=== PATIENT | female | born 2000 | race Two or more races ===

== ENCOUNTER 2023-01-10 09:42 | Outpatient (OUT) | payer MEDICAID, SELFPAY ==
--- NOTE | 2023-01-10 09:44 | US_ITS ---
[address] [address] Patient Name: JONATHAN HAN MRN: [id number] date: 2000 Sex: F Assigned Patient Location: [place] Current Patient Location: US Accession/Order Number: [id number] Exam Date: 01/10/2023 09:45 Report Date: 01/10/2023 11:42 At the request of: NIKKI TOLLIVER Procedure: US OB transvaginal EXAMINATION: US OB transvaginal HISTORY: MISSED MENSES COMPARISON: No relevant comparison available. FINDINGS: Mancera intrauterine gestation Gestational sac: 5.0 cm, 10 weeks 5 days CRL: 5.3 cm, 12 weeks 0 days + yolk sac: 5.3 mm Heart rate: 161 beats minute Cervix: Closed, 5.5 cm The uterus is normal, anteverted, anteflexed The right ovary is normal. The left ovary is not visualized Clinical age: 11 weeks 3 days Clinical BEREKET: 07/29/2023 Ultrasound age: 12 weeks 0 days Ultrasound BEREKET: 07/25/2023 US/US OB transvaginal IMPRESSION: Mancera intrauterine gestation measuring 12 weeks 0 days Electronically authenticated by: SHANA ROBLERO Date: 01/10/2023 11:42
== END 2023-01-10 09:43 | disposition home or self-care (01) ==
LOC: US 09:42
PROVIDERS: Visit Provider Obstetrics & Gynecology
DX: Z34.91 Encounter for supervision of normal pregnancy, unspecified, first trimester (principal); Z3A.12 12 weeks gestation of pregnancy
CPT/HCPCS: 76817

== ENCOUNTER 2023-02-11 16:35 | Outpatient (OUT) | payer MEDICAID, SELFPAY ==
[2023-02-11 16:58] LABS: Basophils Percent Auto 0.1 % (0.2-2.0); Eosinophils Absolute Auto 0.1 10^3/uL (0.0-0.7); Eosinophils Percent Auto 1.3 % (0.9-7.0); Hematocrit 35.4 % (36.0-48.0); Immature Granulocytes Abs Auto 0.01 10^3/uL (0.00-0.03); Immature Granulocytes Pct Auto 0.1 % (0.0-0.5); Lymphocytes Absolute Auto 1.8 10^3/uL (1.2-3.8); Lymphocytes Percent Auto 25.4 % (20.5-60.0); Mean Corpuscular HGB Conc 33.9 g/dL (29.9-35.2); Mean Corpuscular Hemoglobin 29.4 pg (26.7-34.0); Mean Corpuscular Volume 86.8 fL (81.0-99.0); Mean Platelet Volume 10.6 fL (9.5-13.5); Monocytes Absolute Auto 0.5 10^3/uL (0.3-0.8); Monocytes Percent Auto 6.5 % (1.7-12.0); Neutrophils Absolute Auto 4.7 10^3/uL (1.4-6.5); Neutrophils Percent Auto 66.6 % (43.0-75.0); Platelet Count 258 10^3/uL (150-450); Red Blood Count 4.08 10^6/uL (4.20-5.40); Red Cell Distribution Width 12.8 % (11.0-15.0)
[2023-02-11 17:07] LABS: Estimated Average Glucose 103 mg/dL; Glycohemoglobin A1C 5.2 % (4.5-6.2)
[2023-02-11 17:31] LABS: Thyroid Stimulating Hormone 0.014 uIU/mL (0.358-3.740)
[2023-02-13 04:07] LABS: HBsAg Screen Negative (Negative); HIV Ab/p24 Ag Screen Non Reactive (Non Reactive)
[2023-02-13 06:08] LABS: HCV Ab Non Reactive (Non Reactive); Rubella Antibodies, IgG 2.03 index (Immune >0.99)
[2023-02-13 10:10] LABS: Rapid Plasma Reagin, Quant Non Reactive titer (NonRea<1:1)
== END 2023-02-11 16:36 | disposition home or self-care (01) ==
LOC: LAB 16:35
PROVIDERS: Visit Provider Obstetrics & Gynecology
DX: Z36.0 Encounter for antenatal screening for chromosomal anomalies (principal); N92.6 Irregular menstruation, unspecified
CPT/HCPCS: 36415; 83036; 84443; 85025; 86592; 86762; 86803; 86850; 86900; 86901; 87086; 87340; 87389

== ENCOUNTER 2023-03-04 19:37 | Outpatient (REF) | payer MEDICAID, SELFPAY ==
[2023-03-08 14:09] LABS: Age Gdln ACOG Testing Note (.); IGP, rfx Aptima HPV ASCU Note (.)
== END 2023-03-04 19:38 | disposition home or self-care (01) ==
LOC: LAB 19:37
PROVIDERS: Visit Provider Physician Assistant
DX: Z01.419 Encounter for gynecological examination (general) (routine) without abnormal findings (principal)
CPT/HCPCS: G0145

== ENCOUNTER 2023-03-25 13:54 | Outpatient (OUT) | payer MEDICAID, SELFPAY ==
--- OUTSIDE RECORDS SUMMARY | 2023-03-25 13:58 | XMS_ITS | CCD ---
Author Name Unknown Address [address] [facility] [address] [place] [address] Organization [facility] Care Team Providers Care Gas Meter Prover Name Role Phone UNRULY ., DR JORDAN Admitting Unavailable UNRULY ., DR JORDAN Attending Unavailable KARASIK ., DR DISLA Primary Care Unavailabl e UNRULY ., DR JORDAN Consulting Unavailable UNRULY ., DR JORDAN Admitting Unavailable UNRULY ., DR JORDAN Attending Unavailable KARASIK ., DR DISLA Primary Care Unavailjane ROBLERO, DR SHANA Carranza Consulting Unavailable UNRULY ., DR JORDAN Consulting Unavailable UNRULY ., DR JORDAN Admitting Unavailable UNRULY ., DR JORDAN Attending Unavailable KARASIK ., DR DISLA Primary Care Unavailabl e UNRULY ., DR JORDAN Consulting Unavailable ZIEBER, DR DEON Way Consulting Unavailable UNRULY ., DR JORDAN Admitting Unavailable UNRULY ., DR JORDAN Attending Unavailable KARASIK ., DR DISLA Primary Care Unavailabl e UNRULY ., DR JORDAN Consulting Unavailable UNRULY ., DR JORDAN Admitting Unavailable UNRULY ., DR JORDAN Attending Unavailable KARASIK ., DR DISLA Primary Care Unavailjane ROBLERO, DR SHANA Carranza Consulting Unavailable UNRULY ., DR JORDAN Consulting Unavailable MISC, DR HENAO Primary Care Unavailable UNRULY ., DR JORDAN Admitting Unavailable UNRULY ., DR JORDAN Attending Unavailable KARASIK ., DR DISLA Consulting Unavailabl e UNRULY ., DR JORDAN Consulting Unavailable UNRULY ., DR JORDAN Procedure Practitioner Unavail able MISC, DR HENAO Primary Care Unavailable BROCK MITCHELL Admitting Unavailable BROCK MITCHELL Attending Unavailable GRECHNY ., DM JOE Consulting Unavailabl [place] Matias Consulting Unavailable UNRULY ., DR JORDAN Admitting Unavailable UNRULY ., DR JORDAN Attending Unavailable KARASIK ., DR DISLA Primary Care Unavailabl e UNRULY ., DR JORDAN Consulting Unavailable NIKKI TOLLIVER Attending Unavailable MOISÉS SHERIDAN Attending Unavailable Problems Active Problems Problem Classification Problem Date Documented Da te Episodic/Chronic Abdominal pain (4 sources) Epigastric pain; Translations: [EPIGASTRIC PAIN] Onset: 07-10-2022 Episodic Viral infection (1 source) Herpesviral infection of urogenital system, unspecified; Translations: [HERPESVIRAL INF UROGENITAL SYS UNS] Onset: 01-02-2022 Chronic Past or Other Problems Problem Classification Problem Date Documented Date Episodic/Chronic Hemorrhage during ; abruptio placenta; placenta previa (4 sources) Antepartum hemorrhage, unspecified, unspecified trimester; Translations: [ANTEPARTUM HEMORR UNS UNS TRIMESTER] Onset: 08-01-2021 Episodic Immunizations and screening for infectious disease (4 sources) Encounter for screening for infections with a predominantly sexual mode of transmission; Translations: [ENC SCREEN INFECTIONS SEXL TRANSMS] Onset: 07-25-2021 Episodic OB-related trauma to perineum and vulva (1 source) First degree perineal laceration during delivery; Translations: [FIRST DEG PERINEAL LAC DUR DELIV] Onset: 01-02-2022 Episodic Other complications of ; puerperium affecting management of mother (3 sources) Other infections with a predominantly sexual mode of transmission complicating childbirth; Translations: [OTH INF SEXL TRNSMS COMP CHILDBIRTH] Onset: 12-26-2021 Episodic Other complications of (4 sources) Maternal care for excessive growth, third trimester, not applicable or unspecified; Translations: [MAT CARE EXCSS FTL GRTH 3RD TRI UNS] Onset: 12-21-2021 Episodic Other female genital disorders (1 source) Other specified noninflammatory disorders of vagina; Translations: [OTH SPEC NONINFLAMMATORY D/O VAGINA] Onset: 07-26-2021 Episodic Other and delivery including normal (1 source) Single live ; Translations: [SINGLE LIVE ] Onset: 01-02-2022 Episodic Other screening for suspected conditions (not mental disorders or infectious disease) (12 sources) Encounter for screening for Streptococcus B; Translations: [Encounter for screening for diabetes mellitus] Onset: 08-21-2021 Episodic Residual codes; unclassified (1 source) 38 weeks gestation of ; Translations: [38 WEEKS GESTATION OF ] Onset: 01-02-2022 Episodic Results Test Name Value Interpretation Reference Range Facil ity XR ABD FLAT UP_PA Arielle 07-11 XR ABD FLAT UP_PA CH ACUTE ABDOMINAL SERIES HISTORY: Abdominal pain TECHNIQUE: A single view of the chest and 3 views of the abdomen and pelvis are submitted for review. COMPARISON: None. FINDINGS: Chest x-ray: The lungs are adequately expanded. There is no acute infiltrate. There is no evidence for effusion. The cardiomediastinal silhouette measures within normal limits. Pulmonary vascularity is unremarkable. Osseous structures are within normal limits for age.. Abdomen: There is no evidence of free air.. The bowel gas pattern is nonobstructive. There are no abnormal calcifications. Osseous structures are within normal limits. IMPRESSION: Chest x-ray: No plain film evidence for acute cardiopulmonary disease. Abdomen: 1. Nonobstructive bowel gas pattern. 2. Moderate retention of stool. Electronically authenticated by: GEORGIA MAYFIELD Date: 2022-07-10 22:30 Normal [facility] CBC AUTO DIFFon 07-10-2022 BASO # 0.0 103/ul Normal 0.0-0.1 [facility] Comment on above: Performed By: #### C BC #### [facility] [address] [place] [address] Dr. Papo Swanson Basophils/100 WBC (Bld) 0.4 % Normal 0.2-2.0 [facility] Comment on above: Performed By: #### C BC #### [facility] [address] [place] [address] Dr. Papo Swanson EO # 0.1 103/ul Normal 0.0-0.7 [facility] Comment on above: Performed By: #### C BC #### [facility] [address] [address] [address] Papo Swanson Eosinophils/100 WBC (Bld) 0.6 % Critically low 0.9-7.0 [facility] Comment on above: Performed By: #### C BC #### [facility] [address] [address] [address] Papo Swanson Erythrocyte distribution width (RBC) [Ratio] 14.4 % Normal 11.0-15.0 [facility] Comment on above: Performed By: #### C BC #### [facility] [address] [place] [address] Dr. Papo Swanson Hematocrit (Bld) [Volume fraction] 42.2 % Normal 36.0-48.0 [facility] Comment on above: Performed By: #### C BC #### [facility] [address] [place] [address] Dr. Papo Swanson Hemoglobin (Bld) [Mass/Vol] 13.7 g/dL Normal 12.0-16.0 [facility] Comment on above: Performed By: #### C BC #### [facility] [address] [place] [address] Dr. Papo Swanson IG # 0.03 10e3/ul Normal 0.00-0.03 [facility] Comment on above: Performed By: #### C BC #### [facility] [address] [place] [address] Dr. Papo Swanson IG % 0.3 % Normal 0.0-0.5 [facility] Comment on above: Performed By: #### C BC #### [facility] [address] [place] [address] Dr. Papo Swanson LYMPH # 1.5 103/ul Normal 1.2-3.8 [facility] Comment on above: Performed By: #### C BC #### [facility] [address] [place] [address] Dr. Papo Swanson Lymphocytes/100 WBC (Bld) 15.7 % Critically low 20.5-60.0 [facility] Comment on above: Performed By: #### C BC #### [facility] [address] [place] [address] Dr. Papo Swanson MANUAL DIFF REQ NO Normal [facility] Comment on above: Performed By: #### C BC #### [facility] [address] [place] [address] Dr. Papo Swanson MCH (RBC) [Entitic mass] 27.0 pg Normal 26.7-34.0 [facility] Comment on above: Performed By: #### C BC #### [facility] [address] [address] [address] Papo Swanson MCHC (RBC) [Mass/Vol] 32.5 g/dL Normal 29.9-35.2 [facility] Comment on above: Performed By: #### C BC #### [facility] [address] [address] [address] Papo Swanson MCV (RBC) [Entitic vol] 83.2 fL Normal 81.0-99.0 [facility] Comment on above: Performed By: #### C BC #### [facility] [address] [address] [address] Papo Swnason MONO # 0.6 103/ul Normal 0.3-0.8 [facility] Comment on above: Performed By: #### C BC #### [facility] [address] [place] [address] Dr. Papo Swanson Monocytes/100 WBC (Bld) 5.9 % Normal 1.7-12.0 [facility] Comment on above: Performed By: #### C BC #### [facility] [address] [place] [address] Dr. Papo Swanson NEUT # 7.4 103/ul Critically high 1.4-6.5 [facility] Comment on above: Performed By: #### C BC #### [facility] [address] [address] [address] Papo Swanson Neutrophils/100 WBC (Bld) 77.1 % Critically high 43.0-75.0 [facility] Comment on above: Performed By: #### C BC #### [facility] [address] [address] [address] Papo Swanson Platelet mean volume (Bld) [Entitic vol] 10.5 fL Normal 9.5-13.5 [facility] Comment on above: Performed By: #### C BC #### [facility] [address] [place] [address] Dr. Papo Swanson PLT 318 103/ul Normal 150-450 [facility] Comment on above: Performed By: #### C BC #### [facility] [address] [place] [address] Dr. Papo Swanson RBC 5.07 106/ul Normal 4.20-5.40 [facility] Comment on above: Performed By: #### C BC #### [facility] [address] [place] [address] Dr. Papo Swanson WBC 9.7 103/ul Normal 4.0-11.0 [facility] Comment on above: Performed By: #### C BC #### [facility] [address] [place] [address] Dr. Papo Swanson ER URINE PROFILEon 3 Bilirubin Ql (U) Negative Normal NEGATIVE [facility] Comment on above: Performed By: #### E RUR #### [facility] [address] [place] [address] Dr. Papo Swanson Clarity (U) CLEAR Normal CLEAR [facility] Comment on above: Performed By: #### E RUR #### [facility] [address] [place] [address] Dr. Papo Swanson Color (U) LT. YELLOW Normal YELLOW [facility] Comment on above: Performed By: #### E RUR #### [facility] [address] [place] [address] Dr. Papo JAIMES A micrscopic examination will be performed if indicated. Normal [facility] Comment on above: Performed By: #### E RUR #### [facility] [address] [place] [address] Dr. Papo Swanson Glucose Ql (U) Negative Normal NEGATIVE [facility] Comment on above: Performed By: #### E RUR #### [facility] [address] [place] [address] Dr. Papo Swanson Hemoglobin Ql (U) Negative Normal NEGATIVE [facility] Comment on above: Performed By: #### E RUR #### [facility] [address] [place] [address] Dr. Papo Swanson Ketones Ql (U) Negative Normal NEGATIVE [facility] Comment on above: Performed By: #### E RUR #### [facility] [address] [place] [address] Dr. Papo Swanson LEUKOCYTES Negative Normal NEGATIVE [facility] Comment on above: Performed By: #### E RUR #### [facility] [address] [place] [address] Dr. Papo Swanson Nitrite Ql (U) Negative Normal NEGATIVE [facility] Comment on above: Performed By: #### E RUR #### [facility] [address] [place] [address] Dr. Papo Swanson pH (U) 7.0 [pH] Normal 5-9 [facility] Comment on above: Performed By: #### E RUR #### [facility] [address] [place] [address] Dr. Papo Swanson SPEC GRAVITY 1.025 Normal 1.005-<=1.025 [facility] Comment on above: Performed By: #### E RUR #### [facility] [address] [place] [address] Dr. Papo Swanson UA PROTEIN Negative Normal NEGATIVE/ TRACE [facility] Comment on above: Performed By: #### E RUR #### [facility] [address] [place] [address] Dr. Papo Swanson UR MICRO IND NOT INDICATED Normal [facility] Comment on above: Performed By: #### E RUR #### [facility] [address] [place] [address] Dr. Papo Swanson Urobilinogen Qn (U) 0.2 {Kelle'U}/dL Normal 0.2 - 1.0 [facility] Comment on above: Performed By: #### E RUR #### [facility] [address] [place] [address] Dr. Papo Swanson LIPASEon 07-10-2022 Lipase [Catalytic activity/Vol] 54.0 U/L Critically low 73.0-393.0 [facility] Comment on above: Performed By: #### D RUGRPD #### [facility] [address] [place], [place] [id number] Dr. Papo Swanson PREG HCG QUALon 07-10-2022 , QUAL Negative Normal NEGATIVE [facility] Comment on above: Performed By: #### E RUR #### [facility] [address] [place] [address] Dr. Papo Swanson PROF 14(COMP METB)on 023 Albumin [Mass/Vol] 4.3 g/dL Normal 3.4-5.0 [facility] Comment on above: Performed By: #### D RUGRPD #### [facility] [address] [place] [address] Dr. Papo Swanson Albumin/Globulin [Mass ratio] 1.0 {ratio} Normal [facility] Comment on above: Performed By: #### D RUGRPD #### [facility] [address] [place] [address] Dr. Papo Swanson ALP [Catalytic activity/Vol] 91 U/L Normal 46-116 [facility] Comment on above: Performed By: #### D RUGRPD #### [facility] [address] [place] [address] Dr. Papo Swanson ALT [Catalytic activity/Vol] 19 U/L Normal 14-59 [facility] Comment on above: Performed By: #### D RUGRPD #### [facility] [address] [place] [address] Dr. Papo Swanson Anion gap [Moles/Vol] 13.9 mmol/L Normal [facility] Comment on above: Performed By: #### D RUGRPD #### [facility] [address] [place] [address] Dr. Papo Swanson AST [Catalytic activity/Vol] 13 U/L Critically low 15-37 [facility] Comment on above: Performed By: #### D RUGRPD #### [facility] [address] [place] [address] Dr. Papo Swanson Bilirubin [Mass/Vol] 0.3 mg/dL Normal 0.2-1.0 [facility] Comment on above: Performed By: #### D RUGRPD #### [facility] [address] [address] [address] Papo Swanson Calcium [Mass/Vol] 9.1 mg/dL Normal 8.5-10.1 [facility] Comment on above: Performed By: #### D RUGRPD #### [facility] [address] [address] [address] Papo Swanson Chloride [Moles/Vol] 104 mmol/L Normal 98-107 [facility] Comment on above: Performed By: #### D RUGRPD #### [facility] [address] [address] [address] Papo Swanson CO2 [Moles/Vol] 25.4 mmol/L Normal 21.0-32.0 [facility] Comment on above: Performed By: #### D RUGRPD #### [facility] [address] [address] [address] Papo Swanson Creatinine [Mass/Vol] 0.64 mg/dL Normal 0.55-1.02 [facility] Comment on above: Performed By: #### D RUGRPD #### [facility] [address] [address] [address] Papo Swanson EGFR-AF ESTONIAN >60 Normal >=60 [facility] Comment on above: Performed By: #### D RUGRPD #### [facility] [address] [address] [address] Papo Swanson EGFR-NON AF ESTONIAN >60 Normal >=60 [facility] Comment on above: Performed By: #### D RUGRPD #### [facility] [address] [address] [address] Papo Swanson Globulin (S) [Mass/Vol] 4.3 g/dL Normal [facility] Comment on above: Performed By: #### D RUGRPD #### [facility] [address] [address] [address] Papo Swanson Glucose [Mass/Vol] 101 mg/dL Normal 74-106 [facility] Comment on above: Performed By: #### D RUGRPD #### [facility] [address] [address] [address] Papo Swanson Potassium [Moles/Vol] 3.3 mmol/L Critically low 3.5-5.1 [facility] Comment on above: Performed By: #### D RUGRPD #### [facility] [address] [place] [address] Dr. Papo Swanson Protein [Mass/Vol] 8.6 g/dL Critically high 6.4-8.2 [facility] Comment on above: Performed By: #### D RUGRPD #### [facility] [address] [place] [address] Dr. Papo Swanson Sodium [Moles/Vol] 140 mmol/L Normal 136-145 [facility] Comment on above: Performed By: #### D RUGRPD #### [facility] [address] [place] [address] Dr. Papo Swanson Urea nitrogen [Mass/Vol] 8.0 mg/dL Normal 7.0-18.0 [facility] Comment on above: Performed By: #### D RUGRPD #### [facility] [address] [place] [address] Dr. Papo Swanson Urea nitrogen/Creatinin e [Mass ratio] 12.5 mg/mg Normal [facility] Comment on above: Performed By: #### D RUGRPD #### [facility] [address] [place] [address] Dr. Papo Swanson CBC AUTO DIFFon 12-27-2021 BASO # 0.0 103/ul Normal 0.0-0.1 [facility] Comment on above: Performed By: #### C BC #### [facility] [address] [place] [address] Dr. Papo Swanson Basophils/100 WBC (Bld) 0.2 % Normal 0.2-2.0 [facility] Comment on above: Performed By: #### C BC #### [facility] [address] [place] [address] Dr. Papo Swanson EO # 0.0 103/ul Normal 0.0-0.7 [facility] Comment on above: Performed By: #### C BC #### [facility] [address] [address] [address] Papo Swanson Eosinophils/100 WBC (Bld) 0.3 % Critically low 0.9-7.0 [facility] Comment on above: Performed By: #### C BC #### [facility] [address] [place] [address] Dr. Papo Swanson Erythrocyte distribution width (RBC) [Ratio] 15.4 % Critically high 11.0-15.0 [facility] Comment on above: Performed By: #### C BC #### [facility] [address] [place] [address] Dr. Papo Swanson Hematocrit (Bld) [Volume fraction] 27.8 % Critically low 36.0-48.0 [facility] Comment on above: Performed By: #### C BC #### [facility] [address] [place] [address] Dr. Papo Swanson Hemoglobin (Bld) [Mass/Vol] 8.7 g/dL Critically low 12.0-16.0 [facility] Comment on above: Performed By: #### C BC #### [facility] [address] [place] [address] Dr. Papo Swanson IG # 0.11 10e3/ul Critically high 0.00-0.03 [facility] Comment on above: Performed By: #### C BC #### [facility] [address] [place] [address] Dr. Papo Swanson IG % 0.9 % Critically high 0.0-0.5 [facility] Comment on above: Performed By: #### C BC #### [facility] [address] [place] [address] Dr. Papo Swanson LYMPH # 2.4 103/ul Normal 1.2-3.8 [facility] Comment on above: Performed By: #### C BC #### [facility] [address] [place] [address] Dr. Papo Swanson Lymphocytes/100 WBC (Bld) 19.6 % Critically low 20.5-60.0 [facility] Comment on above: Performed By: #### C BC #### [facility] [address] [place] [address] Dr. Papo Swanson MANUAL DIFF REQ NO Normal [facility] Comment on above: Performed By: #### C BC #### [facility] [address] [place] [address] Dr. Papo Swanson MCH (RBC) [Entitic mass] 24.6 pg Critically low 26.7-34.0 [facility] Comment on above: Performed By: #### C BC #### [facility] [address] [place] [address] Dr. Papo Swanson MCHC (RBC) [Mass/Vol] 31.3 g/dL Normal 29.9-35.2 [facility] Comment on above: Performed By: #### C BC #### [facility] [address] [place] [address] Dr. Papo Swanson MCV (RBC) [Entitic vol] 78.8 fL Critically low 81.0-99.0 [facility] Comment on above: Performed By: #### C BC #### [facility] [address] [place] [address] Dr. Papo Swanson MONO # 0.8 103/ul Normal 0.3-0.8 [facility] Comment on above: Performed By: #### C BC #### [facility] [address] [place] [address] Dr. Papo Swanson Monocytes/100 WBC (Bld) 6.2 % Normal 1.7-12.0 [facility] Comment on above: Performed By: #### C BC #### [facility] Laboratory [address] [place] [address] Dr. Papo Swanson NEUT # 8.9 103/ul Critically high 1.4-6.5 The [facility] Comment on above: Performed By: #### C BC #### [facility] [address] [place] [address] Dr. Papo Swanson Neutrophils/100 WBC (Bld) 72.8 % Normal 43.0-75.0 [facility] Comment on above: Performed By: #### C BC #### [facility] [address] [place] [address] Dr. Papo Swanson Platelet mean volume (Bld) [Entitic vol] 11.7 fL Normal 9.5-13.5 [facility] Comment on above: Performed By: #### C BC #### [facility] [address] [address] [address] Papo Swanson PLT 173 103/ul Normal 150-450 [facility] Comment on above: Performed By: #### C BC #### [facility] [address] [place] [address] Dr. Papo Swanson RBC 3.53 106/ul Critically low 4.20-5.40 The [facility] Comment on above: Performed By: #### C BC #### [facility] [address] [place] [address] Dr. Papo Swanson WBC 12.2 103/ul Critically high 4.0-11.0 The [facility] Comment on above: Performed By: #### C BC #### [facility] [address] [place] [address] Dr. Papo Swanson CBC AUTO DIFFon 12-26-2021 BASO # 0.0 103/ul Normal 0.0-0.1 [facility] Comment on above: Performed By: #### C BC #### [facility] [address] [place] [address] Dr. Papo Swanson Basophils/100 WBC (Bld) 0.2 % Normal 0.2-2.0 [facility] Comment on above: Performed By: #### C BC #### [facility] [address] [place] [address] Dr. Papo Swanson EO # 0.1 103/ul Normal 0.0-0.7 [facility] Comment on above: Performed By: #### C BC #### [facility] [address] [place] [address] Dr. Papo Swanson Eosinophils/100 WBC (Bld) 0.8 % Critically low 0.9-7.0 [facility] Comment on above: Performed By: #### C BC #### [facility] [address] [place] [address] Dr. Papo Swanson Erythrocyte distribution width (RBC) [Ratio] 15.2 % Critically high 11.0-15.0 [facility] Comment on above: Performed By: #### C BC #### [facility] [address] [place] [address] Dr. Papo Swanson Hematocrit (Bld) [Volume fraction] 31.5 % Critically low 36.0-48.0 [facility] Comment on above: Performed By: #### C BC #### [facility] [address] [place] [address] Dr. Papo Swanson Hemoglobin (Bld) [Mass/Vol] 9.9 g/dL Critically low 12.0-16.0 [facility] Comment on above: Performed By: #### C BC #### [facility] [address] [place] [address] Dr. Papo Swanson IG # 0.21 10e3/ul Critically high 0.00-0.03 [facility] Comment on above: Performed By: #### C BC #### [facility] [address] [place] [address] Dr. Papo Swanson IG % 2.5 % Critically high 0.0-0.5 [facility] Comment on above: Performed By: #### C BC #### [facility] [address] [place] [address] Dr. Papo Swanson LYMPH # 1.8 103/ul Normal 1.2-3.8 [facility] Comment on above: Performed By: #### C BC #### [facility] [address] [place] [address] Dr. Papo Swanson Lymphocytes/100 WBC (Bld) 20.8 % Normal 20.5-60.0 [facility] Comment on above: Performed By: #### C BC #### [facility] [address] [place] [address] Dr. Papo Swanson MANUAL DIFF REQ NO Normal [facility] Comment on above: Performed By: #### C BC #### [facility] [address] [place] [address] Dr. Papo Swanson MCH (RBC) [Entitic mass] 24.5 pg Critically low 26.7-34.0 [facility] Comment on above: Performed By: #### C BC #### [facility] [address] [place] [address] Dr. Papo Swanson MCHC (RBC) [Mass/Vol] 31.4 g/dL Normal 29.9-35.2 [facility] Comment on above: Performed By: #### C BC #### [facility] [address] [place] [address] Dr. Papo Swanson MCV (RBC) [Entitic vol] 78.0 fL Critically low 81.0-99.0 [facility] Comment on above: Performed By: #### C BC #### [facility] [address] [place] [address] Dr. Papo Swanson MONO # 0.5 103/ul Normal 0.3-0.8 [facility] Comment on above: Performed By: #### C BC #### [facility] [address] [place] [address] Dr. Papo Swanson Monocytes/100 WBC (Bld) 6.4 % Normal 1.7-12.0 [facility] Comment on above: Performed By: #### C BC #### [facility] [address] [place] [address] Dr. Papo Swanson NEUT # 5.8 103/ul Normal 1.4-6.5 [facility] Comment on above: Performed By: #### C BC #### [facility] [address] [place] [address] Dr. Papo Swanson Neutrophils/100 WBC (Bld) 69.3 % Normal 43.0-75.0 [facility] Comment on above: Performed By: #### C BC #### [facility] [address] [place] [address] Dr. Papo Swanson Platelet mean volume (Bld) [Entitic vol] 12.2 fL Normal 9.5-13.5 [facility] Comment on above: Performed By: #### C BC #### [facility] [address] [place], [place] [id number] Dr. Papo Swanson PLT 195 103/ul Normal 150-450 [facility] Comment on above: Performed By: #### C BC #### [facility] [address] [place] [address] Dr. Papo Swanson RBC 4.04 106/ul Critically low 4.20-5.40 [facility] Comment on above: Performed By: #### C BC #### [facility] [address] [place] [address] Dr. Papo Swanson WBC 8.4 103/ul Normal 4.0-11.0 [facility] Comment on above: Performed By: #### C BC #### [facility] [address] [place] [address] Dr. Papo Swanson CULTURE URINEon 12-26-2021 CULTURE URINE Culture Observations : LIGHT GROWTH OF MIXED GENITAL NICOLE. NO POTENTIAL PATHOGENS SEEN. Normal The [facility] Comment on above: Performed By: #### U RCX #### [facility] [address] [place] [address] Dr. Papo Swanson Covid-19 PCR (CVDTB)on SARS-CoV-2 (COVID-19) RNA PRIYA+probe Ql (Unsp spec) Not detected Normal NOT DETECTED The [facility] Comment on above: Result Comment: When diagnostic testing is negative, the possibility of a false negative should be considered in the context of a patient's recent exposures and the presence of clinical signs and symptoms consistent with SARS-CoV-2. This test is not yet approved or cleared by the [place] FDA. When there are no FDA-approved or cleared tests available, and other criteria are met, FDA can make tests available under an emergency access mechanism called an Emergency Use Authorization (EUA). The EUA for this test is supported by the [employer] Specialist of Health and Human Service's declaration that circumstances exist to justify the emergency use of in vitro diagnostics for the detection and/or diagnosis of the virus that causes COVID-19. This EUA will remain in effect for the duration of the COVID-19 declaration justifying emergency of IVDs, unless it is terminated or revoked by the FDA (after which the test may no longer be used). Performed By: #### C VDTBH #### [facility] [address] [address] [address] Papo Swanson DRUG SCREEN RAPID (URINE)on 12-26-2021 AMP Negative Normal NEGATIVE [facility] Comment on above: Performed By: #### D RUGRPD #### [facility] [address] [place] [address] Dr. Papo Swanson BAR Negative Normal NEGATIVE [facility] Comment on above: Performed By: #### D RUGRPD #### [facility] [address] [address] [address] Papo Swanson BUP Negative Normal NEGATIVE [facility] Comment on above: Performed By: #### D RUGRPD #### [facility] [address] [place] [address] Dr. Papo Swanson BZO Negative Normal NEGATIVE [facility] Comment on above: Performed By: #### D RUGRPD #### [facility] [address] [place] [address] Dr. Papo Swanson GIRISH Negative Normal NEGATIVE [facility] Comment on above: Performed By: #### D RUGRPD #### [facility] [address] [place] [address] Dr. Papo Swanson CUT-OFFS SEE BELOW Normal The [facility] Comment on above: Result Comment: AMP (Amphetamine): 500ng/mL, BAR (Barbituates): 200 ng/mL, BZO (Benzodiazepines): 150 ng/mL, BUP (Buprenorphine): 10 ng/mL, GIRISH (Cocaine): 150 ng/mL, mAMP (Methamphetamine): 500 ng/mL, MTD (Methadone): 200 ng/mL, OPI (Opiates): 100 ng/mL, OXY (Oxycodone): 100 ng/mL, PCP (Phencyclidine): 25 ng/mL, PPX (Propoxyphene): 300 ng/mL, THC (Cannabinoids): 50 ng/mL, TCA (Trycyclic Antidepressants): 300 ng/mL Performed By: #### D RUGRPD #### [facility] [address] [place] [address] Dr. Papo Swanson DRUG CUT HEADER DRUG CLASS TEST SYST EM CUT-OFF CONCENTRATIONS ARE FOLLOWS: Normal The [facility] Comment on above: Performed By: #### D RUGRPD #### [facility] [address] [place] [address] Dr. Papo Swanson mAMP Negative Normal NEGATIVE [facility] Comment on above: Performed By: #### D RUGRPD #### [facility] [address] [address] [address] Papo Swanson MTD Negative Normal NEGATIVE The [facility] Comment on above: Performed By: #### D RUGRPD #### [facility] [address] [address] [address] Papo Swanson OPI Negative Normal NEGATIVE [facility] Comment on above: Performed By: #### D RUGRPD #### [facility] [address] [place] [address] Dr. Papo Swanson OXY Negative Normal NEGATIVE [facility] Comment on above: Performed By: #### D RUGRPD #### [facility] [address] [address] [address] Papo Swanson PCP Negative Normal NEGATIVE [facility] Comment on above: Performed By: #### D RUGRPD #### [facility] [address] [place] [address] Dr. Papo Swanson PPX Negative Normal NEGATIVE [facility] Comment on above: Performed By: #### D RUGRPD #### [facility] [address] [place] [address] Dr. Papo Swanson TCA Negative Normal NEGATIVE The [facility] Comment on above: Performed By: #### D RUGRPD #### [facility] [address] [place] [address] Dr. Papo Swanson THC Negative Normal NEGATIVE The [facility] Comment on above: Performed By: #### D RUGRPD #### [facility] [address] [place] [address] Dr. Papo Swanson TYPE AND SCREENon 12-26-2021 TYPE AND SCREEN Negative Normal [facility] Comment on above: Performed By: #### D RUGRPD #### [facility] [address] [place], [place] [id number] Dr. Papo Swanson UA (CLEAN/CATCH) [employer]GER/MICRO I F IND.on 12-26-2021 Bilirubin Ql (U) Negative Normal NEGATIVE [facility] Comment on above: Performed By: #### D RUGRPD #### [facility] [address] [place] [address] Dr. Papo Swanson Clarity (U) CLEAR Normal CLEAR [facility] Comment on above: Performed By: #### D RUGRPD #### [facility] [address] [place] [address] Dr. Papo Swanson Color (U) LT. YELLOW Normal YELLOW [facility] Comment on above: Performed By: #### D RUGRPD #### [facility] [address] [place] [address] Dr. Papo Swanson Glucose Ql (U) Negative Normal NEGATIVE [facility] Comment on above: Performed By: #### D RUGRPD #### [facility] [address] [place] [address] Dr. Papo Swanson Hemoglobin Ql (U) Negative Normal NEGATIVE [facility] Comment on above: Performed By: #### D RUGRPD #### [facility] [address] [place] [address] Dr. Papo Swanson Ketones Ql (U) Negative Normal NEGATIVE [facility] Comment on above: Performed By: #### D RUGRPD #### [facility] [address] [place] [address] Dr. Papo Swanson LEUKOCYTES LARGE Abnormal NEGATIVE [facility] Comment on above: Performed By: #### D RUGRPD #### [facility] [address] [place] [address] Dr. Papo Swanson Nitrite Ql (U) Negative Normal NEGATIVE [facility] Comment on above: Performed By: #### D RUGRPD #### [facility] [address] [place] [address] Dr. Papo Swanson pH (U) 7.5 [pH] Normal 5-9 [facility] Comment on above: Performed By: #### D RUGRPD #### [facility] [address] [place] [address] Dr. Papo Swanson SPEC GRAVITY 1.015 Normal 1.005-<=1.025 [facility] Comment on above: Performed By: #### D RUGRPD #### [facility] [address] [place] [address] Dr. Papo Swanson UA PROTEIN Negative Normal NEGATIVE/ TRACE [facility] Comment on above: Performed By: #### D RUGRPD #### [facility] [address] [place] [address] Dr. Papo Swanson UR MICRO IND INDICATED Normal [facility] Comment on above: Performed By: #### D RUGRPD #### [facility] [address] [place] [address] Dr. Papo Swanson Urobilinogen Qn (U) 0.2 {Kelle'U}/dL Normal 0.2 - 1.0 [facility] Comment on above: Performed By: #### D RUGRPD #### [facility] [address] [place] [address] Dr. Papo Swanson URINE MICROSCOPIC ONLYon BACTERIA SMALL Abnormal NONE SEEN The [facility] Comment on above: Performed By: #### D RUGRPD #### [facility] [address] [place] [address] Dr. Papo Swanson Bacteria identified Cx Nom (U) INDICATED Normal [facility] Comment on above: Performed By: #### D RUGRPD #### [facility] [address] [place] [address] Dr. Papo Swanson CAST NONE SEEN Normal NONE SEEN The [facility] Comment on above: Performed By: #### D RUGRPD #### [facility] [address] [place] [address] Dr. Papo Swanson Crystals LM Nom (Urine sed) NONE SEEN Normal NONE SEEN The [facility] Comment on above: Performed By: #### D RUGRPD #### [facility] [address] [place] [address] Dr. Papo Swanson Epithelial cells LM Ql (Urine sed) MODERATE Abnormal NONE SEEN /RARE The [facility] Comment on above: Performed By: #### D RUGRPD #### [facility] [address] [address] [address] Papo Swanson MUCOUS NONE SEEN Normal NONE SEEN The [facility] Comment on above: Performed By: #### D RUGRPD #### [facility] [address] [address] [address] Papo Swanson RBC 0-2 Normal 0-2 [facility] Comment on above: Performed By: #### D RUGRPD #### [facility] [address] [address] [address] Papo Swanson WBC 10-20 Abnormal NONE SEEN The [facility] Comment on above: Performed By: #### D RUGRPD #### [facility] [address] [place] [address] Dr. Papo Swanson US PREG GROWTHon 12-21-2021 US PREG GROWTH EXAMINATION: US PREG GROWTH HISTORY: Excessive growth affecting management of mother COMPARISON: No relevant comparison available. FINDINGS: Heart Rate: 156.1 bpm Amniotic Fluid Volume: 10.8 cm, largest pocket 4.2 cm Number: 1.0 Position: Cephalic presentation, longitudinal lie Maximum Vertical Pocket: 2.2 cm cm 1.7 cm cm 4.2 cm cm 2.7 cm cm BIOMETRY: BPD: 9.2 cm cm; 37 weeks 3 days; 57% HC: 33.7 cmcm; 38 weeks 5 days, 46% AC: 34.7 cm cm; 38 weeks 4 days, 82% FL: 7.2 cm cm; 36 weeks 4 days; 20.0 % % EFW: 3371.7 grams, 7 lbs. 7 oz., 63% FL/AC: 20.6 FL/BPD: 77.7 HC/AC: 1.0 GESTATIONAL AGE: Age by EDC: 38 weeks 0 days BEREKET by EDC: 01/04/2022 Age by US: 37 weeks 6 days BEREKET by US: 01/05/2022 IMPRESSION: Normal interval growth Electronically authenticated by: SHANA ROBLERO Date: 2021-12-21 18:09 Normal The [facility] GROUP B STREP CULTUREon 11-23 S. agalactiae Ag Ql (Unsp spec) Culture Observations: NEGATIVE FOR GROUP B STREPTOCOCCUS. Normal The [facility] Comment on above: Performed By: #### D RUGRPD #### [facility] [address] [place] [address] Dr. Papo Swanson GLUCOSE - 1HRon 10-16-2021 Glucose [Mass/Vol] 148 mg/dL Critically high 74-106 [facility] Comment on above: Performed By: #### G LU1HR #### [facility] [address] [place] [address] Dr. Papo Swanson HEMOGRAM AND PLATELon 2021 Hematocrit (Bld) [Volume fraction] 31.5 % Critically low 36.0-48.0 [facility] Comment on above: Performed By: #### H H #### [facility] [address] [place] [address] Dr. Papo Swanson Hemoglobin (Bld) [Mass/Vol] 10.4 g/dL Critically low 12.0-16.0 [facility] Comment on above: Performed By: #### H H #### [facility] [address] [place] [address] Dr. Papo Swanson MCH (RBC) [Entitic mass] 27.8 pg Normal 26.7-34.0 [facility] Comment on above: Performed By: #### H H #### [facility] [address] [place] [address] Dr. Papo Swanson MCHC (RBC) [Mass/Vol] 33.0 g/dL Normal 29.9-35.2 [facility] Comment on above: Performed By: #### H H #### [facility] [address] [place] [address] Dr. Papo Swanson MCV (RBC) [Entitic vol] 84.2 fL Normal 81.0-99.0 [facility] Comment on above: Performed By: #### H H #### [facility] [address] [place] [address] Dr. Papo Swanson PLT 248 103/ul Normal 150-450 The [facility] Comment on above: Performed By: #### H H #### [facility] [address] [place] [address] Dr. Papo Swanson RBC 3.74 106/ul Critically low 4.20-5.40 [facility] Comment on above: Performed By: #### H H #### [facility] [address] [address] [address] Papo Swanson WBC 7.4 103/ul Normal 4.0-11.0 [facility] Comment on above: Performed By: #### H H #### [facility] [id number] Papo Swanson US PREG ANATOMY SINGLEon US PREG ANATOMY SINGLE EXAMINATION: US PREG ANATOMY SINGLE HISTORY: screening COMPARISON: No relevant comparison available. TECHNIQUE: Transabdominal sonographic examination was performed for obstetrical and evaluation. FINDINGS: Number: 1 Heart activity: Present Amniotic Fluid Volume: Subjectively normal position: Cephalic presentation, longitudinal lie Placental Location: Anterior, grade 1. The placental edge is 6.8 cm from the cervical os Cervix Length: 4.6 cm, closed Normal structures: Cerebellum. Choroid plexus. Cisterna magna. Lateral cerebral ventricles. Orbits. Midline falx. Hard palate. 4-chamber heart. RVOT. LVOT. Stomach. Kidneys. Bladder. Umbilical cord insertion into abdomen. 3 vessel cord. Cervical spine. Thoracic spine. Lumbar spine. Sacral spine. Right upper extremity. Left upper extremity. Right lower extremity. Left lower extremity. Suboptimally seen: None. Abnormalities/Other: None BIOMETRY: BPD: 5.0 cm 21 weeks 1 days , 73% HC: 18.2 cm 20 weeks 4 days, 42% AC: 16.9 cm 21 weeks 6 days, 83% FL: 3.7 cm 21 weeks 5 days, 80% EFW:441.8 grams; 1 lb. 0 oz., 94% FL/AC: 21.9 FL/BPD: 73.7 HC/AC: 1.1 GESTATIONAL AGE: Age by EDC: 20 weeks 4 days BEREKET by EDC: 01/04/2022 Age by current US: 21 weeks 1 day BEREKET by current US: 12/31/2021 IMPRESSION: Normal anatomy scan *Reference: [employer] Practice Guideline for the performance of Obstetric Ultrasound Examinations, December 22, 2006. Electronically authenticated by: SHANA ROBLERO Date: 2021-08-21 16:22 Normal The [facility] [facility] US PREG CERVICAL LENGTHon US PREG CERVICAL LENGTH EXAMINATION: US PREG CERVICAL LENGTH HISTORY: Antepartum hemorrhage ; vaginal bleeding COMPARISON: No relevant comparison available. FINDINGS: Heart rate: 153 bpm Cervix: 4.6 cm in length; closed. Other: Small collection of avascular echogenic material within lower uterine cavity adjacent the internal os, 2.0 x 1.7 x 0.6 cm. IMPRESSION: 1. Single live intrauterine . 2. Small collection of debris adjacent internal os, likely old, clotted blood products. No appreciable acute hemorrhage. Electronically authenticated by: DEON STEINER Date: 2021-08-01 13:33 Normal [facility] CHLAMYDIA/GONOCOCCUS PRIYA (SW AB/URINE/PAPon 07-28-2021 Chlamydia trachomatis, PRIYA Negative Normal Negative [facility] Comment on above: Performed By: #### C T/NGNA #### [facility] [address] [address] [address] Papo Swanson Neisseria gonorrhoeae, PRIYA Negative Normal Negative [facility] Comment on above: Performed By: #### C T/NGNA #### [facility] [address] [address] [address] Papo Swanson VAGINITIS/VAGINOSIS DNA PROB Anthony 07-27-2021 Zhane species Positive Abnormal Negative The [facility] Comment on above: Performed By: #### E RUR #### [facility] [address] [address] [address] Papo Swanson Gardnerella vaginalis Negative Normal Negative [facility] Comment on above: Performed By: #### E RUR #### [facility] [address] [address] [address] Papo Swanson Trichomonas vaginalis Negative Normal Negative [facility] Comment on above: Performed By: #### E RUR #### [facility] [address] [address] [address] Papo Swanson Encounters Encounter Date Encounter Type Care Provider Facility Start: 03-04-2023 End: 03-04-2023 ambulatory MOISÉS SHERIDAN Not Available Start: 02-04-2023 End: 02-04-2023 ambulatory NIKKI TOLLIVER Not Available Start: 07-10-2022 End: 07-11-[address] DOCTOR BURTON Facility:[facility] Start: 12-26-2021 End: 12-28-2021 Evaluation and management of inpatient DR DOCTOR BURTON Facility:[facility] Start: 12-21-2021 End: 12-22-[address] NIKKI TOLLIVER . Facility:[facility] Start: 12-12-2021 End: 12-12-[address] NIKKI TOLLIVER . Facility:[facility] Start: 10-16-2021 End: 10-17-[address] NIKKI TOLLIVER . Facility:[facility] Start: 08-21-2021 End: 08-22-[address] NIKKI TOLLIVER . Facility:[facility] Start: 08-01-2021 End: 08-02-[address] NIKKI TOLLIVER . Facility:[facility] Start: 07-25-2021 End: 07-25-[address] NIKKI TOLLIVER . Facility: Procedures Date Procedure Procedure Detail Performing Clinician Start: 12-26-2021 Delivery of Products of Conception, External Approach DR NIKKI TOLLIVER . Start: 12-26-2021 Repair Perineum Skin , External Approach DR NIKKI TOLLIVER . Payers Date Payer Category Payer Medicaid [id number] 2000 Unknown [id number] 2.16.84 [id number] 2001 Unknown [id number] 2.16.84 [id number] 2001 Unknown [id number] 2.16.84 [id number] 2001 Unknown [id number] 2.16.84 [id number] 2001 Unknown [id number] 2.16.84 [id number] 2001 Unknown [id number] 2.16.84 [id number] 2001 Unknown [id number] 2.16.84 [id number] 2001 Unknown [id number] 2.16.84 [id number] 2001 Unknown [id number] 2.16.840 .[id number] 2001 Unknown [id number] 2.16.840. [id number] 1959 Unknown [id number] Summary Purpose Family History No Family History Records FoundNo Family History Records Found Advance Directives No Advanced Directives Records FoundNo Advanced Directives Records Found Additional Source Comments INFORMATION SOURCE (unrecogn ized section and content) DATE CREATED AUTHOR 07/13/2022 [facility] DATE CREATED AUTHOR BOB STRANGE 03/06/2023 [facility] FOR RECORDS PERTAINING TO PATIENTS WHO ARE OR HAVE BEEN ENROLLED IN A CHEMICAL DEPENDENCY/SUBSTANCEABUSE PROGRAM, SOME INFORMATION MAY BE OMITTED. This clinical summary was aggregated from multiple sources. Caution should be exercised in using it in the provision of clinical care. This summary normalizes information from multiple sources, and as a consequence, information in this document may materially change the coding, format and clinical context of patient data. In addition, data may be omitted in some cases. CLINICAL DECISIONS SHOULD BE BASED ON THE PRIMARY CLINICAL RECORDS. [facility]. provides no warranty or guarantee of the accuracy or completeness of information in this document.
--- NOTE | 2023-03-25 14:02 | US_ITS ---
[address] [address] Patient Name: JONATHAN HAN MRN: [id number] date: 2000 Sex: F Assigned Patient Location: US Current Patient Location: Accession/Order Number: [id number] Exam Date: 03/25/2023 14:32 Report Date: 03/26/2023 07:20 At the request of: NIKKI TOLLIVER Procedure: US OB cervical length EXAMINATION: US OB anatomy, US OB cervical length HISTORY: anotomic survey COMPARISON: 01/10/2023 TECHNIQUE: Transabdominal sonographic examination was performed for obstetrical and evaluation. FINDINGS: Number: 1 Heart Rate: 135.0 bpm H.B. /min position: Breech presentation, longitudinal lie Amniotic Fluid Volume: Subjectively normal Placental Location: Anterior, grade 0. Placental edge 5.9 cm from the internal os Cervix Length: 4 cm , closed Normal anatomy: Lateral ventricles, cerebellum, posterior fossa, nose, lips, orbits, four-chamber heart, RVOT, LVOT, diaphragm, stomach, kidneys, abdominal cord insertion, bladder, umbilical arteries, three-vessel cord, spine, extremities Abnormal: 4 mm echogenic cardiac focus BIOMETRY: BPD: 5.1 cm 21 weeks 3 days , 25% HC: 19.2 cm 21 weeks 3 days, 18% AC: 17.1 cm 22 weeks 0 days, 43% FL: 4.0 cm 23 weeks 0 days , 73% EFW:494.1 grams; 1 lb. 1 oz. is, 61% FL/AC: 23.6 FL/BPD: 79.0 HC/AC: 1.1 GESTATIONAL AGE: Age by EDC: 22 weeks 0 days Age by current US: 22 weeks 0 days BEREKET by current US: 07/29/2023 BEREKET by EDC: 07/29/2023 US/US OB cervical length IMPRESSION: 4 mm single echogenic cardiac focus, nonspecific Otherwise normal anatomy scan *Reference: [employer] Practice Guideline for the performance of Obstetric Ultrasound Examinations, December 22, 2006. Electronically authenticated by: SHANA ROBLERO Date: 03/26/2023 07:20
--- NOTE | 2023-03-25 14:02 | US_ITS ---
[address] [address] Patient Name: JONATHAN HAN MRN: [id number] date: 2000 Sex: F Assigned Patient Location: US Current Patient Location: Accession/Order Number: [id number] Exam Date: 03/25/2023 14:32 Report Date: 03/26/2023 07:20 At the request of: NIKKI TOLLIVER Procedure: US OB anatomy EXAMINATION: US OB anatomy, US OB cervical length HISTORY: anotomic survey COMPARISON: 01/10/2023 TECHNIQUE: Transabdominal sonographic examination was performed for obstetrical and evaluation. FINDINGS: Number: 1 Heart Rate: 135.0 bpm H.B. /min position: Breech presentation, longitudinal lie Amniotic Fluid Volume: Subjectively normal Placental Location: Anterior, grade 0. Placental edge 5.9 cm from the internal os Cervix Length: 4 cm , closed Normal anatomy: Lateral ventricles, cerebellum, posterior fossa, nose, lips, orbits, four-chamber heart, RVOT, LVOT, diaphragm, stomach, kidneys, abdominal cord insertion, bladder, umbilical arteries, three-vessel cord, spine, extremities Abnormal: 4 mm echogenic cardiac focus BIOMETRY: BPD: 5.1 cm 21 weeks 3 days , 25% HC: 19.2 cm 21 weeks 3 days, 18% AC: 17.1 cm 22 weeks 0 days, 43% FL: 4.0 cm 23 weeks 0 days , 73% EFW:494.1 grams; 1 lb. 1 oz. is, 61% FL/AC: 23.6 FL/BPD: 79.0 HC/AC: 1.1 GESTATIONAL AGE: Age by EDC: 22 weeks 0 days Age by current US: 22 weeks 0 days BEREKET by current US: 07/29/2023 BEREKET by EDC: 07/29/2023 US/US OB anatomy IMPRESSION: 4 mm single echogenic cardiac focus, nonspecific Otherwise normal anatomy scan *Reference: [employer] Practice Guideline for the performance of Obstetric Ultrasound Examinations, December 22, 2006. Electronically authenticated by: SHANA ROBLERO Date: 03/26/2023 07:20
== END 2023-03-25 13:55 | disposition home or self-care (01) ==
LOC: US 13:54
PROVIDERS: Visit Provider Obstetrics & Gynecology
DX: Z34.92 Encounter for supervision of normal pregnancy, unspecified, second trimester (principal); Z3A.22 22 weeks gestation of pregnancy
CPT/HCPCS: 76805; 76817

== ENCOUNTER 2023-05-06 08:57 | Outpatient (OUT) | payer MEDICAID, SELFPAY ==
--- OUTSIDE RECORDS SUMMARY | 2023-05-06 09:09 | XMS_ITS | CCD ---
Author Name Unknown Address [address] [place] [address] Organization [employer] Care Team Providers Care Charter Coach Driver Name Role Phone UNRULY ., DR JORDAN [...] KARASIK ., DR DISLA Primary Care Unavailjane e UNRULY ., DR JORDAN Consulting Unavailable NIKKI TOLLIVER Attending Unavailable NIKKI TOLLIVER Attending Unavailable MOISÉS SHERIDAN [...] [place] Date: 2022-07-10 22:30 Normal [facility] CBC AUTO DIFFon 07-10-2022 BASO # 0.0 103/ul Normal 0.0-0.1 [facility] Comment on above: Performed By: #### C BC #### [facility] [address] [place] [address] Dr. Papo Swanson Basophils/100 WBC (Bld) 0.4 % Normal 0.2-2.0 [facility] Comment on above: Performed By: #### C BC #### [facility] [address] [address] [address] Ppao Swanson EO # 0.1 103/ul Normal 0.0-0.7 [facility] Comment on above: Performed By: #### C BC #### [facility] [address] [address] [address] Papo Swanson Eosinophils/100 WBC (Bld) 0.6 % Critically low 0.9-7.0 [facility] Comment on above: Performed By: #### C BC #### [facility] [address] [address] [address] Papo Swanson Erythrocyte distribution width (RBC) [Ratio] 14.4 % Normal 11.0-15.0 [facility] Comment on above: Performed By: #### C BC #### [facility] [address] [place] [address] Dr. Papo Swanson Hematocrit (Bld) [Volume fraction] 42.2 % Normal 36.0-48.0 [facility] Comment on above: Performed By: #### C BC #### [facility] [address] [place] [address] Dr. Papo Swanson Hemoglobin (Bld) [Mass/Vol] 13.7 g/dL Normal 12.0-16.0 [facility] Comment on above: Performed By: #### C BC #### [facility] [address] [place] [address] Dr. Papo Swanson IG # 0.03 10e3/ul Normal 0.00-0.03 [facility] Comment on above: Performed By: #### C BC #### [facility] [address] [place] [address] Dr. Papo Swanson IG % 0.3 % Normal 0.0-0.5 [facility] Comment on above: Performed By: #### C BC #### [facility] [address] [place] [address] Dr. Papo Swanson LYMPH # 1.5 103/ul Normal 1.2-3.8 [facility] Comment on above: Performed By: #### C BC #### [facility] [address] [place] [address] Dr. Papo Swanson Lymphocytes/100 WBC (Bld) 15.7 % Critically low 20.5-60.0 [facility] Comment on above: Performed By: #### C BC #### [facility] [address] [place] [address] Dr. Papo Swanson MANUAL DIFF REQ NO Normal [facility] Comment on above: Performed By: #### C BC #### [facility] [address] [place] [address] Dr. Papo Swanson MCH (RBC) [Entitic mass] 27.0 pg Normal 26.7-34.0 [facility] Comment on above: Performed By: #### C BC #### [facility] [address] [place] [address] Dr. Papo Swanson MCHC (RBC) [Mass/Vol] 32.5 g/dL Normal 29.9-35.2 [facility] Comment on above: Performed By: #### C BC #### [facility] [address] [place] [address] Dr. Papo Swanson MCV (RBC) [Entitic vol] 83.2 fL Normal 81.0-99.0 [facility] Comment on above: Performed By: #### C BC #### [facility] [address] [place] [address] Dr. Papo Swanson MONO # 0.6 103/ul Normal 0.3-0.8 [facility] Comment on above: Performed By: #### C BC #### [facility] [address] [place] [address] Dr. Papo Swanson Monocytes/100 WBC (Bld) 5.9 % Normal 1.7-12.0 [facility] Comment on above: Performed By: #### C BC #### [facility] [address] [place] [address] Dr. Papo Swanson NEUT # 7.4 103/ul Critically high 1.4-6.5 [facility] Comment on above: Performed By: #### C BC #### [facility] [address] [place] [address] Dr. Papo Swanson Neutrophils/100 WBC (Bld) 77.1 % Critically high 43.0-75.0 [facility] Comment on above: Performed By: #### C BC #### [facility] [address] [place] [address] Dr. Papo Swanson Platelet mean volume (Bld) [Entitic vol] 10.5 fL Normal 9.5-13.5 [facility] Comment on above: Performed By: #### C BC #### [facility] [address] [place] [address] Dr. Papo Swanson PLT 318 103/ul Normal 150-450 [facility] Comment on above: Performed By: #### C BC #### [facility] [address] [place] [address] Dr. Papo Swanson RBC 5.07 106/ul Normal 4.20-5.40 [facility] Comment on above: Performed By: #### C BC #### [facility] [address] [place] [address] Dr. Papo Swanson WBC 9.7 103/ul Normal 4.0-11.0 [facility] Comment on above: Performed By: #### C BC #### [facility] [address] [place] [address] Dr. Papo Swanson ER URINE PROFILEon 3 Bilirubin Ql (U) Negative Normal NEGATIVE [facility] Comment on above: Performed By: #### E RUR #### [facility] [address] [place] [address] Dr. Papo Swanson Clarity (U) CLEAR Normal CLEAR [facility] Comment on above: Performed By: #### E RUR #### [facility] [address] [place] [address] Dr. Papo Swanson Color (U) LT. YELLOW Normal YELLOW [facility] Comment on above: Performed By: #### E RUR #### [facility] [address] [place] [address] Dr. Papo JAIMES A micrscopic examination will be performed if indicated. Normal [facility] Comment on above: Performed By: #### E RUR #### [facility] [address] [place] [address] Dr. Papo Swanson Glucose Ql (U) Negative Normal NEGATIVE [facility] Comment on above: Performed By: #### E RUR #### [facility] [address] [place] [address] Dr. Papo Swanson Hemoglobin Ql (U) Negative Normal NEGATIVE [facility] Comment on above: Performed By: #### E RUR #### [facility] [address] [place] [address] Dr. Papo Swanson Ketones Ql (U) Negative Normal NEGATIVE [facility] Comment on above: Performed By: #### E RUR #### [facility] [address] [place] [address] Dr. Papo Swanson LEUKOCYTES Negative Normal NEGATIVE [facility] Comment on above: Performed By: #### E RUR #### [facility] [address] [place] [address] Dr. Papo Swanson Nitrite Ql (U) Negative Normal NEGATIVE [facility] Comment on above: Performed By: #### E RUR #### [facility] [address] [place] [address] Dr. Papo Swanson pH (U) 7.0 [pH] Normal 5-9 [facility] Comment on above: Performed By: #### E RUR #### [facility] [address] [place] [address] Dr. Papo Swanson SPEC GRAVITY 1.025 Normal 1.005-<=1.025 [facility] Comment on above: Performed By: #### E RUR #### [facility] [address] [place] [address] Dr. Papo Swanson UA PROTEIN Negative Normal NEGATIVE/ TRACE [facility] Comment on above: Performed By: #### E RUR #### [facility] [address] [place] [address] Dr. Papo Swanson UR MICRO IND NOT INDICATED Normal [facility] Comment on above: Performed By: #### E RUR #### [facility] [address] [place] [address] Dr. Papo Swanson Urobilinogen Qn (U) 0.2 {Kelle'U}/dL Normal 0.2 - 1.0 [facility] Comment on above: Performed By: #### E RUR #### [facility] [address] [place] [address] Dr. Papo Swanson LIPASEon 07-10-2022 Lipase [Catalytic activity/Vol] 54.0 U/L Critically low 73.0-393.0 [facility] Comment on above: Performed By: #### D RUGRPD #### [facility] [address] [address] [address] Papo Swanson PREG HCG QUALon 07-10-2022 , QUAL Negative Normal NEGATIVE [facility] Comment on above: Performed By: #### E RUR #### [facility] [address] [place] [address] Dr. Papo Swanson PROF 14(COMP METB)on 023 Albumin [Mass/Vol] 4.3 g/dL Normal 3.4-5.[address] [facility] Comment on above: Performed By: #### D RUGRPD #### [facility] [address] [place] [address] Dr. Papo Swanson Albumin/Globulin [Mass ratio] 1.0 {ratio} Normal [facility] Comment on above: Performed By: #### D RUGRPD #### [facility] [address] [place] [address] Dr. Papo Swanson ALP [Catalytic activity/Vol] 91 U/L Normal 46-116 [facility] Comment on above: Performed By: #### D RUGRPD #### [facility] [address] [place] [address] Dr. Papo Swanson ALT [Catalytic activity/Vol] 19 U/L Normal 14-59 [facility] Comment on above: Performed By: #### D RUGRPD #### [facility] [address] [place] [address] Dr. Papo Swanson Anion gap [Moles/Vol] 13.9 mmol/L Normal [facility] Comment on above: Performed By: #### D RUGRPD #### [facility] [address] [place] [address] Dr. Papo Swanson AST [Catalytic activity/Vol] 13 U/L Critically low 15-37 [facility] Comment on above: Performed By: #### D RUGRPD #### [facility] [address] [place] [address] Dr. Papo Swanson Bilirubin [Mass/Vol] 0.3 mg/dL Normal 0.2-1.0 [facility] Comment on above: Performed By: #### D RUGRPD #### [facility] [address] [address] [address] Papo Swanson Calcium [Mass/Vol] 9.1 mg/dL Normal 8.5-10.1 [facility] Comment on above: Performed By: #### D RUGRPD #### [facility] [address] [address] [address] Papo Swanson Chloride [Moles/Vol] 104 mmol/L Normal 98-107 [facility] Comment on above: Performed By: #### D RUGRPD #### [facility] [address] [address] [address] Papo Swanson CO2 [Moles/Vol] 25.4 mmol/L Normal 21.0-32.0 [facility] Comment on above: Performed By: #### D RUGRPD #### [facility] [address] [place] [address] Dr. Papo Swanson Creatinine [Mass/Vol] 0.64 mg/dL Normal 0.55-1.02 [facility] Comment on above: Performed By: #### D RUGRPD #### [facility] [address] [address] [address] Papo Swanson EGFR-AF SYRIAN >60 Normal >=[address] [facility] Comment on above: Performed By: #### D RUGRPD #### [facility] [address] [address] [address] Papo Swanson EGFR-NON AF SYRIAN >60 Normal >=60 [facility] Comment on above: Performed By: #### D RUGRPD #### [facility] [address] [address] [address] Papo Swanson Globulin (S) [Mass/Vol] 4.3 g/dL Normal [facility] Comment on above: Performed By: #### D RUGRPD #### [facility] [address] [address] [address] Papo Swanson Glucose [Mass/Vol] 101 mg/dL Normal 74-106 [facility] Comment on above: Performed By: #### D RUGRPD #### [facility] [address] [place] [address] Dr. Papo Swanson Potassium [Moles/Vol] 3.3 mmol/L Critically low 3.5-5.1 [facility] Comment on above: Performed By: #### D RUGRPD #### [facility] [address] [place] [address] Dr. Papo Swanson Protein [Mass/Vol] 8.6 g/dL Critically high 6.4-8.2 [facility] Comment on above: Performed By: #### D RUGRPD #### [facility] [address] [place] [address] Dr. Papo Swanson Sodium [Moles/Vol] 140 mmol/L Normal 136-[address] [facility] Comment on above: Performed By: #### D RUGRPD #### [facility] [address] [place] [address] Dr. Papo Swanson Urea nitrogen [Mass/Vol] 8.0 mg/dL Normal 7.0-18.0 [facility] Comment on above: Performed By: #### D RUGRPD #### [facility] [address] [place] [address] Dr. Papo Swanson Urea nitrogen/Creatinin e [Mass ratio] 12.5 mg/mg Normal [facility] Comment on above: Performed By: #### D RUGRPD #### [facility] [address] [place] [address] Dr. Papo Swanson CBC AUTO DIFFon 12-27-2021 BASO # 0.0 103/ul Normal 0.0-0.1 [facility] Comment on above: Performed By: #### C BC #### [facility] [address] [place] [address] Dr. Papo Swanson Basophils/100 WBC (Bld) 0.2 % Normal 0.2-2.0 [facility] Comment on above: Performed By: #### C BC #### [facility] [address] [place] [address] Dr. Papo Swanson EO # 0.0 103/ul Normal 0.0-0.7 [facility] Comment on above: Performed By: #### C BC #### [facility] [address] [address] [address] Papo Swanson Eosinophils/100 WBC (Bld) 0.3 % Critically low 0.9-7.0 [facility] Comment on above: Performed By: #### C BC #### [facility] [address] [place] [address] Dr. Papo Swanson Erythrocyte distribution width (RBC) [Ratio] 15.4 % Critically high 11.0-15.0 [facility] Comment on above: Performed By: #### C BC #### [facility] [address] [place] [address] Dr. Papo Swanson Hematocrit (Bld) [Volume fraction] 27.8 % Critically low 36.0-48.0 [facility] Comment on above: Performed By: #### C BC #### [facility] [address] [place] [address] Dr. Papo Swanson Hemoglobin (Bld) [Mass/Vol] 8.7 g/dL Critically low 12.0-16.0 [facility] Comment on above: Performed By: #### C BC #### [facility] [address] [place] [address] Dr. Papo Swanson IG # 0.11 10e3/ul Critically high 0.00-0.03 [facility] Comment on above: Performed By: #### C BC #### [facility] [address] [place] [address] Dr. Papo Swanson IG % 0.9 % Critically high 0.0-0.5 [facility] Comment on above: Performed By: #### C BC #### [facility] [address] [place] [address] Dr. Papo Swanson LYMPH # 2.4 103/ul Normal 1.2-3.8 [facility] Comment on above: Performed By: #### C BC #### [facility] [address] [place] [address] Dr. Papo Swanson Lymphocytes/100 WBC (Bld) 19.6 % Critically low 20.5-60.0 [facility] Comment on above: Performed By: #### C BC #### [facility] [address] [place] [address] Dr. Papo Swanson MANUAL DIFF REQ NO Normal [facility] Comment on above: Performed By: #### C BC #### [facility] [address] [place] [address] Dr. Papo Swanson MCH (RBC) [Entitic mass] 24.6 pg Critically low 26.7-34.0 [facility] Comment on above: Performed By: #### C BC #### [facility] [address] [place] [address] Dr. Papo Swanson MCHC (RBC) [Mass/Vol] 31.3 g/dL Normal 29.9-35.2 [facility] Comment on above: Performed By: #### C BC #### [facility] [address] [place] [address] Dr. Papo Swanson MCV (RBC) [Entitic vol] 78.8 fL Critically low 81.0-99.0 [facility] Comment on above: Performed By: #### C BC #### [facility] [address] [place] [address] Dr. Papo Swanson MONO # 0.8 103/ul Normal 0.3-0.8 [facility] Comment on above: Performed By: #### C BC #### [facility] [address] [place] [address] Dr. Papo Swanson Monocytes/100 WBC (Bld) 6.2 % Normal 1.7-12.0 [facility] Comment on above: Performed By: #### C BC #### [facility] [address] [place] [address] Dr. Papo Swanson NEUT # 8.9 103/ul Critically high 1.4-6.5 [facility] Comment on above: Performed By: #### C BC #### [facility] [address] [place] [address] Dr. Papo Swanson Neutrophils/100 WBC (Bld) 72.8 % Normal 43.0-75.0 [facility] Comment on above: Performed By: #### C BC #### [facility] [address] [place] [address] Dr. Papo Swanson Platelet mean volume (Bld) [Entitic vol] 11.7 fL Normal 9.5-13.5 [facility] Comment on above: Performed By: #### C BC #### [facility] [address] [place] [address] Dr. Papo Swanson PLT 173 103/ul Normal 150-450 [facility] Comment on above: Performed By: #### C BC #### [facility] [address] [place] [address] Dr. Papo Swanson RBC 3.53 106/ul Critically low 4.20-5.40 [facility] Comment on above: Performed By: #### C BC #### [facility] [address] [place] [address] Dr. Papo Swanson WBC 12.2 103/ul Critically high 4.0-11.[address] [facility] Comment on above: Performed By: #### C BC #### [facility] [address] [place] [address] Dr. Papo Swanson CBC AUTO DIFFon 12-26-2021 BASO # 0.0 103/ul Normal 0.0-0.1 [facility] Comment on above: Performed By: #### C BC #### [facility] [address] [place] [address] Dr. Papo Swanson Basophils/100 WBC (Bld) 0.2 % Normal 0.2-2.0 [facility] Comment on above: Performed By: #### C BC #### [facility] [address] [place] [address] Dr. Papo Swanson EO # 0.1 103/ul Normal 0.0-0.7 [facility] Comment on above: Performed By: #### C BC #### [facility] [address] [place] [address] Dr. Papo Swanson Eosinophils/100 WBC (Bld) 0.8 % Critically low 0.9-7.0 [facility] Comment on above: Performed By: #### C BC #### [facility] [address] [place] [address] Dr. Papo Swanson Erythrocyte distribution width (RBC) [Ratio] 15.2 % Critically high 11.0-15.0 [facility] Comment on above: Performed By: #### C BC #### [facility] [address] [place] [address] Dr. Papo Swanson Hematocrit (Bld) [Volume fraction] 31.5 % Critically low 36.0-48.0 [facility] Comment on above: Performed By: #### C BC #### [facility] [address] [place] [address] Dr. Papo Swanson Hemoglobin (Bld) [Mass/Vol] 9.9 g/dL Critically low 12.0-16.0 [facility] Comment on above: Performed By: #### C BC #### [facility] [address] [place] [address] Dr. Papo Swanson IG # 0.21 10e3/ul Critically high 0.00-0.03 [facility] Comment on above: Performed By: #### C BC #### [facility] [address] [place] [address] Dr. Papo Swanson IG % 2.5 % Critically high 0.0-0.5 [facility] Comment on above: Performed By: #### C BC #### [facility] [address] [place] [address] Dr. Paop Swanson LYMPH # 1.8 103/ul Normal 1.2-3.8 [facility] Comment on above: Performed By: #### C BC #### [facility] [address] [place] [address] Dr. Papo Swanson Lymphocytes/100 WBC (Bld) 20.8 % Normal 20.5-60.0 [facility] Comment on above: Performed By: #### C BC #### [facility] [address] [place] [address] Dr. Papo Swanson MANUAL DIFF REQ NO Normal [facility] Comment on above: Performed By: #### C BC #### [facility] [address] [place], [place] [id number] Dr. Papo Swanson MCH (RBC) [Entitic mass] 24.5 pg Critically low 26.7-34.0 [facility] Comment on above: Performed By: #### C BC #### [facility] [address] [place] [address] Dr. Papo Swanson MCHC (RBC) [Mass/Vol] 31.4 g/dL Normal 29.9-35.2 [facility] Comment on above: Performed By: #### C BC #### [facility] [address] [place] [address] Dr. Papo Swanson MCV (RBC) [Entitic vol] 78.0 fL Critically low 81.0-99.0 [facility] Comment on above: Performed By: #### C BC #### [facility] [address] [place] [address] Dr. Papo Swanson MONO # 0.5 103/ul Normal 0.3-0.8 [facility] Comment on above: Performed By: #### C BC #### [facility] [address] [place] [address] Dr. Papo Swanson Monocytes/100 WBC (Bld) 6.4 % Normal 1.7-12.0 [facility] Comment on above: Performed By: #### C BC #### [facility] [address] [place] [address] Dr. Papo Swanson NEUT # 5.8 103/ul Normal 1.4-6.5 [facility] Comment on above: Performed By: #### C BC #### [facility] [address] [place] [address] Dr. Papo Swanson Neutrophils/100 WBC (Bld) 69.3 % Normal 43.0-75.0 [facility] Comment on above: Performed By: #### C BC #### [facility] [address] [place] [address] Dr. Papo Swanson Platelet mean volume (Bld) [Entitic vol] 12.2 fL Normal 9.5-13.5 [facility] Comment on above: Performed By: #### C BC #### [facility] [address] [address] [address] Papo Swanson PLT 195 103/ul Normal 150-450 [facility] Comment on above: Performed By: #### C BC #### [facility] [address] [address] [address] Papo Swanson RBC 4.04 106/ul Critically low 4.20-5.40 [facility] Comment on above: Performed By: #### C BC #### [facility] [address] [address] [address] Papo Swanson WBC 8.4 103/ul Normal 4.0-11.0 [facility] Comment on above: Performed By: #### C BC #### [facility] [address] [place] [address] Dr. Papo Swanson CULTURE URINEon 12-26-2021 CULTURE URINE Culture Observations : LIGHT GROWTH OF MIXED GENITAL NICOLE. NO POTENTIAL PATHOGENS SEEN. Normal [facility] Comment on above: Performed By: #### U RCX #### [facility] [address] [place] [address] Dr. Papo Swanson Covid-19 PCR ([facility])on SARS-CoV-2 (COVID-19) RNA PRIYA+probe Ql (Unsp spec) Not detected Normal NOT DETECTED [facility] Comment on above: Result Comment: When diagnostic [...] for this test is supported by the [place] of [employer] and Human Service's declaration that [...] used). Performed By: #### C VDTBH #### [facility] [address] [place] [address] Dr. Papo Swanson DRUG SCREEN RAPID (URINE)on 12-26-2021 AMP Negative Normal NEGATIVE [facility] Comment on above: Performed By: #### D RUGRPD #### [facility] [address] [place] [address] Dr. Papo Swanson BAR Negative Normal NEGATIVE [facility] Comment on above: Performed By: #### D RUGRPD #### [facility] [address] [place] [address] Dr. Papo Swanson BUP Negative Normal NEGATIVE [facility] Comment on above: Performed By: #### D RUGRPD #### [facility] [address] [place] [address] Dr. Papo Swanson BZO Negative Normal NEGATIVE [facility] Comment on above: Performed By: #### D RUGRPD #### [facility] [address] [place] [address] Dr. Papo Swanson GIRISH Negative Normal NEGATIVE [facility] Comment on above: Performed By: #### D RUGRPD #### [facility] [address] [place] [address] Dr. Papo Swanson CUT-OFFS SEE BELOW Normal [facility] Comment on above: Result Comment: AMP (Amphetamine): 500ng/mL, BAR (Barbituates): 200 ng/mL, BZO (Benzodiazepines): 150 ng/mL, BUP (Buprenorphine): 10 ng/mL, GIRISH (Cocaine): 150 ng/mL, mAMP (Methamphetamine): 500 ng/mL, MTD (Methadone): 200 ng/mL, OPI (Opiates): 100 ng/mL, OXY (Oxycodone): 100 ng/mL, PCP (Phencyclidine): 25 ng/mL, PPX (Propoxyphene): 300 ng/mL, THC (Cannabinoids): 50 ng/mL, TCA (Trycyclic Antidepressants): 300 ng/mL Performed By: #### D RUGRPD #### [facility] [address] [place] [address] Dr. Papo Swanson DRUG CUT HEADER DRUG CLASS TEST SYST EM CUT-OFF CONCENTRATIONS ARE FOLLOWS: Normal [facility] Comment on above: Performed By: #### D RUGRPD #### [facility] [address] [place] [address] Dr. Papo Swanson mAMP Negative Normal NEGATIVE [facility] Comment on above: Performed By: #### D RUGRPD #### [facility] [address] [place] [address] Dr. Papo Swanson MTD Negative Normal NEGATIVE [facility] Comment on above: Performed By: #### D RUGRPD #### [facility] [address] [place] [address] Dr. Papo Swanson OPI Negative Normal NEGATIVE [facility] Comment on above: Performed By: #### D RUGRPD #### [facility] [address] [place] [address] Dr. Papo Swanson OXY Negative Normal NEGATIVE [facility] Comment on above: Performed By: #### D RUGRPD #### [facility] [address] [place] [address] Dr. Papo Swanson PCP Negative Normal NEGATIVE [facility] Comment on above: Performed By: #### D RUGRPD #### [facility] [address] [place] [address] Dr. Papo Swanson PPX Negative Normal NEGATIVE [facility] Comment on above: Performed By: #### D RUGRPD #### [facility] [address] [place] [address] Dr. Papo Swanson TCA Negative Normal NEGATIVE [facility] Comment on above: Performed By: #### D RUGRPD #### [facility] [address] [place] [address] Dr. Papo Swanson THC Negative Normal NEGATIVE [facility] Comment on above: Performed By: #### D RUGRPD #### [facility] [address] [place] [address] Dr. Papo Swanson TYPE AND SCREENon 12-26-2021 TYPE AND SCREEN Negative Normal [facility] Comment on above: Performed By: #### D RUGRPD #### [facility] [address] [address] [address] Papo Swanson UA (CLEAN/CATCH) PROFILE TRIMMER/MICRO I F IND.on 12-26-2021 Bilirubin Ql (U) Negative Normal NEGATIVE [facility] Comment on above: Performed By: #### D RUGRPD #### [facility] [address] [place] [address] Dr. Papo Swanson Clarity (U) CLEAR Normal CLEAR [facility] Comment on above: Performed By: #### D RUGRPD #### [facility] [address] [place] [address] Dr. Papo Swanson Color (U) LT. YELLOW Normal YELLOW [facility] Comment on above: Performed By: #### D RUGRPD #### [facility] [address] [place] [address] Dr. Papo Swanson Glucose Ql (U) Negative Normal NEGATIVE [facility] Comment on above: Performed By: #### D RUGRPD #### [facility] [address] [address] [address] Papo Swanson Hemoglobin Ql (U) Negative Normal NEGATIVE [facility] Comment on above: Performed By: #### D RUGRPD #### [facility] [address] [place] [address] Dr. Papo Swanson Ketones Ql (U) Negative Normal NEGATIVE [facility] Comment on above: Performed By: #### D RUGRPD #### [facility] [address] [place] [address] Dr. Papo Swanson LEUKOCYTES LARGE Abnormal NEGATIVE [facility] Comment on above: Performed By: #### D RUGRPD #### [facility] [address] [place] [address] Dr. Papo Swanson Nitrite Ql (U) Negative Normal NEGATIVE [facility] Comment on above: Performed By: #### D RUGRPD #### [facility] [address] [place] [address] Dr. Papo Swanson pH (U) 7.5 [pH] Normal 5-9 [facility] Comment on above: Performed By: #### D RUGRPD #### [facility] [address] [place] [address] Dr. Papo Swanson SPEC GRAVITY 1.015 Normal 1.005-<=1.025 [facility] Comment on above: Performed By: #### D RUGRPD #### [facility] [address] [place] [address] Dr. Papo Swanson UA PROTEIN Negative Normal NEGATIVE/ TRACE [facility] Comment on above: Performed By: #### D RUGRPD #### [facility] [address] [place] [address] Dr. Papo Swanson UR MICRO IND INDICATED Normal [facility] Comment on above: Performed By: #### D RUGRPD #### [facility] [address] [place] [address] Dr. Papo Swanson Urobilinogen Qn (U) 0.2 {Kelle'U}/dL Normal 0.2 - 1.0 [facility] Comment on above: Performed By: #### D RUGRPD #### [facility] [address] [place] [address] Dr. Papo Swanson URINE MICROSCOPIC ONLYon BACTERIA SMALL Abnormal NONE SEEN [facility] Comment on above: Performed By: #### D RUGRPD #### [facility] [address] [place] [address] Dr. Papo Swanson Bacteria identified Cx Nom (U) INDICATED Normal [facility] Comment on above: Performed By: #### D RUGRPD #### [facility] [address] [place] [address] Dr. Papo Swanson CAST NONE SEEN Normal NONE SEEN [facility] Comment on above: Performed By: #### D RUGRPD #### [facility] [address] [place] [address] Dr. Papo Swanson Crystals LM Nom (Urine sed) NONE SEEN Normal NONE SEEN [facility] Comment on above: Performed By: #### D RUGRPD #### [facility] [address] [place] [address] Dr. Papo Swanson Epithelial cells LM Ql (Urine sed) MODERATE Abnormal NONE SEEN /RARE [facility] Comment on above: Performed By: #### D RUGRPD #### [facility] [address] [address] [address] Papo Swanson MUCOUS NONE SEEN Normal NONE SEEN [facility] Comment on above: Performed By: #### D RUGRPD #### [facility] [address] [address] [address] Papo Swanson RBC 0-2 Normal 0-2 [facility] Comment on above: Performed By: #### D RUGRPD #### [facility] [address] [address] [address] Papo Swanson WBC 10-20 Abnormal NONE SEEN [facility] Comment on above: Performed By: #### D RUGRPD #### [facility] [address] [address] [address] Papo Swanson US PREG GROWTHon 12-21-2021 [...] SHANA ROBLERO Date: 2021-12-21 18:09 Normal [facility] GROUP B STREP CULTUREon 11-23 S. agalactiae Ag Ql (Unsp spec) Culture Observations: NEGATIVE FOR GROUP B STREPTOCOCCUS. Normal [facility] Comment on above: Performed By: #### D RUGRPD #### [facility] [address] [place] [address] Dr. Papo Swanson GLUCOSE - 1HRon 10-16-2021 Glucose [Mass/Vol] 148 mg/dL Critically high 74-[address] [facility] Comment on above: Performed By: #### G LU1HR #### [facility] [address] [place] [address] Dr. Papo Swanson HEMOGRAM AND PLATELon 2021 Hematocrit (Bld) [Volume fraction] 31.5 % Critically low 36.0-48.0 [facility] Comment on above: Performed By: #### H H #### [facility] [address] [place] [address] Dr. Papo Swanson Hemoglobin (Bld) [Mass/Vol] 10.4 g/dL Critically low 12.0-16.0 [facility] Comment on above: Performed By: #### H H #### [facility] [address] [place] [address] Dr. Papo Swanson MCH (RBC) [Entitic mass] 27.8 pg Normal 26.7-34.0 [facility] Comment on above: Performed By: #### H H #### [facility] [address] [place] [address] Dr. Papo Swanson MCHC (RBC) [Mass/Vol] 33.0 g/dL Normal 29.9-35.2 [facility] Comment on above: Performed By: #### H H #### [facility] [address] [place] [address] Dr. Papo Swanson MCV (RBC) [Entitic vol] 84.2 fL Normal 81.0-99.0 [facility] Comment on above: Performed By: #### H H #### [facility] [address] [place] [address] Dr. Papo Swanson PLT 248 103/ul Normal 150-450 [facility] Comment on above: Performed By: #### H H #### [facility] [address] [address] [address] Papo Swanson RBC 3.74 106/ul Critically low 4.20-5.40 [facility] Comment on above: Performed By: #### H H #### [facility] [address] [address] [address] Papo Swanson WBC 7.4 103/ul Normal 4.0-11.0 [facility] Comment on above: Performed By: #### H H #### [facility] [address] [address] [address] Papo Swanson US PREG ANATOMY SINGLEon [...] SHANA ROBLERO Date: 2021-08-21 16:22 Normal [facility] US PREG CERVICAL LENGTHon US PREG CERVICAL [...] DEON STEINER Date: 2021-08-01 13:33 Normal [facility] CHLAMYDIA/GONOCOCCUS PRIYA (SW AB/URINE/PAPon 07-28-2021 Chlamydia trachomatis, PRIYA Negative Normal Negative [facility] Comment on above: Performed By: #### C T/NGNA #### [facility] [address] [address] [address] Papo Swanson Neisseria gonorrhoeae, PRIYA Negative Normal Negative [facility] Comment on above: Performed By: #### C T/NGNA #### [facility] [address] [address] [address] Papo Swanson VAGINITIS/VAGINOSIS DNA PROB Anthony 07-27-2021 Zhane species Positive Abnormal Negative [facility] Comment on above: Performed By: #### E RUR #### [facility] [address] [address] [address] Papo Swanson Gardnerella vaginalis Negative Normal Negative [facility] Comment on above: Performed By: #### E RUR #### [facility] [address] [address] [address] Papo Swanson Trichomonas vaginalis Negative Normal Negative [facility] Comment on above: Performed By: #### E RUR #### [facility] [address] [place] [address] Dr. Papo Swanson Encounters Encounter Date Encounter Type Care Provider Facility Start: 04-08-2023 End: 04-08-2023 ambulatory NIKKI TOLLIVER Not Available Start: 03-04-2023 End: 03-04-2023 ambulatory MOISÉS SHERIDAN [...] . Payers Date Payer Category Payer Medicaid [id number] 2000 Unknown [id number] 2.16.84 [id number] 2001 Unknown [id number] 2.16.84 [id number] 2001 Unknown [id number] 2.16.84 [id number] 2001 Unknown [id number] 2.16.84 [id number] 2001 Unknown [id number] 2.16.84 [id number] 2001 Unknown [id number] 2.16.84 [id number] 2001 Unknown [id number] 2.16.84 [id number] 2001 Unknown [id number] 2.16.84 [id number] 2001 Unknown [id number] 2.16.84 [id number] 2001 Unknown [id number] 2.16.840 .[id number] 2001 Unknown [id number] 2.16.840. [id number] 1959 Unknown [id number] Summary Purpose Family History No Family History Records FoundNo Family History Records Found Advance Directives No Advanced Directives Records FoundNo Advanced Directives Records Found Additional Source Comments INFORMATION SOURCE (unrecogn ized section and content) DATE CREATED AUTHOR 07/13/2022 [facility] DATE CREATED AUTHOR AUTHOR'S ORGANIZ ATION 04/09/2023 [facility] EPIC FOR RECORDS PERTAINING TO PATIENTS WHO ARE [...] BE BASED ON THE PRIMARY CLINICAL RECORDS. [employer] provides no warranty or guarantee of the accuracy or completeness of information in this document.
[2023-05-06 10:44] LABS: Basophils Percent Auto 0.3 % (0.2-2.0); Eosinophils Absolute Auto 0.1 10^3/uL (0.0-0.7); Eosinophils Percent Auto 1.6 % (0.9-7.0); Hematocrit 33.3 % (36.0-48.0); Hemoglobin 10.6 g/dL (12.0-16.0); Immature Granulocytes Abs Auto 0.05 10^3/uL (0.00-0.03); Immature Granulocytes Pct Auto 0.6 % (0.0-0.5); Lymphocytes Absolute Auto 1.5 10^3/uL (1.2-3.8); Lymphocytes Percent Auto 17.1 % (20.5-60.0); Mean Corpuscular HGB Conc 31.8 g/dL (29.9-35.2); Mean Corpuscular Hemoglobin 28.1 pg (26.7-34.0); Mean Corpuscular Volume 88.3 fL (81.0-99.0); Mean Platelet Volume 10.6 fL (9.5-13.5); Monocytes Absolute Auto 0.5 10^3/uL (0.3-0.8); Monocytes Percent Auto 5.8 % (1.7-12.0); Neutrophils Absolute Auto 6.5 10^3/uL (1.4-6.5); Neutrophils Percent Auto 74.6 % (43.0-75.0); Platelet Count 241 10^3/uL (150-450); Red Blood Count 3.77 10^6/uL (4.20-5.40); Red Cell Distribution Width 12.4 % (11.0-15.0); White Blood Count 8.7 10^3/uL (4.0-11.0)
[2023-05-06 11:33] LABS: Glucose 1 Hour 99 mg/dL (<130)
== END 2023-05-06 08:58 | disposition home or self-care (01) ==
LOC: LAB 08:57
PROVIDERS: Visit Provider Obstetrics & Gynecology
DX: Z34.92 Encounter for supervision of normal pregnancy, unspecified, second trimester (principal)
CPT/HCPCS: 36415; 82950; 85025

== ENCOUNTER 2023-05-06 10:25 | Outpatient (OUT) | payer MEDICAID, SELFPAY ==
--- NOTE | 2023-05-06 10:28 | US_ITS ---
[address] [address] Patient Name: JONATHAN HAN MRN: [id number] date: 2000 Sex: F Assigned [facility] Accession/Order Number: [id number] Exam Date: 05/06/2023 10:29 Report Date: 05/06/2023 10:59 At the request of: NIKKI TOLLIVER Procedure: US OB follow up EXAMINATION: US OB follow up HISTORY: ECHOGENIC FOCI HEART COMPARISON: 03/25/2023 FINDINGS: position: Cephalic presentation, longitudinal lie Heart rate: 130 bpm Again demonstrated is a single 3 mm echogenic cardiac focus US/US OB follow up IMPRESSION: Stable 3 mm echogenic cardiac focus, nonspecific Electronically authenticated by: SHANA ROBLERO Date: 05/06/2023 10:59
--- OUTSIDE RECORDS SUMMARY | 2023-05-06 10:29 | XMS_ITS | CCD ---
Author Name Unknown Address [address] [facility] [address] [facility] [address] [place] [address] Organization [facility] Care Team Providers Care Senior Facilities Manager Name Role Phone UNRULY ., DR JORDAN [...] TOLLIVER Attending Unavailable NIKKI TOLLIVER Attending Unavailable MOSIÉS SHERIDAN Attending Unavailable Problems Active Problems Problem [...] [place] Date: 2022-07-10 22:30 Normal [facility] CBC AUTO DIFFon 07-10-2022 BASO # 0.0 103/ul Normal 0.0-0.1 [facility] Comment on above: Performed By: #### C BC #### [facility] [address] [place] [address] Dr. Papo Swanson Basophils/100 WBC (Bld) 0.4 % Normal 0.2-2.0 [facility] Comment on above: Performed By: #### C BC #### [facility] [address] [address] [address] Papo Swanson EO # 0.1 103/ul Normal 0.0-0.7 [facility] Comment on above: Performed By: #### C BC #### [facility] [address] [address] [address] Papo Swanson Eosinophils/100 WBC (Bld) 0.6 % Critically low 0.9-7.0 [facility] Comment on above: Performed By: #### C BC #### [facility] [address] [address] [address] Papo Swanson Erythrocyte distribution width (RBC) [Ratio] 14.4 % Normal 11.0-15.0 [facility] Comment on above: Performed By: #### C BC #### [facility] [address] [place] [address] Dr. Papo Swanson Hematocrit (Bld) [Volume fraction] 42.2 % Normal 36.0-48.0 [facility] Comment on above: Performed By: #### C BC #### [facility] [address] [place] [address] Dr. Papo Swanson Hemoglobin (Bld) [Mass/Vol] 13.7 g/dL Normal 12.0-16.0 [facility] Comment on above: Performed By: #### C BC #### [facility] [address] [place] [address] Dr. Papo Swanson IG # 0.03 10e3/ul Normal 0.00-0.03 [facility] Comment on above: Performed By: #### C BC #### [facility] [address] [place] [address] Dr. Papo Swanson IG % 0.3 % Normal 0.0-0.5 [facility] Comment on above: Performed By: #### C BC #### [facility] [address] [place] [address] Dr. Papo Swanson LYMPH # 1.5 103/ul Normal 1.2-3.8 [facility] Comment on above: Performed By: #### C BC #### [facility] [address] [place] [address] Dr. Papo Swanson Lymphocytes/100 WBC (Bld) 15.7 % Critically low 20.5-60.0 [facility] Comment on above: Performed By: #### C BC #### [facility] [address] [place] [address] Dr. Papo Swanson MANUAL DIFF REQ NO Normal [facility] Comment on above: Performed By: #### C BC #### [facility] [address] [place] [address] Dr. Papo Swanson MCH (RBC) [Entitic mass] 27.0 pg Normal 26.7-34.0 [facility] Comment on above: Performed By: #### C BC #### [facility] [address] [place] [address] Dr. Papo Swanson MCHC (RBC) [Mass/Vol] 32.5 g/dL Normal 29.9-35.2 [facility] Comment on above: Performed By: #### C BC #### [facility] [address] [place] [address] Dr. Papo Swanson MCV (RBC) [Entitic vol] 83.2 fL Normal 81.0-99.0 [facility] Comment on above: Performed By: #### C BC #### [facility] [address] [place] [address] Dr. Papo Swanson MONO # 0.6 103/ul Normal 0.3-0.8 [facility] Comment on above: Performed By: #### C BC #### [facility] [address] [place] [address] Dr. Papo Swanson Monocytes/100 WBC (Bld) 5.9 % Normal 1.7-12.0 [facility] Comment on above: Performed By: #### C BC #### [facility] [address] [place] [address] Dr. Papo Swanson NEUT # 7.4 103/ul Critically high 1.4-6.5 [facility] Comment on above: Performed By: #### C BC #### [facility] [address] [place] [address] Dr. Papo Swanson Neutrophils/100 WBC (Bld) 77.1 % Critically high 43.0-75.0 [facility] Comment on above: Performed By: #### C BC #### [facility] [address] [place] [address] Dr. Ppao Swanson Platelet mean volume (Bld) [Entitic vol] 10.5 fL Normal 9.5-13.5 [facility] Comment on above: Performed By: #### C BC #### [facility] [address] [place] [address] Dr. Papo Swanson PLT 318 103/ul Normal 150-450 [facility] Comment on above: Performed By: #### C BC #### [facility] [address] [place] [address] Dr. Papo Swanson RBC 5.07 106/ul Normal 4.20-5.40 [facility] Comment on above: Performed By: #### C BC #### [facility] [address] [place] [address] Dr. Papo Swanson WBC 9.7 103/ul Normal 4.0-11.0 [facility] Comment on above: Performed By: #### C BC #### [facility] [address] [place] [address] Dr. Papo Swanson ER URINE PROFILEon 3 Bilirubin Ql (U) Negative Normal NEGATIVE [facility] Comment on above: Performed By: #### E RUR #### [facility] [address] [place] [address] Dr. Papo Swanson Clarity (U) CLEAR Normal CLEAR [facility] Comment on above: Performed By: #### E RUR #### [facility] [address] [place] [address] Dr. Papo Swanson Color (U) LT. YELLOW Normal YELLOW [facility] Comment on above: Performed By: #### E RUR #### [facility] [address] [place] [address] Dr. Papo JAIMES A micrscopic examination will be performed if indicated. Normal [facility] Comment on above: Performed By: #### E RUR #### [facility] [address] [place] [address] Dr. Papo Swanson Glucose Ql (U) Negative Normal NEGATIVE [facility] Comment on above: Performed By: #### E RUR #### [facility] [address] [place] [address] Dr. Papo Swanson Hemoglobin Ql (U) Negative Normal NEGATIVE [facility] Comment on above: Performed By: #### E RUR #### [facility] [address] [place] [address] Dr. Papo Swanson Ketones Ql (U) Negative Normal NEGATIVE [facility] Comment on above: Performed By: #### E RUR #### [facility] [address] [place] [address] Dr. Papo Swanson LEUKOCYTES Negative Normal NEGATIVE [facility] Comment on above: Performed By: #### E RUR #### [facility] [address] [place] [address] Dr. Papo Swanson Nitrite Ql (U) Negative Normal NEGATIVE [facility] Comment on above: Performed By: #### E RUR #### [facility] [address] [place] [address] Dr. Papo Swanson pH (U) 7.0 [pH] Normal 5-9 [facility] Comment on above: Performed By: #### E RUR #### [facility] [address] [place] [address] Dr. Papo Swanson SPEC GRAVITY 1.025 Normal 1.005-<=1.025 [facility] Comment on above: Performed By: #### E RUR #### [facility] [address] [place] [address] Dr. Papo Swanson UA PROTEIN Negative Normal NEGATIVE/ TRACE [facility] Comment on above: Performed By: #### E RUR #### [facility] [address] [place] [address] Dr. Papo Swanson UR MICRO IND NOT INDICATED Normal [facility] Comment on above: Performed By: #### E RUR #### [facility] [address] [place] [address] Dr. Papo Swanson Urobilinogen Qn (U) 0.2 {Kelle'U}/dL Normal 0.2 - 1.0 [facility] Comment on above: Performed By: #### E RUR #### [facility] [address] [place] [address] Dr. Papo Swanson LIPASEon 07-10-2022 Lipase [Catalytic activity/Vol] 54.0 U/L Critically low 73.0-393.0 [facility] Comment on above: Performed By: #### D RUGRPD #### [facility] [address] [address] [address] Papo Swanson PREG HCG QUALon 07-10-2022 , QUAL Negative Normal NEGATIVE [facility] Comment on above: Performed By: #### E RUR #### [facility] [address] [place] [address] Dr. Papo Swanson PROF 14(COMP METB)on 023 Albumin [Mass/Vol] 4.3 g/dL Normal 3.4-5.0 [facility] Comment on above: Performed By: #### D RUGRPD #### [facility] [address] [place] [address] Dr. Papo Swanson Albumin/Globulin [Mass ratio] 1.0 {ratio} Normal [facility] Comment on above: Performed By: #### D RUGRPD #### [facility] [address] [place] [address] Dr. Papo Swanson ALP [Catalytic activity/Vol] 91 U/L Normal 46-116 [facility] Comment on above: Performed By: #### D RUGRPD #### [facility] [address] [place] [address] Dr. Papo Swanson ALT [Catalytic activity/Vol] 19 U/L Normal 14-59 [facility] Comment on above: Performed By: #### D RUGRPD #### [facility] [address] [place] [address] Dr. Papo Swanson Anion gap [Moles/Vol] 13.9 mmol/L Normal [facility] Comment on above: Performed By: #### D RUGRPD #### [facility] [address] [place] [address] Dr. Papo Swanson AST [Catalytic activity/Vol] 13 U/L Critically low 15-37 [facility] Comment on above: Performed By: #### D RUGRPD #### [facility] [address] [place] [address] Dr. Papo Swanson Bilirubin [Mass/Vol] 0.3 mg/dL Normal 0.2-1.0 [facility] Comment on above: Performed By: #### D RUGRPD #### [facility] [address] [address] [address] Papo Swanson Calcium [Mass/Vol] 9.1 mg/dL Normal 8.5-10.1 [facility] Comment on above: Performed By: #### D RUGRPD #### [facility] [address] [address] [address] Papo Swanson Chloride [Moles/Vol] 104 mmol/L Normal 98-107 [facility] Comment on above: Performed By: #### D RUGRPD #### [facility] [address] [address] [address] Papo Swanson CO2 [Moles/Vol] 25.4 mmol/L Normal 21.0-32.0 [facility] Comment on above: Performed By: #### D RUGRPD #### [facility] [address] [place] [address] Dr. Papo Swanson Creatinine [Mass/Vol] 0.64 mg/dL Normal 0.55-1.02 [facility] Comment on above: Performed By: #### D RUGRPD #### [facility] [address] [address] [address] Papo Swanson EGFR-AF UZBEK >60 Normal >=60 The [facility] Comment on above: Performed By: #### D RUGRPD #### [facility] [address] [address] [address] Papo Swanson EGFR-NON AF UZBEK >60 Normal >=60 [facility] Comment on above: Performed By: #### D RUGRPD #### [facility] [address] [address] [address] Papo Swanson Globulin (S) [Mass/Vol] 4.3 g/dL Normal [facility] Comment on above: Performed By: #### D RUGRPD #### [facility] [address] [address] [address] Papo Swanson Glucose [Mass/Vol] 101 mg/dL Normal 74-106 [facility] Comment on above: Performed By: #### D RUGRPD #### [facility] [address] [place] [address] Dr. Papo Swanson Potassium [Moles/Vol] 3.3 mmol/L Critically low 3.5-5.1 [facility] Comment on above: Performed By: #### D RUGRPD #### [facility] [address] [place] [address] Dr. Papo Swanson Protein [Mass/Vol] 8.6 g/dL Critically high 6.4-8.2 [facility] Comment on above: Performed By: #### D RUGRPD #### [facility] [address] [place] [address] Dr. Papo Swanson Sodium [Moles/Vol] 140 mmol/L Normal 136-145 [facility] Comment on above: Performed By: #### D RUGRPD #### [facility] [address] [place] [address] Dr. Papo Swanson Urea nitrogen [Mass/Vol] 8.0 mg/dL Normal 7.0-18.0 [facility] Comment on above: Performed By: #### D RUGRPD #### [facility] [address] [place] [address] Dr. Papo Swanson Urea nitrogen/Creatinin e [Mass ratio] 12.5 mg/mg Normal [facility] Comment on above: Performed By: #### D RUGRPD #### [facility] [address] [place] [address] Dr. Papo Swanson CBC AUTO DIFFon 12-27-2021 BASO # 0.0 103/ul Normal 0.0-0.1 [facility] Comment on above: Performed By: #### C BC #### [facility] [address] [place] [address] Dr. Papo Swanson Basophils/100 WBC (Bld) 0.2 % Normal 0.2-2.0 [facility] Comment on above: Performed By: #### C BC #### [facility] [address] [place] [address] Dr. Papo Swanson EO # 0.0 103/ul Normal 0.0-0.7 [facility] Comment on above: Performed By: #### C BC #### [facility] [address] [address] [address] Papo Swanson Eosinophils/100 WBC (Bld) 0.3 % Critically low 0.9-7.0 [facility] Comment on above: Performed By: #### C BC #### [facility] [address] [place] [address] Dr. Papo Swanson Erythrocyte distribution width (RBC) [Ratio] 15.4 % Critically high 11.0-15.0 [facility] Comment on above: Performed By: #### C BC #### [facility] [address] [place] [address] Dr. Papo Swanson Hematocrit (Bld) [Volume fraction] 27.8 % Critically low 36.0-48.0 [facility] Comment on above: Performed By: #### C BC #### [facility] [address] [place] [address] Dr. Papo Swanson Hemoglobin (Bld) [Mass/Vol] 8.7 g/dL Critically low 12.0-16.0 [facility] Comment on above: Performed By: #### C BC #### [facility] [address] [place] [address] Dr. Papo Swanson IG # 0.11 10e3/ul Critically high 0.00-0.03 [facility] Comment on above: Performed By: #### C BC #### [facility] [address] [place] [address] Dr. Papo Swanson IG % 0.9 % Critically high 0.0-0.5 [facility] Comment on above: Performed By: #### C BC #### [facility] [address] [place] [address] Dr. Papo Swanson LYMPH # 2.4 103/ul Normal 1.2-3.8 [facility] Comment on above: Performed By: #### C BC #### [facility] [address] [place] [address] Dr. Papo Swanson Lymphocytes/100 WBC (Bld) 19.6 % Critically low 20.5-60.0 [facility] Comment on above: Performed By: #### C BC #### [facility] [address] [place] [address] Dr. Papo Swanson MANUAL DIFF REQ NO Normal [facility] Comment on above: Performed By: #### C BC #### [facility] [address] [place] [address] Dr. Papo Swanson MCH (RBC) [Entitic mass] 24.6 pg Critically low 26.7-34.0 [facility] Comment on above: Performed By: #### C BC #### [facility] [address] [place] [address] Dr. Papo Swanson MCHC (RBC) [Mass/Vol] 31.3 g/dL Normal 29.9-35.2 [facility] Comment on above: Performed By: #### C BC #### [facility] [address] [place] [address] Dr. Papo Swanson MCV (RBC) [Entitic vol] 78.8 fL Critically low 81.0-99.0 [facility] Comment on above: Performed By: #### C BC #### [facility] [address] [place] [address] Dr. Papo Swanson MONO # 0.8 103/ul Normal 0.3-0.8 [facility] Comment on above: Performed By: #### C BC #### [facility] [address] [place] [address] Dr. Papo Swanson Monocytes/100 WBC (Bld) 6.2 % Normal 1.7-12.0 [facility] Comment on above: Performed By: #### C BC #### [facility] [address] [place] [address] Dr. Papo Swanson NEUT # 8.9 103/ul Critically high 1.4-6.5 [facility] Comment on above: Performed By: #### C BC #### [facility] [address] [place] [address] Dr. Papo Swanson Neutrophils/100 WBC (Bld) 72.8 % Normal 43.0-75.0 [facility] Comment on above: Performed By: #### C BC #### [facility] [address] [place] [address] Dr. Papo Swanson Platelet mean volume (Bld) [Entitic vol] 11.7 fL Normal 9.5-13.5 [facility] Comment on above: Performed By: #### C BC #### [facility] [address] [place] [address] Dr. Papo Swanson PLT 173 103/ul Normal 150-450 [facility] Comment on above: Performed By: #### C BC #### [facility] [address] [place] [address] Dr. Papo Swanson RBC 3.53 106/ul Critically low 4.20-5.40 [facility] Comment on above: Performed By: #### C BC #### [facility] [address] [place] [address] Dr. Papo Swanson WBC 12.2 103/ul Critically high 4.0-11.0 [facility] Comment on above: Performed By: #### C BC #### [facility] [address] [place] [address] Dr. Papo Swanson CBC AUTO DIFFon 12-26-2021 BASO # 0.0 103/ul Normal 0.0-0.1 [facility] Comment on above: Performed By: #### C BC #### [facility] [address] [place] [address] Dr. Papo Swanson Basophils/100 WBC (Bld) 0.2 % Normal 0.2-2.0 [facility] Comment on above: Performed By: #### C BC #### [facility] [address] [place] [address] Dr. Papo Swanson EO # 0.1 103/ul Normal 0.0-0.7 [facility] Comment on above: Performed By: #### C BC #### [facility] [address] [place] [address] Dr. Papo Swanson Eosinophils/100 WBC (Bld) 0.8 % Critically low 0.9-7.0 [facility] Comment on above: Performed By: #### C BC #### [facility] [address] [place] [address] Dr. Papo Swanson Erythrocyte distribution width (RBC) [Ratio] 15.2 % Critically high 11.0-15.0 [facility] Comment on above: Performed By: #### C BC #### [facility] [address] [place] [address] Dr. Papo Swansno Hematocrit (Bld) [Volume fraction] 31.5 % Critically low 36.0-48.0 [facility] Comment on above: Performed By: #### C BC #### [facility] [address] [place] [address] Dr. Papo Swanson Hemoglobin (Bld) [Mass/Vol] 9.9 g/dL Critically low 12.0-16.0 [facility] Comment on above: Performed By: #### C BC #### [facility] [address] [place] [address] Dr. aPpo Swanson IG # 0.21 10e3/ul Critically high 0.00-0.03 [facility] Comment on above: Performed By: #### C BC #### [facility] [address] [place] [address] Dr. Papo Swanson IG % 2.5 % Critically high 0.0-0.5 [facility] Comment on above: Performed By: #### C BC #### [facility] [address] [place] [address] Dr. Papo Swanson LYMPH # 1.8 103/ul Normal 1.2-3.8 [facility] Comment on above: Performed By: #### C BC #### [facility] [address] [place] [address] Dr. Papo Swanson Lymphocytes/100 WBC (Bld) 20.8 % Normal 20.5-60.0 [facility] Comment on above: Performed By: #### C BC #### [facility] [address] [place] [address] Dr. Papo Swanson MANUAL DIFF REQ NO Normal [facility] Comment on above: Performed By: #### C BC #### [facility] [address] [place], [place] [id number] Dr. Papo Swanson MCH (RBC) [Entitic mass] 24.5 pg Critically low 26.7-34.0 [facility] Comment on above: Performed By: #### C BC #### [facility] [address] [place] [address] Dr. Papo Swanson MCHC (RBC) [Mass/Vol] 31.4 g/dL Normal 29.9-35.2 [facility] Comment on above: Performed By: #### C BC #### [facility] [address] [place] [address] Dr. Papo Swanson MCV (RBC) [Entitic vol] 78.0 fL Critically low 81.0-99.0 [facility] Comment on above: Performed By: #### C BC #### [facility] [address] [place] [address] Dr. Papo Swanson MONO # 0.5 103/ul Normal 0.3-0.8 [facility] Comment on above: Performed By: #### C BC #### [facility] [address] [place] [address] Dr. Papo Swanson Monocytes/100 WBC (Bld) 6.4 % Normal 1.7-12.0 [facility] Comment on above: Performed By: #### C BC #### [facility] [address] [place] [address] Dr. Papo Swanson NEUT # 5.8 103/ul Normal 1.4-6.5 [facility] Comment on above: Performed By: #### C BC #### [facility] [address] [place] [address] Dr. Papo Swanson Neutrophils/100 WBC (Bld) 69.3 % Normal 43.0-75.0 [facility] Comment on above: Performed By: #### C BC #### [facility] [address] [place] [address] Dr. Papo Swanson Platelet mean volume (Bld) [Entitic vol] 12.2 fL Normal 9.5-13.5 [facility] Comment on above: Performed By: #### C BC #### [facility] [address] [address] [address] Papo Swanson PLT 195 103/ul Normal 150-450 [facility] Comment on above: Performed By: #### C BC #### [facility] [address] [address] [address] Papo Swanson RBC 4.04 106/ul Critically low 4.20-5.40 [facility] Comment on above: Performed By: #### C BC #### [facility] [address] [address] [address] Papo Swanson WBC 8.4 103/ul Normal 4.0-11.0 [facility] Comment on above: Performed By: #### C BC #### [facility] [address] [place] [address] Dr. Papo Swanson CULTURE URINEon 12-26-2021 CULTURE URINE Culture Observations : LIGHT GROWTH OF MIXED GENITAL NICOLE. NO POTENTIAL PATHOGENS SEEN. Normal [facility] Comment on above: Performed By: #### U RCX #### [facility] [address] [place] [address] Dr. Papo Swanson Covid-19 PCR ([facility])on SARS-CoV-2 (COVID-19) RNA PRIYA+probe Ql (Unsp spec) Not detected Normal NOT DETECTED [facility] Comment on above: Result Comment: When diagnostic [...] for this test is supported by the [place] of [employer] and Human Service's declaration that [...] used). Performed By: #### C VDTBH #### [facility] [address] [place] [address] Dr. Papo Swanson DRUG SCREEN RAPID (URINE)on 12-26-2021 AMP Negative Normal NEGATIVE [facility] Comment on above: Performed By: #### D RUGRPD #### [facility] [address] [place] [address] Dr. Papo Swanson BAR Negative Normal NEGATIVE [facility] Comment on above: Performed By: #### D RUGRPD #### [facility] [address] [place] [address] Dr. Papo Swanson BUP Negative Normal NEGATIVE [facility] Comment on above: Performed By: #### D RUGRPD #### [facility] [address] [place] [address] Dr. Papo Swanson BZO Negative Normal NEGATIVE [facility] Comment on above: Performed By: #### D RUGRPD #### [facility] [address] [place] [address] Dr. Papo Swanson GIRISH Negative Normal NEGATIVE [facility] Comment on above: Performed By: #### D RUGRPD #### [facility] [address] [place] [address] Dr. Papo Swanson CUT-OFFS SEE BELOW Normal [facility] Comment on above: Result Comment: AMP (Amphetamine): 500ng/mL, BAR (Barbituates): 200 ng/mL, BZO (Benzodiazepines): 150 ng/mL, BUP (Buprenorphine): 10 ng/mL, GIRISH (Cocaine): 150 ng/mL, mAMP (Methamphetamine): 500 ng/mL, MTD (Methadone): 200 ng/mL, OPI (Opiates): 100 ng/mL, OXY (Oxycodone): 100 ng/mL, PCP (Phencyclidine): 25 ng/mL, PPX (Propoxyphene): 300 ng/mL, THC (Cannabinoids): 50 ng/mL, TCA (Trycyclic Antidepressants): 300 ng/mL Performed By: #### D RUGRPD #### [facility] [address] [place] [address] Dr. Papo Swanson DRUG CUT HEADER DRUG CLASS TEST SYST EM CUT-OFF CONCENTRATIONS ARE FOLLOWS: Normal [facility] Comment on above: Performed By: #### D RUGRPD #### [facility] [address] [place] [address] Dr. Papo Swanson mAMP Negative Normal NEGATIVE [facility] Comment on above: Performed By: #### D RUGRPD #### [facility] [address] [place] [address] Dr. Papo Swanson MTD Negative Normal NEGATIVE [facility] Comment on above: Performed By: #### D RUGRPD #### [facility] [address] [place] [address] Dr. Papo Swanson OPI Negative Normal NEGATIVE [facility] Comment on above: Performed By: #### D RUGRPD #### [facility] [address] [place] [address] Dr. Papo Swanson OXY Negative Normal NEGATIVE [facility] Comment on above: Performed By: #### D RUGRPD #### [facility] [address] [place] [address] Dr. Papo Swanson PCP Negative Normal NEGATIVE [facility] Comment on above: Performed By: #### D RUGRPD #### [facility] [address] [place] [address] Dr. Papo Swanson PPX Negative Normal NEGATIVE [facility] Comment on above: Performed By: #### D RUGRPD #### [facility] [address] [place] [address] Dr. Papo Swanson TCA Negative Normal NEGATIVE [facility] Comment on above: Performed By: #### D RUGRPD #### [facility] [address] [place] [address] Dr. Papo Swanson THC Negative Normal NEGATIVE [facility] Comment on above: Performed By: #### D RUGRPD #### [facility] [address] [place] [address] Dr. Papo Swanson TYPE AND SCREENon 12-26-2021 TYPE AND SCREEN Negative Normal [facility] Comment on above: Performed By: #### D RUGRPD #### [facility] [address] [address] [address] Papo Swanson UA (CLEAN/CATCH) CARDROOM HAND/MICRO I F IND.on 12-26-2021 Bilirubin Ql (U) Negative Normal NEGATIVE The [facility] Comment on above: Performed By: #### D RUGRPD #### [facility] [address] [place] [address] Dr. Papo Swanson Clarity (U) CLEAR Normal CLEAR [facility] Comment on above: Performed By: #### D RUGRPD #### [facility] [address] [place] [address] Dr. Papo Swanson Color (U) LT. YELLOW Normal YELLOW [facility] Comment on above: Performed By: #### D RUGRPD #### [facility] [address] [place] [address] Dr. Papo Swanson Glucose Ql (U) Negative Normal NEGATIVE [facility] Comment on above: Performed By: #### D RUGRPD #### [facility] [address] [address] [address] Papo Swanson Hemoglobin Ql (U) Negative Normal NEGATIVE [facility] Comment on above: Performed By: #### D RUGRPD #### [facility] [address] [place] [address] Dr. Papo Swanson Ketones Ql (U) Negative Normal NEGATIVE [facility] Comment on above: Performed By: #### D RUGRPD #### [facility] [address] [place] [address] Dr. Papo Swanson LEUKOCYTES LARGE Abnormal NEGATIVE [facility] Comment on above: Performed By: #### D RUGRPD #### [facility] [address] [place] [address] Dr. Papo Swanson Nitrite Ql (U) Negative Normal NEGATIVE [facility] Comment on above: Performed By: #### D RUGRPD #### [facility] [address] [place] [address] Dr. Papo Swanson pH (U) 7.5 [pH] Normal 5-9 [facility] Comment on above: Performed By: #### D RUGRPD #### [facility] [address] [place] [address] Dr. Papo Swanson SPEC GRAVITY 1.015 Normal 1.005-<=1.025 [facility] Comment on above: Performed By: #### D RUGRPD #### [facility] [address] [place] [address] Dr. Papo Swanson UA PROTEIN Negative Normal NEGATIVE/ TRACE [facility] Comment on above: Performed By: #### D RUGRPD #### [facility] [address] [place] [address] Dr. Papo Swanson UR MICRO IND INDICATED Normal [facility] Comment on above: Performed By: #### D RUGRPD #### [facility] [address] [place] [address] Dr. Papo Swanson Urobilinogen Qn (U) 0.2 {Kelle'U}/dL Normal 0.2 - 1.0 [facility] Comment on above: Performed By: #### D RUGRPD #### [facility] [address] [place] [address] Dr. Papo Swanson URINE MICROSCOPIC ONLYon BACTERIA SMALL Abnormal NONE SEEN The [facility] Comment on above: Performed By: #### D RUGRPD #### [facility] [address] [place] [address] Dr. Papo Swanson Bacteria identified Cx Nom (U) INDICATED Normal [facility] Comment on above: Performed By: #### D RUGRPD #### [facility] [address] [place] [address] Dr. Papo Swanson CAST NONE SEEN Normal NONE SEEN The [facility] Comment on above: Performed By: #### D RUGRPD #### [facility] [address] [place] [address] Dr. Papo Swanson Crystals LM Nom (Urine sed) NONE SEEN Normal NONE SEEN The [facility] Comment on above: Performed By: #### D RUGRPD #### [facility] [address] [place] [address] Dr. Papo Swanson Epithelial cells LM Ql (Urine sed) MODERATE Abnormal NONE SEEN /RARE The [facility] Comment on above: Performed By: #### D RUGRPD #### [facility] [address] [address] [address] Papo Swanson MUCOUS NONE SEEN Normal NONE SEEN The [facility] Comment on above: Performed By: #### D RUGRPD #### [facility] [address] [address] [address] Papo Swanson RBC 0-2 Normal 0-2 [facility] Comment on above: Performed By: #### D RUGRPD #### [facility] [address] [address] [address] Papo Swanson WBC 10-20 Abnormal NONE SEEN The [facility] Comment on above: Performed By: #### D RUGRPD #### [facility] [address] [address] [address] Papo Swanson US PREG GROWTHon 12-21-2021 [...] SHANA ROBLERO Date: 2021-12-21 18:09 Normal The [facility] GROUP B STREP CULTUREon 11-23 S. agalactiae Ag Ql (Unsp spec) Culture Observations: NEGATIVE FOR GROUP B STREPTOCOCCUS. Normal The [facility] Comment on above: Performed By: #### D RUGRPD #### [facility] [address] [place] [address] Dr. Papo Swanson GLUCOSE - 1HRon 10-16-2021 Glucose [Mass/Vol] 148 mg/dL Critically high 74-106 T [facility] Comment on above: Performed By: #### G LU1HR #### [facility] [address] [place] [address] Dr. Papo Swanson HEMOGRAM AND PLATELon 2021 Hematocrit (Bld) [Volume fraction] 31.5 % Critically low 36.0-48.0 [facility] Comment on above: Performed By: #### H H #### [facility] [address] [place] [address] Dr. Papo Swanson Hemoglobin (Bld) [Mass/Vol] 10.4 g/dL Critically low 12.0-16.0 [facility] Comment on above: Performed By: #### H H #### [facility] [address] [place] [address] Dr. Papo Swanson MCH (RBC) [Entitic mass] 27.8 pg Normal 26.7-34.0 [facility] Comment on above: Performed By: #### H H #### [facility] [address] [place] [address] Dr. Papo Swanson MCHC (RBC) [Mass/Vol] 33.0 g/dL Normal 29.9-35.2 [facility] Comment on above: Performed By: #### H H #### [facility] [address] [place] [address] Dr. Papo Swanson MCV (RBC) [Entitic vol] 84.2 fL Normal 81.0-99.0 [facility] Comment on above: Performed By: #### H H #### [facility] [address] [place] [address] Dr. Papo Swanson PLT 248 103/ul Normal 150-450 [facility] Comment on above: Performed By: #### H H #### [facility] [address] [address] [address] Papo Swanson RBC 3.74 106/ul Critically low 4.20-5.40 [facility] Comment on above: Performed By: #### H H #### [facility] [address] [address] [address] Papo Swanson WBC 7.4 103/ul Normal 4.0-11.0 [facility] Comment on above: Performed By: #### H H #### [facility] [address] [address] [address] Papo Swanson US PREG ANATOMY SINGLEon [...] SHANA ROBLERO Date: 2021-08-21 16:22 Normal The [facility] US PREG CERVICAL LENGTHon US PREG CERVICAL [...] DEON STEINER Date: 2021-08-01 13:33 Normal The [facility] CHLAMYDIA/GONOCOCCUS PRIYA (SW AB/URINE/PAPon 07-28-2021 Chlamydia trachomatis, PRIYA Negative Normal Negative The [facility] Comment on above: Performed By: #### C T/NGNA #### [facility] [address] [address] [address] Papo Swanson Neisseria gonorrhoeae, PRIYA Negative Normal Negative The [facility] Comment on above: Performed By: #### C T/NGNA #### [facility] [address] [address] [address] Papo Swanson VAGINITIS/VAGINOSIS DNA PROB Anthony 07-27-2021 Zhane species Positive Abnormal Negative [facility] Comment on above: Performed By: #### E RUR #### [facility] [address] [address] [address] Papo Swanson Gardnerella vaginalis Negative Normal Negative The [facility] Comment on above: Performed By: #### E RUR #### [facility] [address] [address] [address] Papo Swanson Trichomonas vaginalis Negative Normal Negative [facility] Comment on above: Performed By: #### E RUR #### [facility] [address] [place] [address] Dr. Papo Swanson Encounters Encounter Date Encounter [...] . Payers Date Payer Category Payer Medicaid [id number] 2001 Unknown [id number] 2.16.84 [id number] 2001 Unknown [id number] 2.16.84 [id number] 2001 Unknown [id number] 2.16.84 [id number] 2001 Unknown [id number] 2.16.84 [id number] 2001 Unknown [id number] 2.16.84 [id number] 2001 Unknown [id number] 2.16.84 [id number] 2001 Unknown [id number] 2.16.84 [id number] 2001 Unknown [id number] 2.16.84 [id number] 2001 Unknown [id number] 2.16.84 [id number] 2001 Unknown [id number] 2.16.840 .[id number] 2001 Unknown [id number] [id number]. [id number] 1959 Unknown [id number] Summary Purpose Family History No Family History Records FoundNo Family History Records Found Advance Directives No Advanced Directives Records FoundNo Advanced Directives Records Found Additional Source Comments INFORMATION SOURCE (unrecogn ized section and content) DATE CREATED AUTHOR 07/13/[address] [facility] DATE CREATED AUTHOR AUTHOR'S ORGANIZ ATION 04/09/2023 [facility] EPIC FOR RECORDS PERTAINING [...] BE BASED ON THE PRIMARY CLINICAL RECORDS. [employer] provides no warranty or guarantee of the accuracy or completeness of information in this document.
== END 2023-05-06 10:26 | disposition home or self-care (01) ==
LOC: NOMS 10:26
PROVIDERS: Visit Provider Obstetrics & Gynecology
DX: Z34.92 Encounter for supervision of normal pregnancy, unspecified, second trimester (principal); Z36.2 Encounter for other antenatal screening follow-up
CPT/HCPCS: 36415; 76816; 82950; 85025

== ENCOUNTER 2023-07-01 21:09 | Outpatient (REF) | payer MEDICAID, SELFPAY | END 2023-07-01 21:10 | disposition home or self-care (01) | LOC: LAB 21:09 | PROVIDERS: Visit Provider Obstetrics & Gynecology | DX: Z34.93 Encounter for supervision of normal pregnancy, unspecified, third trimester (principal) | CPT/HCPCS: 87081 ==

== ENCOUNTER 2023-07-08 12:41 | Inpatient (IN) | payer MEDICAID, SELFPAY ==
[2023-07-08] VITALS (14 sets, daily range): BP systolic 102–120; BP diastolic 58–75; PULSE 65–93; TEMP 36–36.8
[2023-07-08 13:26] LABS: Bilirubin Urine NEGATIVE (NEGATIVE); Blood Urine SMALL (NEGATIVE); Clarity Urine SL CLOUDY (CLEAR); Color Urine YELLOW (YELLOW); Glucose Urine UA NEGATIVE (NEGATIVE); Ketones Urine 15 mg/dL (NEGATIVE); Leukocyte Esterase Urine SMALL (NEGATIVE); Nitrite Urine NEGATIVE (NEGATIVE); Protein Urine TRACE mg/dL (NEG/TRACE); Specific Gravity Urine >=1.030 (1.005-1.025); Urobilinogen Urine 0.2 EU/dL (0.2-1.0); pH Urine 6.5 (5.0-9.0)
[2023-07-08 13:30] LABS: Urine Microscopic Indicated YES
[2023-07-08 13:49] LABS: Bacteria Urine SMALL #/HPF (NONE SEEN); Cast Seen? NONE SEEN #/LPF (NONE SEEN); Crystals Seen? None Seen #/HPF (None Seen); Mucus Urine MODERATE (NONE SEEN); Squamous Epithelial Cell Urine MANY #/LPF (NONE/RARE); Urine Culture Indicated YES
[2023-07-08 16:15] LABS: Hematocrit 33.9 % (36.0-48.0); Hemoglobin 10.6 g/dL (12.0-16.0); Mean Corpuscular HGB Conc 31.3 g/dL (29.9-35.2); Mean Corpuscular Hemoglobin 24.9 pg (26.7-34.0); Mean Corpuscular Volume 79.6 fL (81.0-99.0); Mean Platelet Volume 12.7 fL (9.5-13.5); Platelet Count 218 10^3/uL (150-450); Red Blood Count 4.26 10^6/uL (4.20-5.40); Red Cell Distribution Width 13.7 % (11.0-15.0); White Blood Count 9.3 10^3/uL (4.0-11.0)
[2023-07-08 17:08] LABS: Amphetamine Screen Urine NEGATIVE (NEGATIVE); Barbiturates Screen Urine NEGATIVE (NEGATIVE); Benzodiazepines Screen Urine NEGATIVE (NEGATIVE); Buprenorphine Screen Urine NEGATIVE (NEGATIVE); Cannabinoid Screen Urine NEGATIVE (NEGATIVE); Cocaine Screen Urine NEGATIVE (NEGATIVE); Methadone Screen Urine NEGATIVE (NEGATIVE); Methamphetamines Screen Urine NEGATIVE (NEGATIVE); Opiate Screen Urine NEGATIVE (NEGATIVE); Oxycodone Screen Urine NEGATIVE (NEGATIVE); Phencyclidine Screen Urine NEGATIVE (NEGATIVE); Tricyclic Antidepressant Urine NEGATIVE (NEGATIVE)
[2023-07-08] MEDS: 0.9 % SODIUM CHLORIDE 1,000 ML 125 ML IV (19:05)
[2023-07-08] MEDS: OXYTOCIN/0.9 % SODIUM CHLORIDE 20 UNITS/1,000 ML PLAST..BAG 125 UNIT IV (19:54)
--- NOTE | 2023-07-08 19:58 | PM.OBPRCVD ---
Procedure Intrapartal events: None Induction method: none Delivery augmentation: rupture of membranes Delivery monitor: external FHT and external uterine Route of delivery: Episiotomy Description: none L&D Laceration Description: none Estimated blood loss (mL): 200 Anesthesia type: None Disposition: floor Delivery date: 07/08/23 Gender: female presentation: vertex Placental delivery description: Spontaneous cord description: 3 Vessels
[2023-07-09 01:10] VITALS: TEMP 36.6
[2023-07-09 01:11] VITALS: BP 103/66; PULSE 62
[2023-07-09 06:09] LABS: Basophils Percent Auto 0.4 % (0.2-2.0); Eosinophils Percent Auto 0.2 % (0.9-7.0); Hematocrit 31.5 % (36.0-48.0); Hemoglobin 9.8 g/dL (12.0-16.0); Immature Granulocytes Abs Auto 0.04 10^3/uL (0.00-0.03); Immature Granulocytes Pct Auto 0.4 % (0.0-0.5); Lymphocytes Absolute Auto 1.6 10^3/uL (1.2-3.8); Lymphocytes Percent Auto 14.1 % (20.5-60.0); Mean Corpuscular HGB Conc 31.1 g/dL (29.9-35.2); Mean Corpuscular Hemoglobin 24.8 pg (26.7-34.0); Mean Corpuscular Volume 79.7 fL (81.0-99.0); Mean Platelet Volume 11.1 fL (9.5-13.5); Monocytes Absolute Auto 0.6 10^3/uL (0.3-0.8); Monocytes Percent Auto 5.6 % (1.7-12.0); Neutrophils Absolute Auto 8.9 10^3/uL (1.4-6.5); Neutrophils Percent Auto 79.3 % (43.0-75.0); Platelet Count 206 10^3/uL (150-450); Red Blood Count 3.95 10^6/uL (4.20-5.40); Red Cell Distribution Width 13.5 % (11.0-15.0); White Blood Count 11.2 10^3/uL (4.0-11.0)
--- NOTE | 2023-07-09 07:41 | PM.OBPN ---
OB - PN: Subj Subjective Patient comments: no complaints and pain well controlled [place] status: doing well Exam Constitutional Vital Signs, click to edit/add: Last Vital Signs Temp 97.9 F 07/09/23 01:10 Pulse 62 07/09/23 01:11 Resp 16 07/09/23 01:10 BP 103/66 07/09/23 01:11 O2 Del Method Room Air 07/09/23 01:10 Documenting provider has reviewed patient's vital signs: yes Common normals: no apparent distress Respiratory Common normals: normal respiratory effort and clear to auscultation bilaterally Cardio Common normals: regular rate and regular rhythm GI Common normals: Normal to inspection, nondistended, normoactive bowel sounds present Extremity Common normals: no clubbing, cyanosis or edema Results Labs Labs: Short CBC 07/08/23 07/09/23 Range/Units 15:15 05:58 WBC 9.3 11.2 H (4.0-11.0) 10^3/uL Hgb 10.6 L 9.8 L (12.0-16.0) g/dL Hct 33.9 L 31.5 L (36.0-48.0) % Plt Count 218 206 (150-450) 10^3/uL Urine 07/08/23 Range/Units 12:50 Urine Color Yellow (YELLOW) Urine Clarity Sl cloudy (CLEAR) Urine pH 6.5 (5.0-9.0) Ur Specific [place] >=1.030 A (1.005-1.025) Urine Protein Trace (NEG/TRACE) mg/dL Urine Glucose (UA) Negative (NEGATIVE) mg/dL OB - PN: A/P Plan - Vaginal Delivery day: 1 Plan: routine care Time Spent with Patient Time: Total time spent is greater than 50% in coordination of care (as documented) at patient's floor/unit and/or counseling patient: Total time spent with greater than 50% in coordination of care (as documented) at patient's floor/unit and/or counseling patient: less than 15 minutes
[2023-07-09 08:35] VITALS: BP 99/61; PULSE 54; TEMP 36.6
[2023-07-09] MEDS: IBUPROFEN 600 MG TABLET PO (10:51)
[2023-07-09 16:48] VITALS: BP 99/58; PULSE 67
[2023-07-09 16:50] VITALS: TEMP 36.4
[2023-07-10] MEDS: IBUPROFEN 600 MG TABLET PO (00:24)
[2023-07-10 00:25] VITALS: TEMP 36.5
[2023-07-10 00:26] VITALS: BP 107/67; PULSE 63
--- NOTE | 2023-07-10 08:12 | P.OBPN_ITS ---
OB - PN: Subj Subjective Patient comments: no complaints [place] status: doing well feeding status: exclusively bottle feeding Exam Constitutional Vital Signs, click to edit/add: Last Vital Signs Temp 97.7 F 07/10/23 00:25 Pulse 63 07/10/23 00:26 Resp 16 07/10/23 00:25 BP 107/67 07/10/23 00:26 O2 Del Method Room Air 07/10/23 00:25 Common normals: no apparent distress Orientation/consciousness: Yes awake, Yes oriented to person, Yes oriented to place and Yes oriented to time HENMT Common normals: normocephalic Eye Common normals: EOMs intact bilaterally Neck & C-Spine Common normals: full ROM Lymph Lymphatic: no lymphadenopathy noted Chest Common normals: inspection of chest normal Respiratory Common normals: normal respiratory effort Effort & inspection: able to speak in complete sentences Cardio Common normals: regular rate and regular rhythm Rate: regular rate Rhythm: regular rhythm GI Common normals: Normal to inspection, nondistended, normoactive bowel sounds present Common normals: no CVA tenderness Back & Pelvis Common normals: no CVA tenderness Thoracic spine/upper back: normal to inspection Extremity Common normals: normal to inspection General: normal exam except as noted Neuro Common normals: oriented x3 Sensorium/orientation: awake, alert, oriented to person, oriented to place and oriented to time Psych Common normals: mental status grossly normal OB - PN: A/P Plan - Vaginal Delivery day: 2 Plan: discharge home Time Spent with Patient Time: Total time spent is greater than 50% in coordination of care (as documented) at patient's floor/unit and/or counseling patient: Total time spent with greater than 50% in coordination of care (as documented) at patient's floor/unit and/or counseling patient: less than 15 minutes
[2023-07-10 10:44] VITALS: BP 111/66; PULSE 65; TEMP 36.7
== END 2023-07-10 12:20 | disposition home or self-care (01) | DRG 560 ==
PROVIDERS: Admitting Provider Obstetrics & Gynecology; Visit Provider Obstetrics & Gynecology
DX: O80 Encounter for full-term uncomplicated delivery (principal); Z3A.37 37 weeks gestation of pregnancy; Z37.0 Single live birth
CPT/HCPCS: 36415; 59025; 59050; 59410; 80307; 81001; 85025; 85027; 86850; 86900; 86901; 87086; 96365; 96366

== ENCOUNTER 2024-01-29 12:28 | Outpatient (OUT) | payer MEDICAID, SELFPAY ==
--- NOTE | 2024-01-29 12:30 | US_ITS ---
[address] [place] [id number] Patient Name: JONATHAN HAN MRN: [id number] date: 2000 Sex: F Assigned Patient Location: [facility] Current Patient Location: Accession/Order Number: [id number] Exam Date: 01/29/2024 12:30 Report Date: 01/30/2024 05:38 At the request of: NIKKI TOLLIVER Procedure: US OB transvaginal EXAMINATION: US OB transvaginal HISTORY: MISSED MENSES COMPARISON: No relevant comparison available. FINDINGS: GESTATIONAL SAC: Present and normal appearing. YOLK SAC: Present and normal appearing. POLE: Present and normal appearing. CARDIAC: Present. UTERUS: Normal size and appearance. OVARIES: Right: Corpus lutein cyst. Left: Not seen. CERVIX: 4.4 cm in length and closed. CUL-DE-SAC: Normal. OTHER: None. AGE BY LMP: 9 weeks 3 days BEREKET BY LMP: Not reported by tooling manager AGE BY US CRL: Not reported by tooling manager BEREKET BY US CRL: Not reported by tooling manager US/US OB transvaginal IMPRESSION: 1. Single live intrauterine . 2. Ultrasound age not recorded by tooling manager. An addendum will be provided when this information is available. Electronically authenticated by: DEON STEINER Date: 01/30/2024 05:38
== END 2024-01-29 12:29 | disposition home or self-care (01) ==
LOC: NOMS 12:28
PROVIDERS: Visit Provider Obstetrics & Gynecology
DX: Z34.01 Encounter for supervision of normal first pregnancy, first trimester (principal); Z3A.09 9 weeks gestation of pregnancy; N92.6 Irregular menstruation, unspecified
CPT/HCPCS: 76817

== ENCOUNTER 2024-02-02 15:23 | Outpatient (OUT) | payer MEDICAID, SELFPAY ==
--- OUTSIDE RECORDS SUMMARY | 2024-02-02 15:36 | XMS_ITS | CCD ---
Author Organization [facility] Care Team Providers Care Diazo Technician Name Role Phone RIP ., DR JORDAN Admitting Unavailable RIP ., DR JORDAN Attending Unavailable KARASIK ., DR DISLA Primary Care Unavailabl e RIP ., DR JORDAN Consulting Unavailable RIP ., DR JORDAN Admitting Unavailable RIP ., DR JORDAN Attending Unavailable KARASIK ., DR DISLA Primary Care Unavailjane ROBLERO, DR SHANA Carranza Consulting Unavailable RIP ., DR JORDAN Consulting Unavailable RIP ., DR JORDAN Admitting Unavailable RIP ., DR JORDAN Attending Unavailable KARASIK ., DR DISLA Primary Care Unavailabl e RIP ., DR JORDAN Consulting Unavailable ZIEBER, DR DEON Way Consulting Unavailable RIP ., DR JORDAN Admitting Unavailable RIP ., DR JORDAN Attending Unavailable KARASIK ., DR DISLA Primary Care Unavailabl e RIP ., DR JORDAN Consulting Unavailable RIP ., DR JORDAN Admitting Unavailable RIP ., DR JORDAN Attending Unavailable KARBECKYK ., DR DISLA Primary Care Unavailjane ROBLERO, DR SHANA Carranza Consulting Unavailable RIP ., DR JORDAN Consulting Unavailable MISC, DR HENAO Primary Care Unavailable RIP ., DR JORDAN Admitting Unavailable RIP ., DR JORDAN Attending Unavailable KARASIK ., DR DISLA Consulting Unavailabl e RIP ., DR JORDAN Consulting Unavailable RIP ., DR JORDAN Procedure Practitioner Unavail able MISC, DR HENAO Primary Care Unavailable BROCK MITCHELL Admitting Unavailable BROCK MITCHELL Attending Unavailable GRECHISSAC ., DM JOE Consulting Unavailabl e [place] Consulting Unavailable RIP ., DR JORDAN Admitting Unavailable RIP ., DR JORDAN Attending Unavailable KARASIK ., DR DISLA Primary Care Unavailabl e RIP ., DR MCNEILLY Consulting Unavailable Unavailable Primary Care Provider Unavailjane e SERVICES, [facility] Primary Care Unava ilable SHANA LOVE Attending Unavailable WIL WARNER Attending Unavailable WIL WARNER Referring Unavailable SERVICES, [facility] Nikki Gleason DO Unavailable NIKKI ERWIN Attending Unavailable NIKKI ERWIN Attending Unavailable GAVIOTA SHERIDAN Attending Unavailable NIKKI ERWIN Attending Unavailable GAVIOTA SHERIDAN Attending Unavailable NIKKI ERWIN Attending Unavailable GAVIOTA SHERIDAN Attending Unavailable NIKKI ERWIN Attending Unavailable Medications Current Medications Medication Drug Class(es) Dates Sig (Normalized) Sig (Original) ondansetron 4 mg disintegrating oral tablet (1 source) Serotonin-3 Receptor Antagonist Start: 01-29-2024 End: 02-28-2024 take 1 tablet by mouth every six hours for nausea ondansetron ODT (Zofran-ODT) 4 MG disintegrating tablet Indications: Nausea and vomiting in Take 1 tablet (4 mg) by mouth every 6 (six) hours if needed for nausea or vomiting 30 tablet 2 01/29/2024 02/28/2024 Active MV & Min w/FA-DHA ( Gummies) 0.18-25 MG chewable tablet (3 sources) Start: 2023 End: 2024 MV & Min w/FA-DHA ( Gummies) 0.18-25 MG chewable tablet Indications: Missed menses Chew 0.18 mg in the morning. 30 tablet 11 2023 2024 Active Vit-Fe Fumarate-FA (PNV Plus Multivitamin) 27-1 MG tablet (1 source) Start: 01-29-2024 take 1 tablet by mouth once daily Vit-Fe Fumarate-FA (PNV Plus Multivitamin) 27-1 MG tablet Indications: , unspecified gestational age Take 1 tablet by mouth Daily 30 tablet 11 01/29/2024 Active valACYclovir 500 mg oral tablet (4 sources) Herpesvirus Nucleoside Analog DNA Polymerase Inhibitor, Herpes Simplex Virus Nucleoside Analog DNA Polymerase Inhibitor, Herpes Zoster Virus Nucleoside Analog DNA Polymerase Inhibitor valACYclovir (Valtrex) 500 MG tablet 1 (one) time each day at the same time Active Problems Active Problems Problem Classification Problem Date Documented Da te Episodic/Chronic Abdominal pain (4 sources) Epigastric pain; Translations: [EPIGASTRIC PAIN] Onset: 07-10-2022 Episodic Menstrual disorders (1 source) Missed period; Translations: [Irregular menstruation, unspecified] 01-29-2024 Chronic Other complications of (1 source) Vomiting of , unspecified; Translations: [Unspecified vomiting of , unspecified as to episode of care or not applicable] 01-29-2024 Episodic Other injuries and conditions due to external causes (1 source) Unspecified injury of head, initial encounter; Translations: [Unspecified injury of head, initial encounter] Onset: 01-21-2024 Episodic Other injuries and conditions due to external causes (2 sources) Injury of head Onset: 01-21-2024 Episodic Other and delivery including normal (5 sources) Single live ; Translations: [Third trimester ] Onset: 01-02-2022 05-02-2023 Episodic Viral infection (1 source) Herpesviral infection [...] EXCSS FTL GRTH 3RD TRI UNS] Onset: 09-30-2022 Episodic Other female genital disorders (1 source) Other specified noninflammatory disorders of vagina; Translations: [OTH SPEC NONINFLAMMATORY D/O VAGINA] Onset: 07-26-2021 Episodic Other screening for suspected conditions (not mental disorders or infectious disease) (12 sources) Encounter for screening for Streptococcus B; Translations: [Encounter for screening for diabetes mellitus] Onset: 08-21-2021 Episodic Residual codes; unclassified (1 source) 38 weeks gestation of ; Translations: [38 WEEKS GESTATION OF ] Onset: 01-02-2022 Episodic Results Test Name Value Interpretation Reference Range Facility HCG ( test) Ql (U)o n 01-29-2024 Interpretation and review of laboratory results Abnormal [facility] Preg Test, Ur Positive Negative [facility] Urinalysis macro (dipstick) panel (U)on 01-29-2024 Bilirubin, UA Negative Negative - 4(70) +++ mg/dL [facility] Blood, UA Negative Negative - 50 Chidi/mcL [facility] Clarity, UA Clear [facility] Color, UA Yellow [facility] Glucose, UA Negative Negative - 2000(110) ++++ mg/dL [facility] Interpretation and review of laboratory results Normal [facility] Ketones, UA Negative Negative - 160(16) ++++ mg/dL [facility] Leukocytes, UA Negative Negative - 500+++ Gabi/mcL [facility] Nitrite, UA Negative Negative - Positive [facility] pH, UA 6 5 - 9 [facility] Protein, UA Negative Negative - 2000(20) ++++ mg/dL [facility] Spec Grav, UA 1.02 1 - 1.03 [facility] Urobilinogen, UA 0.2 0.2 - 12 mg/dL [facility] ALL CBC WITH AUTO DIFFon BASOPHILS ABSOLUTE AUTO 0.0 [facility] Basophils/100 WBC (Bld) 0.3 % 0.2 - 2.0 % [facility] Eosinophils/100 WBC (Bld) 1.6 % 0.9 - 7.0 % [facility] Erythrocyte distribution width (RBC) [Ratio] 12.4 % 11.0 - 15.0 % [facility] Hematocrit (Bld) [Volume fraction] 33.3 % Low 36.0 - 48.0 % [facility] Hemoglobin (Bld) [Mass/Vol] 10.6 g/dL Low 12.0 - 16.0 g/dL [facility] IMMATURE GRANULOCYTES ABS AUTO 0.05 High [facility] Immature granulocytes/100 WBC (Bld) 0.6 % High 0.0 - 0.5 % [facility] Interpretation and review of laboratory results Abnormal [facility] LYMPHOCYTES ABSOLUTE AUTO 1.5 [facility] Lymphocytes/100 WBC (Bld) 17.1 % Low 20.5 - 60.0 % [facility] MCH (RBC) [Entitic mass] 28.1 pg 26.7 - 34.0 pg [facility] MCHC (RBC) [Mass/Vol] 31.8 g/dL 29.9 - 35.2 g/dL [facility] MCV (RBC) [Entitic vol] 88.3 fL 81.0 - 99.0 fL [facility] MONOCYTES ABSOLUTE AUTO 0.5 [facility] Monocytes/100 WBC (Bld) 5.8 % 1.7 - 12.0 % [facility] NEUTROPHILS ABSOLUTE AUTO 6.5 [facility] Neutrophils/100 WBC (Bld) 74.6 % 43.0 - 75.0 % [facility] Platelet mean volume (Bld) [Entitic vol] 10.6 fL 9.5 - 13.5 fL [facility] TBH EO # 0.1 [facility] PLT [address] [facility] RBC 3.77 Low [facility] WBC 8.7 [facility] Urinalysis macro (dipstick) panel (U)on 05-06-2023 Bilirubin, UA Negative Negative - 4(70) +++ mg/dL [facility] Blood, UA Negative Negative - 50 Chidi/mcL [facility] Clarity, UA Clear [facility] Color, UA Yellow [facility] Glucose, UA Negative Negative - 1999(110) ++++ mg/dL [facility] Interpretation and review of laboratory results Abnormal [facility] Ketones, UA Negative Negative - 160(16) ++++ mg/dL [facility] Leukocytes, UA Negative Negative - 500+++ Gabi/mcL [facility] Nitrite, UA Negative Negative - Positive [facility] pH, UA 5.5 5 - 9 [facility] Protein, UA Negative Negative - 1999(20) ++++ mg/dL [facility] Spec Grav, UA 1.020 1 - 1.03 [facility] Urobilinogen, UA 1.0 0.2 - 12 mg/dL [facility] XR ABD FLAT UP_PA Arielle 07-11 XR [...] [place] Date: 2022-07-10 22:30 Normal [facility] CBC AUTO DIFFon 07-10-2022 BASO # 0.0 103/ul Normal 0.0-0.1 [facility] Comment on above: Performed By: #### C BC #### [facility] [address] [place] [address] Dr. Papo Swanson Basophils/100 WBC (Bld) 0.4 % Normal 0.2-2.0 [facility] Comment on above: Performed By: #### C BC #### [facility] [address] [address] [address] Papo Swanson EO # 0.1 103/ul Normal 0.0-0.7 [facility] Comment on above: Performed By: #### C BC #### [facility] [address] [address] [address] Papo Swanson Eosinophils/100 WBC (Bld) 0.6 % Critically low 0.9-7.0 [facility] Comment on above: Performed By: #### C BC #### [facility] [address] [place] [address] Dr. Papo Swanson Erythrocyte distribution width (RBC) [Ratio] 14.4 % Normal 11.0-15.0 [facility] Comment on above: Performed By: #### C BC #### [facility] [address] [place] [address] Dr. Papo Swanson Hematocrit (Bld) [Volume fraction] 42.2 % Normal 36.0-48.0 [facility] Comment on above: Performed By: #### C BC #### [facility] [address] [place] [address] Dr. Papo Swanson Hemoglobin (Bld) [Mass/Vol] 13.7 g/dL Normal 12.0-16.0 [facility] Comment on above: Performed By: #### C BC #### [facility] [address] [place] [address] Dr. Papo Swanson IG # 0.03 10e3/ul Normal 0.00-0.03 [facility] Comment on above: Performed By: #### C BC #### [facility] [address] [place] [address] Dr. Papo Swanson IG % 0.3 % Normal 0.0-0.5 [facility] Comment on above: Performed By: #### C BC #### [facility] [address] [place] [address] Dr. Papo Swanson LYMPH # 1.5 103/ul Normal 1.2-3.8 [facility] Comment on above: Performed By: #### C BC #### [facility] [address] [place] [address] Dr. Papo Swanson Lymphocytes/100 WBC (Bld) 15.7 % Critically low 20.5-60.0 [facility] Comment on above: Performed By: #### C BC #### [facility] [address] [place] [address] Dr. Ppao Swanson MANUAL DIFF REQ NO Normal [facility] Comment on above: Performed By: #### C BC #### [facility] [address] [place] [address] Dr. Papo Swanson MCH (RBC) [Entitic mass] 27.0 pg Normal 26.7-34.0 [facility] Comment on above: Performed By: #### C BC #### [facility] [address] [address] [address] Papo Swanson MCHC (RBC) [Mass/Vol] 32.5 g/dL Normal 29.9-35.2 [facility] Comment on above: Performed By: #### C BC #### [facility] [address] [address] [address] Papo Swanson MCV (RBC) [Entitic vol] 83.2 fL Normal 81.0-99.0 [facility] Comment on above: Performed By: #### C BC #### [facility] [address] [address] [address] Papo Swanson MONO # 0.6 103/ul Normal 0.3-0.8 [facility] Comment on above: Performed By: #### C BC #### [facility] [address] [address] [address] Papo Swanson Monocytes/100 WBC (Bld) 5.9 % Normal 1.7-12.0 [facility] Comment on above: Performed By: #### C BC #### [facility] [address] [address] [address] Papo Swanson NEUT # 7.4 103/ul Critically high 1.4-6.5 [facility] Comment on above: Performed By: #### C BC #### [facility] [address] [address] [address] Papo Swanson Neutrophils/100 WBC (Bld) 77.1 % Critically high 43.0-75.0 [facility] Comment on above: Performed By: #### C BC #### [facility] [address] [address] [address] Papo Swanson Platelet mean volume (Bld) [Entitic vol] 10.5 fL Normal 9.5-13.5 [facility] Comment on above: Performed By: #### C BC #### [facility] [address] [address] [address] Papo Swanson PLT 318 103/ul Normal 150-450 [facility] Comment on above: Performed By: #### C BC #### [facility] [address] [place] [address] Dr. Papo Swanson RBC 5.07 106/ul Normal 4.20-5.40 [facility] Comment on above: Performed By: #### C BC #### [facility] [address] [place] [address] Dr. Papo Swanson WBC 9.7 103/ul Normal 4.0-11.0 [facility] Comment on above: Performed By: #### C BC #### [facility] [address] [place] [address] Dr. Papo Swanson ER URINE PROFILEon 3 Bilirubin Ql (U) Negative Normal NEGATIVE [facility] Comment on above: Performed By: #### E RUR #### [facility] [address] [place] [address] Dr. Papo Swanson Clarity (U) CLEAR Normal CLEAR [facility] Comment on above: Performed By: #### E RUR #### [facility] [address] [place] [address] Dr. Papo Swanson Color (U) LT. YELLOW Normal YELLOW [facility] Comment on above: Performed By: #### E RUR #### [facility] [address] [place] [address] Dr. Papo JAIMES A micrscopic examination will be performed if indicated. Normal [facility] Comment on above: Performed By: #### E RUR #### [facility] [address] [place] [address] Dr. Papo Swanson Glucose Ql (U) Negative Normal NEGATIVE [facility] Comment on above: Performed By: #### E RUR #### [facility] [address] [place] [address] Dr. Papo Swanson Hemoglobin Ql (U) Negative Normal NEGATIVE [facility] Comment on above: Performed By: #### E RUR #### [facility] [address] [place] [address] Dr. Papo Swanson Ketones Ql (U) Negative Normal NEGATIVE [facility] Comment on above: Performed By: #### E RUR #### [facility] [address] [place] [address] Dr. Papo Swanson LEUKOCYTES Negative Normal NEGATIVE [facility] Comment on above: Performed By: #### E RUR #### [facility] [address] [place] [address] Dr. Papo Swanson Nitrite Ql (U) Negative Normal NEGATIVE [facility] Comment on above: Performed By: #### E RUR #### [facility] [address] [place] [address] Dr. Papo Swanson pH (U) 7.0 [pH] Normal 5-9 [facility] Comment on above: Performed By: #### E RUR #### [facility] [address] [place] [address] Dr. Papo Swanson SPEC GRAVITY 1.025 Normal 1.005-<=1.025 [facility] Comment on above: Performed By: #### E RUR #### [facility] [address] [place] [address] Dr. Papo Swanson UA PROTEIN Negative Normal NEGATIVE/ TRACE [facility] Comment on above: Performed By: #### E RUR #### [facility] [address] [place] [address] Dr. Papo Swanson UR MICRO IND NOT INDICATED Normal [facility] Comment on above: Performed By: #### E RUR #### [facility] [address] [place] [address] Dr. Papo Swanson Urobilinogen Qn (U) 0.2 {Kelle'U}/dL Normal 0.2 - 1. 0 [facility] Comment on above: Performed By: #### E RUR #### [facility] [address] [place] [address] Dr. Papo Swanson LIPASEon 07-10-2022 Lipase [Catalytic activity/Vol] 54.0 U/L Critically low 73.0-393.0 [facility] Comment on above: Performed By: #### D RUGRPD #### [facility] [address] [place] [address] Dr. Papo Swanson PREG HCG QUALon 07-10-2022 , QUAL Negative Normal NEGATIVE [facility] Comment on above: Performed By: #### E RUR #### [facility] [address] [place] [address] Dr. Papo Swanson PROF 14(COMP METB)on 023 Albumin [Mass/Vol] 4.3 g/dL Normal 3.4-5.0 [facility] Comment on above: Performed By: #### D RUGRPD #### [facility] [address] [place] [address] Dr. Papo Swanson Albumin/Globulin [Mass ratio] 1.0 {ratio} Normal [facility] Comment on above: Performed By: #### D RUGRPD #### [facility] [address] [place] [address] Dr. Papo Swanson ALP [Catalytic activity/Vol] 91 U/L Normal 46-116 [facility] Comment on above: Performed By: #### D RUGRPD #### [facility] [address] [place] [address] Dr. Papo Swanson ALT [Catalytic activity/Vol] 19 U/L Normal 14-59 [facility] Comment on above: Performed By: #### D RUGRPD #### [facility] [address] [place] [address] Dr. Papo Swanson Anion gap [Moles/Vol] 13.9 mmol/L Normal [facility] Comment on above: Performed By: #### D RUGRPD #### [facility] [address] [address] [address] Papo Swanson AST [Catalytic activity/Vol] 13 U/L Critically low 15-37 [facility] Comment on above: Performed By: #### D RUGRPD #### [facility] [address] [place] [address] Dr. Papo Swanson Bilirubin [Mass/Vol] 0.3 mg/dL Normal 0.2-1.0 [facility] Comment on above: Performed By: #### D RUGRPD #### [facility] [address] [place] [address] Dr. Papo Swanson Calcium [Mass/Vol] 9.1 mg/dL Normal 8.5-10.1 [facility] Comment on above: Performed By: #### D RUGRPD #### [facility] [address] [address] [address] Papo Swanson Chloride [Moles/Vol] 104 mmol/L Normal 98-107 [facility] Comment on above: Performed By: #### D RUGRPD #### [facility] [address] [address] [address] Papo Swanson CO2 [Moles/Vol] 25.4 mmol/L Normal 21.0-32.0 [facility] Comment on above: Performed By: #### D RUGRPD #### [facility] [address] [place] [address] Dr. Papo Swanson Creatinine [Mass/Vol] 0.64 mg/dL Normal 0.55-1.02 [facility] Comment on above: Performed By: #### D RUGRPD #### [facility] [address] [place] [address] Dr. Papo Swanson EGFR-AF BOLIVIAN >60 Normal >=60 [facility] Comment on above: Performed By: #### D RUGRPD #### [facility] [address] [place] [address] Dr. Papo Swanson EGFR-NON AF BOLIVIAN >60 Normal >=60 [facility] Comment on above: Performed By: #### D RUGRPD #### [facility] [address] [place] [address] Dr. Papo Swanson Globulin (S) [Mass/Vol] 4.3 g/dL Normal [facility] Comment on above: Performed By: #### D RUGRPD #### [facility] [address] [place] [address] Dr. Papo Swanson Glucose [Mass/Vol] 101 mg/dL Normal 74-106 [facility] Comment on above: Performed By: #### D RUGRPD #### [facility] [address] [place] [address] Dr. Papo Swanson Potassium [Moles/Vol] 3.3 mmol/L Critically low 3.5-5.1 [facility] Comment on above: Performed By: #### D RUGRPD #### [facility] [address] [place] [address] Dr. Papo Swanson Protein [Mass/Vol] 8.6 g/dL Critically high 6.4-8.2 [facility] Comment on above: Performed By: #### D RUGRPD #### [facility] [address] [place] [address] Dr. Papo Swanson Sodium [Moles/Vol] 140 mmol/L Normal 136-145 [facility] Comment on above: Performed By: #### D RUGRPD #### [facility] [address] [place] [address] Dr. Papo Swanson Urea nitrogen [Mass/Vol] 8.0 mg/dL Normal 7.0-18.0 [facility] Comment on above: Performed By: #### D RUGRPD #### [facility] [address] [place] [address] Dr. Papo Swanson Urea nitrogen/Creatinine [Mass ratio] 12.5 mg/mg Normal [facility] Comment on above: Performed By: #### D RUGRPD #### [facility] [address] [place] [address] Dr. Papo Swanson CBC AUTO DIFFon 12-27-2021 BASO # 0.0 103/ul Normal 0.0-0.1 [facility] Comment on above: Performed By: #### C BC #### [facility] [address] [place] [address] Dr. Papo Swanson Basophils/100 WBC (Bld) 0.2 % Normal 0.2-2.0 [facility] Comment on above: Performed By: #### C BC #### [facility] [address] [place] [address] Dr. Papo Swanson EO # 0.0 103/ul Normal 0.0-0.7 [facility] Comment on above: Performed By: #### C BC #### [facility] [address] [place] [address] Dr. Papo Swanson Eosinophils/100 WBC (Bld) 0.3 % Critically low 0.9-7.0 [facility] Comment on above: Performed By: #### C BC #### [facility] [address] [place] [address] Dr. Papo Swanson Erythrocyte distribution width (RBC) [Ratio] 15.4 % Critically high 11.0-15.0 [facility] Comment on above: Performed By: #### C BC #### [facility] [address] [place] [address] Dr. Papo Swanson Hematocrit (Bld) [Volume fraction] 27.8 % Critically low 36.0-48.0 [facility] Comment on above: Performed By: #### C BC #### [facility] [address] [place] [address] Dr. Papo Swanson Hemoglobin (Bld) [Mass/Vol] 8.7 g/dL Critically low 12.0-16.0 [facility] Comment on above: Performed By: #### C BC #### [facility] [address] [place] [address] Dr. Papo Swanson IG # 0.11 10e3/ul Critically high 0.00-0.03 [facility] Comment on above: Performed By: #### C BC #### [facility] [address] [place] [address] Dr. Papo Swanson IG % 0.9 % Critically high 0.0-0.5 [facility] Comment on above: Performed By: #### C BC #### [facility] [address] [place] [address] Dr. Papo Swanson LYMPH # 2.4 103/ul Normal 1.2-3.8 [facility] Comment on above: Performed By: #### C BC #### [facility] [address] [place] [address] Dr. Papo Swanson Lymphocytes/100 WBC (Bld) 19.6 % Critically low 20.5-60.0 [facility] Comment on above: Performed By: #### C BC #### [facility] [address] [place] [address] Dr. Papo Swanson MANUAL DIFF REQ NO Normal [facility] Comment on above: Performed By: #### C BC #### [facility] [address] [place] [address] Dr. Papo Swnason MCH (RBC) [Entitic mass] 24.6 pg Critically low 26.7-34.0 [facility] Comment on above: Performed By: #### C BC #### [facility] [address] [place] [address] Dr. Papo Swanson MCHC (RBC) [Mass/Vol] 31.3 g/dL Normal 29.9-35.2 [facility] Comment on above: Performed By: #### C BC #### [facility] [address] [place] [address] Dr. Papo Swanson MCV (RBC) [Entitic vol] 78.8 fL Critically low 81.0-99.0 [facility] Comment on above: Performed By: #### C BC #### [facility] [address] [place] [address] Dr. Papo Swanson MONO # 0.8 103/ul Normal 0.3-0.8 [facility] Comment on above: Performed By: #### C BC #### [facility] [address] [place] [address] Dr. Papo Swanson Monocytes/100 WBC (Bld) 6.2 % Normal 1.7-12.0 [facility] Comment on above: Performed By: #### C BC #### [facility] [address] [place] [address] Dr. Papo Swanson NEUT # 8.9 103/ul Critically high 1.4-6.5 [facility] Comment on above: Performed By: #### C BC #### [facility] [address] [place] [address] Dr. Papo Swanson Neutrophils/100 WBC (Bld) 72.8 % Normal 43.0-75.0 [facility] Comment on above: Performed By: #### C BC #### [facility] [address] [place] [address] Dr. Papo Swanson Platelet mean volume (Bld) [Entitic vol] 11.7 fL Normal 9.5-13.5 [facility] Comment on above: Performed By: #### C BC #### [facility] [address] [place] [address] Dr. Papo Swanson PLT 173 103/ul Normal 150-450 [facility] Comment on above: Performed By: #### C BC #### [facility] [address] [place] [address] Dr. Papo Swanson RBC 3.53 106/ul Critically low 4.20-5.40 [facility] Comment on above: Performed By: #### C BC #### [facility] [address] [place] [address] Dr. Papo Swanson WBC 12.2 103/ul Critically high 4.0-11.0 [facility] Comment on above: Performed By: #### C BC #### [facility] [address] [place] [address] Dr. Papo Swanson CBC AUTO DIFFon 12-26-2021 BASO # 0.0 103/ul Normal 0.0-0.1 [facility] Comment on above: Performed By: #### C BC #### [facility] [address] [place] [address] Dr. Papo Swanson Basophils/100 WBC (Bld) 0.2 % Normal 0.2-2.0 [facility] Comment on above: Performed By: #### C BC #### [facility] [address] [place] [address] Dr. Papo Swanson EO # 0.1 103/ul Normal 0.0-0.7 [facility] Comment on above: Performed By: #### C BC #### [facility] [address] [place] [address] Dr. Papo Swanson Eosinophils/100 WBC (Bld) 0.8 % Critically low 0.9-7.0 [facility] Comment on above: Performed By: #### C BC #### [facility] [address] [place] [address] Dr. Papo Swanson Erythrocyte distribution width (RBC) [Ratio] 15.2 % Critically high 11.0-15.0 [facility] Comment on above: Performed By: #### C BC #### [facility] [address] [place] [address] Dr. Papo Swanson Hematocrit (Bld) [Volume fraction] 31.5 % Critically low 36.0-48.0 [facility] Comment on above: Performed By: #### C BC #### [facility] [address] [place] [address] Dr. Papo Swanson Hemoglobin (Bld) [Mass/Vol] 9.9 g/dL Critically low 12.0-16.0 [facility] Comment on above: Performed By: #### C BC #### [facility] [address] [place] [address] Dr. Papo Swanson IG # 0.21 10e3/ul Critically high 0.00-0.03 [facility] Comment on above: Performed By: #### C BC #### [facility] [address] [place] [address] Dr. Papo Swanson IG % 2.5 % Critically high 0.0-0.5 [facility] Comment on above: Performed By: #### C BC #### [facility] [address] [place] [address] Dr. Papo Swanson LYMPH # 1.8 103/ul Normal 1.2-3.8 [facility] Comment on above: Performed By: #### C BC #### [facility] [address] [place] [address] Dr. Papo Swanson Lymphocytes/100 WBC (Bld) 20.8 % Normal 20.5-60.0 [facility] Comment on above: Performed By: #### C BC #### [facility] [address] [place] [address] Dr. Papo Swanson MANUAL DIFF REQ NO Normal [facility] Comment on above: Performed By: #### C BC #### [facility] [address] [place] [address] Dr. Papo Swanson MCH (RBC) [Entitic mass] 24.5 pg Critically low 26.7-34.0 [facility] Comment on above: Performed By: #### C BC #### [facility] [address] [place] [address] Dr. Papo Swanson MCHC (RBC) [Mass/Vol] 31.4 g/dL Normal 29.9-35.2 [facility] Comment on above: Performed By: #### C BC #### [facility] [address] [place] [address] Dr. Papo Swanson MCV (RBC) [Entitic vol] 78.0 fL Critically low 81.0-99.0 [facility] Comment on above: Performed By: #### C BC #### [facility] [address] [place] [address] Dr. Papo Swanson MONO # 0.5 103/ul Normal 0.3-0.8 [facility] Comment on above: Performed By: #### C BC #### [facility] [address] [place] [address] Dr. Papo Swanson Monocytes/100 WBC (Bld) 6.4 % Normal 1.7-12.0 [facility] Comment on above: Performed By: #### C BC #### [facility] [address] [place] [address] Dr. Papo Swanson NEUT # 5.8 103/ul Normal 1.4-6.5 [facility] Comment on above: Performed By: #### C BC #### [facility] [address] [place] [address] Dr. Papo Swanson Neutrophils/100 WBC (Bld) 69.3 % Normal 43.0-75.0 [facility] Comment on above: Performed By: #### C BC #### [facility] [address] [place] [address] Dr. Papo Swanson Platelet mean volume (Bld) [Entitic vol] 12.2 fL Normal 9.5-13.5 [facility] Comment on above: Performed By: #### C BC #### [facility] [address] [place] [address] Dr. Papo Swanson PLT 195 103/ul Normal 150-450 [facility] Comment on above: Performed By: #### C BC #### [facility] [address] [address] [address] Papo Swanson RBC 4.04 106/ul Critically low 4.20-5.40 [facility] Comment on above: Performed By: #### C BC #### [facility] [id number] Papo Swanson WBC 8.4 103/ul Normal 4.0-11.0 [facility] Comment on above: Performed By: #### C BC #### [facility] [address] [address] [address] Papo Swanson CULTURE URINEon 12-26-2021 CULTURE URINE Culture Observations : LIGHT GROWTH OF MIXED GENITAL NICOLE. NO POTENTIAL PATHOGENS SEEN. Normal [facility] Comment on above: Performed By: #### U RCX #### [facility] [address] [address] [address] Papo Swanson Covid-19 PCR (CVDTB)on SARS-CoV-2 (COVID-19) RNA PRIYA+probe Ql (Unsp spec) Not detected Normal NOT DETECTED [facility] Comment on above: Result Comment: When diagnostic [...] for this test is supported by the [place] [employer] and [employer] Service's declaration that [...] used). Performed By: #### C VDTBH #### [facility] [address] [address] [address] Papo Swanson DRUG SCREEN RAPID (URINE)on 12-26-2021 AMP Negative Normal NEGATIVE [facility] Comment on above: Performed By: #### D RUGRPD #### [facility] [address] [address] [address] Papo Swanson BAR Negative Normal NEGATIVE [facility] Comment on above: Performed By: #### D RUGRPD #### [facility] [address] [address] [address] Papo Swanson BUP Negative Normal NEGATIVE [facility] Comment on above: Performed By: #### D RUGRPD #### [facility] [address] [place] [address] Dr. Papo Swanson BZO Negative Normal NEGATIVE [facility] Comment on above: Performed By: #### D RUGRPD #### [facility] [address] [place] [address] Dr. Papo Swanson GIRISH Negative Normal NEGATIVE [facility] Comment on above: Performed By: #### D RUGRPD #### [facility] [address] [address] [address] Papo Swanson CUT-OFFS SEE BELOW Normal [facility] Comment on above: Result Comment: AMP [...] ng/mL Performed By: #### D RUGRPD #### [facility] [address] [place] [address] Dr. Papo Swanson DRUG CUT HEADER DRUG CLASS TEST SYST EM CUT-OFF CONCENTRATIONS ARE FOLLOWS: Normal [facility] Comment on above: Performed By: #### D RUGRPD #### [facility] [address] [address] [address] Papo Swanson mAMP Negative Normal NEGATIVE [facility] Comment on above: Performed By: #### D RUGRPD #### [facility] [address] [place] [address] Dr. Papo Swanson MTD Negative Normal NEGATIVE [facility] Comment on above: Performed By: #### D RUGRPD #### [facility] [address] [place] [address] Dr. Papo Swanson OPI Negative Normal NEGATIVE [facility] Comment on above: Performed By: #### D RUGRPD #### [facility] [address] [place] [address] Dr. Papo Swanson OXY Negative Normal NEGATIVE [facility] Comment on above: Performed By: #### D RUGRPD #### [facility] [address] [place] [address] Dr. Papo Swanson PCP Negative Normal NEGATIVE [facility] Comment on above: Performed By: #### D RUGRPD #### [facility] [address] [place] [address] Dr. Papo Swanson PPX Negative Normal NEGATIVE [facility] Comment on above: Performed By: #### D RUGRPD #### [facility] [address] [place] [address] Dr. Papo Swanson TCA Negative Normal NEGATIVE [facility] Comment on above: Performed By: #### D RUGRPD #### [facility] [address] [place] [address] Dr. Papo Swanson THC Negative Normal NEGATIVE [facility] Comment on above: Performed By: #### D RUGRPD #### [facility] [address] [place] [address] Dr. Papo Swanson TYPE AND SCREENon 12-26-2021 TYPE AND SCREEN Negative Normal [facility] Comment on above: Performed By: #### D RUGRPD #### [facility] [address] [place] [address] Dr. Papo Swanson UA (CLEAN/CATCH) GENERAL RO[employer] FOREMAN/MICRO I F IND.on 12-26-2021 Bilirubin Ql (U) Negative Normal NEGATIVE [facility] Comment on above: Performed By: #### D RUGRPD #### [facility] [address] [place] [address] Dr. Papo Swanson Clarity (U) CLEAR Normal CLEAR [facility] Comment on above: Performed By: #### D RUGRPD #### [facility] [address] [place] [address] Dr. Papo Swanson Color (U) LT. YELLOW Normal YELLOW [facility] Comment on above: Performed By: #### D RUGRPD #### [facility] [address] [place] [address] Dr. Papo Swanson Glucose Ql (U) Negative Normal NEGATIVE [facility] Comment on above: Performed By: #### D RUGRPD #### [facility] [address] [place] [address] Dr. Papo Swanson Hemoglobin Ql (U) Negative Normal NEGATIVE [facility] Comment on above: Performed By: #### D RUGRPD #### [facility] [address] [place] [address] Dr. Papo Swanson Ketones Ql (U) Negative Normal NEGATIVE [facility] Comment on above: Performed By: #### D RUGRPD #### [facility] [address] [place] [address] Dr. Papo Swanson LEUKOCYTES LARGE Abnormal NEGATIVE [facility] Comment on above: Performed By: #### D RUGRPD #### [facility] [address] [place] [address] Dr. Papo Swanson Nitrite Ql (U) Negative Normal NEGATIVE [facility] Comment on above: Performed By: #### D RUGRPD #### [facility] [address] [place] [address] Dr. Papo Swanson pH (U) 7.5 [pH] Normal 5-9 [facility] Comment on above: Performed By: #### D RUGRPD #### [facility] [address] [place] [address] Dr. Papo Swanson SPEC GRAVITY 1.015 Normal 1.005-<=1.025 [facility] Comment on above: Performed By: #### D RUGRPD #### [facility] [address] [place] [address] Dr. Papo Swanson UA PROTEIN Negative Normal NEGATIVE/ TRACE [facility] Comment on above: Performed By: #### D RUGRPD #### [facility] [address] [place] [address] Dr. Papo Swanson UR MICRO IND INDICATED Normal [facility] Comment on above: Performed By: #### D RUGRPD #### [facility] [address] [place] [address] Dr. Papo Swanson Urobilinogen Qn (U) 0.2 {Kelle'U}/dL Normal 0.2 - 1. 0 [facility] Comment on above: Performed By: #### D RUGRPD #### [facility] [address] [place] [address] Dr. Papo Swanson URINE MICROSCOPIC ONLYon BACTERIA SMALL Abnormal NONE SEEN [facility] Comment on above: Performed By: #### D RUGRPD #### [facility] [address] [place] [address] Dr. Papo Swanson Bacteria identified Cx Nom (U) INDICATED Normal [facility] Comment on above: Performed By: #### D RUGRPD #### [facility] [address] [place] [address] Dr. Papo Swanson CAST NONE SEEN Normal NONE SEEN [facility] Comment on above: Performed By: #### D RUGRPD #### [facility] [address] [place] [address] Dr. Papo Swanson Crystals LM Nom (Urine sed) NONE SEEN Normal NONE SEEN [facility] Comment on above: Performed By: #### D RUGRPD #### [facility] [address] [place] [address] Dr. Papo Swanson Epithelial cells LM Ql (Urine sed) MODERATE Abnormal NONE SEEN /RARE [facility] Comment on above: Performed By: #### D RUGRPD #### [facility] [address] [place] [address] Dr. Papo Swanson MUCOUS NONE SEEN Normal NONE SEEN [facility] Comment on above: Performed By: #### D RUGRPD #### [facility] [address] [place] [address] Dr. Papo Swanson RBC 0-2 Normal 0-2 [facility] Comment on above: Performed By: #### D RUGRPD #### [facility] [address] [place] [address] Dr. Papo Swanson WBC 10-20 Abnormal NONE SEEN [facility] Comment on above: Performed By: #### D RUGRPD #### [facility] [address] [place] [address] Dr. Papo Swanson US PREG GROWTHon 12-21-2021 [...] SHANA ROBLERO Date: 2021-12-21 18:09 Normal [facility] GROUP B STREP CULTUREon 11-23 S. agalactiae Ag Ql (Unsp spec) Culture Observations: NEGATIVE FOR GROUP B STREPTOCOCCUS. Normal [facility] Comment on above: Performed By: #### D RUGRPD #### [facility] [address] [place] [address] Dr. Papo Swanson GLUCOSE - 1HRon 10-16-2021 Glucose [Mass/Vol] 148 mg/dL Critically high 74-106 T [facility] Comment on above: Performed By: #### G LU1HR #### [facility] [address] [place] [address] Dr. Papo Swanson HEMOGRAM AND PLATELon 2021 Hematocrit (Bld) [Volume fraction] 31.5 % Critically low 36.0-48.0 [facility] Comment on above: Performed By: #### H H #### [facility] [address] [place] [address] Dr. Papo Swanson Hemoglobin (Bld) [Mass/Vol] 10.4 g/dL Critically low 12.0-16.0 [facility] Comment on above: Performed By: #### H H #### [facility] [address] [place] [address] Dr. Papo Swanson MCH (RBC) [Entitic mass] 27.8 pg Normal 26.7-34.0 [facility] Comment on above: Performed By: #### H H #### [facility] [address] [place] [address] Dr. Papo Swanson MCHC (RBC) [Mass/Vol] 33.0 g/dL Normal 29.9-35.2 [facility] Comment on above: Performed By: #### H H #### [facility] [address] [place] [address] Dr. Papo Swanson MCV (RBC) [Entitic vol] 84.2 fL Normal 81.0-99.0 [facility] Comment on above: Performed By: #### H H #### [facility] [address] [place] [address] Dr. Papo Swanson PLT 248 103/ul Normal 150-450 [facility] Comment on above: Performed By: #### H H #### [facility] [address] [place] [address] Dr. Papo Swanson RBC 3.74 106/ul Critically low 4.20-5.40 [facility] Comment on above: Performed By: #### H H #### [facility] [address] [place], [place] [address] Dr. Papo Swanson WBC 7.4 103/ul Normal 4.0-11.0 [facility] Comment on above: Performed By: #### H H #### [facility] [address] [place], [place] [address] Dr. Papo Swanson US PREG ANATOMY SINGLEon [...] SHANA ROBLERO Date: 2021-08-21 16:22 Normal [facility] US PREG CERVICAL LENGTHon US PREG CERVICAL [...] DEON STEINER Date: 2021-08-01 13:33 Normal [facility] CHLAMYDIA/GONOCOCCUS PRIYA ( AB/URINE/PAPon 07-28-2021 Chlamydia trachomatis, PRIYA Negative Normal Negative [facility] Comment on above: Performed By: #### C T/NGNA #### [facility] [address] [place] [address] Dr. Papo Swanson Neisseria gonorrhoeae, PRIYA Negative Normal Negative [facility] Comment on above: Performed By: #### C T/NGNA #### [facility] [address] [address] [address] Papo Swanson VAGINITIS/VAGINOSIS DNA PROB Anthony 07-27-2021 Zhane species Positive Abnormal Negative [facility] Comment on above: Performed By: #### E RUR #### [facility] [address] [place] [address] Dr. Papo Swanson Gardnerella vaginalis Negative Normal Negative [facility] Comment on above: Performed By: #### E RUR #### [facility] [address] [place] [address] Dr. Papo Swanson Trichomonas vaginalis Negative Normal Negative [facility] Comment on above: Performed By: #### E RUR #### [facility] [address] [place] [address] Dr. Papo Swanson Vital Signs Date Time Vital Sign Value Performing Clinician Faci lity 01-29-2024 13:30-0500 Body weight 64.41 kg Noms Nurse [facility] 01-29-2024 13:30-0500 Diastolic blood pressure 68 mm[Hg] [facility] Nurse [facility] 01-29-2024 13:30-0500 Systolic blood pressure 112 mm[Hg] Noms Nurse [facility] 05-06-2023 11:05-0500 Body weight 61.69 kg Gaviota CHAIDEZ Work Phone: [facility] 05-06-2023 11:05-0500 Diastolic blood pressure 68 mm[Hg] Gaviota CHAIDEZ Work Phone: [facility] 05-06-2023 11:05-0500 Systolic blood pressure 108 mm[Hg] Gaviota CHAIDEZ Work Phone: [facility] Healthcare Encounters Encounter Date Encounter Type Care Provider Facility Start: 01-29-2024 End: 01-29-2024 ambulatory [facility] Rip Nurse [facility] Comment on above: GA: [id number] Start: 01-21-2024 End: 01-21-2024 Emergency department patient visit [facility] Start: 01-21-2024 End: 01-21-2024 Emergency department patient visit [facility] Start: 07-01-2023 End: 07-01-2023 ambulatory NIKKI RIP Not Available Start: 06-17-2023 End: 06-17-2023 ambulatory NIKKI RIP Not Available Start: 06-03-2023 End: 06-03-2023 ambulatory GAVIOTA ARVIN Not Available Start: 05-20-2023 End: 05-20-2023 ambulatory NIKKI RIP Not Available Start: 05-06-2023 Clinisync Result Encounter Nikki Rip DO Work Phone: [facility] External Department Unsolicited Start: 05-06-2023 Clinisync Result Encounter Inkki Rip DO Work Phone: [facility] External Department Unsolicited Start: 05-06-2023 End: 05-06-2023 Postop follow up visit related to original px Gaviota CHAIDEZ Work Phone: [facility] Comment on above: Third trimester preg isi Start: 05-06-2023 End: 05-06-2023 ambulatory GAVIOTA SHERIDAN Not Available Start: 04-08-2023 End: 04-08-2023 ambulatory NIKKI ERWIN Not Available Start: 03-04-2023 End: 03-04-2023 ambulatory GAVIOTA SHERIDAN Not Available Start: 02-04-2023 End: 02-04-2023 ambulatory NIKKI ERWIN Not Available Start: 07-10-2022 End: 07-11-[address] DOCTOR BURTON Facility: Start: 12-26-2021 End: 12-28-2021 Evaluation and management of inpatient DR DOCTOR BURTON Facility:[facility] Start: 12-21-2021 End: 12-22-[address] NIKKI ERWIN . Facility:[facility] Start: 12-12-2021 End: 12-12-[address] NIKKI ERWIN . Facility:[facility] Start: 10-16-2021 End: 10-17-[address] NIKKI ERWIN . Facility: Start: 08-21-2021 End: 08-22-[address] NIKKI ERWIN . Facility: Start: 08-01-2021 End: 08-02-[address] NIKKI ERWIN . Facility: Start: 07-25-2021 End: 07-25-[address] NIKKI ERWIN . Facility: Procedures Date Procedure Procedure Detail Performing Clinician Start: 01-29-2024 Urnls dip stick/tabl et rgnt non-auto w/o micrscp Nikki Erwin DO Work Phone: Start: 05-06-2023 Urnls dip stick/tabl et rgnt non-auto w/o micrscp Gaviota Sheridan PA Work Phone: Start: 05-06-2023 ALL CBC WITH AUTO DIFF Nikki Erwin DO Work Phone: Start: 12-26-2021 Delivery of Products of Conception, External Approach DR NIKKI ERWIN . Start: 12-26-2021 Repair Perineum Skin , External Approach DR NIKKI ERWIN . Plan of Treatment Date Care Activity Detail Author Start: 02-25-2024 End: 02-25-2024 Patient encounter procedure 02/25/2024 1:40 PM EST Routine [facility] [address] [place] [address] [place] [id number] Nikki Erwin, DO [address] [place] [address] [facility] Start: 01-29-2024 End: 01-28-2025 ABO/Rh ABO/Rh Lab Routine Missed menses , unspecified gestational age Expected: 01/29/2024 (Approximate), Expires: 01/28/2025 [facility] Comment on above: Expected: 01/29/2024 (Approximate), Expires: 01/28/2025 Start: 01-29-2024 End: 01-28-2025 Blood type and Indirect antibody screen panel - Blood Type and screen Lab Routine Missed menses , unspecified gestational age Expected: 01/29/2024 (Approximate), Expires: 01/28/2025 [facility] Work Phone: Comment on above: Expected: 01/29/2024 (Approximate), Expires: 01/28/2025 Start: 01-29-2024 End: 01-28-2025 Drugs of abuse panel - Urine by Screen method Rapid drug screen, urine Lab Routine , unspecified gestational age Encounter for supervision of normal first in first trimester Expected: 01/29/2024 (Approximate), Expires: 01/28/2025 [facility] Comment on above: Expected: 01/29/2024 (Approximate), Expires: 01/28/2025 Start: 01-29-2024 End: 01-28-2025 US Pelvis transvaginal US OB transvaginal Imaging Routine Missed menses Expected: 01/29/2024 (Approximate), Expires: 01/28/2025 [facility] Comment on above: Expected: 01/29/2024 (Approximate), Expires: 01/28/2025 Start: 11-23-2023 Influenza vaccination Influenza Vacc ine (#1) [facility] Start: 05-20-2023 End: 05-20-2023 Patient encounter procedure 05/20/2023 10:00 AM EST Routine [facility] [address] [id number] Nikki Erwin, DO [address] [place] [address] [facility] Start: 05-06-2023 End: 05-06-2023 Patient encounter procedure 05/06/2023 11:20 AM EST Routine [facility] [address] [id number] Gaviota Sheridan PA [address] [place] [address] Third trimester [facility] Comment on above: Third trimester preg isi Bacteria identified in Urine by Culture Urine culture Microbiology Routine Missed menses Ordered: 01/29/2024 [facility] Comment on above: Ordered: 01/29/2024 CBC W Auto Different ial panel - Blood CBC and differential Lab Routine Missed menses , unspecified gestational age Ordered: 01/29/2024 [facility] Comment on above: Ordered: 01/29/2024 Hemoglobin A1c/Hemoglobin.total in Blood Hemoglobin A1c Lab Routine Missed menses , unspecified gestational age Ordered: 01/29/2024 [facility] Comment on above: Ordered: 01/29/2024 Hepatitis B virus surface Ag [Presence] in Serum or Plasma by Immunoassay Hepatitis B surface antigen Lab Routine Missed menses , unspecified gestational age Ordered: 01/29/2024 [facility] Comment on above: Ordered: 01/29/2024 Hepatitis C virus Ab [Presence] in Serum or Plasma by Immunoassay Hepatitis C antibody Lab Routine Missed menses , unspecified gestational age Ordered: 01/29/2024 [facility] Comment on above: Ordered: 01/29/2024 HIV-1/HIV-2 antigen/antibody combination immunoassay HIV-1 and HIV-2 antibodies Lab Routine Missed menses , unspecified gestational age Ordered: 01/29/2024 [facility] Comment on above: Ordered: 01/29/2024 Reagin Ab [Presence] in Serum by RPR RPR Lab Routine Missed menses , unspecified gestational age Ordered: 01/29/2024 [facility] Comment on above: Ordered: 01/29/2024 Rubella antibody, IgG Rubella an tibody, IgG Lab Routine Missed menses , unspecified gestational age Ordered: 01/29/2024 [facility] Comment on above: Ordered: 01/29/2024 Payers Date Payer Category Payer Worker's Compensation [id number] 2022 Medicaid [id number] 2022 Medicaid [id number] 2001 Unknown [id number] 2.16.84 0.1.443487.3.579.2.593 2001 Unknown [id number] 2.16.84 0.1.238566.3.579.2.593 2001 Unknown [id number] 2.16.84 0.1.792230.3.579.2.593 2001 Unknown [id number] 2.16.84 0.1.581856.3.579.2.593 2001 Unknown [id number] 2.16.84 0.1.544021.3.579.2.593 2001 Unknown [id number] 2.16.84 0.1.985024.3.579.2.593 2001 Unknown [id number] 2.16.84 0.1.111764.3.579.2.593 2001 Unknown [id number] 2.16.84 0.1.633710.3.579.2.593 2001 Unknown [id number] 2.16.8 40.1.121251.3.579.2.1286 2001 Unknown [id number] 2.16.8 40.1.563813.3.579.2.1286 2001 Unknown [id number] 2.16.84 0.1.935894.3.579.2.1259 2001 Unknown [id number] 2.16.84 0.1.869436.3.579.2.1259 2001 Unknown [id number] 2.16.84 0.1.056948.3.579.2.1259 2001 Unknown [id number] 2.16.84 0.1.286409.3.579.2.1259 2001 Unknown [id number] 2.16.84 0.1.105145.3.579.2.1259 2001 Unknown [id number] 2.16.84 0.1.316784.3.579.2.1259 2001 Unknown [id number] 2.16.84 0.1.303100.3.579.2.1259 2001 Unknown [id number] 2.16.840 .1.088736.3.579.2.1259 2001 Unknown [id number] 2.16.840. 1.988271.3.579.2.1259 1959 Unknown [id number] Social History Date Type Detail Facility Tobacco smoking stat [facility] Tobacco smoking consumption unknown [facility] Start: 11-05-2022 [facility] Start: 2000 Sex Assigned At Not on file [facility] Gender identity Not on file [facility] History of Present illness Narrative 01-29-2024 Mary Flores MA - 01/29/2024 1:00 PM EST Note Date & Type Note Facility 01-29-2024 History of Presen t illness Narrative Reason for Appointment: Patient ID: Shy Su is a 24 y.o. female who presents for Amenorrhea Patient presents today for a Nurse OB Intake appointment. Patient is 9w3d with a Estimated Date of Delivery: 08/30/24 OB History Para Term AB Living 4 0 0 3 SAB IAB Ectopic Multiple Live Births 3 # Outcome Date GA Lbr Chetan/2nd Weight Sex Type Anes PTL Lv 4 Current 3 M Vag-Spont MAXINE 2 F Vag-Spont MAXINE 1 Obstetric Comments : 08/08/2020, 12/2021 Current Medications: has a current medication list which includes the following prescription(s): valacyclovir. 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 Social History Tobacco Use Smoking status: Not on file Smokeless tobacco: Not on file Substance Use Topics Alcohol use: Not on file Drug use: Not on file No past surgical history on file. No Known Allergies Vitals: There is no height or weight on file to calculate BMI. BP: 112/68 Patient's last menstrual period was 11/24/2023. Assessment/Plan Diagnoses and all orders for this visit: Missed menses - Type and screen; Future - ABO/Rh; Future - CBC and differential - Hemoglobin A1c - RPR - Rubella antibody, IgG - Hepatitis B surface antigen - Hepatitis C antibody - HIV-1 and HIV-2 antibodies - Urine culture - US OB transvaginal; Future - POCT , urine manually resulted - POCT urinalysis dipstick manually resulted , unspecified gestational age - Type and screen; Future - ABO/Rh; Future - CBC and differential - Hemoglobin A1c - RPR - Rubella antibody, IgG - Hepatitis B surface antigen - Hepatitis C antibody - HIV-1 and HIV-2 antibodies - Rapid drug screen, urine; Future Encounter for supervision of normal first in first trimester - Rapid drug screen, urine; Future Nurse Note: OB Intake: Patient presents today for first OB visit. Patients history has been reviewed in great detail including any potential risks. Patient signed consent forms and patient desires testing in both trimesters. Patient currently has no complaints and has been advised to drink 6-8 glasses of water a day, eat no raw or undercooked meat, and stay away from [facility]. Patient has also been advised to not change litter boxes and eat 6 small meals a day. Patient has been consulted regarding the do's and don'ts of . Patient was given labs and all questions and concerns were answered. Follow Up: Patient is to return in 4 weeks for routine OB appointment. Follow Up: Patient is to have labs drawn at directed and return to office for initial OB appointment with provider. Patient may call office as needed with any concerns or questions. Nurse Visit Completed by: Mary Flores MA documented in this encounter [facility] History of Present illness Narrative 05-06-2023 DM Chang - 05/06/2023 11:20 AM EST Note Date & Type Note Facility 05-06-2023 History of Presen t illness Narrative Reason for Appointment: Patient ID: Shy Su is a 23 y.o. female who presents for Routine Visit Patient presents today for Return OB appointment. Current Medications: has a current medication list which includes the following prescription(s): gummies and valacyclovir. 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 Social History Tobacco Use Smoking status: Not on file Smokeless tobacco: Not on file Substance Use Topics Alcohol use: Not on file Drug use: Not on file History reviewed. No pertinent surgical history. No Known Allergies Review of Systems: Review of Systems Constitutional: Negative. HENT: Negative. Eyes: Negative. Respiratory: Negative. Cardiovascular: Negative. Gastrointestinal: Negative. Genitourinary: Negative. Musculoskeletal: Negative. Skin: Negative. Neurological: Negative. All other systems reviewed and are negative. Hematological: Negative. Endocrine: Negative. Allergic/Immunologic: Negative. Objective Physical Exam Constitutional: Appearance: Normal appearance. She is normal weight. HENT: Head: Normocephalic. Cardiovascular: Rate and Rhythm: Normal rate. Pulses: Normal pulses. Pulmonary: Effort: Pulmonary effort is normal. Breath sounds: Normal breath sounds. Abdominal: Palpations: Abdomen is soft. Musculoskeletal: General: Normal range of motion. Neurological: General: No focal deficit present. Mental Status: She is alert and oriented to person, place, and time. Psychiatric: Mood and Affect: Mood normal. Behavior: Behavior normal. Thought Content: Thought content normal. Judgment: Judgment normal. Vitals and nursing note reviewed. Vitals: There is no height or weight on file to calculate BMI. BP: 108/68 Patient's last menstrual period was 10/22/2022. Assessment/Plan Encounter Diagnosis Name Primary? Third trimester Patient presents today for a routine obstetrics appointment. Patient is currently 28w0d . Patient states she is doing well but has complaints of being tired due to current . Patient has verbalizes frequent movement. labor precautions was discussed/given and patient was instructed to perform kick counts three times a day. Follow Up: Patient is to return to office in 2 week for routine OB appointment. Documented by DM Chang on behalf of: DM Chang documented in this encounter [facility] Evaluation note Note Date & Type Note Facility Evaluation note Diagnosis Third trimester state, incidental documented in this encounter [facility] Evaluation note Note Date & Type Note Facility Evaluation note Diagnosis Missed menses , unspecified gestational age Encounter for supervision of normal first in first trimester Nausea and vomiting in Unspecified vomiting of , unspecified as to episode of care documented in this encounter [facility] Summary Purpose Family History No Family History Records FoundNo Family History Records FoundNo Family History Records Found Advance Directives No Advanced Directives Records FoundNo Advanced Directives Records FoundNo Advanced Directives Records Found Additional Source Comments INFORMATION SOURCE (unrecogn ized section and content) DATE CREATED AUTHOR 07/13/2022 [facility] DATE CREATED AUTHOR AUTHOR'S ORGANIZ ATION 01/23/2024 [facility] DATE CREATED AUTHOR AUTHOR'S ORGANIZ ATION 01/31/2024 [facility] EPIC Reason for Visit (unrecogniz ed section and content) Reason Comments Routine Visit Reason Comments Amenorrhea Care Teams (unrecognized sec tion and content) Diazo Technician Relationship Specialty Start Date End Date Nikki Erwin DO [address] [place] [address] [place] [address] PCP - [facility] 12/23/23 FOR RECORDS PERTAINING TO PATIENTS WHO ARE [...] BE BASED ON THE PRIMARY CLINICAL RECORDS. [facility] [employer] [facility]. provides no warranty or guarantee of the accuracy or completeness of information in this document.
[2024-02-02 16:01] LABS: BOX Test Reference Lab UNITY; BOX Test Sent Out UNITY
[2024-02-02 16:02] LABS: Basophils Percent Auto 0.4 % (0.2-2.0); Eosinophils Absolute Auto 0.1 10^3/uL (0.0-0.7); Eosinophils Percent Auto 1.5 % (0.9-7.0); Hematocrit 36.1 % (36.0-48.0); Hemoglobin 12.5 g/dL (12.0-16.0); Immature Granulocytes Abs Auto 0.02 10^3/uL (0.00-0.03); Immature Granulocytes Pct Auto 0.3 % (0.0-0.5); Lymphocytes Absolute Auto 1.7 10^3/uL (1.2-3.8); Lymphocytes Percent Auto 23.2 % (20.5-60.0); Mean Corpuscular HGB Conc 34.6 g/dL (29.9-35.2); Mean Corpuscular Hemoglobin 29.3 pg (26.7-34.0); Mean Corpuscular Volume 84.7 fL (81.0-99.0); Mean Platelet Volume 11.1 fL (9.5-13.5); Monocytes Absolute Auto 0.5 10^3/uL (0.3-0.8); Monocytes Percent Auto 6.6 % (1.7-12.0); Platelet Count 259 10^3/uL (150-450); Red Blood Count 4.26 10^6/uL (4.20-5.40); Red Cell Distribution Width 12.9 % (11.0-15.0); White Blood Count 7.4 10^3/uL (4.0-11.0)
[2024-02-02 16:07] LABS: Estimated Average Glucose 97 mg/dL
[2024-02-02 16:27] LABS: Amphetamine Screen Urine NEGATIVE (NEGATIVE); Barbiturates Screen Urine NEGATIVE (NEGATIVE); Benzodiazepines Screen Urine NEGATIVE (NEGATIVE); Buprenorphine Screen Urine NEGATIVE (NEGATIVE); Cannabinoid Screen Urine NEGATIVE (NEGATIVE); Cocaine Screen Urine NEGATIVE (NEGATIVE); Methadone Screen Urine NEGATIVE (NEGATIVE); Methamphetamines Screen Urine NEGATIVE (NEGATIVE); Opiate Screen Urine NEGATIVE (NEGATIVE); Oxycodone Screen Urine NEGATIVE (NEGATIVE); Phencyclidine Screen Urine NEGATIVE (NEGATIVE); Tricyclic Antidepressant Urine NEGATIVE (NEGATIVE)
[2024-02-04 06:09] LABS: HBsAg Screen Negative (Negative)
[2024-02-04 06:10] LABS: HCV Ab Non Reactive (Non Reactive); HIV Ab/p24 Ag Screen Non Reactive (Non Reactive); Rubella Antibodies, IgG 1.67 index (Immune >0.99)
[2024-02-04 13:09] LABS: Rapid Plasma Reagin, Quant Non Reactive titer (NonRea<1:1)
== END 2024-02-02 15:24 | disposition home or self-care (01) ==
LOC: LAB 15:23
PROVIDERS: Visit Provider Obstetrics & Gynecology
DX: Z34.01 Encounter for supervision of normal first pregnancy, first trimester (principal); Z36.0 Encounter for antenatal screening for chromosomal anomalies; N92.6 Irregular menstruation, unspecified
CPT/HCPCS: 36415; 80307; 83036; 85025; 86592; 86762; 86803; 86850; 86900; 86901; 87086; 87340; 87389

== ENCOUNTER 2024-03-31 19:28 | Outpatient (REF) | payer MEDICAID, SELFPAY | END 2024-03-31 19:29 | disposition home or self-care (01) | LOC: LAB 19:28 | PROVIDERS: Visit Provider Physician Assistant | DX: Z01.419 Encounter for gynecological examination (general) (routine) without abnormal findings (principal) | CPT/HCPCS: 88175 ==

== ENCOUNTER 2024-04-29 14:58 | Outpatient (OUT) | payer MEDICAID, SELFPAY ==
--- NOTE | 2024-04-29 14:59 | US_ITS ---
[address] [address] Patient Name: JONATHAN HAN MRN: [id number] date: 2000 Sex: F Assigned Patient Location: US Current Patient Location: US Accession/Order Number: [id number] Exam Date: 04/29/2024 15:00 Report Date: 04/29/2024 16:00 At the request of: NIKKI TOLLIVER Procedure: US OB anatomy EXAMINATION: US OB anatomy, US OB cervical length HISTORY: anatomic screening COMPARISON: No relevant comparison available. TECHNIQUE: Transabdominal sonographic examination was performed for obstetrical and evaluation. FINDINGS: Number: 1 Heart Rate: 150.84 bpm H.B. /min Amniotic Fluid Volume: Subjectively normal position: Cephalic presentation, longitudinal lie Placental Location: Anterior, the placental edge is 0.6 cm from the internal cervical os. Grade 0 Cervix Length: 4.93 cm Normal anatomy: Lateral ventricles, cerebellum, posterior fossa, nose, lips, orbits, four-chamber heart, RVOT, LVOT, diaphragm, stomach, kidneys, abdominal cord insertion, bladder, umbilical arteries, three-vessel cord, spine, extremities BIOMETRY: BPD: 5.46 cm; 22 weeks 4 days; 53.80 % HC: 20.52 cm; 22 weeks 4 days; 45.50 % AC: 18.95 cm; 23 weeks 5 days; 80.60 % FL: 4.06 cm; 23 weeks 1 day; 63.60 % EFW:584.72 g; 85.80 %, 1 lb. 5 oz. FL/AC: 21.44 FL/BPD: 74.43 HC/AC: 1.08 GESTATIONAL AGE: Age by EDC: 22 weeks 3 days BEREKET by EDC: 2024-08-30 Age by current US: 23 weeks 0 days BEREKET by current US: 2024-08-26 US/US OB anatomy IMPRESSION: Normal anatomy scan *Reference: [employer] Practice Guideline for the performance of Obstetric Ultrasound Examinations, December 22, 2006. Electronically authenticated by: SHANA ROBLERO Date: 04/29/2024 16:00
--- NOTE | 2024-04-29 15:00 | US_ITS ---
[address] [address] Patient Name: JONATHAN HAN MRN: [id number] date: 2000 Sex: F Assigned Patient Location: US Current Patient Location: US Accession/Order Number: [id number] Exam Date: 04/29/2024 15:00 Report Date: 04/29/2024 16:00 At the request of: NIKKI TOLLIVER Procedure: US OB cervical length EXAMINATION: US OB anatomy, US OB cervical length HISTORY: anatomic screening COMPARISON: No relevant comparison available. TECHNIQUE: Transabdominal sonographic examination was performed for obstetrical and evaluation. FINDINGS: Number: 1 Heart Rate: 150.84 bpm H.B. /min Amniotic Fluid Volume: Subjectively normal position: Cephalic presentation, longitudinal lie Placental Location: Anterior, the placental edge is 0.6 cm from the internal cervical os. Grade 0 Cervix Length: 4.93 cm Normal anatomy: Lateral ventricles, cerebellum, posterior fossa, nose, lips, orbits, four-chamber heart, RVOT, LVOT, diaphragm, stomach, kidneys, abdominal cord insertion, bladder, umbilical arteries, three-vessel cord, spine, extremities BIOMETRY: BPD: 5.46 cm; 22 weeks 4 days; 53.80 % HC: 20.52 cm; 22 weeks 4 days; 45.50 % AC: 18.95 cm; 23 weeks 5 days; 80.60 % FL: 4.06 cm; 23 weeks 1 day; 63.60 % EFW:584.72 g; 85.80 %, 1 lb. 5 oz. FL/AC: 21.44 FL/BPD: 74.43 HC/AC: 1.08 GESTATIONAL AGE: Age by EDC: 22 weeks 3 days BEREKET by EDC: 2024-08-30 Age by current US: 23 weeks 0 days BEREKET by current US: 2024-08-26 US/US OB cervical length IMPRESSION: Normal anatomy scan *Reference: [employer] Practice Guideline for the performance of Obstetric Ultrasound Examinations, December 22, 2006. Electronically authenticated by: SHANA ROBLERO Date: 04/29/2024 16:00
--- OUTSIDE RECORDS SUMMARY | 2024-04-29 15:21 | XMS_ITS | CCD ---
Author Organization [facility] Care Team Providers Care Exploration Engineer Name Role Phone RIP ., DR JORDAN [...] Unavailable RIP ., DR JORDAN Attending Unavailable KARBEKCYK ., DR DISLA Primary Care Unavailjane ROBLERO, [...] Unavailable Primary Care Provider Unavailjane e SERVICES, [facility] Primary Care Unava ilable SHANA LOVE Attending Unavailable WIL WARNER Attending Unavailable WIL WARNER Referring Unavailable SERVICES, [facility] [place] ilNikki Lombardo DO Unavailable NIKKI ERWIN Attending Unavailable GAVIOTA SHERIDAN Attending Unavailable NIKKI ERWIN Attending Unavailable GAVIOTA SHERIDAN Attending Unavailable NIKKI ERWIN Attending Unavailable NIKKI ERWIN Attending Unavailable NIKKI ERWIN Attending Unavailable GAVIOTA SHERIDAN Attending Unavailable Medications Current Medications Medication Drug Class(es) Dates Sig (Normalized) Sig (Original) ondansetron 4 mg disintegrating oral tablet (5 sources) Serotonin-3 Receptor Antagonist Start: 01-29-2024 End: 02-28-2024 [...] Fumarate-FA (PNV Plus Multivitamin) 27-1 MG tablet (11 sources) Start: 01-29-2024 take 1 tablet by mouth once daily Vit-Fe Fumarate-FA (PNV Plus Multivitamin) 27-1 MG tablet Indications: , unspecified gestational age Take 1 tablet by mouth Daily 30 tablet 11 01/29/2024 Active valACYclovir 500 mg oral tablet (14 sources) Herpesvirus Nucleoside Analog DNA Polymerase Inhibitor, Herpes Simplex Virus Nucleoside Analog DNA Polymerase Inhibitor, Herpes Zoster Virus Nucleoside Analog DNA Polymerase Inhibitor valACYclovir (Valtrex) 500 MG tablet 1 (one) time each day at the same time Active Problems Active Problems Problem Classification Problem Date Documented Date Episodic/Chronic Abdominal pain (4 sources) Epigastric pain; Translations: [EPIGASTRIC PAIN] Onset: 07-10-2022 Episodic Immunizations and screening for infectious disease (6 sources) Encounter for screening for infections with a predominantly sexual mode of transmission; Translations: [Exposure to sexually transmissible disorder] Onset: 07-25-2021 Episodic Menstrual disorders (1 source) Missed period; Translations: [Irregular menstruation, unspecified] 01-29-2024 Chronic Other complications of (1 source) Vomiting of , unspecified; Translations: [Unspecified vomiting of , unspecified as to episode of care or not applicable] 01-29-2024 Episodic Other female genital disorders (2 sources) Vaginal discharge; Translations: [Other specified noninflammatory disorders of vagina] 03-31-2024 Episodic Other injuries and conditions due to external causes (1 source) Unspecified injury of head, initial encounter; Translations: [Unspecified injury of head, initial encounter] Onset: 01-21-2024 Episodic Other injuries and conditions due to external causes (2 sources) Injury of head Onset: 01-21-2024 Episodic Other and delivery including normal (9 sources) Single live ; Translations: [Third trimester ] Onset: 01-02-2022 05-02-2023 Episodic Other screening for suspected conditions (not mental disorders or infectious disease) (14 sources) Encounter for screening for Streptococcus B; Translations: [Encounter for screening for diabetes mellitus] Onset: 08-21-2021 Episodic Residual codes; unclassified (2 sources) Gestation period, 13 weeks; Translations: [13 weeks gestation of ] 02-25-2024 Episodic Residual codes; unclassified (2 sources) Gestation period, 17 weeks; Translations: [17 weeks gestation of ] 03-31-2024 Episodic Viral infection (1 source) Herpesviral infection of urogenital system, unspecified; Translations: [HERPESVIRAL INF UROGENITAL SYS UNS] Onset: 01-02-2022 Chronic Past or Other Problems Problem Classification Problem Date Documented Date Episodic/Chronic Hemorrhage during ; abruptio placenta; placenta previa (4 sources) Antepartum hemorrhage, unspecified, unspecified trimester; Translations: [ANTEPARTUM HEMORR UNS UNS TRIMESTER] Onset: 08-01-2021 Episodic OB-related trauma to perineum and vulva [...] SPEC NONINFLAMMATORY D/O VAGINA] Onset: 07-26-2021 Episodic Residual codes; unclassified (1 source) 38 weeks gestation of ; Translations: [38 WEEKS GESTATION OF ] Onset: 01-02-2022 Episodic Results Test Name Value Interpretation Reference Range Facility IGP,APTIMA HPV,AGE GDLNon AGE GDLN ACOG TESTING Note . [facility] Comment on above: TESTS RESULT FLAG UN ITS REF RANGE LAB Clinician Provided Cytology Information Source.............Cervix No. of containers..01 ThinPrep Vial Age Algo ACOG Luzma... FLAG LEGEND: L-Low Normal,H-High Normal,LL-Alert Low,HH-Alert High <-Panic Low,>-Panic High,A-Abnormal,AA-Critical Abnormal Performed at: 01 =G [facility] [address] [place] [address] Letha Woodson MD, IGP, RFX APTIMA HPV ASCU Note . [facility] Comment on above: TESTS RESULT FLAG UN ITS REF RANGE LAB DIAGNOSIS: 02 NEGATIVE FOR INTRAEPITHELIAL LESION OR MALIGNANCY. FUNGAL ORGANISMS MORPHOLOGICALLY CONSISTENT WITH ZHANE SPECIES ARE PRESENT. Specimen adequacy: 02 Satisfactory for evaluation. No endocervical component is identified. Performed by: 02 Duke Bautista, Event Specialist ([facility]) . 02 Note: Note 02 The Pap smear is a screening test designed to aid in the detection of premalignant and malignant conditions of the uterine cervix. It is not a diagnostic procedure and should not be used as the sole means of detecting cervical cancer. Both false-positive and false-negative reports do occur. Test Methodology: Note 02 This liquid based ThinPrep(R) pap test was screened with the use of an image guided system. . 02 The HPV DNA reflex criteria were not met with this specimen result therefore, no HPV testing was performed. FLAG LEGEND: L-Low Normal,H-High Normal,LL-Alert Low,HH-Alert High <-Panic Low,>-Panic High,A-Abnormal,AA-Critical Abnormal Performed at: 02 WB [facility] [address] [facility] [place] [address] Letha Woodson MD, Performed at: = - [address], [place] [id number] Pattern Grader: Letha Woodson MD, Phone: [phone] Performed at: [facility] [address], [place] [id number] Pattern Grader: Letha Woodson MD, Phone: [phone] SPATULA-ALONE CERVIX [facility] RECURRENT VAGINITIS (HTRX)on 04-02-2024 ATOPOBIUM VAGINAE 0 [facility] ATOPOBIUM VAGINAE Not detected [facility] BVAB 2,3 (BACTERIAL VAGINOSIS ASSOCIATED BACTERIA 2, 3); MOBILUNCUS SPP 0 [facility] BVAB 2,3 (BACTERIAL VAGINOSIS ASSOCIATED BACTERIA 2, 3); MOBILUNCUS SPP Not detected [facility] ZHANE ALBICANS, PARAPSILOSIS, TROPICALIS 0 [facility] ZHANE ALBICANS, PARAPSILOSIS, TROPICALIS Not detected [facility] ZHANE GLABRATA 0 [facility] ZHANE GLABRATA Not detected [facility] KRUSEI 0 [facility] ZHANE KRUSEI Not detected [facility] CHLAMYDIA TRACHOMATIS 0 [facility] CHLAMYDIA TRACHOMATIS Not detected [facility] GARDNERELLA VAGINALIS 0 [facility] GARDNERELLA VAGINALIS Not detected [facility] MEGASPHAERA (TYPES 1, 2) 0 [facility] MEGASPHAERA (TYPES 1, 2) Not detected [facility] MYCOPLASMA GENITALIUM 0 [facility] MYCOPLASMA GENITALIUM Not detected N [facility] NEISSERIA GONORRHOEAE 0 [facility] NEISSERIA GONORRHOEAE Not detected N [facility] TRICHOMONAS VAGINALIS 0 [facility] TRICHOMONAS VAGINALIS Not detected [facility] Urinalysis macro (dipstick) panel (U)on 03-31-2024 Bilirubin, UA Negative Negative - 4(70) +++ mg/dL [facility] Blood, UA Negative Negative - 50 Chidi/mcL [facility] Clarity, UA Clear [facility] Color, UA Yellow [facility] Glucose, UA Negative Negative - 2000(110) ++++ mg/dL [facility] Interpretation and review of laboratory results Abnormal [facility] Ketones, UA Positive Negative - 160(16) ++++ mg/dL [facility] Leukocytes, UA Negative Negative - 500+++ Gabi/mcL [facility] Nitrite, UA Negative Negative - Positive [facility] pH, UA 6.5 5 - 9 [facility] Protein, UA Negative Negative - 1999(20) ++++ mg/dL [facility] Spec Grav, UA 1.02 1 - 1.03 [facility] Urobilinogen, UA 1.0 0.2 - 12 mg/dL [facility] Urinalysis macro (dipstick) panel (U)on 02-25-2024 Bilirubin, UA Negative Negative - 4(70) +++ mg/dL [facility] Blood, UA Negative Negative - 50 Chidi/mcL [facility] Clarity, UA Clear [facility] Color, UA Yellow [facility] Glucose, UA Negative Negative - 1999(110) ++++ mg/dL [facility] Interpretation and review of laboratory results Abnormal [facility] Ketones, UA Positive Negative - 160(16) ++++ mg/dL [facility] Comment on above: 40 Leukocytes, UA Positive Negative - 500+++ Gabi/mcL [facility] Comment on above: small Nitrite, UA Negative Negative - Positive [facility] pH, UA 6.5 5 - 9 [facility] Protein, UA Negative Negative - 1999(20) ++++ mg/dL [facility] Spec Grav, UA 1.025 1 - 1.03 [facility] Urobilinogen, UA 0.2 0.2 - 12 mg/dL [facility] ALL RUBELLA IGG ABon 2 024 RUBELLA ANTIBODIES, IGG 1.67 Immune >0.99 index [facility] Comment on above: Non-immune <0.90 Equivocal 0.90 - 0.99 Immune >0.99 HBSAG SCREENon 02-04-2024 HBSAG SCREEN Negative Negative [facility] Comment on above: Performed at: [address] [id number] Pattern Grader: Johan Rivera PhD, Phone: [phone] HCV ANTIBODY RFX TO QUANT PC Axel 02-04-2024 HCV AB Non-Reactive Non Reactive [facility] INTERPRETATION: Comment . [facility] Comment on above: Not infected with HC V unless early or acute infection is suspected (which may be delayed in an immunocompromised individual), or other evidence exists to indicate HCV infection. HIV AB/P24 AG WITH REFLEXon 02-04-2024 HIV AB/P24 AG SCREEN Non-Reactive Non Reactive [facility] Comment on above: HIV-1/HIV-2 antibodi es and HIV-1 p24 antigen were NOT detected. There is no laboratory evidence of HIV infection. HIV Negative Performed at: [address] [id number] Pattern Grader: Johan Rivera PhD, Phone: [phone] No Panel Informationon 02-03 [facility] RAPID PLASMA REAGIN, QUANTon 02-04-2024 RAPID PLASMA REAGIN, QUANT Non-Reactive NonRea<1:1 titer [facility] Comment on above: Please Note: This te st does not meet current guidelines for screening and diagnosis of syphilis. This test is intended for following treatment response in patients being treated for syphilis infection. To screen for syphilis infection, a reflex cascade that includes both RPR and a treponema-specific assay should be utilized, such as Treponema pallidum (Syphilis) Screening Upson (129982) or Rapid Plasma Reagin (RPR) Test With Reflex to Quantitative RPR and Confirmatory Treponema pallidum Antibodies (770350). Performed at: [address] [id number] Pattern Grader: Johan Rivera PhD, Phone: [phone] ALL CBC WITH AUTO DIFFon BASOPHILS ABSOLUTE AUTO 0 [facility] Basophils/100 WBC (Bld) 0.4 % 0.2 - 2.0 % [facility] Eosinophils/100 WBC (Bld) 1.5 % 0.9 - 7.0 % [facility] Erythrocyte distribution width (RBC) [Ratio] 12.9 % 11.0 - 15.0 % [facility] Hematocrit (Bld) [Volume fraction] 36.1 % 36.0 - 48.0 % [facility] Hemoglobin (Bld) [Mass/Vol] 12.5 g/dL 12.0 - 16.0 g/dL [facility] IMMATURE GRANULOCYTES ABS AUTO 0.02 [facility] Immature granulocytes/100 WBC (Bld) 0.3 % 0.0 - 0.5 % [facility] LYMPHOCYTES ABSOLUTE AUTO 1.7 [facility] Lymphocytes/100 WBC (Bld) 23.2 % 20.5 - 60.0 % [facility] MCH (RBC) [Entitic mass] 29.3 pg 26.7 - 34.0 pg [facility] MCHC (RBC) [Mass/Vol] 34.6 g/dL 29.9 - 35.2 g/dL [facility] MCV (RBC) [Entitic vol] 84.7 fL 81.0 - 99.0 fL [facility] MONOCYTES ABSOLUTE AUTO 0.5 [facility] Monocytes/100 WBC (Bld) 6.6 % 1.7 - 12.0 % [facility] NEUTROPHILS ABSOLUTE AUTO 5 [facility] Neutrophils/100 WBC (Bld) 68 % 43.0 - 75.0 % [facility] Platelet mean volume (Bld) [Entitic vol] 11.1 fL 9.5 - 13.5 fL [facility] TB EO # 0.1 [facility] [address] [facility] RBC 4.26 [facility] WBC 7.4 [facility] TYPE AND SCREENon 2023 ABO and Rh group Nom (Bld) Blood group O Rh(D) positive [facility] , [facility] BOX TESTon 02-02-2024 BOX TEST SENT OUT [facility] BOX1 [facility] BOX2 02/02/2024 [facility] MLR HEMOGLOBIN A1Con 024 Glucose [Mass/Vol] 97 mg/dL [facility] HbA1c (Bld) [Mass fraction] 5 % 4.5 - 6.2 % [facility] Comment on above: ADA RECOMMENDED LIMI T 4.0 - 6.0 ADA THERAPEUTIC TARGET < 7.0 ACTION SUGGESTED > 7.0 [facility] DRUG SCREEN RAPID (URINE )on 02-02-2024 AMPHETAMINE SCREEN URINE Negative NEGATIVE [facility] BARBITURATES SCREEN URINE Negative NEGATIVE [facility] BENZODIAZEPINES SCREEN URINE Negative NEGATIVE [facility] BUPRENORPHINE SCREEN URINE Negative NEGATIVE [facility] Comment on above: DRUG CLASS TEST SYST EM CUT-OFF CONCENTRATIONS ARE FOLLOWS: AMP (Amphetamine): 500 ng/mL BAR (Barbiturates): 200 ng/mL BZO (Benzodiazepines): 150 ng/mL BUP (Buprenorphine): 10 ng/mL GIRISH (Cocaine): 150 ng/mL mAMP (Methamphetamine): 500 ng/mL MTD (Methadone): 200 ng/mL OPI (Opiates): 100 ng/mL OXY (Oxycodone): 100 ng/mL PCP (Phencyclidine): 25 ng/mL THC (Cannabinoids): 50 ng/mL TCA (Trycyclic Antidepressants): 300 ng/mL CANNABINOID SCREEN URINE Negative NEGATIVE [facility] COCAINE SCREEN URINE Negative NEGATIVE [facility] METHADONE SCREEN URINE Negative NEGATIVE [facility] METHAMPHETAMINES SCREEN URINE Negative NEGATIVE [facility] OPIATE SCREEN URINE Negative NEGATIVE [facility] OXYCODONE SCREEN URINE Negative NEGATIVE [facility] PHENCYCLIDINE SCREEN URINE Negative NEGATIVE [facility] TRICYCLIC ANTIDEPRESSANT URINE Negative NEGATIVE [facility] HCG ( test) Ql (U)o n 01-29-2024 Interpretation and review of laboratory results Abnormal [facility] Preg Test, Ur Positive Negative [facility] Urinalysis macro (dipstick) panel (U)on 01-29-2024 Bilirubin, UA Negative Negative - 4(70) +++ mg/dL [facility] Blood, UA Negative Negative - 50 Chidi/mcL [facility] Clarity, UA Clear [facility] Color, UA Yellow [facility] Glucose, UA Negative Negative - 1999(110) ++++ mg/dL [facility] Interpretation and review of laboratory results Normal [facility] Ketones, UA Negative Negative - 160(16) ++++ mg/dL [facility] Leukocytes, UA Negative Negative - 500+++ Gabi/mcL [facility] Nitrite, UA Negative Negative - Positive [facility] pH, UA 6 5 - 9 [facility] Protein, UA Negative Negative - 1999(20) ++++ mg/dL [facility] Spec Grav, UA 1.02 1 - 1.03 [facility] Urobilinogen, UA 0.2 0.2 - 12 mg/dL [facility] ALL CBC WITH AUTO DIFFon BASOPHILS ABSOLUTE AUTO 0.0 [facility] Basophils/100 WBC (Bld) 0.3 % 0.2 - 2.0 % [facility] Eosinophils/100 WBC (Bld) 1.6 % 0.9 - 7.0 % [facility] Erythrocyte distribution width (RBC) [Ratio] 12.4 % 11.0 - 15.0 % [facility] Hematocrit (Bld) [Volume fraction] 33.3 % Low 36.0 - 48.0 % [facility] Hemoglobin (Bld) [Mass/Vol] 10.6 g/dL Low 12.0 - 16.0 g/dL [facility] IMMATURE GRANULOCYTES ABS AUTO 0.05 High [facility] Immature granulocytes/100 WBC (Bld) 0.6 % High 0.0 - 0.5 % [facility] Interpretation and review of laboratory results Abnormal [facility] LYMPHOCYTES ABSOLUTE AUTO 1.5 [facility] Lymphocytes/100 WBC (Bld) 17.1 % Low 20.5 - 60.0 % [facility] MCH (RBC) [Entitic mass] 28.1 pg 26.7 - 34.0 pg [facility] MCHC (RBC) [Mass/Vol] 31.8 g/dL 29.9 - 35.2 g/dL [facility] MCV (RBC) [Entitic vol] 88.3 fL 81.0 - 99.0 fL [facility] MONOCYTES ABSOLUTE AUTO 0.5 [facility] Monocytes/100 WBC (Bld) 5.8 % 1.7 - 12.0 % [facility] NEUTROPHILS ABSOLUTE AUTO 6.5 [facility] Neutrophils/100 WBC (Bld) 74.6 % 43.0 - 75.0 % [facility] Platelet mean volume (Bld) [Entitic vol] 10.6 fL 9.5 - 13.5 fL [facility] TBH EO # 0.1 [facility] [address] [facility] RBC 3.77 Low [facility] WBC 8.7 [facility] Urinalysis macro (dipstick) panel (U)on 05-06-2023 Bilirubin, UA Negative Negative - 4(70) +++ mg/dL [facility] Blood, UA Negative Negative - 50 Chidi/mcL [facility] Clarity, UA Clear [facility] Color, UA Yellow [facility] Glucose, UA Negative Negative - 1999(110) ++++ mg/dL [facility] Interpretation and review of laboratory results Abnormal [facility] Ketones, UA Negative Negative - 160(16) ++++ mg/dL [facility] Leukocytes, UA Negative Negative - 500+++ Gabi/mcL [facility] Nitrite, UA Negative Negative - Positive [facility] pH, UA 5.5 5 - 9 [facility] Protein, UA Negative Negative - 1999(20) ++++ mg/dL [facility] Spec Grav, UA 1.020 1 - 1.03 [facility] Urobilinogen, UA 1.0 0.2 - 12 mg/dL [facility] XR ABD FLAT UP_PA Arielle 07-11 [...] Normal [facility] CBC AUTO DIFFon 07-10-2022 BASO # 0.0 103/ul Normal 0.0-0.1 [facility] Comment on above: Performed By: #### C BC #### [facility] [address] [address] [address] Papo Swanson Basophils/100 WBC (Bld) 0.4 % Normal 0.2-2.0 [facility] Comment on above: Performed By: #### C BC #### [facility] [address] [address] [address] Papo Swanson EO # 0.1 103/ul Normal 0.0-0.7 [facility] Comment on above: Performed By: #### C BC #### [facility] [address] [address] [address] Papo Swanson Eosinophils/100 WBC (Bld) 0.6 % Critically low 0.9-7.0 [facility] Comment on above: Performed By: #### C BC #### [facility] [address] [place] [address] Dr. Papo Swanson Erythrocyte distribution width (RBC) [Ratio] 14.4 % Normal 11.0-15.0 [facility] Comment on above: Performed By: #### C BC #### [facility] [address] [place] [address] Dr. Papo Swanson Hematocrit (Bld) [Volume fraction] 42.2 % Normal 36.0-48.0 [facility] Comment on above: Performed By: #### C BC #### [facility] [address] [place] [address] Dr. Papo Swanson Hemoglobin (Bld) [Mass/Vol] 13.7 g/dL Normal 12.0-16.0 [facility] Comment on above: Performed By: #### C BC #### [facility] [address] [place] [address] Dr. Papo Swanson IG # 0.03 10e3/ul Normal 0.00-0.03 [facility] Comment on above: Performed By: #### C BC #### [facility] [address] [place] [address] Dr. Papo Swanson IG % 0.3 % Normal 0.0-0.5 [facility] Comment on above: Performed By: #### C BC #### [facility] [address] [place] [address] Dr. Papo Swanson LYMPH # 1.5 103/ul Normal 1.2-3.8 [facility] Comment on above: Performed By: #### C BC #### [facility] [address] [place] [address] Dr. Papo Swanson Lymphocytes/100 WBC (Bld) 15.7 % Critically low 20.5-60.0 [facility] Comment on above: Performed By: #### C BC #### [facility] [address] [place] [address] Dr. Papo Swanson MANUAL DIFF REQ NO Normal [facility] Comment on above: Performed By: #### C BC #### [facility] [address] [place] [address] Dr. Papo Swanson MCH (RBC) [Entitic mass] 27.0 pg Normal 26.7-34.0 [facility] Comment on above: Performed By: #### C BC #### [facility] [address] [place] [address] Dr. Papo Swanson MCHC (RBC) [Mass/Vol] 32.5 g/dL Normal 29.9-35.2 [facility] Comment on above: Performed By: #### C BC #### [facility] [address] [address] [address] Papo Swanson MCV (RBC) [Entitic vol] 83.2 fL Normal 81.0-99.0 [facility] Comment on above: Performed By: #### C BC #### [facility] [address] [place] [address] Dr. Papo Swanson MONO # 0.6 103/ul Normal 0.3-0.8 [facility] Comment on above: Performed By: #### C BC #### [facility] [address] [place] [address] Dr. Papo Swanson Monocytes/100 WBC (Bld) 5.9 % Normal 1.7-12.0 [facility] Comment on above: Performed By: #### C BC #### [facility] [address] [place] [address] Dr. Papo Swanson NEUT # 7.4 103/ul Critically high 1.4-6.5 [facility] Comment on above: Performed By: #### C BC #### [facility] [address] [place] [address] Dr. Papo Swanson Neutrophils/100 WBC (Bld) 77.1 % Critically high 43.0-75.0 [facility] Comment on above: Performed By: #### C BC #### [facility] [address] [place] [address] Dr. Papo Swanson Platelet mean volume (Bld) [Entitic vol] 10.5 fL Normal 9.5-13.5 [facility] Comment on above: Performed By: #### C BC #### [facility] [address] [place] [address] Dr. Papo Swanson PLT 318 103/ul Normal 150-450 [facility] Comment on above: Performed By: #### C BC #### [facility] [address] [place] [address] Dr. Papo Swanson RBC 5.07 106/ul Normal 4.20-5.40 [facility] Comment on above: Performed By: #### C BC #### [facility] [address] [place] [address] Dr. Papo Swanson WBC 9.7 103/ul Normal 4.0-11.0 [facility] Comment on above: Performed By: #### C BC #### [facility] [address] [place] [address] Dr. Papo Swanson ER URINE PROFILEon 3 Bilirubin Ql (U) Negative Normal NEGATIVE [facility] Comment on above: Performed By: #### E RUR #### [facility] [address] [place] [address] Dr. Papo Swanson Clarity (U) CLEAR Normal CLEAR [facility] Comment on above: Performed By: #### E RUR #### [facility] [address] [place] [address] Dr. Papo Swanson Color (U) LT. YELLOW Normal YELLOW [facility] Comment on above: Performed By: #### E RUR #### [facility] [address] [place] [address] Dr. Papo ABERNATHYXavier A micrscopic examination will be performed if indicated. Normal [facility] Comment on above: Performed By: #### E RUR #### [facility] [address] [place] [address] Dr. Papo Swanson Glucose Ql (U) Negative Normal NEGATIVE [facility] Comment on above: Performed By: #### E RUR #### [facility] [address] [place] [address] Dr. Papo Swanson Hemoglobin Ql (U) Negative Normal NEGATIVE [facility] [facility] Comment on above: Performed By: #### E RUR #### [facility] [address] [place] [address] Dr. Papo Swanson Ketones Ql (U) Negative Normal NEGATIVE [facility] Comment on above: Performed By: #### E RUR #### [facility] [address] [place] [address] Dr. Papo Swanson LEUKOCYTES Negative Normal NEGATIVE [facility] Comment on above: Performed By: #### E RUR #### [facility] [address] [place] [address] Dr. Papo Swanson Nitrite Ql (U) Negative Normal NEGATIVE The [facility] Comment on above: Performed By: #### E RUR #### [facility] [address] [place] [address] Dr. Papo Swanson pH (U) 7.0 [pH] Normal 5-9 [facility] Comment on above: Performed By: #### E RUR #### [facility] [address] [place] [address] Dr. Papo Swanson SPEC GRAVITY 1.025 Normal 1.005-<=1.025 [facility] Comment on above: Performed By: #### E RUR #### [facility] [address] [place] [address] Dr. Papo Swanson UA PROTEIN Negative Normal NEGATIVE/ TRACE The [facility] Comment on above: Performed By: #### E RUR #### [facility] [address] [place] [address] Dr. Papo Swanson UR MICRO IND NOT INDICATED Normal [facility] Comment on above: Performed By: #### E RUR #### [facility] [address] [place] [address] Dr. Papo Sawnson Urobilinogen Qn (U) 0.2 {Kelle'U}/dL Normal 0.2 - 1. 0 The [facility] Comment on above: Performed By: #### E RUR #### [facility] [address] [place] [address] Dr. Papo Swanson LIPASEon 07-10-2022 Lipase [Catalytic activity/Vol] 54.0 U/L Critically low 73.0-393.0 [facility] Comment on above: Performed By: #### D RUGRPD #### [facility] [address] [address] [address] Papo Swanson PREG HCG QUALon 07-10-2022 , QUAL Negative Normal NEGATIVE [facility] Comment on above: Performed By: #### E RUR #### [facility] [address] [address] [address] Papo Swanson PROF 14(COMP METB)on 023 Albumin [Mass/Vol] 4.3 g/dL Normal 3.4-5.0 [facility] Comment on above: Performed By: #### D RUGRPD #### [facility] [address] [address] [address] Papo Swanson Albumin/Globulin [Mass ratio] 1.0 {ratio} Normal [facility] Comment on above: Performed By: #### D RUGRPD #### [facility] [address] [address] [address] Papo Swanson ALP [Catalytic activity/Vol] 91 U/L Normal 46-116 [facility] Comment on above: Performed By: #### D RUGRPD #### [facility] [address] [address] [address] Papo Swanson ALT [Catalytic activity/Vol] 19 U/L Normal 14-59 [facility] Comment on above: Performed By: #### D RUGRPD #### [facility] [address] [address] [address] Papo Swanson Anion gap [Moles/Vol] 13.9 mmol/L Normal [facility] Comment on above: Performed By: #### D RUGRPD #### [facility] [address] [address] [address] Papo Swanson AST [Catalytic activity/Vol] 13 U/L Critically low 15-37 [facility] Comment on above: Performed By: #### D RUGRPD #### [facility] [address] [address] [address] Papo Swanson Bilirubin [Mass/Vol] 0.3 mg/dL Normal 0.2-1.0 [facility] Comment on above: Performed By: #### D RUGRPD #### [facility] [address] [address] [address] Papo Swanson Calcium [Mass/Vol] 9.1 mg/dL Normal 8.5-10.1 [facility] Comment on above: Performed By: #### D RUGRPD #### [facility] [address] [address] [address] Papo Swanson Chloride [Moles/Vol] 104 mmol/L Normal 98-107 [facility] Comment on above: Performed By: #### D RUGRPD #### [facility] [address] [address] [address] Papo Swanson CO2 [Moles/Vol] 25.4 mmol/L Normal 21.0-32.0 [facility] Comment on above: Performed By: #### D RUGRPD #### [facility] [address] [place] [address] Dr. Papo Swanson Creatinine [Mass/Vol] 0.64 mg/dL Normal 0.55-1.02 [facility] Comment on above: Performed By: #### D RUGRPD #### [facility] [address] [address] [address] Papo Swanson EGFR-AF BARBADIAN >60 Normal >=60 [facility] Comment on above: Performed By: #### D RUGRPD #### [facility] [address] [address] [address] Papo Swanson EGFR-NON AF BARBADIAN >60 Normal >=60 [facility] Comment on above: Performed By: #### D RUGRPD #### [facility] [address] [address] [address] Papo Swanson Globulin (S) [Mass/Vol] 4.3 g/dL Normal [facility] Comment on above: Performed By: #### D RUGRPD #### [facility] [address] [address] [address] Papo Swanson Glucose [Mass/Vol] 101 mg/dL Normal 74-106 [facility] Comment on above: Performed By: #### D RUGRPD #### [facility] [address] [address] [address] Papo Swanson Potassium [Moles/Vol] 3.3 mmol/L Critically low 3.5-5.1 [facility] Comment on above: Performed By: #### D RUGRPD #### [facility] [address] [place] [address] Dr. Papo Swanson Protein [Mass/Vol] 8.6 g/dL Critically high 6.4-8.2 [facility] Comment on above: Performed By: #### D RUGRPD #### [facility] [address] [place] [address] Dr. Papo Swanson Sodium [Moles/Vol] 140 mmol/L Normal 136-145 [facility] Comment on above: Performed By: #### D RUGRPD #### [facility] [address] [place] [address] Dr. Papo Swanson Urea nitrogen [Mass/Vol] 8.0 mg/dL Normal 7.0-18.0 [facility] Comment on above: Performed By: #### D RUGRPD #### [facility] [address] [place] [address] Dr. Papo Swanson Urea nitrogen/Creatinine [Mass ratio] 12.5 mg/mg Normal [facility] Comment on above: Performed By: #### D RUGRPD #### [facility] [address] [place] [address] Dr. Papo Swanson CBC AUTO DIFFon 12-27-2021 BASO # 0.0 103/ul Normal 0.0-0.1 [facility] Comment on above: Performed By: #### C BC #### [facility] [address] [place] [address] Dr. Papo Swanson Basophils/100 WBC (Bld) 0.2 % Normal 0.2-2.0 [facility] Comment on above: Performed By: #### C BC #### [facility] [address] [place] [address] Dr. Papo Swanson EO # 0.0 103/ul Normal 0.0-0.7 [facility] Comment on above: Performed By: #### C BC #### [facility] [address] [address] [address] Papo Swanson Eosinophils/100 WBC (Bld) 0.3 % Critically low 0.9-7.0 [facility] Comment on above: Performed By: #### C BC #### [facility] [address] [place] [address] Dr. Papo Swanson Erythrocyte distribution width (RBC) [Ratio] 15.4 % Critically high 11.0-15.0 [facility] Comment on above: Performed By: #### C BC #### [facility] [address] [place] [address] Dr. Papo Swanson Hematocrit (Bld) [Volume fraction] 27.8 % Critically low 36.0-48.0 [facility] Comment on above: Performed By: #### C BC #### [facility] [address] [place] [address] Dr. Papo Swanson Hemoglobin (Bld) [Mass/Vol] 8.7 g/dL Critically low 12.0-16.0 [facility] Comment on above: Performed By: #### C BC #### [facility] [address] [place] [address] Dr. Papo Swanson IG # 0.11 10e3/ul Critically high 0.00-0.[address] [facility] Comment on above: Performed By: #### C BC #### [facility] [address] [place] [address] Dr. Papo Swanson IG % 0.9 % Critically high 0.0-0.5 [facility] Comment on above: Performed By: #### C BC #### [facility] [address] [place] [address] Dr. Papo Swanson LYMPH # 2.4 103/ul Normal 1.2-3.8 [facility] Comment on above: Performed By: #### C BC #### [facility] [address] [place] [address] Dr. Papo Swanson Lymphocytes/100 WBC (Bld) 19.6 % Critically low 20.5-60.0 [facility] Comment on above: Performed By: #### C BC #### [facility] [address] [place] [address] Dr. Papo Swanson MANUAL DIFF REQ NO Normal [facility] Comment on above: Performed By: #### C BC #### [facility] [address] [place] [address] Dr. Papo Swnason MCH (RBC) [Entitic mass] 24.6 pg Critically low 26.7-34.0 [facility] Comment on above: Performed By: #### C BC #### [facility] [address] [place] [address] Dr. Papo Swanson MCHC (RBC) [Mass/Vol] 31.3 g/dL Normal 29.9-35.2 [facility] Comment on above: Performed By: #### C BC #### [facility] [address] [place] [address] Dr. Papo Swanson MCV (RBC) [Entitic vol] 78.8 fL Critically low 81.0-99.0 [facility] Comment on above: Performed By: #### C BC #### [facility] [address] [place] [address] Dr. Papo Swanson MONO # 0.8 103/ul Normal 0.3-0.8 [facility] Comment on above: Performed By: #### C BC #### [facility] [address] [place] [address] Dr. Papo Swanson Monocytes/100 WBC (Bld) 6.2 % Normal 1.7-12.0 [facility] Comment on above: Performed By: #### C BC #### [facility] [address] [place] [address] Dr. Papo Swanson NEUT # 8.9 103/ul Critically high 1.4-6.5 [facility] Comment on above: Performed By: #### C BC #### [facility] [address] [place] [address] Dr. Papo Swanson Neutrophils/100 WBC (Bld) 72.8 % Normal 43.0-75.0 [facility] Comment on above: Performed By: #### C BC #### [facility] [address] [place] [address] Dr. Papo Swanson Platelet mean volume (Bld) [Entitic vol] 11.7 fL Normal 9.5-13.5 [facility] Comment on above: Performed By: #### C BC #### [facility] [address] [place] [address] Dr. Papo Swanson PLT 173 103/ul Normal 150-450 [facility] Comment on above: Performed By: #### C BC #### [facility] [address] [address] [address] Papo Swanson RBC 3.53 106/ul Critically low 4.20-5.40 [facility] Comment on above: Performed By: #### C BC #### [facility] [address] [place] [address] Dr. Papo Swanson WBC 12.2 103/ul Critically high 4.0-11.0 [facility] Comment on above: Performed By: #### C BC #### [facility] [address] [place] [address] Dr. Papo Swanson CBC AUTO DIFFon 12-26-2021 BASO # 0.0 103/ul Normal 0.0-0.1 [facility] Comment on above: Performed By: #### C BC #### [facility] [address] [place] [address] Dr. Papo Swanson Basophils/100 WBC (Bld) 0.2 % Normal 0.2-2.0 [facility] Comment on above: Performed By: #### C BC #### [facility] [address] [place] [address] Dr. Papo Swanson EO # 0.1 103/ul Normal 0.0-0.7 [facility] Comment on above: Performed By: #### C BC #### [facility] [address] [place] [address] Dr. Papo Swanson Eosinophils/100 WBC (Bld) 0.8 % Critically low 0.9-7.0 [facility] Comment on above: Performed By: #### C BC #### [facility] [address] [place] [address] Dr. Papo Swanson Erythrocyte distribution width (RBC) [Ratio] 15.2 % Critically high 11.0-15.0 [facility] Comment on above: Performed By: #### C BC #### [facility] [address] [place] [address] Dr. Papo Swanson Hematocrit (Bld) [Volume fraction] 31.5 % Critically low 36.0-48.0 [facility] Comment on above: Performed By: #### C BC #### [facility] [address] [place] [address] Dr. Papo Swanson Hemoglobin (Bld) [Mass/Vol] 9.9 g/dL Critically low 12.0-16.0 [facility] Comment on above: Performed By: #### C BC #### [facility] [address] [place] [address] Dr. Papo Swanson IG # 0.21 10e3/ul Critically high 0.00-0.[address] [facility] Comment on above: Performed By: #### C BC #### [facility] [address] [place] [address] Dr. Papo Swanson IG % 2.5 % Critically high 0.0-0.5 [facility] Comment on above: Performed By: #### C BC #### [facility] [address] [place] [address] Dr. Papo Swanson LYMPH # 1.8 103/ul Normal 1.2-3.8 [facility] Comment on above: Performed By: #### C BC #### [facility] [address] [place] [address] Dr. Papo Swanson Lymphocytes/100 WBC (Bld) 20.8 % Normal 20.5-60.0 [facility] Comment on above: Performed By: #### C BC #### [facility] [address] [place] [address] Dr. Papo Swanson MANUAL DIFF REQ NO Normal [facility] Comment on above: Performed By: #### C BC #### [facility] [address] [place] [address] Dr. Papo Swanson MCH (RBC) [Entitic mass] 24.5 pg Critically low 26.7-34.0 [facility] Comment on above: Performed By: #### C BC #### [facility] [address] [place] [address] Dr. Papo Swanson MCHC (RBC) [Mass/Vol] 31.4 g/dL Normal 29.9-35.2 [facility] Comment on above: Performed By: #### C BC #### [facility] [address] [place] [address] Dr. Papo Swanson MCV (RBC) [Entitic vol] 78.0 fL Critically low 81.0-99.0 [facility] Comment on above: Performed By: #### C BC #### [facility] [address] [place] [address] Dr. Papo Swanson MONO # 0.5 103/ul Normal 0.3-0.8 [facility] Comment on above: Performed By: #### C BC #### [facility] [address] [place] [address] Dr. Papo Swanson Monocytes/100 WBC (Bld) 6.4 % Normal 1.7-12.0 [facility] Comment on above: Performed By: #### C BC #### [facility] [address] [place] [address] Dr. Papo Swanson NEUT # 5.8 103/ul Normal 1.4-6.5 [facility] Comment on above: Performed By: #### C BC #### [facility] [address] [place] [address] Dr. Papo Swanson Neutrophils/100 WBC (Bld) 69.3 % Normal 43.0-75.0 [facility] Comment on above: Performed By: #### C BC #### [facility] [address] [place] [address] Dr. Papo Swanson Platelet mean volume (Bld) [Entitic vol] 12.2 fL Normal 9.5-13.5 [facility] Comment on above: Performed By: #### C BC #### [facility] [address] [address] [address] Papo Swanson PLT 195 103/ul Normal 150-450 [facility] Comment on above: Performed By: #### C BC #### [facility] [address] [id number] [address] Papo Swanson RBC 4.04 106/ul Critically low 4.20-5.40 [facility] Comment on above: Performed By: #### C BC #### [facility] [address] [address] [address] Papo Swanson WBC 8.4 103/ul Normal 4.0-11.0 [facility] Comment on above: Performed By: #### C BC #### [facility] [address] [place] [address] Dr. Papo Swanson CULTURE URINEon 12-26-2021 CULTURE URINE Culture Observations : LIGHT GROWTH OF MIXED GENITAL NICOLE. NO POTENTIAL PATHOGENS SEEN. Normal [facility] Comment on above: Performed By: #### U RCX #### [facility] [address] [place] [address] Dr. Papo Swanson Covid-19 PCR (CVDTB)on SARS-CoV-2 (COVID-19) RNA PRIYA+probe Ql (Unsp spec) Not detected Normal NOT DETECTED The [facility] Comment on above: Result Comment: When diagnostic [...] for this test is supported by the [place] of [employer] and Human Service's declaration that [...] VDTBH #### [facility] [address] [place] [address] Dr. Papo Swanson DRUG SCREEN RAPID (URINE)on 12-26-2021 AMP Negative Normal NEGATIVE [facility] Comment on above: Performed By: #### D RUGRPD #### [facility] [address] [place] [address] Dr. Papo Swanson BAR Negative Normal NEGATIVE [facility] Comment on above: Performed By: #### D RUGRPD #### [facility] [address] [place] [address] Dr. Papo Swanson BUP Negative Normal NEGATIVE [facility] Comment on above: Performed By: #### D RUGRPD #### [facility] [address] [place] [address] Dr. Papo Swanson BZO Negative Normal NEGATIVE [facility] Comment on above: Performed By: #### D RUGRPD #### [facility] [address] [place] [address] Dr. Papo Swanson GIRISH Negative Normal NEGATIVE [facility] Comment on above: Performed By: #### D RUGRPD #### [facility] [address] [place] [address] Dr. Papo Swanson CUT-OFFS SEE BELOW Normal [facility] Comment on above: Result Comment: AMP (Amphetamine): [...] RUGRPD #### [facility] [address] [place] [address] Dr. Papo Swanson DRUG CUT HEADER DRUG CLASS TEST SYSTEM CUT-OFF CONCENTRATIONS ARE FOLLOWS: Normal [facility] Comment on above: Performed By: #### D RUGRPD #### [facility] [address] [place] [address] Dr. Papo Swanson mAMP Negative Normal NEGATIVE [facility] Comment on above: Performed By: #### D RUGRPD #### [facility] [address] [place] [address] Dr. Papo Swanson MTD Negative Normal NEGATIVE [facility] Comment on above: Performed By: #### D RUGRPD #### [facility] [address] [place] [address] Dr. Papo Swanson OPI Negative Normal NEGATIVE [facility] Comment on above: Performed By: #### D RUGRPD #### [facility] [address] [place] [address] Dr. Papo Swanson OXY Negative Normal NEGATIVE [facility] Comment on above: Performed By: #### D RUGRPD #### [facility] [address] [place] [address] Dr. Papo Swanson PCP Negative Normal NEGATIVE [facility] Comment on above: Performed By: #### D RUGRPD #### [facility] [address] [place] [address] Dr. Papo Swanson PPX Negative Normal NEGATIVE [facility] Comment on above: Performed By: #### D RUGRPD #### [facility] [address] [place] [address] Dr. Papo Swanson TCA Negative Normal NEGATIVE [facility] Comment on above: Performed By: #### D RUGRPD #### [facility] [address] [place] [address] Dr. Papo Swanson THC Negative Normal NEGATIVE [facility] Comment on above: Performed By: #### D RUGRPD #### [facility] [address] [place] [address] Dr. Papo Swanson TYPE AND SCREENon 12-26-2021 TYPE AND SCREEN Negative Normal [facility] Comment on above: Performed By: #### D RUGRPD #### [facility] [address] [place] [address] Dr. Papo Swanson UA (CLEAN/CATCH) HEAD OF ART/MICRO I F IND.on 12-26-2021 Bilirubin Ql (U) Negative Normal NEGATIVE [facility] Comment on above: Performed By: #### D RUGRPD #### [facility] [address] [place] [address] Dr. Papo Swanson Clarity (U) CLEAR Normal CLEAR [facility] Comment on above: Performed By: #### D RUGRPD #### [facility] [address] [place] [address] Dr. Papo Swanson Color (U) LT. YELLOW Normal YELLOW [facility] Comment on above: Performed By: #### D RUGRPD #### [facility] [address] [place] [address] Dr. Papo Swanson Glucose Ql (U) Negative Normal NEGATIVE [facility] Comment on above: Performed By: #### D RUGRPD #### [facility] [facility] [address] [place] [address] Dr. Papo Swanson Hemoglobin Ql (U) Negative Normal NEGATIVE The [facility] Comment on above: Performed By: #### Xavier RUGRPD #### [facility] [address] [place] [address] Dr. Papo Swanson Ketones Ql (U) Negative Normal NEGATIVE The [facility] Comment on above: Performed By: #### D RUGRPD #### [facility] [address] [place] [address] Dr. Papo Swanson LEUKOCYTES LARGE Abnormal NEGATIVE [facility] Comment on above: Performed By: #### D RUGRPD #### [facility] [address] [place] [address] Dr. Papo Swanson Nitrite Ql (U) Negative Normal NEGATIVE The [facility] Comment on above: Performed By: #### D RUGRPD #### [facility] [address] [place] [address] Dr. Papo Swanson pH (U) 7.5 [pH] Normal 5-9 The [facility] Comment on above: Performed By: #### D RUGRPD #### [facility] [address] [place] [address] Dr. Papo Swanson SPEC GRAVITY 1.015 Normal 1.005-<=1.025 [facility] Comment on above: Performed By: #### D RUGRPD #### [facility] [address] [address] [address] Papo Swanson UA PROTEIN Negative Normal NEGATIVE/ TRACE The [facility] Comment on above: Performed By: #### D RUGRPD #### [facility] [address] [place] [address] Dr. Papo Swanson UR MICRO IND INDICATED Normal The [facility] Comment on above: Performed By: #### D RUGRPD #### [facility] [address] [place] [address] Dr. Papo Swanson Urobilinogen Qn (U) 0.2 {Kelle'U}/dL Normal 0.2 - 1. 0 The [facility] Comment on above: Performed By: #### D RUGRPD #### [facility] [address] [place] [address] Dr. Papo Swanson URINE MICROSCOPIC ONLYon BACTERIA SMALL Abnormal NONE SEEN The [facility] Comment on above: Performed By: #### D RUGRPD #### [facility] [address] [place] [address] Dr. Papo Swanson Bacteria identified Cx Nom (U) INDICATED Normal The [facility] Comment on above: Performed By: #### D RUGRPD #### [facility] [address] [place] [address] Dr. Papo Swanson CAST NONE SEEN Normal NONE SEEN The [facility] Comment on above: Performed By: #### D RUGRPD #### [facility] [address] [place] [address] Dr. Papo Swanson Crystals LM Nom (Urine sed) NONE SEEN Normal NONE SEEN The [facility] Comment on above: Performed By: #### D RUGRPD #### [facility] [address] [place] [address] Dr. Papo Swanson Epithelial cells LM Ql (Urine sed) MODERATE Abnormal NONE SEEN /RARE The [facility] Comment on above: Performed By: #### D RUGRPD #### [facility] [address] [address] [address] Papo Swanson MUCOUS NONE SEEN Normal NONE SEEN The [facility] Comment on above: Performed By: #### D RUGRPD #### [facility] [address] [address] [address] Papo Swanson RBC 0-2 Normal 0-2 The [facility] Comment on above: Performed By: #### D RUGRPD #### [facility] [address] [address] [address] Papo Swanson WBC 10-20 Abnormal NONE SEEN The [facility] Comment on above: Performed By: #### D RUGRPD #### [facility] [address] [place] [address] Dr. Papo Swanson US PREG GROWTHon 12-21-2021 [...] Normal The [facility] GROUP B STREP CULTUREon 11-23 S. agalactiae Ag Ql (Unsp spec) Culture Observations: NEGATIVE FOR GROUP B STREPTOCOCCUS. Normal The [facility] Comment on above: Performed By: #### D RUGRPD #### [facility] [address] [place] [address] Dr. Papo Swanson GLUCOSE - 1HRon 10-16-2021 Glucose [Mass/Vol] 148 mg/dL Critically high 74-106 [facility] Comment on above: Performed By: #### G LU1HR #### [facility] [address] [place] [address] Dr. Papo Swanson HEMOGRAM AND PLATELon 2021 Hematocrit (Bld) [Volume fraction] 31.5 % Critically low 36.0-48.0 [facility] Comment on above: Performed By: #### H H #### [facility] [address] [place] [address] Dr. Papo Swanson Hemoglobin (Bld) [Mass/Vol] 10.4 g/dL Critically low 12.0-16.0 [facility] Comment on above: Performed By: #### H H #### [facility] [address] [place] [address] Dr. Papo Swanson MCH (RBC) [Entitic mass] 27.8 pg Normal 26.7-34.0 [facility] Comment on above: Performed By: #### H H #### [facility] [address] [place] [address] Dr. Papo Swanson MCHC (RBC) [Mass/Vol] 33.0 g/dL Normal 29.9-35.2 The [facility] Comment on above: Performed By: #### H H #### [facility] [address] [place] [address] Dr. Papo Swanson MCV (RBC) [Entitic vol] 84.2 fL Normal 81.0-99.0 The [facility] Comment on above: Performed By: #### H H #### [facility] [address] [place] [address] Dr. Papo Swanson PLT 248 103/ul Normal 150-450 The [facility] Comment on above: Performed By: #### H H #### [facility] [address] [place], [place] [address] Dr. Papo Swanson RBC 3.74 106/ul Critically low 4.20-5.40 [facility] Comment on above: Performed By: #### H H #### [facility] [address] [place], [place] [address] Dr. Papo Swanson WBC 7.4 103/ul Normal 4.0-11.0 [facility] Comment on above: Performed By: #### H H #### [facility] [address] [place], [place] [address] Dr. Papo Swanson US PREG ANATOMY SINGLEon [...] Normal The [facility] US PREG CERVICAL LENGTHon US PREG CERVICAL [...] Normal The [facility] CHLAMYDIA/GONOCOCCUS PRIYA (SW AB/URINE/PAPon 07-28-2021 Chlamydia trachomatis, PRIYA Negative Normal Negative The [facility] Comment on above: Performed By: #### C T/NGNA #### [facility] [address] [place] [address] Dr. Papo Swanson Neisseria gonorrhoeae, PRIYA Negative Normal Negative The [facility] Comment on above: Performed By: #### C T/NGNA #### [facility] [address] [address] [address] Papo Swanson VAGINITIS/VAGINOSIS DNA PROB Anthony 07-27-2021 Zhane species Positive Abnormal Negative [facility] Comment on above: Performed By: #### E RUR #### [facility] [address] [place] [address] Dr. Papo Swanson Gardnerella vaginalis Negative Normal Negative The [facility] Comment on above: Performed By: #### E RUR #### [facility] [address] [address] [address] Papo Swanson Trichomonas vaginalis Negative Normal Negative The [facility] Comment on above: Performed By: #### E RUR #### [facility] [address] [place] [address] Dr. Papo Swanson Vital Signs Date Time Vital Sign Value Performing Clinician Xiomarai lity 03-31-2024 16:01-0500 Body weight 63.78 kg Gaviota CHAIDEZ Work Phone: [facility] 03-31-2024 16:01-0500 Diastolic blood pressure 66 mm[Hg] Gaviota CHAIDEZ Work Phone: [facility] 03-31-2024 16:01-0500 Systolic blood pressure 108 mm[Hg] Gaviota CHAIDEZ Work Phone: [facility] 02-25-2024 14:04-0500 Body weight 63.23 kg Nikki Rip DO Work Phone: [facility] 02-25-2024 14:04-0500 Diastolic blood pressure 70 mm[Hg] Nikki Rip DO Work Phone: [facility] 02-25-2024 14:04-0500 Systolic blood pressure 110 mm[Hg] Nikki Rip DO Work Phone: [facility] 01-29-2024 13:30-0500 Body weight 64.41 kg [facility] Nurse [facility] 01-29-2024 13:30-0500 Diastolic blood pressure 68 mm[Hg] Nom Nurse [facility] 01-29-2024 13:30-0500 Systolic blood pressure 112 mm[Hg] Nom Nurse [facility] 05-06-2023 11:05-0500 Body weight 61.69 kg Gaviota CHAIDEZ Work Phone: [facility] 05-06-2023 11:05-0500 Diastolic blood pressure 68 mm[Hg] Gaviota CHAIDEZ Work Phone: [facility] 05-06-2023 11:05-0500 Systolic blood pressure 108 mm[Hg] Gaviota CHAIDEZ Work Phone: [facility] Encounters Encounter Date Encounter Type Care Provider Facility Start: 04-28-2024 End: 04-28-2024 Bamboo flowsheet Nikki Rip DO Work Phone: [facility] Start: 04-28-2024 End: 04-28-2024 Bamboo flowsheet Nikki Rip DO Work Phone: [facility] Start: 03-31-2024 End: 03-31-2024 Patient encounter procedure Gaviota CHAIDEZ Work Phone: [facility] Start: 03-31-2024 End: 03-31-2024 Periodic preventive med est patient 18-39 yrs Gaviota CHAIDEZ Work Phone: [facility] Comment on above: Second trimester pre gnancy; 17 weeks gestation of ; Well woman exam with routine gynecological exam; Vaginal discharge; STD exposure; Screening, , for anatomic survey Start: 03-31-2024 End: 03-31-2024 ambulatory GAVIOTA SHERIDAN Not Available Start: 03-31-2024 End: 03-31-2024 Bamboo flowsheet Gaviota CHAIDEZ Work Phone: [facility] Start: 03-31-2024 End: 04-06-2024 Bamboo flowsheet Gaviota CHAIDEZ Work Phone: [facility] Start: 03-31-2024 End: 04-06-2024 Clinisync Result Encounter Gaviota CHAIDEZ Work Phone: [facility] Unsolicited Start: 03-31-2024 End: 04-02-2024 External Result Encounter Gaviota CHAIDEZ Work Phone: [facility] Start: 02-25-2024 End: 02-25-2024 Bamboo flowsheet Nikki Rip DO Work Phone: [facility] Start: 02-25-2024 End: 02-25-2024 Bamboo flowsheet Nikki Rip DO Work Phone: [facility] Start: 02-25-2024 End: 02-25-2024 ambulatory NIKKI RIP Not Available Start: 02-25-2024 End: 02-25-2024 Office outpatient visit 15 minutes Nikki Rip DO Work Phone: [facility] Comment on above: 13 weeks gestation o f ; Second trimester Start: 02-02-2024 End: 02-02-2024 Clinisync Result Encounter Nikki Rip DO Work Phone: [facility]olic[facility] Start: 02-02-2024 End: 02-02-2024 Clinisync Result Encounter Nikki Rip DO Work Phone: [facility] Start: 01-29-2024 End: 01-29-2024 ambulatory [facility] Rpi Nurse [facility] Comment on above: GA: 9w3d Start: 01-21-2024 End: 01-21-2024 Emergency department patient visit [facility] Start: 01-21-2024 End: 01-21-2024 Emergency department patient visit WIL [facility] Start: 07-01-2023 End: 07-01-2023 ambulatory NIKKI RIP Not Available Start: 06-17-2023 End: 06-17-2023 ambulatory NIKKI RIP Not Available Start: 06-03-2023 End: 06-03-2023 ambulatory GAVIOTA SHERIDAN Not Available Start: 05-20-2023 End: 05-20-2023 ambulatory NIKKI RIP Not Available Start: 05-06-2023 Clinisync Result Encounter Nikki Rip DO Work Phone: [facility]olic[facility] Start: 05-06-2023 Clinisync Result Encounter Nikki Rip DO Work Phone: [facility]solic[facility] Start: 05-06-2023 End: 05-06-2023 Postop follow up visit related to original px Gaviota Sheridan PA Work Phone: [facility] Comment on above: Third trimester preg isi Start: 05-06-2023 End: 05-06-2023 ambulatory GAVIOTA SHERIDAN Not Available Start: 04-08-2023 End: 04-08-2023 ambulatory NIKKI RIP Not Available Start: 07-10-2022 End: 07-11-[address] DOCTOR BURTON Facility:[facility] Start: 12-26-2021 End: 12-28-2021 Evaluation and management of inpatient DR DOCTOR BURTON Facility:[facility] Start: 12-21-2021 End: 12-22-[address] NIKKI ERWIN . Facility:[facility] Start: 12-12-2021 End: 12-12-[address] NIKKI ERWIN . Facility:[facility] Start: 10-16-2021 End: 10-17-[address] NIKKI ERWIN . Facility:[facility] Start: 08-21-2021 End: 08-22-[address] NIKKI ERWIN . Facility: Start: 08-01-2021 End: 08-02-[address] NIKKI ERWIN . Facility:[facility] Start: 07-25-2021 End: 07-25-[address] NIKKI ERWIN . Facility: Procedures Date Procedure Procedure Detail Performing Clinician Start: 03-31-2024 RECURRENT VAGINITIS (HTRX) Gaviota CHAIDEZ Work Phone: Start: 03-31-2024 Urnls dip stick/tabl et rgnt non-auto w/o micrscp Gaviota CHAIDEZ Work Phone: Start: 03-31-2024 IGP,APTIMA HPV,AGE GDLN Gaviota CHAIDEZ Work Phone: Start: 02-25-2024 Urnls dip stick/tabl et rgnt non-auto w/o micrscp Nikki Rip DO Work Phone: Start: 02-02-2024 Antibody screen Nikki F azio DO Work Phone: Start: 02-02-2024 ALL CBC WITH AUTO DIFF Nikki Rip DO Work Phone: Start: 02-02-2024 ALL RUBELLA IGG AB Core y Rip DO Work Phone: Start: 02-02-2024 ALL TYPE AND SCREEN Cor ey Rip DO Work Phone: Start: 02-02-2024 BOX TEST Nikki Fazi o DO Work Phone: Start: 02-02-2024 HBSAG SCREEN Nikki Fazi o DO Work Phone: Start: 02-02-2024 HCV ANTIBODY RFX TO QUANT PCR Nikki Rip DO Work Phone: Start: 02-02-2024 HIV AB/P24 AG WITH REFLEX Nikki Rip DO Work Phone: Start: 02-02-2024 MLR HEMOGLOBIN A1C Guanakito Erwin DO Work Phone: Start: 02-02-2024 RAPID PLASMA REAGIN, QUANT Nikki Erwin DO Work Phone: Start: 02-02-2024 [facility] DRUG SCREEN RAPI D (URINE) Nikki Erwin DO Work Phone: Start: 01-29-2024 Urnls dip stick/tabl et rgnt non-auto w/o micrscp Nikki Clayo DO Work Phone: Start: 05-06-2023 Urnls dip [...] Treatment Date Care Activity Detail Author Start: 04-28-2024 End: 04-28-2024 Patient encounter procedure 04/28/2024 2:50 PM EST Routine [facility] [address] [place] [address] Nikki Erwin, DO [address] [place] [address] [facility] Start: 03-31-2024 End: 03-31-2024 Patient encounter procedure [facility] Comment on above: Arrived Start: 03-31-2024 End: 09-28-2024 Alpha fetoprotein, maternal Alpha fetoprotein, maternal Lab Routine Second trimester 17 weeks gestation of Expected: 03/31/2024 (Approximate), Expires: 09/28/2024 [facility] Comment on above: Expected: 03/31/2024 (Approximate), Expires: 09/28/2024 Start: 03-31-2024 End: 03-31-2025 US for US OB 14+ weeks anatomy scan Imaging Routine Screening, , for anatomic survey Expected: 03/31/2024, Expires: 03/31/2025 [facility] Comment on above: Expected: 03/31/2024 , Expires: 03/31/2025 Start: 02-25-2024 End: 02-25-2024 Patient encounter procedure 02/25/2024 1:40 PM EST Routine [facility] [address] [place] [address] Nikki Erwin, DO [address] [place] [address] [facility] Start: 01-29-2024 End: 01-28-2025 ABO/Rh ABO/Rh Lab Routine Missed menses , unspecified gestational age Expected: 01/29/2024 (Approximate), Expires: 01/28/2025 [facility] Comment on above: Expected: 01/29/2024 (Approximate), Expires: 01/28/2025 Start: 01-29-2024 End: 01-28-2025 Blood type and Indirect antibody screen panel - Blood Type and screen Lab Routine Missed menses , unspecified gestational age Expected: 01/29/2024 (Approximate), Expires: 01/28/2025 [facility] Work Phone: Comment on above: Expected: 01/29/2024 (Approximate), Expires: 01/28/2025 Start: 01-29-2024 End: 01-28-2025 Drugs of abuse panel - Urine by Screen method Rapid drug screen, urine Lab Routine , unspecified gestational age Encounter for supervision of normal first in first trimester Expected: 01/29/2024 (Approximate), Expires: 01/28/2025 [facility] Comment on above: Expected: 01/29/2024 (Approximate), Expires: 01/28/2025 Start: 01-29-2024 End: 01-28-2025 US Pelvis transvaginal US OB transvaginal Imaging Routine Missed menses Expected: 01/29/2024 (Approximate), Expires: 01/28/2025 [facility] Comment on above: Expected: 01/29/2024 (Approximate), Expires: 01/28/2025 Start: 11-23-2023 Influenza vaccination Influenza Vacc ine (#1) [facility] Start: 05-20-2023 End: 05-20-2023 Patient encounter procedure 05/20/2023 10:00 AM EST Routine [facility] [address] [place] [id number] Nikki Erwin DO [address] [place] [address] [facility] Start: 05-06-2023 End: 05-06-2023 Patient encounter procedure 05/06/2023 11:20 AM EST Routine [facility] [address] [place] [id number] Gaviota Sheridan PA [address] [place] [address] Third trimester [facility] Comment on above: Third trimester preg isi Bacteria identified in Urine by Culture Urine culture Microbiology Routine Missed menses Ordered: 01/29/2024 [facility] Comment on above: Ordered: 01/29/2024 CBC W Auto Different ial panel - Blood CBC and differential Lab Routine Missed menses , unspecified gestational age Ordered: 01/29/2024 [facility] Comment on above: Ordered: 01/29/2024 CHLAMYDIA TRACHOMATI S (GENITO/STI) CHLAMYDIA TRACHOMATIS (GENITO/STI) Lab Routine STD exposure Ordered: 03/31/2024 [facility] Comment on above: Ordered: 03/31/2024 Cytology Cervical or vaginal smear or scraping study Pap Smear Pathology and Cytology Routine Well woman exam with routine gynecological exam Ordered: 03/31/2024 [facility] Comment on above: Ordered: 03/31/2024 Hemoglobin A1c/Hemoglobin.total in Blood Hemoglobin A1c Lab Routine Missed menses , unspecified gestational age Ordered: 01/29/2024 [facility] Comment on above: Ordered: 01/29/2024 Hepatitis B virus surface Ag [Presence] in Serum or Plasma by Immunoassay Hepatitis B surface antigen Lab Routine Missed menses , unspecified gestational age Ordered: 01/29/2024 [facility] Comment on above: Ordered: 01/29/2024 Hepatitis C virus Ab [Presence] in Serum or Plasma by Immunoassay Hepatitis C antibody Lab Routine Missed menses , unspecified gestational age Ordered: 01/29/2024 [facility] Comment on above: Ordered: 01/29/2024 HIV-1/HIV-2 antigen/antibody combination immunoassay HIV-1 and HIV-2 antibodies Lab Routine Missed menses , unspecified gestational age Ordered: 01/29/2024 [facility] Comment on above: Ordered: 01/29/2024 Neisseria gonorrhoea e DNA [Presence] in Unspecified specimen by PRIYA with probe detection Neisseria gonorrhea DNA probe, direct Lab Routine STD exposure Ordered: 03/31/2024 [facility] Comment on above: Ordered: 03/31/2024 Reagin Ab [Presence] in Serum by RPR RPR Lab Routine Missed menses , unspecified gestational age Ordered: 01/29/2024 [facility] Comment on above: Ordered: 01/29/2024 Rubella antibody, IgG Rubella an tibody, IgG Lab Routine Missed menses , unspecified gestational age Ordered: 01/29/2024 [facility] Comment on above: Ordered: 01/29/2024 SURESWAB(R) ADVANCED VAGINITIS PLUS, TMA SURESWAB(R) ADVANCED VAGINITIS PLUS, TMA Pathology and Cytology Routine Vaginal discharge Ordered: 03/31/2024 [facility] Work Phone: Comment on above: Ordered: 03/31/2024 Payers Date Payer Category Payer Worker's Compensation [id number] 2022 Medicaid [id number] 2022 Medicaid [id number] 2001 Unknown [id number] 2.16.84 [id number] 2001 Unknown [id number] 2.16.84 0.1.366445.3.579.2.593 2001 Unknown [id number] 2.16.84 0.1.580632.3.579.2.593 2001 Unknown [id number] 2.16.84 0.1.843666.3.579.2.593 2001 Unknown [id number] 2.16.84 0.1.954871.3.579.2.593 2001 Unknown [id number] 2.16.84 0.1.969464.3.579.2.593 2001 Unknown [id number] 2.16.84 0.1.258173.3.579.2.593 2001 Unknown [id number] 2.16.84 0.1.060886.3.579.2.593 2001 Unknown [id number] 2.16.8 40.1.823245.3.579.2.1286 2001 Unknown [id number] 2.16.8 40.1.488816.3.579.2.1286 2001 Unknown [id number] 2.16.84 0.1.809470.3.579.2.1259 2001 Unknown [id number] 2.16.84 0.1.625877.3.579.2.1259 2001 Unknown [id number] 2.16.84 0.1.078423.3.579.2.1259 2001 Unknown [id number] 2.16.84 0.1.120525.3.579.2.1259 2001 Unknown [id number] 2.16.84 0.1.159879.3.579.2.1259 2001 Unknown [id number] 2.16.84 0.1.191977.3.579.2.1259 2001 Unknown [id number] 2.16.84 0.1.935637.3.579.2.1259 2001 Unknown [id number] 2.16.84 0.1.672550.3.579.2.1259 2001 Unknown [id number] 2.16.84 0.1.052495.3.579.2.1259 1959 Unknown [id number] Social History Date Type Detail Facility Tobacco smoking stat [facility] Tobacco smoking consumption unknown [facility] Start: 11-05-2022 [facility] Start: 2001 Sex Assigned At Not on file [facility] Gender identity Not on file [facility] History of Present illness Narrative 03-31-2024 DM Chang - 03/31/2024 3:20 PM EST Note Date & Type Note Facility 03-31-2024 History of Presen t illness Narrative Reason for Appointment: Patient ID: Shy Su is a 24 y.o. female who presents for Well Women Visit, Routine Visit, and STI Screening Patient presents today for Annual Exam. and Return OB appointment. 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 SURGICAL HISTORY No past surgical history on file. REVIEW OF SYSTEMS Review of Systems: Review of Systems OBJECTIVE Objective: OBGyn Exam Vitals: There is no height or weight on file to calculate BMI. BP: 108/66 Patient's last menstrual period was 11/24/2023. ASSESSMENT & PLAN ICD-10-CM 1. Second trimester Z34.92 POCT urinalysis dipstick manually resulted Alpha fetoprotein, maternal Alpha fetoprotein, maternal 2. 17 weeks gestation of Z3A.17 POCT urinalysis dipstick manually resulted Alpha fetoprotein, maternal Alpha fetoprotein, maternal 3. Well woman exam with routine gynecological exam Z01.419 Pap Smear 4. Vaginal discharge N89.8 SURESWAB(R) ADVANCED VAGINITIS PLUS, TMA 5. STD exposure Z20.2 CHLAMYDIA TRACHOMATIS (GENITO/STI) Neisseria gonorrhea DNA probe, direct 6. Screening, , for anatomic survey Z36.89 US OB 14+ weeks anatomy scan US OB 14+ weeks anatomy scan Return OB/Annual Exam: Patient presents today for an annual exam/routine obstetrics appointment. Patient is currently 18w2d . Patient is doing well and states she has no complaints. Pap/cultures was obtained without difficulty [facility] Orders Placed This Encounter Procedures US OB 14+ weeks anatomy scan CHLAMYDIA TRACHOMATIS (GENITO/STI) Neisseria gonorrhea DNA probe, direct Alpha fetoprotein, maternal POCT urinalysis dipstick manually resulted Follow Up: Patient is to return to our office in 4 weeks for routine OB appointment Documented by Katharina Patel LPN on behalf of: DM Chang documented in this encounter [facility] History of Present illness Narrative 02-25-2024 Aylin Cummings LPN - 02/25/2024 1:40 PM EST Note Date & Type Note Facility 02-25-2024 History of Presen t illness Narrative Reason for Appointment: Patient ID: Shy Su is a 24 y.o. female who presents for Routine Visit Patient presents today for Return OB appointment. 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 SURGICAL HISTORY History reviewed. No pertinent surgical history. REVIEW OF SYSTEMS Review of Systems: Review of Systems Constitutional: Negative. HENT: Negative. Eyes: Negative. Respiratory: Negative. Cardiovascular: Negative. Gastrointestinal: Negative. Genitourinary: Negative. Musculoskeletal: Negative. Skin: Negative. Neurological: Negative. All other systems reviewed and are negative. Hematological: Negative. Endocrine: Negative. Allergic/Immunologic: Negative. OBJECTIVE Objective: Physical Exam Constitutional: Appearance: Normal appearance. She is well-developed. Cardiovascular: Rate and Rhythm: Normal rate and regular rhythm. Pulmonary: Effort: Pulmonary effort is normal. Breath sounds: Normal breath sounds. Abdominal: General: Bowel sounds are normal. There is no distension. Palpations: Abdomen is soft. Tenderness: There is no abdominal tenderness. There is no guarding or rebound. Musculoskeletal: General: No swelling. Normal range of motion. Right lower leg: No edema. Left lower leg: No edema. Neurological: Mental Status: She is alert and oriented to person, place, and time. Skin: General: Skin is warm and dry. Psychiatric: Mood and Affect: Mood normal. Behavior: Behavior normal. Vitals and nursing note reviewed. Exam conducted with a installation supervisor present. Vitals: There is no height or weight on file to calculate BMI. BP: 110/70 Patient's last menstrual period was 11/24/2023. ASSESSMENT & PLAN ICD-10-CM 1. 13 weeks gestation of Z3A.13 POCT urinalysis dipstick manually resulted 2. Second trimester Z34.92 POCT urinalysis dipstick manually resulted New OB: Patient presents today for 1st time obstetrics appointment with provider. Patient is currently 13w2d . Patients history has been reviewed in great detail including any potential risks. Patient stated she currently has no complaints. Expectations throughout regarding labs, ultrasounds, and appointments have been discussed with the patient in detail. It was reiterated that the patient is to drink 6-8 glasses of water a day, eat 6 small meals a day, do not consume raw or undercooked meat, and stay away from [facility]. Patient has been consulted regarding any further do's and don'ts of . Patient voiced understanding and all questions and concerns were answered. Orders Placed This Encounter Procedures POCT urinalysis dipstick manually resulted Follow Up: Patient is to return in 4 weeks for routine OB appointment. Documented by Aylin Cummings LPN on behalf of: Nikki Erwin DO documented in this encounter [facility] History of Present illness Narrative 01-29-2024 Mary [...] or undercooked meat, and stay away from [facility]. Patient has also been advised to not [...] Mary Flores MA documented in this encounter [facility] History of Present illness Narrative 05-06-2023 [...] of: DM Chang documented in this encounter [facility] Evaluation note Note Date & Type Note Facility Evaluation note Diagnosis Third trimester state, incidental documented in this encounter [facility] Evaluation note Note Date & Type Note Facility Evaluation note Diagnosis Missed menses , unspecified gestational age Encounter for supervision of normal first in first trimester Nausea and vomiting in Unspecified vomiting of , unspecified as to episode of care documented in this encounter [facility] Evaluation note Note Date & Type Note Facility Evaluation note Diagnosis 13 weeks gestation of Second trimester state, incidental documented in this encounter [facility] Evaluation note Note Date & Type Note Facility Evaluation note Diagnosis Second trimester state, incidental 17 weeks gestation of Well woman exam with routine gynecological exam Routine gynecological examination Vaginal discharge Leukorrhea, not specified as infective STD exposure Screening, , for anatomic survey Encounter for anatomic survey documented in this encounter [facility] Summary Purpose Family History No Family History Records FoundNo Family History Records FoundNo Family History Records Found Advance Directives No Advanced Directives Records FoundNo Advanced Directives Records FoundNo Advanced Directives Records Found Additional Source Comments INFORMATION SOURCE (unrecogn ized section and content) DATE CREATED AUTHOR 07/13/2022 [facility] DATE CREATED AUTHOR AUTHOR'S ORGANIZ ATION 01/23/2024 [facility] DATE CREATED AUTHOR AUTHOR'S ORGANIZ ATION 04/06/[address] [facility] EPIC Reason for Visit (unrecogniz ed section and content) Reason Comments Routine Visit Reason Comments Amenorrhea Reason Comments Well Women Visit Routine Visit STI Screening Care Teams (unrecognized sec tion and content) Exploration Engineer Relationship Specialty Start Date End Date Nikki Erwin, DO [address] [place] [address] PCP - [facility] 12/23/23 Exploration Engineer Relationship Specialty Start Date End Date Nikki Erwin, DO [address] [place] [address] PCP - [facility] 12/23/23 Exploration Engineer Relationship Specialty Start Date End Date Nikki Erwin, DO [address] [place] [address] PCP - [facility] 12/23/23 Exploration Engineer Relationship Specialty Start Date End Date Nikki Erwin, DO [address] [place] [address] PCP - [facility] 12/23/23 Exploration Engineer Relationship Specialty Start Date End Date Nikki Erwin, DO [address] [place] [address] PCP - [facility] 12/23/23 Exploration Engineer Relationship Specialty Start Date End Date Nikki Erwin DO [address] [place] [address] PCP - [facility] 12/23/23 Exploration Engineer Relationship Specialty Start Date End Date Nikki Erwin DO [address] [place] [address] PCP - [facility] 12/23/23 FOR RECORDS PERTAINING TO PATIENTS [...] BE BASED ON THE PRIMARY CLINICAL RECORDS. [facility] [employer] [facility]. provides no warranty or guarantee of the accuracy or completeness of information in this document.
== END 2024-04-29 14:59 | disposition home or self-care (01) ==
LOC: US 14:58
PROVIDERS: Visit Provider Obstetrics & Gynecology
DX: Z36.89 Encounter for other specified antenatal screening (principal); Z3A.22 22 weeks gestation of pregnancy
CPT/HCPCS: 76805; 76817

== ENCOUNTER 2024-05-19 08:07 | Outpatient (OUT) | payer MEDICAID, SELFPAY ==
[2024-05-19 09:40] LABS: Basophils Percent Auto 0.4 % (0.2-2.0); Eosinophils Percent Auto 0.2 % (0.9-7.0); Hematocrit 31.6 % (36.0-48.0); Hemoglobin 10.8 g/dL (12.0-16.0); Immature Granulocytes Abs Auto 0.07 10^3/uL (0.00-0.03); Immature Granulocytes Pct Auto 1.4 % (0.0-0.5); Lymphocytes Absolute Auto 0.9 10^3/uL (1.2-3.8); Lymphocytes Percent Auto 17.5 % (20.5-60.0); Mean Corpuscular HGB Conc 34.2 g/dL (29.9-35.2); Mean Corpuscular Hemoglobin 30.5 pg (26.7-34.0); Mean Corpuscular Volume 89.3 fL (81.0-99.0); Mean Platelet Volume 10.4 fL (9.5-13.5); Monocytes Absolute Auto 0.5 10^3/uL (0.3-0.8); Monocytes Percent Auto 9.3 % (1.7-12.0); Neutrophils Absolute Auto 3.6 10^3/uL (1.4-6.5); Neutrophils Percent Auto 71.2 % (43.0-75.0); Platelet Count 216 10^3/uL (150-450); Red Blood Count 3.54 10^6/uL (4.20-5.40); Red Cell Distribution Width 12.4 % (11.0-15.0)
[2024-05-19 10:43] LABS: Glucose 1 Hour 99 mg/dL (<130)
== END 2024-05-19 08:08 | disposition home or self-care (01) ==
LOC: LAB 08:07
PROVIDERS: Visit Provider Obstetrics & Gynecology
DX: Z13.1 Encounter for screening for diabetes mellitus (principal)
CPT/HCPCS: 36415; 82950; 85025

== ENCOUNTER 2024-05-25 15:59 | Outpatient (OUT) | payer MEDICAID, SELFPAY ==
--- NOTE | 2024-05-25 16:03 | US_ITS ---
The [address] [address] Patient Name: JONATHAN HAN MRN: [id number] date: 2000 Sex: F Assigned Patient Location: US Current Patient Location: US Accession/Order Number: [id number] Exam Date: 05/25/2024 22:23 Report Date: 05/25/2024 22:29 At the request of: NIKKI TOLLIVER DO Procedure: US OB placenta Placental/cervical length ultrasound. Reason for exam: Low lying placenta. US/US OB placenta IMPRESSION: Ultrasound 04/29/2024. TECHNIQUE: Transabdominal imaging of the uterus was obtained. FINDINGS: The placenta appears anterior in location without focal abnormality. The tip of the placenta is approximately 5.39 cm from the internal os. Cervical length measures 3.07 cm no evidence of funneling. heart rate was noted at 153 bpm. presentation is cephalic time of scanning. IMPRESSION: Placenta is anterior in location without evidence of placenta previa. Cervical length measuring 3.07 cm without evidence of funneling. Impression dictated by: Jason Cox Jr., D.O.05/25/2024 10:29 PM Dictation Location: [employer] Electronically authenticated by: [id number] Y Date: 05/25/2024 22:29
--- NOTE | 2024-05-25 16:35 | US_ITS ---
The [address] [address] Patient Name: JONATHAN HAN MRN: [id number] date: 2000 Sex: F Assigned Patient Location: US Current Patient Location: Accession/Order Number: [id number] Exam Date: 05/25/2024 22:23 Report Date: 05/25/2024 22:29 At the request of: NIKKI TOLLIVER DO Procedure: US OB placenta Placental/cervical length ultrasound. Reason for exam: Low lying placenta. US/US OB cervical length IMPRESSION: Ultrasound 04/29/2024. TECHNIQUE: Transabdominal imaging of the uterus was obtained. FINDINGS: The placenta appears anterior in location without focal abnormality. The tip of the placenta is approximately 5.39 cm from the internal os. Cervical length measures 3.07 cm no evidence of funneling. heart rate was noted at 153 bpm. presentation is cephalic time of scanning. IMPRESSION: Placenta is anterior in location without evidence of placenta previa. Cervical length measuring 3.07 cm without evidence of funneling. Impression dictated by: Jason Cox Jr., D.O.05/25/2024 10:29 PM Dictation Location: [employer] Electronically authenticated by: [id number] Y Date: 05/25/2024 22:29
== END 2024-05-25 16:00 | disposition home or self-care (01) ==
LOC: US 15:59
PROVIDERS: Visit Provider Obstetrics & Gynecology
DX: O44.43 Low lying placenta NOS or without hemorrhage, third trimester (principal)
CPT/HCPCS: 76815; 76817

== ENCOUNTER 2024-08-02 15:39 | Outpatient (REF) | payer MEDICAID, SELFPAY ==
--- OUTSIDE RECORDS SUMMARY | 2024-08-02 16:16 | XMS_ITS | CCD ---
Author Organization [facility] Care Team Providers Care Spark Tester Name Role Phone RIP ., DR JORDAN [...] e RIP ., DR JORDAN Consulting Unavailable Unavailable Primary Care Provider Unavailjane e SERVICES, [facility] Primary [facility] Unava ilable SHANA LOVE Attending Unavailable WIL WARNER Attending Unavailable WIL WARNER Referring Unavailable SERVICES, [facility] Unava ilable Rip MILLER Nikki Unavailable NIKKI ERWIN Attending Unavailable GAVIOTA SHERIDAN Attending Unavailable NIKKI ERWIN Attending Unavailable NIKKI ERWIN Referring Unavailable GAVIOTA SHERIDAN Attending Unavailable NIKKI ERWIN Attending Unavailable NIKKI ERWIN Attending Unavailable GAVIOTA SHERIDAN Attending Unavailable GAVIOTA SHERIDAN Attending Unavailable Medications Current Medications Medication Drug Class(es) Dates Sig (Normalized) Sig (Original) docusate sodium 100 mg oral capsule (9 sources) Start: 06-28-2024 End: 12-25-2024 take 1 capsule by mouth twice daily as needed for constipation docusate sodium (Colace) 100 MG capsule Indications: Drug-induced constipation Take 1 capsule (100 mg) by mouth 2 (two) times a day as needed for constipation 30 capsule 11 06/28/2024 12/25/2024 Active ferrous sulfate 325 mg delayed release oral tablet (9 sources) Start: 06-28-2024 End: 06-28-2025 take 1 tablet by mouth at mealtime ferrous sulfate (Fe Tabs) 325 (65 Fe) MG EC tablet Indications: Low iron Take 1 tablet (325 mg) by mouth in the morning. Take with meals. Do not crush, chew, or split.. 30 tablet 11 06/28/2024 06/28/2025 Active ondansetron 4 mg disintegrating oral tablet (5 sources) Serotonin-3 Receptor Antagonist Start: 01-29-2024 End: 02-28-2024 take 1 tablet by mouth every six hours for nausea ondansetron ODT (Zofran-ODT) 4 MG disintegrating tablet Indications: Nausea and vomiting in Take 1 tablet (4 mg) by mouth every 6 (six) hours if needed for nausea or vomiting 30 tablet 2 01/29/2024 02/28/2024 Active polysaccharide iron complex 391 mg oral capsule (5 sources) Start: 05-27-2024 End: 06-26-2024 take 1 capsule by mouth once daily iron polysaccharides (ProFe) 391.3 (180 Fe) MG capsule Indications: Low iron Take 1 capsule (391.3 mg) by mouth Daily 30 capsule 6 05/27/2024 06/26/2024 Active MV & Min w/FA-DHA ( Gummies) 0.18-25 MG chewable tablet (3 sources) Start: 2023 End: 2024 MV & Min w/FA-DHA ( Gummies) 0.18-25 MG chewable tablet Indications: Missed menses Chew 0.18 mg in the morning. 30 tablet 11 2023 2024 Active Vit-Fe Fumarate-FA (PNV Plus Multivitamin) 27-1 MG tablet (20 sources) Start: 01-29-2024 take 1 tablet by mouth once daily Vit-Fe Fumarate-FA (PNV Plus Multivitamin) 27-1 MG tablet Indications: , unspecified gestational age Take 1 tablet by mouth Daily 30 tablet 11 01/29/2024 Active valACYclovir 500 mg oral tablet (20 sources) Herpesvirus Nucleoside Analog DNA Polymerase Inhibitor, Herpes Simplex Virus Nucleoside Analog DNA Polymerase Inhibitor, Herpes Zoster Virus Nucleoside Analog DNA Polymerase Inhibitor Start: 06-28-2024 End: 12-25-2024 take 1 tablet by mouth once daily valACYclovir (Valtrex) 500 MG tablet Indications: HSV infection Take 1 tablet (500 mg) by mouth Daily 30 tablet 5 06/28/2024 12/25/2024 Active Problems Active Problems Problem Classification Problem [...] period; Translations: [Irregular menstruation, unspecified] 01-29-2024 Chronic Nutritional deficiencies (18 sources) Serum iron low; Translations: [Iron deficiency] Onset: 05-27-2024 05-27-2024 Episodic Other complications of (1 source) Vomiting of , unspecified; Translations: [Unspecified vomiting of , unspecified as to episode of care or not applicable] 01-29-2024 Episodic Other complications of (2 sources) size does not accord with dates; Translations: [Uterine size-date discrepancy, unspecified trimester] 06-14-2024 Episodic Other female genital disorders (2 sources) Vaginal discharge; Translations: [Other specified noninflammatory disorders of vagina] 03-31-2024 Episodic Other gastrointestinal disorders (2 sources) Drug-induced constipation; Translations: [Drug induced constipation] 06-28-2024 Episodic Other injuries and conditions due to external causes (1 source) Unspecified injury of head, initial encounter; Translations: [Unspecified injury of head, initial encounter] Onset: 01-21-2024 Episodic Other injuries and conditions due to external causes (2 sources) Injury of head Onset: 01-21-2024 Episodic Other and delivery including normal (20 sources) Single live ; Translations: [Third trimester ] Onset: 01-02-2022 05-02-2023 Episodic Other screening for suspected conditions (not mental disorders or infectious disease) (16 sources) Encounter for screening for Streptococcus B; Translations: [Encounter for screening for diabetes mellitus] Onset: 08-21-2021 Episodic Residual codes; unclassified (2 sources) Gestation period, 13 weeks; Translations: [13 weeks gestation of ] 02-25-2024 Episodic Residual codes; unclassified (2 sources) Gestation period, 17 weeks; Translations: [17 weeks gestation of ] 03-31-2024 Episodic Residual codes; unclassified (2 sources) Gestation period, 22 weeks; Translations: [22 weeks gestation of ] 04-28-2024 Episodic Residual codes; unclassified (16 sources) Gestation period, 26 weeks; Translations: [26 weeks gestation of ] Onset: 05-27-2024 05-27-2024 Episodic Residual codes; unclassified (2 sources) Gestation period, 28 weeks; Translations: [28 weeks gestation of ] 06-14-2024 Episodic Residual codes; unclassified (2 sources) Gestation period, 31 weeks; Translations: [31 weeks gestation of ] 06-28-2024 Episodic Residual codes; unclassified (2 sources) Gestation period, 33 weeks; Translations: [33 weeks gestation of ] 07-12-2024 Episodic Residual codes; unclassified (2 sources) Gestation period, 35 weeks; Translations: [35 weeks gestation of ] 07-26-2024 Episodic Short gestation; low weight; and growth retardation (2 sources) [id number] baby; Translations: [ small for gestational age, unspecified weight] 07-26-2024 Episodic Viral infection (1 source) Herpesviral infection of urogenital system, unspecified; Translations: [HERPESVIRAL INF UROGENITAL SYS UNS] Onset: 01-02-2022 Chronic Viral infection (2 sources) Herpes simplex; Translations: [Herpesviral infection, unspecified] 06-28-2024 Episodic Past or Other Problems Problem Classification Problem [...] Test Name Value Interpretation Reference Range Facility US OB LIMITED 1+ FETUSESon 0 07-28-2024 US OB LIMITED 1+ FETUSES EXAM: US OB LIMITED 1+ FETUSES HISTORY: Small for gestational age. BEREKET 08/30/2024. . COMPARISON: U/S Ob 06/28/2024 TECHNIQUE: Two-dimensional transabdominal grayscale ultrasound imaging of the pelvis was performed. FINDINGS: Gestation: Single Presentation: Cephalic Cardiac Activity: 148 beats per minute Placental Location: Anterior with no sonographic abnormalities identified. Distance from Placental Tip to Cervix: Not visualized Cervical Length: Obscured by overlying fetus Amniotic Fluid Index: 11.6 cm; MVP: 4.9 cm MEASUREMENTS: BPD: 8.1 cm EGA: 32 weeks 5 days HC: 30.0 cm EGA: 33 weeks 1 days AC: 32.3 cm EGA: 36 weeks 1 days FL: 7.0 cm EGA: 35 weeks 5 days HC/AC Ratio: 0.93 (0.94 - 1.11) Gestational age by today's ultrasound is 34 weeks 3 days (+/- 17 days gestation). Estimated Weight: 2657 grams, +/- 399 grams ( 5 lb 14 oz). Weight Percentile for gestational age: 50 % IMPRESSION: 1. Single, live intrauterine gestation 35 weeks, 2 days by LMP. Today's ultrasound measurements correlate with a gestational age of 34 weeks 3 days. Fetus is in the 50th weight percentile. Interpreted by: Electronically signed by MARIAH MENDOZA II, MD, PHD at 01-Aug-2024 08:19:12 PM [facility] Normal Not Available Comment on above: Order Comment: US OB PLACENTA W US OB TRANSVAGINAL Estimated Date of Delivery: 08/30/24 Gestational Age as of 05/21/2024: 25w4d Urinalysis macro (dipstick) panel (U)on 07-26-2024 Bilirubin, UA Negative Negative - 4(70) +++ mg/dL [facility] Blood, UA Negative Negative - 50 Chidi/mcL [facility] Clarity, UA Clear [facility] Color, UA Yellow [facility] Glucose, UA Negative Negative - 1999(110) ++++ mg/dL [facility] Interpretation and review of laboratory results Abnormal [facility] Ketones, UA Negative Negative - 160(16) ++++ mg/dL [facility] Leukocytes, UA Positive Negative - 500+++ Gabi/mcL [facility] Comment on above: small Nitrite, UA Negative Negative - Positive [facility] pH, UA 7.5 5 - 9 [facility] Protein, UA Trace Negative - 1999(20) ++++ mg/dL [facility] Spec Grav, UA 1.02 1 - 1.03 [facility] Urobilinogen, UA 0.2 0.2 - 12 mg/dL [facility] Urinalysis macro (dipstick) panel (U)on 07-12-2024 Bilirubin, UA Negative Negative - 4(70) +++ mg/dL [facility] Blood, UA Positive Negative - 50 Chidi/mcL [facility] Comment on above: Trace-lysed Clarity, UA Clear [facility] Color, UA Yellow [facility] Glucose, UA Negative Negative - 2000(110) ++++ mg/dL [facility] Interpretation and review of laboratory results Abnormal [facility] Ketones, UA Negative Negative - 160(16) ++++ mg/dL [facility] Leukocytes, UA Positive Negative - 500+++ Gabi/mcL [facility] Comment on above: Moderate Nitrite, UA Negative Negative - Positive [facility] pH, UA 6 5 - 9 [facility] Protein, UA Positive Negative - 2000(20) ++++ mg/dL [facility] Comment on above: 30mg/dL Spec Grav, UA 1.025 1 - 1.03 [facility] Urobilinogen, UA 0.2 0.2 - 12 mg/dL [facility] US OB FOLLOW UP TRANSABDOMIN AL APPROACHon 06-28-2024 US OB FOLLOW UP TRANSABDOMINAL APPROACH EXAM: US OB FOLLOW UP TRANSABDOMINAL APPROACH HISTORY: Inconsistent size. COMPARISON: OB ultrasound 04/29/2024. TECHNIQUE: Two-dimensional transabdominal grayscale ultrasound imaging of the pelvis was performed. FINDINGS: Gestation: Single Presentation: Cephalic Cardiac Activity: 149 beats per minute Placental Location: Anterior with no sonographic abnormalities identified. Cervical canal: Not visualized Amniotic Fluid Index: 12.6 cm MEASUREMENTS: BPD: 7.6 cm EGA: 30 weeks 3 days HC: 28.2 cm EGA: 30 weeks 6 days AC: 27.2 cm EGA: 31 weeks 2 days FL: 6.0 cm EGA: 31 weeks 3 days HC/AC Ratio: 1.04 The gestational age by today's ultrasound is 31 weeks 0 days (+/- 15 days gestation). Estimated Weight: 1724 grams, +/- 259 grams ( 3 lb 13 oz). Weight Percentile for gestational age: 45 % IMPRESSION: 1. Single, live intrauterine gestation 31 weeks, 0 days by LMP. Today's ultrasound measurements correlate with a gestational age of 31 weeks 0 days. Estimated weight is 1724 grams, +/- 259 grams ( 3 lb 13 oz) which correlates to 45 %. BEREKET is 08/30/2024. Interpreted by: Electronically signed by MARIAH MENDOZA II, MD, PHD at 29-Jun-2024 11:30:38 PM [facility] Normal Not Available Comment on above: Order Comment: US OB SCAN FOR GROWTH Estimated Date of Delivery: 08/30/24 Gestational Age as of 06/14/2024: 29w0d Urinalysis macro (dipstick) panel (U)on 06-28-2024 Bilirubin, UA Negative Negative - 4(70) +++ mg/dL [facility] Blood, UA Negative Negative - 50 Chidi/mcL [facility] Clarity, UA Clear [facility] Color, UA Yellow [facility] Glucose, UA Negative Negative - 2000(110) ++++ mg/dL [facility] Interpretation and review of laboratory results Abnormal [facility] Ketones, UA Negative Negative - 160(16) ++++ mg/dL [facility] Leukocytes, UA Positive Negative - 500+++ Gabi/mcL [facility] Comment on above: small Nitrite, UA Negative Negative - Positive [facility] pH, UA 7 5 - 9 [facility] Protein, UA Positive Negative - 1999(20) ++++ mg/dL [facility] Comment on above: 30 Spec Grav, UA 1.025 1 - 1.03 [facility] Urobilinogen, UA 0.2 0.2 - 12 mg/dL [facility] Urinalysis macro (dipstick) panel (U)on 06-14-2024 Bilirubin, UA Positive Negative - 4(70) +++ mg/dL [facility] Comment on above: small Blood, UA Negative Negative - 50 Chidi/mcL [facility] Clarity, UA Clear [facility] Color, UA Yellow [facility] Glucose, UA Negative Negative - 2000(110) ++++ mg/dL [facility] Interpretation and review of laboratory results Abnormal [facility] Ketones, UA Positive Negative - 160(16) ++++ mg/dL [facility] Comment on above: 80mg/dL Leukocytes, UA Positive Negative - 500+++ Gabi/mcL [facility] Comment on above: small Nitrite, UA Negative Negative - Positive [facility] pH, UA 7 5 - 9 [facility] Protein, UA Positive Negative - 1999(20) ++++ mg/dL [facility] Comment on above: 100mg/dL Spec Grav, UA 1.025 1 - 1.03 [facility] Urobilinogen, UA 1.0 0.2 - 12 mg/dL [facility] Urinalysis macro (dipstick) panel (U)on 05-27-2024 Bilirubin, UA Negative Negative - 4(70) +++ mg/dL [facility] Blood, UA Negative Negative - 50 Chidi/mcL [facility] Clarity, UA Clear [facility] Color, UA Yellow [facility] Glucose, UA Negative Negative - 1999(110) ++++ mg/dL [facility] Interpretation and review of laboratory results Abnormal [facility] Ketones, UA Negative Negative - 160(16) ++++ mg/dL [facility] Leukocytes, UA 1+ Negative - 500+++ Gabi/mcL [facility] Comment on above: small Nitrite, UA Negative Negative - Positive [facility] pH, UA 6 5 - 9 [facility] Protein, UA Trace Negative - 1999(20) ++++ mg/dL [facility] Spec Grav, UA 1.03 1 - 1.03 [facility] Urobilinogen, UA 0.2 0.2 - 12 mg/dL [facility] No Panel InformationOrdered By: Radiologist Radiology on 05-25-2024 [facility] Work Phone: No Panel Informationon 05-25 Radiology Study observation (narrative) [facility] US [place] [address] Ultrasound Report Signed Patient: SHY HAN MR#: [id number] : 2000 Acct:[id number] Age/Sex: 24 / F ADM Date: 05/25/24 Loc: US Attending Dr: Nikki Erwin D.O. Ordering Physician: Nikki Erwin D.O. Date of Service: 05/25/24 Procedure(s): US OB cervical length Accession Number(s): [id number] cc: Nikki Erwin D.O.; Physician,Non-Staff M.D. The [place] [id number] Patient Name: SHY HAN MRN: [facility]:[id number] date: 2000 Sex: F Assigned Patient Location: US Current Patient Location: US Accession/Order Number: [id number] Exam Date: 05/25/2024 22:23 Report Date: 05/25/2024 22:29 At the request of: NIKKI ERWIN DO Procedure: US OB placenta Placental/cervical length ultrasound. Reason for exam: Low lying placenta. US/US OB cervical length IMPRESSION: Ultrasound 04/29/2024. TECHNIQUE: Transabdominal imaging of the uterus was obtained. FINDINGS: The placenta appears anterior in location without focal abnormality. The tip of the placenta is approximately 5.39 cm from the internal os. Cervical length measures 3.07 cm no evidence of funneling. heart rate was noted at 153 bpm. presentation is cephalic time of scanning. IMPRESSION: Placenta is anterior in location without evidence of placenta previa. Cervical length measuring 3.07 cm without evidence of funneling. Impression dictated by: Jason Cox Jr., D.O.05/25/2024 10:29 PM Dictation Location: [place] [address] Electronically authenticated by: [id number] Y Date: 05/25/2024 22:29 Dictated By: Jason Cox M.D. Signed By: 05/25/242231 DD/ 28 TD/TT: Gift Shop Clerk: [facility] Radiology, Radiologist, MD - 05/25/2024 The [place] [id number] Ultrasound Report Signed Patient: SHY HAN MR#: [id number] : 2000 Acct:[id number] Age/Sex: 24 / F ADM Date: 05/25/24 Loc: US Attending Dr: Nikki Erwin D.O. Ordering Physician: Nikki Erwin D.O. Date of Service: 05/25/24 Procedure(s): US OB cervical length Accession Number(s): [id number] cc: Nikki Erwin D.O.; Physician,Non-Staff Daniel [place] [id number] Patient Name: SHY HAN MRN: [id number] date: 2000 Sex: F Assigned Patient Location: US Current Patient Location: US Accession/Order Number: [id number] Exam Date: 05/25/2024 22:23 Report Date: 05/25/2024 22:29 At the request of: NIKKI ERWIN DO Procedure: US OB placenta Placental/cervical length ultrasound. Reason for exam: Low lying placenta. US/US OB cervical length IMPRESSION: Ultrasound 04/29/2024. TECHNIQUE: Transabdominal imaging of the uterus was obtained. FINDINGS: The placenta appears anterior in location without focal abnormality. The tip of the placenta is approximately 5.39 cm from the internal os. Cervical length measures 3.07 cm no evidence of funneling. heart rate was noted at 153 bpm. presentation is cephalic time of scanning. IMPRESSION: Placenta is anterior in location without evidence of placenta previa. Cervical length measuring 3.07 cm without evidence of funneling. Impression dictated by: Jason Cox Jr., D.O.05/25/2024 10:29 PM Dictation Location: [place] [address] Electronically authenticated by: [id number] Y Date: 05/25/2024 22:29 Dictated By: Jason Cox M.D. Signed By: 05/25/242231 DD/ 28 TD/TT: Gift Shop Clerk: SHANIKA [facility] OB PLACENTAon 05-25-2024 [place] [address] Ultrasound Report Signed Patient: SHY HAN MR#: [id number] : 2000 Acct:[id number] Age/Sex: 24 / F ADM Date: 05/25/24 Loc: US Attending Dr: Nikki Erwin D.O. Ordering Physician: Nikki Erwin D.O. Date of Service: 05/25/24 Procedure(s): US OB placenta Accession Number(s): [id number] cc: Nikki Erwin D.O.; Physician,Non-Staff Daniel The [address] [address] Patient Name: SHY HAN MRN: [facility]:[id number] date: 2000 Sex: F Assigned Patient Location: US Current Patient Location: US Accession/Order Number: [id number] Exam Date: 05/25/2024 22:23 Report Date: 05/25/2024 22:29 At the request of: NIKKI ERWIN DO Procedure: US OB placenta Placental/cervical length ultrasound. Reason for exam: Low lying placenta. US/US OB placenta IMPRESSION: Ultrasound 04/29/2024. TECHNIQUE: Transabdominal imaging of the uterus was obtained. FINDINGS: The placenta appears anterior in location without focal abnormality. The tip of the placenta is approximately 5.39 cm from the internal os. Cervical length measures 3.07 cm no evidence of funneling. heart rate was noted at 153 bpm. presentation is cephalic time of scanning. IMPRESSION: Placenta is anterior in location without evidence of placenta previa. Cervical length measuring 3.07 cm without evidence of funneling. Impression dictated by: Jason Cox Jr., D.O.05/25/2024 10:29 PM Dictation Location: [place] [address] Electronically authenticated by: [id number] Y Date: 05/25/2024 22:29 Dictated By: Jason Cox M.D. Signed By: 05/25/242231 DD/ 28 TD/TT: Gift Shop Clerk: [facility] Radiology, Radiologist, MD - 05/25/[address] [address] Ultrasound Report Signed Patient: SHY HAN MR#: [id number] : 2000 Acct:[id number] Age/Sex: 24 / F ADM Date: 05/25/24 Loc: US Attending Dr: Nikki Erwin D.O. Ordering Physician: Nikki Erwin D.O. Date of Service: 05/25/24 Procedure(s): US OB placenta Accession Number(s): [id number] cc: Nikki Erwin D.O.; Physician,Non-Staff Daniel [address] [address] Patient Name: SHY HAN MRN: [id number] date: 2000 Sex: F Assigned Patient Location: US Current Patient Location: US Accession/Order Number: [id number] Exam Date: 05/25/2024 22:23 Report Date: 05/25/2024 22:29 At the request of: NIKKI ERWIN DO Procedure: US OB placenta Placental/cervical length ultrasound. Reason for exam: Low lying placenta. US/US OB placenta IMPRESSION: Ultrasound 04/29/2024. TECHNIQUE: Transabdominal imaging of the uterus was obtained. FINDINGS: The placenta appears anterior in location without focal abnormality. The tip of the placenta is approximately 5.39 cm from the internal os. Cervical length measures 3.07 cm no evidence of funneling. heart rate was noted at 153 bpm. presentation is cephalic time of scanning. IMPRESSION: Placenta is anterior in location without evidence of placenta previa. Cervical length measuring 3.07 cm without evidence of funneling. Impression dictated by: Jason oCx Jr., D.O.05/25/2024 10:29 PM Dictation Location: [place] [address] Electronically authenticated by: [id number] Y Date: 05/25/2024 22:29 Dictated By: Jason Cox M.D. Signed By: 05/25/242231 DD/ 28 TD/TT: Gift Shop Clerk: [facility] ALL CBC WITH AUTO DIFFon BASOPHILS ABSOLUTE AUTO 0 [facility] Basophils/100 WBC (Bld) 0.4 % 0.2 - 2.0 % [facility] Eosinophils/100 WBC (Bld) 0.2 % Low 0.9 - 7.0 % [facility] Erythrocyte distribution width (RBC) [Ratio] 12.4 % 11.0 - 15.0 % [facility] Hematocrit (Bld) [Volume fraction] 31.6 % Low 36.0 - 48.0 % [facility] Hemoglobin (Bld) [Mass/Vol] 10.8 g/dL Low 12.0 - 16.0 g/dL [facility] IMMATURE GRANULOCYTES ABS AUTO 0.07 High [facility] Immature granulocytes/100 WBC (Bld) 1.4 % High 0.0 - 0.5 % [facility] Interpretation and review of laboratory results Abnormal [facility] LYMPHOCYTES ABSOLUTE AUTO 0.9 Low [facility] Lymphocytes/100 WBC (Bld) 17.5 % Low 20.5 - 60.0 % [facility] MCH (RBC) [Entitic mass] 30.5 pg 26.7 - 34.0 pg [facility] MCHC (RBC) [Mass/Vol] 34.2 g/dL 29.9 - 35.2 g/dL [facility] MCV (RBC) [Entitic vol] 89.3 fL 81.0 - 99.0 fL [facility] MONOCYTES ABSOLUTE AUTO 0.5 [facility] Monocytes/100 WBC (Bld) 9.3 % 1.7 - 12.0 % [facility] NEUTROPHILS ABSOLUTE AUTO 3.6 [facility] Neutrophils/100 WBC (Bld) 71.2 % 43.0 - 75.0 % [facility] Platelet mean volume (Bld) [Entitic vol] 10.4 fL 9.5 - 13.5 fL [facility] TBH EO # 0 [facility]H PLT [address] [facility] RBC 3.54 Low [facility] TB WBC 5 [facility] No Panel InformationOrdered By: Radiologist Radiology on 04-29-2024 [facility] Work Phone: No Panel Informationon 04-29 Radiology Study observation (narrative) [facility] US OB ANATOMYon 04-29-2024 [place] [address] Ultrasound Report Signed Patient: SHY HAN MR#: [id number] : 2000 Acct:[id number] Age/Sex: 24 / F ADM Date: 04/29/24 Loc: US Attending Dr: Nikki Erwin D.O. Ordering Physician: Nikki Erwin D.O. Date of Service: 04/29/24 Procedure(s): US OB anatomy Accession Number(s): [id number] cc: Nikki Erwin D.O.; Physician,Non-Staff Daniel The [place] [address] Patient Name: SHY HAN MRN: [id number] date: 2000 Sex: F Assigned Patient Location: US Current Patient Location: US Accession/Order Number: [id number] Exam Date: 04/29/2024 15:00 Report Date: 04/29/2024 16:00 At the request of: NIKKI ERWIN Procedure: US OB anatomy EXAMINATION: US OB anatomy, US OB cervical length HISTORY: anatomic screening COMPARISON: No relevant comparison available. TECHNIQUE: Transabdominal sonographic examination was performed for obstetrical and evaluation. FINDINGS: Number: 1 Heart Rate: 150.84 bpm H.B. /min Amniotic Fluid Volume: Subjectively normal position: Cephalic presentation, longitudinal lie Placental Location: Anterior, the placental edge is 0.6 cm from the internal cervical os. Grade 0 Cervix Length: 4.93 cm Normal anatomy: Lateral ventricles, cerebellum, posterior fossa, nose, lips, orbits, four-chamber heart, RVOT, LVOT, diaphragm, stomach, kidneys, abdominal cord insertion, bladder, umbilical arteries, three-vessel cord, spine, extremities BIOMETRY: BPD: 5.46 cm; 22 weeks 4 days; 53.80 % HC: 20.52 cm; 22 weeks 4 days; 45.50 % AC: 18.95 cm; 23 weeks 5 days; 80.60 % FL: 4.06 cm; 23 weeks 1 day; 63.60 % EFW:584.72 g; 85.80 %, 1 lb. 5 oz. FL/AC: 21.44 FL/BPD: 74.43 HC/AC: 1.08 GESTATIONAL AGE: Age by EDC: 22 weeks 3 days BEREKET by EDC: 2024-08-30 Age by current US: 23 weeks 0 days BEREKET by current US: 2024-08-26 US/US OB anatomy IMPRESSION: Normal anatomy scan *Reference: [employer] Practice Guideline for the performance of Obstetric Ultrasound Examinations, December 22, 2006. Electronically authenticated by: SHANA ROBLERO Date: 04/29/2024 16:00 Dictated By: Shana Roblero M.D. Signed By: 04/29/24 1603 DD/ 1600 TD/TT: Gift Shop Clerk: [facility] Radiology, Radiologist, - 04/29/2024 [place] [address] Ultrasound Report Signed Patient: SHY HAN MR#: [id number] : 2000 Acct:[id number] Age/Sex: 24 / F ADM Date: 04/29/24 Loc: US Attending Dr: Nikki Erwin D.O. Ordering Physician: Nikki Erwin D.O. Date of Service: 04/29/24 Procedure(s): US OB anatomy Accession Number(s): [id number] cc: Nikki Erwin D.O.; Physician,Non-Staff [place] [address] Patient Name: SHY HAN MRN: [facility]:[id number] date: 2000 Sex: F Assigned Patient Location: US Current Patient Location: US Accession/Order Number: [id number] Exam Date: 04/29/2024 15:00 Report Date: 04/29/2024 16:00 At the request of: NIKKI ERWIN Procedure: US OB anatomy EXAMINATION: US OB anatomy, US OB cervical length HISTORY: anatomic screening COMPARISON: No relevant comparison available. TECHNIQUE: Transabdominal sonographic examination was performed for obstetrical and evaluation. FINDINGS: Number: 1 Heart Rate: 150.84 bpm H.B. /min Amniotic Fluid Volume: Subjectively normal position: Cephalic presentation, longitudinal lie Placental Location: Anterior, the placental edge is 0.6 cm from the internal cervical os. Grade 0 Cervix Length: 4.93 cm Normal anatomy: Lateral ventricles, cerebellum, posterior fossa, nose, lips, orbits, four-chamber heart, RVOT, LVOT, diaphragm, stomach, kidneys, abdominal cord insertion, bladder, umbilical arteries, three-vessel cord, spine, extremities BIOMETRY: BPD: 5.46 cm; 22 weeks 4 days; 53.80 % HC: 20.52 cm; 22 weeks 4 days; 45.50 % AC: 18.95 cm; 23 weeks 5 days; 80.60 % FL: 4.06 cm; 23 weeks 1 day; 63.60 % EFW:584.72 g; 85.80 %, 1 lb. 5 oz. FL/AC: 21.44 FL/BPD: 74.43 HC/AC: 1.08 GESTATIONAL AGE: Age by EDC: 22 weeks 3 days BEREKET by EDC: 2024-08-30 Age by current US: 23 weeks 0 days BEREKET by current US: 2024-08-26 US/US OB anatomy IMPRESSION: Normal anatomy scan *Reference: [employer] Practice Guideline for the performance of Obstetric Ultrasound Examinations, December 22, 2006. Electronically authenticated by: SHANA ROBLERO Date: 04/29/2024 16:00 Dictated By: Shana Roblero M.D. Signed By: 04/29/24 1603 DD/ 1600 TD/TT: Gift Shop Clerk: [facility] [place] [address] Ultrasound Report Signed Patient: SHY HAN MR#: [id number] : 2000 Acct:[id number] Age/Sex: 24 / F ADM Date: 04/29/24 Loc: US Attending Dr: Nikki Erwin D.O. Ordering Physician: Nikki Erwin D.O. Date of Service: 04/29/24 Procedure(s): US OB cervical length Accession Number(s): [id number] cc: Nikki Erwin D.O.; Physician,Non-Staff [place] [address] Patient Name: SHY HAN MRN: [id number] date: 2000 Sex: F Assigned Patient Location: US Current Patient Location: US Accession/Order Number: [id number] Exam Date: 04/29/2024 15:00 Report Date: 04/29/2024 16:00 At the request of: NIKKI ERWIN Procedure: US OB cervical length EXAMINATION: US OB anatomy, US OB cervical length HISTORY: anatomic screening COMPARISON: No relevant comparison available. TECHNIQUE: Transabdominal sonographic examination was performed for obstetrical and evaluation. FINDINGS: Number: 1 Heart Rate: 150.84 bpm H.B. /min Amniotic Fluid Volume: Subjectively normal position: Cephalic presentation, longitudinal lie Placental Location: Anterior, the placental edge is 0.6 cm from the internal cervical os. Grade 0 Cervix Length: 4.93 cm Normal anatomy: Lateral ventricles, cerebellum, posterior fossa, nose, lips, orbits, four-chamber heart, RVOT, LVOT, diaphragm, stomach, kidneys, abdominal cord insertion, bladder, umbilical arteries, three-vessel cord, spine, extremities BIOMETRY: BPD: 5.46 cm; 22 weeks 4 days; 53.80 % HC: 20.52 cm; 22 weeks 4 days; 45.50 % AC: 18.95 cm; 23 weeks 5 days; 80.60 % FL: 4.06 cm; 23 weeks 1 day; 63.60 % EFW:584.72 g; 85.80 %, 1 lb. 5 oz. FL/AC: 21.44 FL/BPD: 74.43 HC/AC: 1.08 GESTATIONAL AGE: Age by EDC: 22 weeks 3 days BEREKET by EDC: 2024-08-30 Age by current US: 23 weeks 0 days BEREKET by current US: 2024-08-26 US/US OB cervical length IMPRESSION: Normal anatomy scan *Reference: AIUM Practice Guideline for the performance of Obstetric Ultrasound Examinations, December 22, 2006. Electronically authenticated by: SHANA ROBLERO Date: 04/29/2024 16:00 Dictated By: Shana Roblero M.D. Signed By: 04/29/24 1603 DD/ 1600 TD/TT: Gift Shop Clerk: [facility] Radiology, Radiologist, MD - 04/29/[address] [address] Ultrasound Report Signed Patient: SHY HAN MR#: [id number] : 2000 Acct:[id number] Age/Sex: 24 / F ADM Date: 04/29/24 Loc: US Attending Dr: Nikki Erwin D.O. Ordering Physician: Nikki Erwin D.O. Date of Service: 04/29/24 Procedure(s): US OB cervical length Accession Number(s): [id number] cc: Nikki Erwin D.O.; Physician,Non-Staff [place] [address] Patient Name: SHY HAN MRN: [facility]:[id number] date: 2000 Sex: F Assigned Patient Location: US Current Patient Location: US Accession/Order Number: [id number] Exam Date: 04/29/2024 15:00 Report Date: 04/29/2024 16:00 At the request of: NIKKI ERWIN Procedure: US OB cervical length EXAMINATION: US OB anatomy, US OB cervical length HISTORY: anatomic screening COMPARISON: No relevant comparison available. TECHNIQUE: Transabdominal sonographic examination was performed for obstetrical and evaluation. FINDINGS: Number: 1 Heart Rate: 150.84 bpm H.B. /min Amniotic Fluid Volume: Subjectively normal position: Cephalic presentation, longitudinal lie Placental Location: Anterior, the placental edge is 0.6 cm from the internal cervical os. Grade 0 Cervix Length: 4.93 cm Normal anatomy: Lateral ventricles, cerebellum, posterior fossa, nose, lips, orbits, four-chamber heart, RVOT, LVOT, diaphragm, stomach, kidneys, abdominal cord insertion, bladder, umbilical arteries, three-vessel cord, spine, extremities BIOMETRY: BPD: 5.46 cm; 22 weeks 4 days; 53.80 % HC: 20.52 cm; 22 weeks 4 days; 45.50 % AC: 18.95 cm; 23 weeks 5 days; 80.60 % FL: 4.06 cm; 23 weeks 1 day; 63.60 % EFW:584.72 g; 85.80 %, 1 lb. 5 oz. FL/AC: 21.44 FL/BPD: 74.43 HC/AC: 1.08 GESTATIONAL AGE: Age by EDC: 22 weeks 3 days BEREKET by EDC: 2024-08-30 Age by current US: 23 weeks 0 days BEREKET by current US: 2024-08-26 US/US OB cervical length IMPRESSION: Normal anatomy scan *Reference: [employer]UM Practice Guideline for the performance of Obstetric Ultrasound Examinations, December 22, 2006. Electronically authenticated by: SHANA ROBLERO Date: 04/29/2024 16:00 Dictated By: Shana Roblero M.D. Signed By: 04/29/24 1606 DD/ 1600 TD/TT: Gift Shop Clerk: [facility] Urinalysis macro (dipstick) panel (U)on 04-28-2024 Bilirubin, UA Negative Negative - 4(70) +++ mg/dL [facility] Blood, UA Negative Negative - 50 Chidi/mcL [facility] Clarity, UA Clear [facility] Color, UA Yellow [facility] Glucose, UA Negative Negative - 2000(110) ++++ mg/dL [facility] Interpretation and review of laboratory results Abnormal [facility] Ketones, UA Negative Negative - 160(16) ++++ mg/dL [facility] Leukocytes, UA Negative Negative - 500+++ Gabi/mcL [facility] Nitrite, UA Negative Negative - Positive [facility] pH, UA 7 5 - 9 [facility] Protein, UA Trace Negative - 2000(20) ++++ mg/dL [facility] Spec Grav, UA 1.025 1 - 1.03 [facility] Urobilinogen, UA 0.2 0.2 - 12 mg/dL [facility] IGP,APTIMA HPV,AGE GDLNon AGE GDLN ACOG TESTING Note . [facility] Comment on above: TESTS RESULT FLAG UN ITS REF RANGE LAB Clinician Provided Cytology Information Source.............Cervix No. of containers..01 ThinPrep Vial Age Algo ACOG Luzma... -21 04 FLAG LEGEND: L-Low Normal,H-High Normal,LL-Alert Low,HH-Alert High <-Panic Low,>-Panic High,A-Abnormal,AA-Critical Abnormal Performed at: 01 =[address] [place] [address] Letha Woodson MD, IGP, RFX APTIMA HPV ASCU Note . [facility] Comment on above: TESTS RESULT FLAG UN ITS REF RANGE LAB DIAGNOSIS: 02 NEGATIVE FOR INTRAEPITHELIAL LESION OR MALIGNANCY. FUNGAL ORGANISMS MORPHOLOGICALLY CONSISTENT WITH ZHANE SPECIES ARE PRESENT. Specimen adequacy: 02 Satisfactory for evaluation. No endocervical component is identified. Performed by: 02 Duke Bautista, Yarding Supervisor ([facility]) . 02 Note: Note 02 The [...] <-Panic Low,>-Panic High,A-Abnormal,AA-Critical Abnormal Performed at: [address] [address] Letha Woodson MD, Performed at: = - [facility] [id number] Elastic Tape Inserter: Letha Woodson MD, Phone: [phone] Performed at: [address] [id number] Elastic Tape Inserter: Letha Woodson MD, Phone: [phone] SPATULA-ALONE CERVIX [facility] RECURRENT VAGINITIS (HTRX)on 04-02-2024 ATOPOBIUM VAGINAE 0 [facility] ATOPOBIUM VAGINAE Not detected [facility] BVAB 2,3 (BACTERIAL VAGINOSIS ASSOCIATED BACTERIA 2, 3); MOBILUNCUS SPP 0 [facility] BVAB 2,3 (BACTERIAL VAGINOSIS ASSOCIATED BACTERIA 2, 3); MOBILUNCUS SPP Not detected [facility] ZHANE ALBICANS, PARAPSILOSIS, TROPICALIS 0 [facility] ZHANE ALBICANS, PARAPSILOSIS, TROPICALIS Not detected [facility] ZHANE GLABRATA 0 [facility] ZHANE GLABRATA Not detected [facility] ZHANE KRUSEI 0 [facility] ZHANE KRUSEI Not detected [facility] CHLAMYDIA TRACHOMATIS 0 [facility] CHLAMYDIA TRACHOMATIS Not detected [facility] GARDNERELLA VAGINALIS 0 [facility] GARDNERELLA VAGINALIS Not detected N [facility] MEGASPHAERA (TYPES 1, 2) 0 [facility] MEGASPHAERA (TYPES 1, 2) Not detected [facility] MYCOPLASMA GENITALIUM 0 [facility] MYCOPLASMA GENITALIUM Not detected [facility] NEISSERIA GONORRHOEAE 0 [facility] NEISSERIA GONORRHOEAE Not detected N [facility] TRICHOMONAS VAGINALIS 0 [facility] TRICHOMONAS VAGINALIS Not detected N [facility] Urinalysis macro (dipstick) panel (U)on 03-31-2024 Bilirubin, UA Negative Negative - 4(70) +++ mg/dL [facility] Blood, UA Negative Negative - 50 Chidi/mcL [facility] Clarity, UA Clear [facility] Color, UA Yellow [facility] Glucose, UA Negative Negative - 1999(110) ++++ mg/dL [facility] Interpretation and review of laboratory results Abnormal [facility] Ketones, UA Positive Negative - 160(16) ++++ mg/dL [facility] Leukocytes, UA Negative Negative - 500+++ Gabi/mcL [facility] Nitrite, UA Negative Negative - Positive [facility] pH, UA 6.5 5 - 9 [facility] Protein, UA Negative Negative - 1999(20) ++++ mg/dL [facility] Spec Grav, UA 1.02 1 - 1.03 [facility] Urobilinogen, UA 1.0 0.2 - 12 mg/dL [facility] Urinalysis macro (dipstick) panel (U)on 02-25-2024 Bilirubin, UA Negative Negative - 4(70) +++ mg/dL [facility] Blood, UA Negative Negative - 50 Chidi/mcL [facility] Clarity, UA Clear [facility] Color, UA Yellow [facility] Glucose, UA Negative Negative - 1999(110) ++++ mg/dL [facility] Interpretation and review of laboratory results Abnormal [facility] Ketones, UA Positive Negative - 160(16) ++++ mg/dL [facility] Comment on above: 40 Leukocytes, UA Positive Negative - 500+++ Gabi/mcL [facility] Comment on above: small Nitrite, UA Negative Negative - Positive [facility] pH, UA 6.5 5 - 9 [facility] Protein, UA Negative Negative - 1999(20) ++++ mg/dL [facility] Spec Grav, UA 1.025 1 - 1.03 [facility] Urobilinogen, UA 0.2 0.2 - 12 mg/dL [facility] ALL RUBELLA IGG ABon 024 RUBELLA ANTIBODIES, IGG 1.67 Immune >0.99 index [facility] Comment on above: Non-immune <0.90 Equivocal 0.90 - 0.99 Immune >0.99 HBSAG SCREENon 02-04-2024 HBSAG SCREEN Negative Negative [facility] Comment on above: Performed at: [address] [id number] Elastic Tape Inserter: Johan Rivera PhD, Phone: [phone] HCV ANTIBODY RFX TO QUANT PC Axel 02-04-2024 HCV AB Non-Reactive Non Reactive [facility] INTERPRETATION: Comment . [facility] Comment on above: Not infected with HC V unless early or acute infection is suspected (which may be delayed in an immunocompromised individual), or other evidence exists to indicate HCV infection. HIV AB/P24 AG WITH REFLEXon 02-04-2024 HIV AB/P24 AG SCREEN Non-Reactive Non Reactive [facility] Comment on above: HIV-1/HIV-2 antibodi es and HIV-1 p24 antigen were NOT detected. There is no laboratory evidence of HIV infection. HIV Negative Performed at: [address] [id number] Elastic Tape Inserter: Johan Rivera PhD, Phone: [phone] No Panel [facility]on 02-[facility] RAPID PLASMA REAGIN, QUANTon 02-04-2024 RAPID PLASMA REAGIN, QUANT Non-Reactive NonRea<1:1 titer [facility] Comment on above: Please Note: This te st does not meet current guidelines for screening and diagnosis of syphilis. This test is intended for following treatment response in patients being treated for syphilis infection. To screen for syphilis infection, a reflex cascade that includes both RPR and a treponema-specific assay should be utilized, such as Treponema pallidum (Syphilis) Screening [place] (691174) or Rapid Plasma Reagin (RPR) Test With Reflex to Quantitative RPR and Confirmatory Treponema pallidum Antibodies (175793). Performed at: [address] [id number] Elastic Tape Inserter: Johan Rivera PhD, Phone: [phone] ALL CBC WITH AUTO DIFFon BASOPHILS ABSOLUTE AUTO 0 [facility] Basophils/100 WBC (Bld) 0.4 % 0.2 - 2.0 % [facility] Eosinophils/100 WBC (Bld) 1.5 % 0.9 - 7.0 % [facility] Erythrocyte distribution width (RBC) [Ratio] 12.9 % 11.0 - 15.0 % [facility] Hematocrit (Bld) [Volume fraction] 36.1 % 36.0 - 48.0 % [facility] Hemoglobin (Bld) [Mass/Vol] 12.5 g/dL 12.0 - 16.0 g/dL [facility] IMMATURE GRANULOCYTES ABS AUTO 0.02 [facility] Immature granulocytes/100 WBC (Bld) 0.3 % 0.0 - 0.5 % [facility] LYMPHOCYTES ABSOLUTE AUTO 1.7 [facility] Lymphocytes/100 WBC (Bld) 23.2 % 20.5 - 60.0 % [facility] MCH (RBC) [Entitic mass] 29.3 pg 26.7 - 34.0 pg [facility] MCHC (RBC) [Mass/Vol] 34.6 g/dL 29.9 - 35.2 g/dL [facility] MCV (RBC) [Entitic vol] 84.7 fL 81.0 - 99.0 fL [facility] MONOCYTES ABSOLUTE AUTO 0.5 [facility] Monocytes/100 WBC (Bld) 6.6 % 1.7 - 12.0 % [facility] NEUTROPHILS ABSOLUTE AUTO 5 [facility] Neutrophils/100 WBC (Bld) 68 % 43.0 - 75.0 % [facility] Platelet mean volume (Bld) [Entitic vol] 11.1 fL 9.5 - 13.5 fL [facility] TBH EO # 0.1 [facility] TB PLT 259 [facility] TB RBC 4.26 [facility] WBC 7.4 [facility] ALL TYPE AND SCREENon 2023 ABO and Rh group Nom (Bld) Blood group O Rh(D) positive [facility]-02-2024 BOX TEST SENT OUT [facility] BOX1 [facility] BOX2 02/02/2024 [facility] HEMOGLOBIN A1Con 024 Glucose [Mass/Vol] 97 mg/dL [facility] HbA1c (Bld) [Mass fraction] 5 % 4.5 - 6.2 % [facility] Comment on above: ADA RECOMMENDED LIMI T 4.0 - 6.0 ADA THERAPEUTIC TARGET < 7.0 ACTION SUGGESTED > 7.[facility]ID (URINE )on 02-02-2024 AMPHETAMINE SCREEN URINE Negative NEGATIVE [facility] BARBITURATES SCREEN URINE Negative NEGATIVE [facility] BENZODIAZEPINES SCREEN URINE Negative NEGATIVE [facility] BUPRENORPHINE SCREEN URINE Negative NEGATIVE [facility] Comment on above: DRUG CLASS TEST SYST [...] 300 ng/mL CANNABINOID SCREEN URINE Negative NEGATIVE [facility] COCAINE SCREEN URINE Negative NEGATIVE [facility] METHADONE SCREEN URINE Negative NEGATIVE NO [facility] METHAMPHETAMINES SCREEN URINE Negative NEGATIVE [facility] OPIATE SCREEN URINE Negative NEGATIVE [facility] OXYCODONE SCREEN URINE Negative NEGATIVE NO [facility] PHENCYCLIDINE SCREEN URINE Negative NEGATIVE [facility] TRICYCLIC ANTIDEPRESSANT URINE Negative NEGATIVE [facility] HCG ( test) Ql (U)o n 01-29-2024 Interpretation and review of laboratory results Abnormal [facility] Preg Test, Ur Positive Negative [facility] Urinalysis macro (dipstick) panel (U)on 01-29-2024 Bilirubin, UA Negative Negative - 4(70) +++ mg/dL [facility] Blood, UA Negative Negative - 50 Chidi/mcL [facility] Clarity, UA Clear [facility] Color, UA Yellow [facility] Glucose, UA Negative Negative - 1999(110) ++++ mg/dL [facility] Interpretation and review of laboratory results Normal [facility] Ketones, UA Negative Negative - 160(16) ++++ mg/dL [facility] Leukocytes, UA Negative Negative - 500+++ Gabi/mcL [facility] Nitrite, UA Negative Negative - Positive [facility] pH, UA 6 5 - 9 [facility] Protein, UA Negative Negative - 2000(20) ++++ mg/dL [facility] Spec Grav, UA 1.02 1 - 1.03 [facility] Urobilinogen, UA 0.2 0.2 - 12 mg/dL [facility] ALL CBC WITH AUTO DIFFon BASOPHILS ABSOLUTE AUTO 0.0 [facility] Basophils/100 WBC (Bld) 0.3 % 0.2 - 2.0 % [facility] Eosinophils/100 WBC (Bld) 1.6 % 0.9 - 7.0 % [facility] Erythrocyte distribution width (RBC) [Ratio] 12.4 % 11.0 - 15.0 % [facility] Hematocrit (Bld) [Volume fraction] 33.3 % Low 36.0 - 48.0 % [facility] Hemoglobin (Bld) [Mass/Vol] 10.6 g/dL Low 12.0 - 16.0 g/dL [facility] IMMATURE GRANULOCYTES ABS AUTO 0.05 High [facility] Immature granulocytes/100 WBC (Bld) 0.6 % High 0.0 - 0.5 % [facility] Interpretation and review of laboratory results Abnormal [facility] LYMPHOCYTES ABSOLUTE AUTO 1.5 [facility] Lymphocytes/100 WBC (Bld) 17.1 % Low 20.5 - 60.0 % [facility] MCH (RBC) [Entitic mass] 28.1 pg 26.7 - 34.0 pg [facility] MCHC (RBC) [Mass/Vol] 31.8 g/dL 29.9 - 35.2 g/dL [facility] MCV (RBC) [Entitic vol] 88.3 fL 81.0 - 99.0 fL [facility] MONOCYTES ABSOLUTE AUTO 0.5 [facility] Monocytes/100 WBC (Bld) 5.8 % 1.7 - 12.0 % [facility] NEUTROPHILS ABSOLUTE AUTO 6.5 [facility] Neutrophils/100 WBC (Bld) 74.6 % 43.0 - 75.0 % [facility] Platelet mean volume (Bld) [Entitic vol] 10.6 fL 9.5 - 13.5 fL [facility] TBH EO # 0.1 [facility] TBH PLT 241 [facility] TB RBC 3.77 Low [facility] TB WBC 8.7 [facility] Urinalysis macro (dipstick) panel (U)on 05-06-2023 Bilirubin, UA Negative Negative - 4(70) +++ mg/dL [facility] Blood, UA Negative Negative - 50 Chidi/mcL [facility] Clarity, UA Clear [facility] Color, UA Yellow [facility] Glucose, UA Negative Negative - 1999(110) ++++ mg/dL [facility] Interpretation and review of laboratory results Abnormal [facility] Ketones, UA Negative Negative - 160(16) ++++ mg/dL [facility] Leukocytes, UA Negative Negative - 500+++ Gabi/mcL [facility] Nitrite, UA Negative Negative - Positive [facility] pH, UA 5.5 5 - 9 [facility] Protein, UA Negative Negative - 1999(20) ++++ mg/dL [facility] Spec Grav, UA 1.020 1 - 1.03 [facility] Urobilinogen, UA 1.0 0.2 - 12 mg/dL [facility] XR ABD FLAT UP_PA Arielle 07-11 [...] [place] Date: 2022-07-10 22:30 [address] [facility] CBC AUTO DIFFon 07-10-2022 BASO # 0.0 103/ul Normal 0.0-0.1 [facility] Comment on above: Performed By: #### C BC #### [facility] [address] [place], [place] [address] Dr. Papo Swanson Basophils/100 WBC (Bld) 0.4 % Normal 0.2-2.0 [facility] Comment on above: Performed By: #### C BC #### [facility] [address] [place], [place] [address] Dr. Papo Swanson EO # 0.1 103/ul Normal 0.0-0.7 [facility] Comment on above: Performed By: #### C BC #### [facility] [address] [place] [address] Dr. Papo Swanson Eosinophils/100 WBC (Bld) 0.6 % Critically low 0.9-7.0 [facility] Comment on above: Performed By: #### C BC #### [facility] [address] [place] [address] Dr. Papo Swanson Erythrocyte distribution width (RBC) [Ratio] 14.4 % Normal 11.0-15.0 [facility] Comment on above: Performed By: #### C BC #### [facility] [address] [place] [address] Dr. Papo Swanson Hematocrit (Bld) [Volume fraction] 42.2 % Normal 36.0-48.0 [facility] Comment on above: Performed By: #### C BC #### [facility] [address] [place] [address] Dr. Papo Swanson Hemoglobin (Bld) [Mass/Vol] 13.7 g/dL Normal 12.0-16.0 [facility] Comment on above: Performed By: #### C BC #### [facility] [facility] [address] [place] [address] Dr. Papo Swanson IG # 0.03 10e3/ul Normal 0.00-0.03 [facility] Comment on above: Performed By: #### C BC #### [facility] [address] [place] [address] Dr. Papo Swanson IG % 0.3 % Normal 0.0-0.[address] [facility] Comment on above: Performed By: #### C BC #### [facility] [address] [place] [address] Dr. Papo Swanson LYMPH # 1.5 103/ul Normal 1.2-3.[address] [facility] Comment on above: Performed By: #### C BC #### [facility] [address] [place] [address] Dr. Papo Swanson Lymphocytes/100 WBC (Bld) 15.7 % Critically low 20.5-60.0 [facility] Comment on above: Performed By: #### C BC #### [facility] [address] [place] [address] Dr. Papo Swanson MANUAL DIFF REQ NO Normal [facility] Comment on above: Performed By: #### C BC #### [facility] [address] [place] [address] Dr. Papo Swanson MCH (RBC) [Entitic mass] 27.0 pg Normal 26.7-34.0 [facility] Comment on above: Performed By: #### C BC #### [facility] [address] [place] [address] Dr. Papo Swanson MCHC (RBC) [Mass/Vol] 32.5 g/dL Normal 29.9-35.2 [facility] Comment on above: Performed By: #### C BC #### [facility] [address] [place] [address] Dr. Papo Swanson MCV (RBC) [Entitic vol] 83.2 fL Normal 81.0-99.0 [facility] Comment on above: Performed By: #### C BC #### [facility] [address] [place] [address] Dr. Papo Swanson MONO # 0.6 103/ul Normal 0.3-0.8 [facility] Comment on above: Performed By: #### C BC #### [facility] [address] [place] [address] Dr. Papo Swanson Monocytes/100 WBC (Bld) 5.9 % Normal 1.7-12.0 [facility] Comment on above: Performed By: #### C BC #### [facility] [address] [place] [address] Dr. Papo Swanson NEUT # 7.4 103/ul Critically high 1.4-6.5 [facility] Comment on above: Performed By: #### C BC #### [facility] [address] [place] [address] Dr. Papo Swanson Neutrophils/100 WBC (Bld) 77.1 % Critically high 43.0-75.[address] [facility] Comment on above: Performed By: #### C BC #### [facility] [address] [place] [address] Dr. Papo Swanson Platelet mean volume (Bld) [Entitic vol] 10.5 fL Normal 9.5-13.5 [facility] Comment on above: Performed By: #### C BC #### [facility] [address] [place] [address] Dr. Papo Swanson PLT 318 103/ul Normal 150-[address] [facility] Comment on above: Performed By: #### C BC #### [facility] [address] [place] [address] Dr. Papo Swanson RBC 5.07 106/ul Normal 4.20-5.40 [facility] Comment on above: Performed By: #### C BC #### [facility] [address] [place] [address] Dr. Papo Swanson WBC 9.7 103/ul Normal 4.0-11.0 [facility] Comment on above: Performed By: #### C BC #### [facility] [address] [place] [address] Dr. Papo Swanson ER URINE PROFILEon 3 Bilirubin Ql (U) Negative Normal NEGATIVE [facility] Comment on above: Performed By: #### E RUR #### [facility] [address] [place] [address] Dr. Papo Swanson Clarity (U) CLEAR Normal CLEAR [facility] Comment on above: Performed By: #### E RUR #### [facility] [address] [place] [address] Dr. Papo Swanson Color (U) LT. YELLOW Normal YELLOW [facility] Comment on above: Performed By: #### E RUR #### [facility] [address] [place] [address] Dr. Papo JAIMES A micrscopic examination will be performed if indicated. Normal [facility] Comment on above: Performed By: #### E RUR #### [facility] [address] [place] [address] Dr. Papo Swanson Glucose Ql (U) Negative Normal NEGATIVE [facility] Comment on above: Performed By: #### E RUR #### [facility] [address] [place] [address] Dr. Papo Swanson Hemoglobin Ql (U) Negative Normal NEGATIVE [facility] Comment on above: Performed By: #### E RUR #### [facility] [address] [place] [address] Dr. aPpo Swanson Ketones Ql (U) Negative Normal NEGATIVE [facility] Comment on above: Performed By: #### E RUR #### [facility] [address] [place] [address] Dr. Papo Swanson LEUKOCYTES Negative Normal NEGATIVE [facility] Comment on above: Performed By: #### E RUR #### [facility] [address] [place] [address] Dr. Papo Swanson Nitrite Ql (U) Negative Normal NEGATIVE [facility] Comment on above: Performed By: #### E RUR #### [facility] [address] [place] [address] Dr. Papo Swanson pH (U) 7.0 [pH] Normal 5-9 [facility] Comment on above: Performed By: #### E RUR #### [facility] [address] [place] [address] Dr. Papo Swanson SPEC GRAVITY 1.025 Normal 1.005-<=1.025 [facility] Comment on above: Performed By: #### E RUR #### [facility] [address] [place] [address] Dr. Papo Swanson UA PROTEIN Negative Normal NEGATIVE/ TRACE [facility] Comment on above: Performed By: #### E RUR #### [facility] [address] [place] [address] Dr. Papo Swanson UR MICRO IND NOT INDICATED Normal [facility] Comment on above: Performed By: #### E RUR #### [facility] [address] [place] [address] Dr. Papo Swanson Urobilinogen Qn (U) 0.2 {Kelle'U}/dL Normal 0.2 - 1. 0 [facility] Comment on above: Performed By: #### E RUR #### [facility] [address] [place] [address] Dr. Papo Swanson LIPASEon 07-10-2022 Lipase [Catalytic activity/Vol] 54.0 U/L Critically low 73.0-393.0 [facility] Comment on above: Performed By: #### D RUGRPD #### [facility] [address] [place] [address] Dr. Papo Swanson PREG HCG QUALon 07-10-2022 , QUAL Negative Normal NEGATIVE [facility] Comment on above: Performed By: #### E RUR #### [facility] [address] [place] [address] Dr. Papo Swanson PROF 14(COMP METB)on 023 Albumin [Mass/Vol] 4.3 g/dL Normal 3.4-5.0 [facility] Comment on above: Performed By: #### D RUGRPD #### [facility] [address] [place] [address] Dr. Papo Swanson Albumin/Globulin [Mass ratio] 1.0 {ratio} Normal [facility] Comment on above: Performed By: #### D RUGRPD #### [facility] [address] [place] [address] Dr. Papo Swanson ALP [Catalytic activity/Vol] 91 U/L Normal 46-[address] [facility] Comment on above: Performed By: #### D RUGRPD #### [facility] [address] [place] [address] Dr. Papo Swanson ALT [Catalytic activity/Vol] 19 U/L Normal 14-[address] [facility] Comment on above: Performed By: #### D RUGRPD #### [facility] [address] [place] [address] Dr. Papo Swanson Anion gap [Moles/Vol] 13.9 mmol/L Normal [facility] Comment on above: Performed By: #### D RUGRPD #### [facility] [address] [place] [address] Dr. Papo Swanson AST [Catalytic activity/Vol] 13 U/L Critically low 15-37 [facility] Comment on above: Performed By: #### D RUGRPD #### [facility] [address] [address] [address] Papo Swanson Bilirubin [Mass/Vol] 0.3 mg/dL Normal 0.2-1.0 [facility] Comment on above: Performed By: #### D RUGRPD #### [facility] [address] [place] [address] Dr. Papo Swanson Calcium [Mass/Vol] 9.1 mg/dL Normal 8.5-10.1 [facility] Comment on above: Performed By: #### D RUGRPD #### [facility] [address] [place] [address] Dr. Papo Swanson Chloride [Moles/Vol] 104 mmol/L Normal 98-107 [facility] Comment on above: Performed By: #### D RUGRPD #### [facility] [address] [place] [address] Dr. Papo Swanson CO2 [Moles/Vol] 25.4 mmol/L Normal 21.0-32.0 [facility] Comment on above: Performed By: #### D RUGRPD #### [facility] [address] [place] [address] Dr. Papo Swanson Creatinine [Mass/Vol] 0.64 mg/dL Normal 0.55-1.02 [facility] Comment on above: Performed By: #### D RUGRPD #### [facility] [address] [place] [address] Dr. Papo Swanson EGFR-AF TOGOLESE >60 Normal >=60 [facility] Comment on above: Performed By: #### D RUGRPD #### [facility] [address] [place] [address] Dr. Papo Swanson EGFR-NON AF TOGOLESE >60 Normal >=60 [facility] Comment on above: Performed By: #### D RUGRPD #### [facility] [address] [place] [address] Dr. Papo Swanson Globulin (S) [Mass/Vol] 4.3 g/dL Normal [facility] Comment on above: Performed By: #### D RUGRPD #### [facility] [address] [place] [address] Dr. Papo Swanson Glucose [Mass/Vol] 101 mg/dL Normal 74-106 [facility] Comment on above: Performed By: #### D RUGRPD #### [facility] [address] [place] [address] Dr. Papo Swanson Potassium [Moles/Vol] 3.3 mmol/L Critically low 3.5-5.1 [facility] Comment on above: Performed By: #### D RUGRPD #### [facility] [address] [place] [address] Dr. Papo Swanson Protein [Mass/Vol] 8.6 g/dL Critically high 6.4-8.2 [facility] Comment on above: Performed By: #### D RUGRPD #### [facility] [address] [place] [address] Dr. Papo Swanson Sodium [Moles/Vol] 140 mmol/L Normal 136-145 [facility] Comment on above: Performed By: #### D RUGRPD #### [facility] [address] [place] [address] Dr. Papo Swanson Urea nitrogen [Mass/Vol] 8.0 mg/dL Normal 7.0-18.0 [facility] Comment on above: Performed By: #### D RUGRPD #### [facility] [address] [place] [address] Dr. Papo Swanson Urea nitrogen/Creatinine [Mass ratio] 12.5 mg/mg Normal [facility] Comment on above: Performed By: #### D RUGRPD #### [facility] [address] [place] [address] Dr. Papo Swanson CBC AUTO DIFFon 12-27-2021 BASO # 0.0 103/ul Normal 0.0-0.1 [facility] Comment on above: Performed By: #### C BC #### [facility] [address] [place] [address] Dr. Papo Swanson Basophils/100 WBC (Bld) 0.2 % Normal 0.2-2.0 [facility] Comment on above: Performed By: #### C BC #### [facility] [address] [place] [address] Dr. Papo Swanson EO # 0.0 103/ul Normal 0.0-0.[address] [facility] Comment on above: Performed By: #### C BC #### [facility] [address] [place] [address] Dr. Papo Swanson Eosinophils/100 WBC (Bld) 0.3 % Critically low 0.9-7.0 [facility] Comment on above: Performed By: #### C BC #### [facility] [address] [place] [address] Dr. Papo Swanson Erythrocyte distribution width (RBC) [Ratio] 15.4 % Critically high 11.0-15.0 [facility] Comment on above: Performed By: #### C BC #### [facility] [address] [place] [address] Dr. Papo Swanson Hematocrit (Bld) [Volume fraction] 27.8 % Critically low 36.0-48.0 [facility] Comment on above: Performed By: #### C BC #### [facility] [address] [place] [address] Dr. Papo Swanson Hemoglobin (Bld) [Mass/Vol] 8.7 g/dL Critically low 12.0-16.0 [facility] Comment on above: Performed By: #### C BC #### [facility] [address] [place] [address] Dr. Papo Swanson IG # 0.11 10e3/ul Critically high 0.00-0.03 [facility] Comment on above: Performed By: #### C BC #### [facility] [address] [place] [address] Dr. Papo Swanson IG % 0.9 % Critically high 0.0-0.5 [facility] Comment on above: Performed By: #### C BC #### [facility] [address] [place] [address] Dr. Papo Swanson LYMPH # 2.4 103/ul Normal 1.2-3.8 [facility] Comment on above: Performed By: #### C BC #### [facility] [address] [place] [address] Dr. Papo Swanson Lymphocytes/100 WBC (Bld) 19.6 % Critically low 20.5-60.0 [facility] Comment on above: Performed By: #### C BC #### [facility] [address] [place] [address] Dr. Papo Swanson MANUAL DIFF REQ NO Normal [facility] Comment on above: Performed By: #### C BC #### [facility] [address] [place] [address] Dr. Papo Swanson MCH (RBC) [Entitic mass] 24.6 pg Critically low 26.7-34.0 [facility] Comment on above: Performed By: #### C BC #### [facility] [address] [place] [address] Dr. Papo Swanson MCHC (RBC) [Mass/Vol] 31.3 g/dL Normal 29.9-35.2 [facility] Comment on above: Performed By: #### C BC #### [facility] [address] [place] [address] Dr. Papo Swanson MCV (RBC) [Entitic vol] 78.8 fL Critically low 81.0-99.0 [facility] Comment on above: Performed By: #### C BC #### [facility] [address] [place] [address] Dr. Papo Swanson MONO # 0.8 103/ul Normal 0.3-0.8 [facility] Comment on above: Performed By: #### C BC #### [facility] [address] [place] [address] Dr. Papo Swanson Monocytes/100 WBC (Bld) 6.2 % Normal 1.7-12.0 [facility] Comment on above: Performed By: #### C BC #### [facility] [address] [place] [address] Dr. Papo Swanson NEUT # 8.9 103/ul Critically high 1.4-6.5 [facility] Comment on above: Performed By: #### C BC #### [facility] [address] [place] [address] Dr. Papo Swanson Neutrophils/100 WBC (Bld) 72.8 % Normal 43.0-75.0 [facility] Comment on above: Performed By: #### C BC #### [facility] [address] [place] [address] Dr. aPpo Swanson Platelet mean volume (Bld) [Entitic vol] 11.7 fL Normal 9.5-13.[address] [facility] Comment on above: Performed By: #### C BC #### [facility] [address] [place] [address] Dr. Papo Swanson PLT 173 103/ul Normal 150-450 [facility] Comment on above: Performed By: #### C BC #### [facility] [address] [place] [address] Dr. Papo Swanson RBC 3.53 106/ul Critically low 4.20-5.40 [facility] Comment on above: Performed By: #### C BC #### [facility] [address] [place] [address] Dr. Papo Swanson WBC 12.2 103/ul Critically high 4.0-11.0 [facility] Comment on above: Performed By: #### C BC #### [facility] [address] [place] [address] Dr. Papo Swanson CBC AUTO DIFFon 12-26-2021 BASO # 0.0 103/ul Normal 0.0-0.[address] [facility] Comment on above: Performed By: #### C BC #### [facility] [address] [place] [address] Dr. Papo Swanson Basophils/100 WBC (Bld) 0.2 % Normal 0.2-2.[address] [facility] Comment on above: Performed By: #### C BC #### [facility] [address] [place] [address] Dr. Papo Swanson EO # 0.1 103/ul Normal 0.0-0.7 [facility] Comment on above: Performed By: #### C BC #### [facility] [address] [place] [address] Dr. Papo Swanson Eosinophils/100 WBC (Bld) 0.8 % Critically low 0.9-7.0 [facility] Comment on above: Performed By: #### C BC #### [facility] [address] [place] [address] Dr. Papo Swanson Erythrocyte distribution width (RBC) [Ratio] 15.2 % Critically high 11.0-15.0 [facility] Comment on above: Performed By: #### C BC #### [facility] [address] [place] [address] Dr. Papo Swanson Hematocrit (Bld) [Volume fraction] 31.5 % Critically low 36.0-48.0 [facility] Comment on above: Performed By: #### C BC #### [facility] [address] [place] [address] Dr. Papo Swanson Hemoglobin (Bld) [Mass/Vol] 9.9 g/dL Critically low 12.0-16.0 [facility] Comment on above: Performed By: #### C BC #### [facility] [address] [place] [address] Dr. Papo Swanson IG # 0.21 10e3/ul Critically high 0.00-0.03 [facility] Comment on above: Performed By: #### C BC #### [facility] [address] [place] [address] Dr. Papo Swanson IG % 2.5 % Critically high 0.0-0.5 [facility] Comment on above: Performed By: #### C BC #### [facility] [address] [place] [address] Dr. Papo Swanson LYMPH # 1.8 103/ul Normal 1.2-3.8 [facility] Comment on above: Performed By: #### C BC #### [facility] [address] [place] [address] Dr. Papo Swanson Lymphocytes/100 WBC (Bld) 20.8 % Normal 20.5-60.0 [facility] Comment on above: Performed By: #### C BC #### [facility] [address] [place] [address] Dr. Papo Swanson MANUAL DIFF REQ NO Normal [facility] Comment on above: Performed By: #### C BC #### [facility] [address] [place] [address] Dr. Papo Swanson MCH (RBC) [Entitic mass] 24.5 pg Critically low 26.7-34.0 [facility] Comment on above: Performed By: #### C BC #### [facility] [address] [place] [address] Dr. Papo Swanson MCHC (RBC) [Mass/Vol] 31.4 g/dL Normal 29.9-35.2 [facility] Comment on above: Performed By: #### C BC #### [facility] [address] [place] [address] Dr. Papo Swanson MCV (RBC) [Entitic vol] 78.0 fL Critically low 81.0-99.0 [facility] Comment on above: Performed By: #### C BC #### [facility] [address] [place] [address] Dr. Papo Swanson MONO # 0.5 103/ul Normal 0.3-0.8 [facility] Comment on above: Performed By: #### C BC #### [facility] [address] [place] [address] Dr. Papo Swanson Monocytes/100 WBC (Bld) 6.4 % Normal 1.7-12.0 [facility] Comment on above: Performed By: #### C BC #### [facility] [address] [place] [address] Dr. Papo Swanson NEUT # 5.8 103/ul Normal 1.4-6.5 [facility] Comment on above: Performed By: #### C BC #### [facility] [address] [place] [address] Dr. Papo Swanson Neutrophils/100 WBC (Bld) 69.3 % Normal 43.0-75.0 [facility] Comment on above: Performed By: #### C BC #### [facility] [address] [address] [address] Papo Swanson Platelet mean volume (Bld) [Entitic vol] 12.2 fL Normal 9.5-13.5 [facility] Comment on above: Performed By: #### C BC #### [facility] [address] [address] [address] Papo Swanson PLT 195 103/ul Normal 150-450 [facility] Comment on above: Performed By: #### C BC #### [facility] [address] [address] [address] Papo Swanson RBC 4.04 106/ul Critically low 4.20-5.40 [facility] Comment on above: Performed By: #### C BC #### [facility] [address] [address] [address] Papo Swanson WBC 8.4 103/ul Normal 4.0-11.0 [facility] Comment on above: Performed By: #### C BC #### [facility] [address] [address] [address] Papo Swanson CULTURE URINEon 12-26-2021 CULTURE URINE Culture Observations : LIGHT GROWTH OF MIXED GENITAL NICOLE. NO POTENTIAL PATHOGENS SEEN. Normal [facility] Comment on above: Performed By: #### U RCX #### [facility] [address] [place] [address] Dr. Papo Swanson [facility] SARS-CoV-2 (COVID-19) RNA PRIYA+probe Ql (Unsp spec) Not detected Normal NOT DETECTED [facility] Comment on above: Result Comment: When diagnostic [...] for this test is supported by the [place] of [employer] and Human Service's declaration that [...] used). Performed By: #### C VDTBH #### [facility] [address] [place] [address] Dr. Papo Swanson DRUG SCREEN RAPID (URINE)on 12-26-2021 AMP Negative Normal NEGATIVE [facility] Comment on above: Performed By: #### D RUGRPD #### [facility] [address] [place] [address] Dr. Papo Swanson BAR Negative Normal NEGATIVE [facility] Comment on above: Performed By: #### D RUGRPD #### [facility] [address] [place] [address] Dr. Papo Swanson BUP Negative Normal NEGATIVE [facility] Comment on above: Performed By: #### D RUGRPD #### [facility] [address] [place] [address] Dr. Papo Swanson BZO Negative Normal NEGATIVE [facility] Comment on above: Performed By: #### D RUGRPD #### [facility] [address] [place] [address] Dr. Papo Swanson GIRISH Negative Normal NEGATIVE [facility] Comment on above: Performed By: #### D RUGRPD #### [facility] [address] [place] [address] Dr. Papo Swanson CUT-OFFS SEE BELOW Normal [facility] Comment on above: Result Comment: AMP (Amphetamine): 500ng/mL, BAR (Barbituates): 200 ng/mL, BZO (Benzodiazepines): 150 ng/mL, BUP (Buprenorphine): 10 ng/mL, GIRISH (Cocaine): 150 ng/mL, mAMP (Methamphetamine): 500 ng/mL, MTD (Methadone): 200 ng/mL, OPI (Opiates): 100 ng/mL, OXY (Oxycodone): 100 ng/mL, PCP (Phencyclidine): 25 ng/mL, PPX (Propoxyphene): 300 ng/mL, THC (Cannabinoids): 50 ng/mL, TCA (Trycyclic Antidepressants): 300 ng/mL Performed By: #### D RUGRPD #### [facility] [address] [place] [address] Dr. Papo Swanson DRUG CUT HEADER DRUG CLASS TEST SYSTEM CUT-OFF CONCENTRATIONS ARE FOLLOWS: Normal [facility] Comment on above: Performed By: #### D RUGRPD #### [facility] [address] [place] [address] Dr. Papo Swanson mAMP Negative Normal NEGATIVE [facility] Comment on above: Performed By: #### D RUGRPD #### [facility] [address] [place] [address] Dr. Papo Swanson MTD Negative Normal NEGATIVE [facility] Comment on above: Performed By: #### D RUGRPD #### [facility] [address] [place] [address] Dr. Papo Swanson OPI Negative Normal NEGATIVE [facility] Comment on above: Performed By: #### D RUGRPD #### [facility] [address] [place] [address] Dr. Papo Swanson OXY Negative Normal NEGATIVE [facility] Comment on above: Performed By: #### D RUGRPD #### [facility] [address] [place] [address] Dr. Papo Swanson PCP Negative Normal NEGATIVE [facility] Comment on above: Performed By: #### D RUGRPD #### [facility] [address] [place] [address] Dr. Papo Swanson PPX Negative Normal NEGATIVE [facility] Comment on above: Performed By: #### D RUGRPD #### [facility] [address] [place] [address] Dr. Papo Swanson TCA Negative Normal NEGATIVE [facility] Comment on above: Performed By: #### D RUGRPD #### [facility] [address] [place] [address] Dr. Papo Swanson THC Negative Normal NEGATIVE [facility] Comment on above: Performed By: #### D RUGRPD #### [facility] [address] [place] [address] Dr. Papo Swanson TYPE AND SCREENon 12-26-2021 TYPE AND SCREEN Negative Normal [facility] Comment on above: Performed By: #### D RUGRPD #### [facility] [address] [place] [address] Dr. Papo Swanson UA (CLEAN/CATCH) CUSTOMER ADVISOR SPECIALIST/MICRO I F IND.on 12-26-2021 Bilirubin Ql (U) Negative Normal NEGATIVE [facility] Comment on above: Performed By: #### D RUGRPD #### [facility] [address] [place] [address] Dr. Papo Swanson Clarity (U) CLEAR Normal CLEAR [facility] Comment on above: Performed By: #### D RUGRPD #### [facility] [address] [place] [address] Dr. Papo Swanson Color (U) LT. YELLOW Normal YELLOW [facility] Comment on above: Performed By: #### D RUGRPD #### [facility] [address] [place] [address] Dr. Papo Swanson Glucose Ql (U) Negative Normal NEGATIVE [facility] Comment on above: Performed By: #### D RUGRPD #### [facility] [address] [place] [address] Dr. Papo Swanson Hemoglobin Ql (U) Negative Normal NEGATIVE [facility] Comment on above: Performed By: #### D RUGRPD #### [facility] [address] [place] [address] Dr. Papo Swanson Ketones Ql (U) Negative Normal NEGATIVE [facility] Comment on above: Performed By: #### D RUGRPD #### [facility] [address] [place] [address] Dr. Papo Swanson LEUKOCYTES LARGE Abnormal NEGATIVE [facility] Comment on above: Performed By: #### D RUGRPD #### [facility] [address] [place] [address] Dr. Papo Swanson Nitrite Ql (U) Negative Normal NEGATIVE [facility] Comment on above: Performed By: #### D RUGRPD #### [facility] [address] [place] [address] Dr. Papo Swanson pH (U) 7.5 [pH] Normal 5-[address] [facility] Comment on above: Performed By: #### D RUGRPD #### [facility] [address] [place] [address] Dr. Papo Swanson SPEC GRAVITY 1.015 Normal 1.005-<=1.025 [facility] Comment on above: Performed By: #### D RUGRPD #### [facility] [address] [place] [address] Dr. Papo Swanson UA PROTEIN Negative Normal NEGATIVE/ TRACE [facility] Comment on above: Performed By: #### D RUGRPD #### [facility] [address] [place] [address] Dr. Papo Swanson UR MICRO IND INDICATED Normal [facility] Comment on above: Performed By: #### D RUGRPD #### [facility] [address] [place] [address] Dr. Papo Swanson Urobilinogen Qn (U) 0.2 {Kelle'U}/dL Normal 0.2 - 1. 0 [facility] Comment on above: Performed By: #### D RUGRPD #### [facility] [address] [place] [address] Dr. Papo Swanson URINE MICROSCOPIC ONLYon BACTERIA SMALL Abnormal NONE SEEN [facility] Comment on above: Performed By: #### D RUGRPD #### [facility] [address] [place] [address] Dr. Papo Swanson Bacteria identified Cx Nom (U) INDICATED Normal [facility] Comment on above: Performed By: #### D RUGRPD #### [facility] [address] [place] [address] Dr. Papo Swanson CAST NONE SEEN Normal NONE SEEN [facility] Comment on above: Performed By: #### D RUGRPD #### [facility] [address] [address] [address] Papo Swanson Crystals LM Nom (Urine sed) NONE SEEN Normal NONE SEEN [facility] Comment on above: Performed By: #### D RUGRPD #### [facility] [address] [place] [address] Dr. Papo Swansno Epithelial cells LM Ql (Urine sed) MODERATE Abnormal NONE SEEN /RARE [facility] Comment on above: Performed By: #### D RUGRPD #### [facility] [address] [place] [address] Dr. Papo Swanson MUCOUS NONE SEEN Normal NONE SEEN [facility] Comment on above: Performed By: #### D RUGRPD #### [facility] [address] [place] [address] Dr. Papo Swanson RBC 0-2 Normal 0-[address] [facility] Comment on above: Performed By: #### D RUGRPD #### [facility] [address] [place] [address] Dr. Papo Swanson WBC 10-20 Abnormal NONE SEEN [facility] Comment on above: Performed By: #### D RUGRPD #### [facility] [address] [place] [address] Dr. Papo Swanson US PREG GROWTHon 12-21-2021 [...] by: SHANA ROBLERO Date: 2021-12-21 18:09 Normal [facility] GROUP B STREP CULTUREon 11-23 S. agalactiae Ag Ql (Unsp spec) Culture Observations: NEGATIVE FOR GROUP B STREPTOCOCCUS. Normal [facility] Comment on above: Performed By: #### D RUGRPD #### [facility] [address] [place] [address] Dr. Papo Swanson GLUCOSE - 1HRon 10-16-2021 Glucose [Mass/Vol] 148 mg/dL Critically high 74-106 [facility] Comment on above: Performed By: #### G LU1HR #### [facility] [address] [place] [address] Dr. Papo Swanson HEMOGRAM AND PLATELon 2021 Hematocrit (Bld) [Volume fraction] 31.5 % Critically low 36.0-48.0 [facility] Comment on above: Performed By: #### H H #### [facility] [address] [place] [address] Dr. Papo Swanson Hemoglobin (Bld) [Mass/Vol] 10.4 g/dL Critically low 12.0-16.0 [facility] Comment on above: Performed By: #### H H #### [facility] [address] [place] [address] Dr. Papo Swanson MCH (RBC) [Entitic mass] 27.8 pg Normal 26.7-34.0 [facility] Comment on above: Performed By: #### H H #### [facility] [address] [place] [address] Dr. Papo Swanson MCHC (RBC) [Mass/Vol] 33.0 g/dL Normal 29.9-35.2 [facility] Comment on above: Performed By: #### H H #### [facility] [address] [place] [address] Dr. Papo Swanson MCV (RBC) [Entitic vol] 84.2 fL Normal 81.0-99.0 [facility] Comment on above: Performed By: #### H H #### [facility] [address] [place], [place] [address] Dr. Papo Swanson PLT 248 103/ul Normal 150-[address] [facility] Comment on above: Performed By: #### H H #### [facility] [address] [place], [place] [address] Dr. Papo Swanson RBC 3.74 106/ul Critically low 4.20-5.40 [facility] Comment on above: Performed By: #### H H #### [facility] [address] [place], [place] [address] Dr. Papo Swanson WBC 7.4 103/ul Normal 4.0-11.0 [facility] Comment on above: Performed By: #### H H #### [facility] [address] [place], [place] [address] Dr. Papo Swanson US PREG ANATOMY SINGLEon US PREG ANATOMY SINGLE EXAMINATION: US P REG ANATOMY SINGLE HISTORY: screening COMPARISON: No relevant [...] SHANA ROBLERO Date: 2021-08-21 16:22 Normal [facility] US PREG CERVICAL LENGTHon US PREG CERVICAL [...] DEON STEINER Date: 2021-08-01 13:33 Normal [facility] CHLAMYDIA/GONOCOCCUS PRIYA (SW AB/URINE/PAPon 07-28-2021 Chlamydia trachomatis, PRIYA Negative Normal Negative [facility] Comment on above: Performed By: #### C T/NGNA #### [facility] [address] [place] [address] Dr. Papo Swanson Neisseria gonorrhoeae, PRIYA Negative Normal Negative [facility] Comment on above: Performed By: #### C T/NGNA #### [facility] [address] [place] [address] Dr. Papo Swanson VAGINITIS/VAGINOSIS DNA PROB Anthony 07-27-2021 Zhane species Positive Abnormal Negative [facility] Comment on above: Performed By: #### E RUR #### [facility] [address] [place] [address] Dr. Papo Swanson Gardnerella vaginalis Negative Normal Negative [facility] Comment on above: Performed By: #### E RUR #### [facility] [address] [place] [address] Dr. Papo Swanson Trichomonas vaginalis Negative Normal Negative [facility] Comment on above: Performed By: #### E RUR #### [facility] [address] [address] [address] Papo Swanson Vital Signs Date Time Vital Sign Value Performing Clinician Shady warner 07-26-2024 13:55-0400 Body weight 68.95 kg Gaviota CHAIDEZ Work Phone: [facility] 07-26-2024 13:55-0400 Diastolic blood pressure 76 mm[Hg] Gaviota CHAIDEZ Work Phone: [facility] 07-26-2024 13:55-0400 Systolic blood pressure 110 mm[Hg] Gaviota Sheridan PA Work Phone: [facility] 07-12-2024 09:23-0400 Body weight 68.04 kg Nikki Rip DO Work Phone: [facility] 07-12-2024 09:23-0400 Diastolic blood pressure 78 mm[Hg] Nikki Rip DO Work Phone: [facility] 07-12-2024 09:23-0400 Systolic blood pressure 104 mm[Hg] Nikki Rip DO Work Phone: [facility] 06-28-2024 15:33-0400 Body weight 67.31 kg Gaviota CHAIDEZ Work Phone: [facility] 06-28-2024 15:33-0400 Diastolic blood pressure 68 mm[Hg] Gaviota Sheridan PA Work Phone: [facility] 06-28-2024 15:33-0400 Systolic blood pressure 104 mm[Hg] Gaviota Sheridan PA Work Phone: [facility] 06-14-2024 13:13-0400 Body weight 65.83 kg Nikki Rip DO Work Phone: [facility] 06-14-2024 13:13-0400 Diastolic blood pressure 70 mm[Hg] Nikki Rip DO Work Phone: [facility] 06-14-2024 13:13-0400 Systolic blood pressure 98 mm[Hg] Nikki Rip DO Work Phone: [facility] 05-27-2024 14:41-0500 Body weight 67.04 kg Gaviota Smitha PA Work Phone: [facility] 05-27-2024 14:41-0500 Diastolic blood pressure 64 mm[Hg] Gaviota Smitha PA Work Phone: [facility] 05-27-2024 14:41-0500 Systolic blood pressure 100 mm[Hg] Gaviota Smitha PA Work Phone: [facility] 04-28-2024 15:17-0500 Body weight 66.13 kg Nikki Rip DO Work Phone: [facility] 04-28-2024 15:17-0500 Diastolic blood pressure 72 mm[Hg] Nikki Rip DO Work Phone: [facility] 04-28-2024 15:17-0500 Systolic blood pressure 100 mm[Hg] Nikki Rip DO Work Phone: [facility] 03-31-2024 16:01-0500 Body weight 63.78 kg Gaviota Smitha PA Work Phone: [facility] 03-31-2024 16:01-0500 Diastolic blood pressure 66 mm[Hg] Gaviota [place] PA Work Phone: [facility] 03-31-2024 16:01-0500 Systolic blood pressure 108 mm[Hg] Gaviota Smitha PA Work Phone: [facility] 02-25-2024 14:04-0500 Body weight 63.23 kg Nikki Rip DO Work Phone: [facility] 02-25-2024 14:04-0500 Diastolic blood pressure 70 mm[Hg] Nikki Rip DO Work Phone: [facility] 02-25-2024 14:04-0500 Systolic blood pressure 110 mm[Hg] Nikki Rip DO Work Phone: [facility] 01-29-2024 13:30-0500 Body weight 64.41 kg Nom Nurse [facility] 01-29-2024 13:30-0500 Diastolic blood pressure 68 mm[Hg] [facility] Nurse [facility] 01-29-2024 13:30-0500 Systolic blood pressure 112 mm[Hg] Nom Nurse [facility] 05-06-2023 11:05-0500 Body weight 61.69 kg Gaviota CHAIDEZ Work Phone: [facility] 05-06-2023 11:05-0500 Diastolic blood pressure 68 mm[Hg] Gaviota CHAIDEZ Work Phone: [facility] 05-06-2023 11:05-0500 Systolic blood pressure 108 mm[Hg] Gaviota CHAIDEZ Work Phone: [facility] Encounters Encounter Date Encounter Type Care Provider Facility Start: 08-02-2024 End: 08-02-2024 Bamboo flowsheet Nikki Rip DO Work Phone: [facility] Start: 08-02-2024 End: 08-02-2024 Bamboo flowsheet Nikki Rip DO Work Phone: [facility] Start: 07-28-2024 End: 07-28-2024 ambulatory NIKKI RIP Not Available Start: 07-26-2024 End: 07-26-2024 Bamboo flowsheet Gaviota CHAIDEZ Work Phone: [facility] Start: 07-26-2024 End: 07-26-2024 Bamboo flowsheet Gaviota CHAIDEZ Work Phone: [facility] Start: 07-26-2024 End: 07-26-2024 Office outpatient visit 15 minutes Gaviota CHAIDEZ Work Phone: [facility] Comment on above: Third trimester preg isi; 35 weeks gestation of ; SGA (small for gestational age) Start: 07-26-2024 End: 07-26-2024 ambulatory GAVIOTA SHERIDAN Not Available Start: 07-12-2024 End: 07-12-2024 Bamboo flowsheet Nikki Rip DO Work Phone: [facility] Start: 07-12-2024 End: 07-12-2024 Bamboo flowsheet Nikki Rip DO Work Phone: [facility] Start: 07-12-2024 End: 07-12-2024 Office outpatient visit 15 minutes Nikki Rip DO Work Phone: [facility] Comment on above: Third trimester preg isi; 33 weeks gestation of Start: 07-12-2024 End: 07-12-2024 ambulatory NIKKI RIP Not Available Start: 06-28-2024 End: 06-28-2024 Office outpatient visit 15 minutes Gaviota CHAIDEZ Work Phone: [facility] Comment on above: 31 weeks gestation o f ; Third trimester ; HSV infection; Low iron; Drug-induced constipation Start: 06-28-2024 End: 06-28-2024 ambulatory GAVIOTA SHERIDAN Not Available Start: 06-14-2024 End: 06-14-2024 Bamboo flowsheet Nikki Rip DO Work Phone: [facility] Start: 06-14-2024 End: 06-14-2024 Bamboo flowsheet Nikki Rip DO Work Phone: [facility] Start: 06-14-2024 End: 06-14-2024 Office outpatient visit 15 minutes Nikki Rip DO Work Phone: [facility] Comment on above: Third trimester preg isi; 28 weeks gestation of ; size inconsistent with dates Start: 06-14-2024 End: 06-14-2024 ambulatory NIKKI RIP Not Available Start: 05-27-2024 End: 05-27-2024 Office outpatient visit 15 minutes Gaviota CHAIDEZ Work Phone: [facility] Comment on above: Low iron; 26 weeks gestation of ; Second trimester Start: 05-27-2024 End: 05-27-2024 ambulatory GAVIOTA SHERIDAN Not Available Start: 05-27-2024 End: 05-27-2024 Bamboo flowsheet Gaviota CHAIDEZ Work Phone: [facility] Start: 05-27-2024 End: 05-27-2024 Bamboo flowsheet Gaviota CHAIDEZ Work Phone: [facility] Start: 05-25-2024 End: 05-25-2024 Clinisync Result Encounter Nikki Rip DO Work Phone: [facility] Unsolicited Start: 05-25-2024 End: 05-25-2024 Clinisync Result Encounter Nikki Rip DO Work Phone: [facility]solic[facility] Start: 05-19-2024 End: 05-19-2024 Clinisync Result Encounter Nikki Rip DO Work Phone: [facility] Unsolic[facility] Start: 05-19-2024 End: 05-19-2024 Clinisync Result Encounter Nikki Rip DO Work Phone: [facility] Unsolicited Start: 04-29-2024 End: 04-29-2024 Clinisync Result Encounter Nikki Rip DO Work Phone: [facility] Unsolic[facility] Start: 04-29-2024 End: 04-29-2024 Clinisync Result Encounter Nikki Rip DO Work Phone: [facility] Unsolic[facility] Start: 04-28-2024 End: 04-28-2024 ambulatory NIKKI RIP Not Available Start: 04-28-2024 End: 04-28-2024 Office outpatient visit 15 minutes Nikki Rip DO Work Phone: [facility] Comment on above: Second trimester pre gnancy; 22 weeks gestation of ; Diabetes mellitus screening Start: 04-28-2024 End: 04-28-2024 Bamboo flowsheet Nikki Rip DO Work Phone: [facility] Start: 04-28-2024 End: 04-28-2024 Bamboo flowsheet Nikki Rip DO Work Phone: [facility] Start: 03-31-2024 End: 03-31-2024 [...] 04-06-2024 Bamboo flowsheet Gaviota CHAIDEZ Work Phone: [facility] Start: 03-31-2024 End: 04-06-2024 Clinisync [...] 01-21-2024 End: 01-21-2024 Emergency department patient visit [facility] Start: 01-21-2024 End: 01-21-2024 Emergency department patient visit [facility] Start: 05-06-2023 Clinisync Result Encounter Nikki Rip DO Work Phone: [facility] Unsolicited Start: 05-06-2023 Clinisync Result Encounter Nikki Rip DO Work Phone: [facility] Unsolic[facility] Start: 05-06-2023 End: 05-06-2023 Postop follow up visit related to original px Gaviota CHAIDEZ Work Phone: [facility] Comment on above: Third trimester preg isi Start: 07-10-2022 End: 07-11-[address] DOCTOR BURTON Facility: Start: 12-26-2021 End: 12-28-2021 Evaluation and management of inpatient DR DOCTOR BURTON Facility:[facility] Start: 12-21-2021 End: 12-22-[address] NIKKI ERWIN . Facility:[facility] Start: 12-12-2021 End: 12-12-[address] NIKKI ERWIN . Facility:[facility] Start: 10-16-2021 End: 10-17-[address] NIKKI ERWIN . Facility:[facility] Start: 08-21-2021 End: 08-22-[address] NIKKI ERWIN . Facility:[facility] Start: 08-01-2021 End: 08-02-[address] NIKKI ERWIN . Facility:[facility] Start: 07-25-2021 End: 07-25-[address] NIKKI ERWIN . Facility: Procedures Date Procedure Procedure Detail Performing Clinician Start: 07-26-2024 Urnls dip stick/tabl et rgnt non-auto w/o micrscp Gaviota CHAIDEZ Work Phone: Start: 07-12-2024 Urnls dip stick/tabl et rgnt non-auto w/o micrscp Nikki Rip DO Work Phone: Start: 06-28-2024 Urnls dip stick/tabl et rgnt non-auto w/o micrscp Gaviota CHAIDEZ Work Phone: Start: 06-14-2024 Urnls dip stick/tabl et rgnt non-auto w/o micrscp Nikki Rip DO Work Phone: Start: 05-27-2024 Urnls dip stick/tabl et rgnt non-auto w/o micrscp Gaviota CHAIDEZ Work Phone: Start: 05-25-2024 US OB CERVICAL LENGTH C orey Rip DO Work Phone: Start: 05-25-2024 US OB PLACENTA Nikki Fa zio DO Work Phone: Start: 05-19-2024 ALL CBC WITH AUTO DIFF Nikki Rip DO Work Phone: Start: 04-29-2024 US OB ANATOMY Nikki Heidi io DO Work Phone: Start: 04-29-2024 US OB CERVICAL LENGTH C orey Rip DO Work Phone: Start: 04-28-2024 Urnls dip stick/tabl et rgnt non-auto w/o micrscp Nikki Rip DO Work Phone: Start: 03-31-2024 RECURRENT VAGINITIS (HTRX) Gaviota CHAIDEZ Work Phone: Start: 03-31-2024 Urnls dip stick/tabl et rgnt non-auto w/o micrscp Gaviota CHAIDEZ Work Phone: Start: 03-31-2024 IGP,APTIMA HPV,AGE GDLN Gaviota CHAIDEZ Work Phone: Start: 02-25-2024 Urnls dip stick/tabl et rgnt non-auto w/o micrscp Nikki Rip DO Work Phone: Start: 02-02-2024 Antibody screen Nikki Chao carrilloio DO Work Phone: Start: 02-02-2024 ALL CBC [...] Work Phone: Start: 02-02-2024 MLR HEMOGLOBIN A1C Core y Rip DO Work Phone: Start: 02-02-2024 RAPID PLASMA REAGIN, QUANT Nikki Rip DO Work Phone: Start: 02-02-2024 [facility] DRUG SCREEN RAPI D (URINE) Nikki Rip DO Work Phone: Start: 01-29-2024 Urnls dip stick/tabl et rgnt non-auto w/o micrscp Nikki Rip DO Work Phone: Start: 05-06-2023 Urnls dip stick/tabl et rgnt non-auto w/o micrscp Gaviota Sheridan PA Work Phone: Start: 05-06-2023 ALL CBC WITH AUTO DIFF Nikki Rip DO Work Phone: Start: 12-26-2021 Delivery of Products of Conception, External Approach DR NIKKI ERWIN . Start: 12-26-2021 Repair Perineum Skin , External Approach DR NIKKI ERWIN . Plan of Treatment Date Care Activity Detail Author Start: 11-22-2024 Influenza vaccination Influenz a Vaccine (Season Ended) [facility] Start: 08-02-2024 End: 08-02-2024 Patient encounter procedure 08/02/2024 10:00 AM EDT Office Visit [facility] [address] [place] [address] Nikki Erwin DO [address] [place] [address] [facility] Start: 07-28-2024 End: 07-28-2024 Professional / ancillary services management 07/28/2024 8:00 AM EDT Ancillary Procedure [facility] [address] [address] [facility] Start: 07-26-2024 End: 11-26-2024 US for US OB follow up transabdominal approach Imaging Routine SGA (small for gestational age) Expected: 07/26/2024, Expires: 11/26/2024 [facility] Work Phone: Comment on above: Expected: 07/26/2024 , Expires: 11/26/2024 Start: 07-26-2024 End: 07-26-2024 Patient encounter procedure [facility] Comment on above: Arrived Start: 07-12-2024 End: 07-12-2024 Patient encounter procedure [facility] Comment on above: Arrived Start: 06-28-2024 End: 06-28-2024 Patient encounter procedure 06/28/2024 3:30 PM EDT Routine [facility] [address] [place] [address] Gaviota Sheridan PA [address] [place] [address] [facility] Start: 06-28-2024 End: 06-28-2024 Professional / ancillary services management 06/28/2024 3:00 PM EDT Ancillary Procedure [facility] [address] [facility] [place] [place] [id number] [facility] Start: 06-14-2024 End: 06-14-2025 US for US OB follow up transabdominal approach Imaging Routine 28 weeks gestation of size inconsistent with dates Expected: 06/14/2024, Expires: 06/14/2025 [facility] Work Phone: Comment on above: Expected: 06/14/2024 , Expires: 06/14/2025 Start: 06-14-2024 End: 06-14-2024 Patient encounter procedure [facility] Comment on above: Arrived Start: 05-27-2024 End: 05-27-2024 Patient encounter procedure [facility] Comment on above: Arrived Start: 04-28-2024 End: 04-28-2024 Patient encounter procedure 04/28/2024 2:50 PM EST Routine [facility] [address] [phone] Nikki Erwin, DO [address] [place] [address] [facility] Start: 04-28-2024 End: 04-28-2025 CBC panel - Blood by Automated count CBC Lab Routine Diabetes mellitus screening Expected: 04/28/2024 (Approximate), Expires: 04/28/2025 [facility] Work Phone: Comment on above: Expected: 04/28/2024 (Approximate), Expires: 04/28/2025 Start: 04-28-2024 End: 04-28-2025 Measurement of glucose 1 hour after glucose challenge for glucose tolerance test Glucose tolerance, 1 hour Lab Routine Diabetes mellitus screening Expected: 04/28/2024 (Approximate), Expires: 04/28/2025 [facility] Comment on above: Expected: 04/28/2024 (Approximate), Expires: 04/28/2025 Start: 03-31-2024 End: 03-31-2024 Patient encounter procedure [facility] Comment on above: Arrived Start: 03-31-2024 End: 09-28-2024 Alpha fetoprotein, maternal Alpha fetoprotein, maternal Lab Routine Second trimester 17 weeks gestation of Expected: 03/31/2024 (Approximate), Expires: 09/28/2024 [facility] Comment on above: Expected: 03/31/2024 (Approximate), Expires: 09/28/2024 Start: 03-31-2024 End: 03-31-2025 US for US OB 14+ weeks anatomy scan Imaging Routine Screening, , for anatomic survey Expected: 03/31/2024, Expires: 03/31/2025 [facility] Comment on above: Expected: 03/31/2024 , Expires: 03/31/2025 Start: 02-25-2024 End: 02-25-2024 Patient encounter procedure 02/25/2024 1:40 PM EST Routine [facility] [address] [phone] Nikki Erwin, DO [address] [place] [address] [facility] Start: 01-29-2024 End: 01-28-2025 ABO/Rh ABO/Rh Lab Routine Missed menses , unspecified gestational age Expected: 01/29/2024 (Approximate), Expires: 01/28/2025 [facility] Comment on above: Expected: 01/29/2024 (Approximate), Expires: 01/28/2025 Start: 01-29-2024 End: 01-28-2025 Blood type and Indirect antibody screen panel - Blood Type and screen Lab Routine Missed menses , unspecified gestational age Expected: 01/29/2024 (Approximate), Expires: 01/28/2025 [facility] Work Phone: Comment on above: Expected: 01/29/2024 (Approximate), Expires: 01/28/2025 Start: 01-29-2024 End: 01-28-2025 Drugs of abuse panel - Urine by Screen method Rapid drug screen, urine Lab Routine , unspecified gestational age Encounter for supervision of normal first in first trimester Expected: 01/29/2024 (Approximate), Expires: 01/28/2025 [facility] Comment on above: Expected: 01/29/2024 (Approximate), Expires: 01/28/2025 Start: 01-29-2024 End: 01-28-2025 US Pelvis transvaginal US OB transvaginal Imaging Routine Missed menses Expected: 01/29/2024 (Approximate), Expires: 01/28/2025 [facility] Comment on above: Expected: 01/29/2024 (Approximate), Expires: 01/28/2025 Start: 11-23-2023 Influenza vaccination Influenza Vacc ine (#1) [facility] Start: 05-20-2023 End: 05-20-2023 Patient encounter procedure 05/20/2023 10:00 AM EST Routine [facility] [address] [phone] Nikki Erwin DO [address] [place] [address] [facility] Start: 05-06-2023 End: 05-06-2023 Patient encounter procedure 05/06/2023 11:20 AM EST Routine [facility] [address] [place] [phone] Gaviota Sheridan PA [address] [place] [address] Third trimester [facility] Comment on above: Third trimester preg isi Bacteria identified in Urine by Culture Urine culture Microbiology Routine Missed menses Ordered: 01/29/2024 [facility] Comment on above: Ordered: 01/29/2024 CBC W Auto Different ial panel - Blood CBC and differential Lab Routine Missed menses , unspecified gestational age Ordered: 01/29/2024 [facility] Comment on above: Ordered: 01/29/2024 CHLAMYDIA TRACHOMATI S (GENITO/STI) CHLAMYDIA TRACHOMATIS (GENITO/STI) Lab Routine STD exposure Ordered: 03/31/2024 [facility] Comment on above: Ordered: 03/31/2024 Cytology Cervical or vaginal smear or scraping study Pap Smear Pathology and Cytology Routine Well woman exam with routine gynecological exam Ordered: 03/31/2024 [facility] Comment on above: Ordered: 03/31/2024 Hemoglobin A1c/Hemoglobin.total in Blood Hemoglobin A1c Lab Routine Missed menses , unspecified gestational age Ordered: 01/29/2024 [facility] Comment on above: Ordered: 01/29/2024 Hepatitis B virus surface Ag [Presence] in Serum or Plasma by Immunoassay Hepatitis B surface antigen Lab Routine Missed menses , unspecified gestational age Ordered: 01/29/2024 [facility] Comment on above: Ordered: 01/29/2024 Hepatitis C virus Ab [Presence] in Serum or Plasma by Immunoassay Hepatitis C antibody Lab Routine Missed menses , unspecified gestational age Ordered: 01/29/2024 [facility] Comment on above: Ordered: 01/29/2024 HIV-1/HIV-2 antigen/antibody combination immunoassay HIV-1 and HIV-2 antibodies Lab Routine Missed menses , unspecified gestational age Ordered: 01/29/2024 [facility] Comment on above: Ordered: 01/29/2024 Neisseria gonorrhoea e DNA [Presence] in Unspecified specimen by PRIYA with probe detection Neisseria gonorrhea DNA probe, direct Lab Routine STD exposure Ordered: 03/31/2024 [facility] Comment on above: Ordered: 03/31/2024 Reagin Ab [Presence] in Serum by RPR RPR Lab Routine Missed menses , unspecified gestational age Ordered: 01/29/2024 [facility] Comment on above: Ordered: 01/29/2024 Rubella antibody, IgG Rubella an tibody, IgG Lab Routine Missed menses , unspecified gestational age Ordered: 01/29/2024 [facility] Comment on above: Ordered: 01/29/2024 SURESWAB(R) ADVANCED VAGINITIS PLUS, TMA SURESWAB(R) ADVANCED VAGINITIS PLUS, TMA Pathology and Cytology Routine Vaginal discharge Ordered: 03/31/2024 [facility] Work Phone: Comment on above: Ordered: 03/31/2024 Payers Date Payer Category Payer Worker's Compensation [id number] 2022 Medicaid [id number] 2022 Medicaid [id number] 2001 Unknown [id number] 2.16.84 0.1.278401.3.579.2.593 2001 Unknown [id number] 2.16.84 0.1.432004.3.579.2.593 2001 Unknown [id number] 2.16.84 0.1.963220.3.579.2.593 2001 Unknown [id number] 2.16.84 0.1.403414.3.579.2.593 2001 Unknown [id number] 2.16.84 0.1.421578.3.579.2.593 2001 Unknown [id number] 2.16.84 0.1.684460.3.579.2.593 2001 Unknown [id number] 2.16.84 0.1.810862.3.579.2.593 2001 Unknown [id number] 2.16.84 0.1.327407.3.579.2.593 2001 Unknown [id number] 2.16.8 40.1.304051.3.579.2.1286 2001 Unknown [id number] 2.16.8 40.1.450306.3.579.2.1286 2001 Unknown [id number] 2.16.84 0.1.059840.3.579.2.1259 2001 Unknown [id number] 2.16.84 0.1.287053.3.579.2.1259 2001 Unknown [id number] 2.16.84 0.1.777972.3.579.2.1259 2001 Unknown [id number] 2.16.84 0.1.859550.3.579.2.1259 2001 Unknown [id number] 2.16.84 0.1.374187.3.579.2.1259 2001 Unknown [id number] 2.16.84 0.1.300655.3.579.2.1259 2001 Unknown [id number] 2.16.84 0.1.407258.3.579.2.1259 2001 Unknown [id number] 2.16.84 0.1.215223.3.579.2.1259 2001 Unknown [id number] 2.16.84 0.1.669337.3.579.2.1259 2001 Unknown [id number] 2.16.84 0.1.368384.3.579.2.1259 2001 Unknown [id number] 2.16.84 0.1.802634.3.579.2.1259 1959 Unknown [id number] Social History Date Type Detail Facility Tobacco smoking stat [facility] Tobacco smoking consumption unknown [facility] Start: 11-05-2022 [facility] Start: 2001 Sex Assigned At Not on file [facility] Gender identity Not on file [facility] Clinical Notes 05-06-2023 to 07-26-2024 DM Chang - 07/26/2024 1:50 PM Rose Marie Patel LPN - 07/12/2024 9:30 AM DM Garcia - 06/28/2024 3:30 PM Rose Marie Patel LPN - 06/14/2024 1:00 PM DM Garcia - 05/27/2024 2:30 PM EST Note Date & Type Note Facility 07-26-2024 History of Presen t illness Narrative Reason for Appointment: Patient ID: Shy Han is a 24 y.o. female who presents for Routine Visit Patient presents today for Return OB appointment. MEDICATIONS Current Outpatient Medications Medication Instructions docusate sodium (COLACE) 100 mg, Oral, 2 times daily PRN ferrous sulfate (FE TABS) 325 mg, Oral, Daily with breakfast, Do not crush, chew, or split. Vit-Fe Fumarate-FA (PNV Plus Multivitamin) 27-1 MG tablet 1 tablet, Oral, Daily valACYclovir (VALTREX) 500 mg, Oral, Daily ALLERGIES No Known Allergies PROBLEMS Active Ambulatory Problems Diagnosis Date Noted Low iron 05/27/2024 26 weeks gestation of 05/27/2024 Second trimester 05/27/2024 Resolved Ambulatory Problems Diagnosis Date Noted No [...] weight on file to calculate BMI. BP: 110/76 Patient's last menstrual period was 11/24/2023. ASSESSMENT & PLAN ICD-10-CM 1. Third trimester Z34.93 POCT urinalysis dipstick manually resulted 2. 35 weeks gestation of Z3A.35 Return OB: Patient presents today for a routine obstetrics appointment. Patient is currently 35w0d . Patient states she is doing well but has complaints of being tired due to current . Patient has verbalizes frequent movement. labor precautions was discussed/given and patient was instructed to perform kick counts three times a day. Orders Placed This Encounter Procedures POCT urinalysis dipstick manually resulted Follow Up: Patient is to return to office in 1 week for routine OB appointment. Documented by Mary Flores MA on behalf of: DM Chang documented in this encounter [facility] 07-12-2024 History of Presen t illness Narrative Reason for Appointment: Patient ID: Shy Han is a 24 y.o. female who presents for Routine Visit Patient presents today for Return OB appointment. MEDICATIONS Current Outpatient Medications Medication Instructions docusate sodium (COLACE) 100 mg, Oral, 2 times daily PRN ferrous sulfate (FE TABS) 325 mg, Oral, Daily with breakfast, Do not crush, chew, or split. Vit-Fe Fumarate-FA (PNV Plus Multivitamin) 27-1 MG tablet 1 tablet, Oral, Daily valACYclovir (VALTREX) 500 mg, Oral, Daily ALLERGIES No Known Allergies PROBLEMS Active Ambulatory Problems Diagnosis Date Noted Low iron 05/27/2024 26 weeks gestation of 05/27/2024 Second trimester 05/27/2024 Resolved Ambulatory Problems Diagnosis Date Noted No [...] nursing note reviewed. Exam conducted with a food service ambassador present. Vitals: There is no height or weight on file to calculate BMI. BP: 104/78 Patient's last menstrual period was 11/24/2023. ASSESSMENT & PLAN ICD-10-CM 1. Third trimester Z34.93 POCT urinalysis dipstick manually resulted 2. 33 weeks gestation of Z3A.33 Patient presents today for a routine obstetrics appointment. Patient is currently 33w0d with a Estimated Date of Delivery: 08/30/24. Confirmed patient is taking HSV medication daily for suppression. Patient is set for IOL on 08/23/24. Patient to return to clinic in 2 weeks for routine ob care. Documented by Katharina Patel LPN on behalf of: Nikki Erwin DO documented in this encounter [facility] 06-28-2024 History of Presen t illness Narrative Reason for Appointment: Patient ID: Shy Han is a 24 y.o. female who presents for Routine Visit Patient presents today for Return OB appointment. MEDICATIONS Current Outpatient Medications Medication Instructions docusate sodium (COLACE) 100 mg, Oral, 2 times daily PRN ferrous sulfate (FE TABS) 325 mg, Oral, Daily with breakfast, Do not crush, chew, or split. Vit-Fe Fumarate-FA (PNV Plus Multivitamin) 27-1 MG tablet 1 tablet, Oral, Daily valACYclovir (VALTREX) 500 mg, Oral, Daily ALLERGIES No Known Allergies PROBLEMS Active Ambulatory Problems Diagnosis Date Noted Low iron 05/27/2024 26 weeks gestation of 05/27/2024 Second trimester 05/27/2024 Resolved Ambulatory Problems Diagnosis Date Noted No [...] SYSTEMS Review of Systems: Review of Systems All other systems reviewed and are negative. OBJECTIVE Objective: Physical Exam Constitutional: Appearance: Normal [...] nursing note reviewed. Exam conducted with a food service ambassador present. Vitals: There is no height or weight on file to calculate BMI. BP: 104/68 Patient's last menstrual period was 11/24/2023. ASSESSMENT & PLAN ICD-10-CM 1. 31 weeks gestation of Z3A.31 POCT urinalysis dipstick manually resulted 2. Third trimester Z34.93 POCT urinalysis dipstick manually resulted 3. HSV infection B00.9 valACYclovir (Valtrex) 500 MG tablet 4. Low iron E61.1 ferrous sulfate (Fe Tabs) 325 (65 Fe) MG EC tablet 5. Drug-induced constipation K59.03 docusate sodium (Colace) 100 MG capsule Return OB: Patient presents today for a routine obstetrics appointment. Patient is currently 31w0d . Patient states she is doing well but has complaints of being tired due to current . Patient has verbalizes frequent movement. labor precautions was discussed/given and patient was instructed to perform kick counts three times a day. Patient to start Valtrex at 32 weeks script sent. Patient states Profe is to big to swallow. Ferrous sulfate sent to pharmacy along with Colace for the patient. Orders Placed This Encounter Procedures POCT urinalysis dipstick manually resulted Follow Up: Patient is to return to office in 2 week for routine OB appointment. Documented by Stephany Stoll LPN on behalf of: DM Chang documented in this encounter [facility] 06-14-2024 History of Presen t illness Narrative Reason for Appointment: Patient ID: Shy Han is a 24 y.o. female who presents for Routine Visit Patient presents today for Return OB appointment. MEDICATIONS Current Outpatient Medications Medication Instructions iron polysaccharides (PROFE) 391.3 mg, Oral, Daily Vit-Fe Fumarate-FA (PNV Plus Multivitamin) 27-1 MG tablet 1 tablet, Oral, Daily valACYclovir (Valtrex) 500 MG tablet Every 24 hours ALLERGIES No Known Allergies PROBLEMS Active Ambulatory Problems Diagnosis Date Noted Low iron 05/27/2024 26 weeks gestation of 05/27/2024 Second trimester 05/27/2024 Resolved Ambulatory Problems Diagnosis Date Noted No [...] SYSTEMS Review of Systems: Review of Systems All other systems reviewed and are negative. OBJECTIVE Objective: Physical Exam Constitutional: Appearance: Normal [...] nursing note reviewed. Exam conducted with a food service ambassador present. Vitals: There is no height or weight on file to calculate BMI. BP: 98/70 Patient's last menstrual period was 11/24/2023. ASSESSMENT & PLAN ICD-10-CM 1. Third trimester Z34.93 POCT urinalysis dipstick manually resulted 2. 28 weeks gestation of Z3A.28 3. size inconsistent with dates O26.849 Patient presents today for a routine obstetrics appointment. Patient is currently 29w0d with a Estimated Date of Delivery: 08/30/24. Patient given growth scan to have done prior to next appointment. Documented by Katharina Patel LPN on behalf of: Nikki Erwin DO documented in this encounter [facility] 05-27-2024 History of Presen t illness Narrative Reason for Appointment: Patient ID: Shy Han is a 24 y.o. female who presents for No chief complaint on file. Patient presents today for Return OB appointment. MEDICATIONS Current Outpatient Medications Medication Instructions iron polysaccharides (PROFE) 391.3 mg, Oral, Daily Vit-Fe Fumarate-FA (PNV Plus Multivitamin) 27-1 MG [...] SYSTEMS Review of Systems: Review of Systems All other systems reviewed and are negative. OBJECTIVE Objective: Physical Exam Constitutional: Appearance: Normal [...] nursing note reviewed. Exam conducted with a food service ambassador present. Vitals: There is no height or weight on file to calculate BMI. BP: Patient's last menstrual period was 11/24/2023. ASSESSMENT & PLAN ICD-10-CM 1. Low iron E61.1 iron polysaccharides (ProFe) 391.3 (180 Fe) MG capsule Patient presents today for a routine obstetrics appointment. Patient is currently 26w3d with a Estimated Date of Delivery: 08/30/24. Patient aware that her iron levels were lower and that Profe was sent to pharmacy and if patient decides to take supplement she has medication there for her. Patient had questions in regards to her recent ultrasounds and would like to know results of Placenta and cervical length. Results printed for review. Reviewed US with patient and patient is cleared to resume normal activities as placenta is no longer low lying. Patient to return to clinic in 2-3 weeks. Documented by Katharina Patel LPN on behalf of: DM Chang documented in this encounter [facility] 04-28-2024 History of Presen t illness Narrative Reason for Appointment: Patient ID: Shy Han is a 24 y.o. female who presents [...] nursing note reviewed. Exam conducted with a food service ambassador present. Vitals: There is no height or weight on file to calculate BMI. BP: 100/72 Patient's last menstrual period was 11/24/2023. ASSESSMENT & PLAN ICD-10-CM 1. Second trimester Z34.92 POCT urinalysis dipstick manually resulted 2. 22 weeks gestation of Z3A.22 3. Diabetes mellitus screening Z13.1 CBC Glucose tolerance, 1 hour CBC Glucose tolerance, 1 hour Patient presents today for a routine obstetrics appointment. Patient is currently 22w2d with a Estimated Date of Delivery: 08/30/24. Pt to return in 4 weeks for scheduled ob appt. Documented by Aylin Cummings LPN on behalf of: Nikki Erwin DO documented in this encounter [facility] 03-31-2024 History of Presen t illness Narrative Reason for Appointment: Patient ID: Shy Han is a 24 y.o. female who presents [...] obtained without difficulty and [facility]. Orders Placed This Encounter Procedures US OB 14+ weeks anatomy scan CHLAMYDIA TRACHOMATIS (GENITO/STI) Neisseria gonorrhea DNA probe, direct Alpha fetoprotein, maternal POCT urinalysis dipstick manually resulted Follow Up: Patient is to return to our office in 4 weeks for routine OB appointment Documented by Katharina Patel LPN on behalf of: DM Chang documented in this encounter [facility] 02-25-2024 History of Presen t illness Narrative Reason for Appointment: Patient ID: Shy Han is a 24 y.o. female who presents [...] nursing note reviewed. Exam conducted with a food service ambassador present. Vitals: There is no height or [...] or undercooked meat, and stay away from [facility]. Patient has been consulted regarding any further do's and don'ts of . Patient voiced understanding and all questions and concerns were answered. Orders Placed This Encounter Procedures POCT urinalysis dipstick manually resulted Follow Up: Patient is to return in 4 weeks for routine OB appointment. Documented by Aylin Cummings LPN on behalf of: Nikki Erwin DO documented in this encounter [facility] 01-29-2024 History of Presen t illness Narrative Reason for Appointment: Patient ID: Shy Han is a 24 y.o. female who presents [...] or undercooked meat, and stay away from [facility]. Patient has also been advised to not [...] Mary Flores MA documented in this encounter [facility] 05-06-2023 History of Presen t illness Narrative Reason for Appointment: Patient ID: Shy Han is a 23 y.o. female who presents [...] in this encounter [facility] Evaluation note Diagnosis Third trimester state, incidental [facility] Diagnosis Missed menses , unspecified gestational age Encounter for supervision of normal first in first trimester Nausea and vomiting in Unspecified vomiting of , unspecified as to episode of care [facility]* Diagnosis 13 weeks gestation of Second trimester state, incidental [facility]* Diagnosis Second trimester state, incidental 17 weeks gestation of Well woman exam with routine gynecological exam Routine gynecological examination Vaginal discharge Leukorrhea, not specified as infective STD exposure Screening, , for anatomic survey Encounter for anatomic survey [facility] Diagnosis Second trimester state, incidental 22 weeks gestation of Diabetes mellitus screening Screening for diabetes mellitus documented [facility]* Diagnosis Low iron Unspecified iron deficiency anemia 26 weeks gestation of Second trimester state, incidental [facility]* Diagnosis Third trimester state, incidental 28 weeks gestation of size inconsistent with dates [facility]* Diagnosis 31 weeks gestation of Third trimester state, incidental 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 Low iron Unspecified iron deficiency anemia Drug-induced constipation Other constipation [facility] Diagnosis Third trimester state, incidental 33 weeks gestation of documented [facility]* Diagnosis Third trimester state, incidental 35 weeks gestation of SGA (small for gestational age) [id number] without mention of malnutrition, unspecified (weight) documented in this encounter [facility] Summary Purpose Family History No Family History Records FoundNo Family History Records FoundNo Family History Records Found Advance Directives No Advanced Directives Records FoundNo Advanced Directives Records FoundNo Advanced Directives Records Found Additional Source Comments INFORMATION SOURCE (unrecogn ized section and content) DATE CREATED AUTHOR 07/13/2022 [facility] DATE CREATED AUTHOR AUTHOR'S ORGANIZ ATION 01/23/2024 [facility] DATE CREATED AUTHOR AUTHOR'S ORGANIZ ATION 08/02/2024 [facility] EPIC Reason for Visit (unrecogniz ed section and content) Reason Comments Routine Visit Reason Comments Amenorrhea Reason Comments Well Women Visit Routine Visit STI Screening Care Teams (unrecognized sec tion and content) Spark Tester Relationship Specialty Start Date End Date Nikki Erwin, DO [address], [id number] PCP - [facility] 12/23/23 Spark Tester Relationship Specialty Start Date End Date Guanakito Erwiny, DO [address], [id number] PCP - [facility] 12/23/23 Spark Tester Relationship Specialty Start Date End Date Nikki Erwin, DO [address], [id number] PCP - [facility] Bernardo [facility] 12/23/23 Spark Tester Relationship Specialty Start Date End Date Nikki Erwin, DO [address], [id number] PCP - [facility] Bernardo [facility] 12/23/23 Spark Tester Relationship Specialty Start Date End Date Nikki Erwin, DO [address], [id number] PCP - [facility]ardo [facility] 12/23/23 Spark Tester Relationship Specialty Start Date End Date Nikki Erwin, DO [address] [place] [id number] PCP - [facility] Bernardo [facility] 12/23/23 Spark Tester Relationship Specialty Start Date End Date Nikki Erwin, DO [address] [place] [address] PCP - [facility] 12/23/23 Spark Tester Relationship Specialty Start Date End Date RipGuanakitoy, DO [address] [place] [address] PCP - [facility] 12/23/23 Spark Tester Relationship Specialty Start Date End Date Rip, Nikki, DO [address] [place] [address] PCP - [facility] 12/23/23 Spark Tester Relationship Specialty Start Date End Date Rip, Nikki, DO [address] [place] [address] PCP - [facility] 12/23/23 Spark Tester Relationship Specialty Start Date End Date Rip Nikki, DO [address] [place] [address] PCP - [facility] 12/23/23 Spark Tester Relationship Specialty Start Date End Date RipGuanakitoy, DO [address] [place] [address] PCP - [facility] 12/23/23 Spark Tester Relationship Specialty Start Date End Date Rip, Nikki, DO [address] [place] [address] PCP - [facility] 12/23/23 FOR RECORDS PERTAINING TO PATIENTS WHO [...] BE BASED ON THE PRIMARY CLINICAL RECORDS. [employer] [facility]. provides no warranty or guarantee of the accuracy or completeness of information in this document.
== END 2024-08-02 15:40 | disposition home or self-care (01) ==
LOC: LAB 15:39
PROVIDERS: Visit Provider Obstetrics & Gynecology
DX: Z34.93 Encounter for supervision of normal pregnancy, unspecified, third trimester (principal)
CPT/HCPCS: 87081

== ENCOUNTER 2024-08-10 18:38 | Observation (INO) | payer MEDICAID, SELFPAY ==
--- OUTSIDE RECORDS SUMMARY | 2024-08-10 18:45 | XMS_ITS | CCD ---
Author Organization [facility] Care Team Providers Care Certified Medical Technician Assistant Name Role Phone RIP ., DR JORDAN [...] JORDAN Consulting Unavailable Unavailable Primary Care Provider Unavailabl e SERVICES, [facility] Primary Care Unava ilable IVAN, SHANA Attending Unavailable ALANA, WIL Attending Unavailable WIL WARNER Referring Unavailable SERVICES, [facility] Unava ilable Rip MILLER Nikki Unavailable NIKKI ERWIN Attending Unavailable GAVIOTA SHERIDAN Attending Unavailable RIP, NIKKI Attending Unavailable NIKKI ERWIN Referring Unavailable ARVINGAVIOTA PAEZ Attending Unavailable NIKKI ERWIN Attending Unavailable IRP, NIKKI Attending Unavailable GAVIOTA SHERIDAN Attending Unavailable ARVIN, GAVIOTA Attending Unavailable RIP, NIKKI Attending Unavailable GABI JAIN Attending Unavailable Medications Current Medications Medication Drug Class(es) Dates Sig (Normalized) Sig (Original) docusate sodium 100 mg oral capsule (14 sources) Start: 06-28-2024 End: 12-25-2024 take 1 capsule by mouth twice daily as needed for constipation docusate sodium (Colace) 100 MG capsule Indications: Drug-induced constipation Take 1 capsule (100 mg) by mouth 2 (two) times a day as needed for constipation 30 capsule 11 06/28/2024 12/25/2024 Active ferrous sulfate 325 mg delayed release oral tablet (14 sources) Start: 06-28-2024 End: 06-28-2025 take 1 [...] [Irregular menstruation, unspecified] 01-29-2024 Chronic Nutritional deficiencies (20 sources) Serum iron low; Translations: [Iron deficiency] [...] of ] 04-28-2024 Episodic Residual codes; unclassified (20 sources) Gestation period, 26 weeks; Translations: [26 [...] [35 weeks gestation of ] 07-26-2024 Episodic Residual codes; unclassified (2 sources) Gestation period, 36 weeks; Translations: [36 weeks gestation of ] 08-02-2024 Episodic Residual codes; unclassified (2 sources) Gestation period, 37 weeks; Translations: [37 weeks gestation of ] 08-09-2024 Episodic Short gestation; low weight; and growth retardation (2 sources) Zyifn-xzw-gykik baby; Translations: [[place] small for gestational age, unspecified weight] 07-26-2024 [...] Test Name Value Interpretation Reference Range Facility Urinalysis macro (dipstick) panel (U)on 08-09-2024 Bilirubin, UA Negative Negative - 4(70) +++ mg/dL [facility] Blood, UA Negative Negative - 50 Chidi/mcL [facility] Clarity, UA Clear [facility] Color, UA Yellow [facility] Glucose, UA Negative Negative - 1999(110) ++++ mg/dL [facility] Interpretation and review of laboratory results Normal [facility] Ketones, UA Negative Negative - 160(16) ++++ mg/dL [facility] Leukocytes, UA Negative Negative - 500+++ Gabi/mcL [facility] Nitrite, UA Negative Negative - Positive [facility] pH, UA 6.5 5 - 9 [facility] Protein, UA Negative Negative - 1999(20) ++++ mg/dL [facility] Spec Grav, UA 1.015 1 - 1.03 [facility] Urobilinogen, UA 0.2 0.2 - 12 mg/dL [facility] Urinalysis macro (dipstick) panel (U)on 08-02-2024 Bilirubin, UA Positive Negative - 4(70) +++ mg/dL [facility] Comment on above: small Blood, UA Negative Negative - 50 Chidi/mcL [facility] Clarity, UA Clear [facility] Color, UA Yellow [facility] Glucose, UA Negative Negative - 1999(110) ++++ mg/dL [facility] Interpretation and review of laboratory results Abnormal [facility] Ketones, UA Positive Negative - 160(16) ++++ mg/dL [facility] Comment on above: trace Leukocytes, UA Positive Negative - 500+++ Gabi/mcL [facility] Comment on above: large Nitrite, UA Negative Negative - Positive [facility] pH, UA 6 5 - 9 [facility] Protein, UA Positive Negative - 1999(20) ++++ mg/dL [facility] Comment on above: 100 Spec Grav, UA 1.03 1 - 1.03 [facility] Urobilinogen, UA 1.0 0.2 - 12 mg/dL [facility] US OB LIMITED 1+ FETUSESon 0 07-28-2024 [...] II, MD, PHD at 01-Aug-2024 08:19:12 PM [facility] Normal Not Available Comment on above: Order Comment: US OB PLACENTA W US OB TRANSVAGINAL Estimated Date of Delivery: 08/30/24 Gestational Age as of 05/21/2024: 25w4d Urinalysis macro (dipstick) panel (U)on 07-26-2024 Bilirubin, UA Negative Negative - 4(70) +++ mg/dL [facility] Blood, UA Negative Negative - 50 Chidi/mcL [facility] Clarity, UA Clear [facility] Color, UA Yellow [facility] Glucose, UA Negative Negative - 1999(110) ++++ mg/dL [facility] Interpretation and review of laboratory results Abnormal [facility] Ketones, UA Negative Negative - 160(16) ++++ mg/dL [facility] Leukocytes, UA Positive Negative - 500+++ Gabi/mcL [facility] Comment on above: small Nitrite, UA Negative Negative - Positive [facility] pH, UA 7.5 5 - 9 [facility] Protein, UA Trace Negative - 1999(20) ++++ mg/dL [facility] Spec Grav, UA 1.02 1 - 1.03 [facility] Urobilinogen, UA 0.2 0.2 - 12 mg/dL [facility] Urinalysis macro (dipstick) panel (U)on 07-12-2024 Bilirubin, UA Negative Negative - 4(70) +++ mg/dL [facility] Blood, UA Positive Negative - 50 Chidi/mcL [facility] Comment on above: Trace-lysed Clarity, UA Clear [facility] Color, UA Yellow [facility] Glucose, UA Negative Negative - 2000(110) ++++ mg/dL [facility] Interpretation and review of laboratory results Abnormal [facility] Ketones, UA Negative Negative - 160(16) ++++ mg/dL [facility] Leukocytes, UA Positive Negative - 500+++ Gabi/mcL [facility] Comment on above: Moderate Nitrite, UA Negative Negative - Positive [facility] pH, UA 6 5 - 9 [facility] Protein, UA Positive Negative - 2000(20) ++++ mg/dL [facility] Comment on above: 30mg/dL Spec Grav, UA 1.025 1 - 1.03 [facility] Urobilinogen, UA 0.2 0.2 - 12 [...] II, MD, PHD at 29-Jun-2024 11:30:38 PM [facility] Normal Not Available Comment on above: Order Comment: US OB SCAN FOR GROWTH Estimated Date of Delivery: 08/30/24 Gestational Age as of 06/14/2024: 29w0d Urinalysis macro (dipstick) panel (U)on 06-28-2024 Bilirubin, UA Negative Negative - 4(70) +++ mg/dL [facility] Blood, UA Negative Negative - 50 Chidi/mcL [facility] Clarity, UA Clear [facility] Color, UA Yellow [facility] Glucose, UA Negative Negative - 1999(110) ++++ mg/dL [facility] Interpretation and review of laboratory results Abnormal [facility] Ketones, UA Negative Negative - 160(16) ++++ mg/dL [facility] Leukocytes, UA Positive Negative - 500+++ Gabi/mcL [facility] Comment on above: small Nitrite, UA Negative Negative - Positive [facility] pH, UA 7 5 - 9 [facility] Protein, UA Positive Negative - 2000(20) ++++ mg/dL [facility] Comment on above: 30 Spec Grav, UA 1.025 1 - 1.03 [facility] Urobilinogen, UA 0.2 0.2 - 12 mg/dL [facility] Urinalysis macro (dipstick) panel (U)on 06-14-2024 Bilirubin, UA Positive Negative - 4(70) +++ mg/dL [facility] Comment on above: small Blood, UA Negative Negative - 50 Chidi/mcL [facility] Clarity, UA Clear [facility] Color, UA Yellow [facility] Glucose, UA Negative Negative - 2000(110) ++++ mg/dL [facility] Interpretation and review of laboratory results Abnormal [facility] Ketones, UA Positive Negative - 160(16) ++++ mg/dL [facility] Comment on above: 80mg/dL Leukocytes, UA Positive Negative - 500+++ Gabi/mcL [facility] Comment on above: small Nitrite, UA Negative Negative - Positive [facility] pH, UA 7 5 - 9 [facility] Protein, UA Positive Negative - 1999(20) ++++ mg/dL [facility] Comment on above: 100mg/dL Spec Grav, UA 1.025 1 - 1.03 [facility] Urobilinogen, UA 1.0 0.2 - 12 mg/dL [facility] Urinalysis macro (dipstick) panel (U)on 05-27-2024 Bilirubin, UA Negative Negative - 4(70) +++ mg/dL [facility] Blood, UA Negative Negative - 50 Chidi/mcL [facility] Clarity, UA Clear [facility] Color, UA Yellow [facility] Glucose, UA Negative Negative - 1999(110) ++++ mg/dL [facility] Interpretation and review of laboratory results Abnormal [facility] Ketones, UA Negative Negative - 160(16) ++++ mg/dL [facility] Leukocytes, UA 1+ Negative - 500+++ Gabi/mcL [facility] Comment on above: small Nitrite, UA Negative Negative - Positive [facility] pH, UA 6 5 - 9 [facility] Protein, UA Trace Negative - 1999(20) ++++ mg/dL [facility] Spec Grav, UA 1.03 1 - 1.03 [facility] Urobilinogen, UA 0.2 0.2 - 12 mg/dL [facility] No Panel InformationOrdered By: Radiologist Radiology on 05-25-2024 [facility] Work Phone: No Panel Informationon 05-25 Radiology Study observation (narrative) [facility] [place] [address] Ultrasound Report Signed Patient: SHY HAN MR#: [id number] : 2000 Acct:[id number] Age/Sex: 24 / F ADM Date: 05/25/24 Loc: US Attending Dr: Nikki Erwin D.O. Ordering Physician: Nikki Erwin D.O. Date of Service: 05/25/24 Procedure(s): US OB cervical length Accession Number(s): [id number] cc: Nikki Erwin D.O.; Physician,Non-Staff Daniel The [address] [address] Patient Name: SHY HAN MRN: [facility]:[id number] date: 2000 Sex: F Assigned Patient Location: US Current Patient Location: US Accession/Order Number: [id number] Exam Date: 05/25/2024 22:23 Report Date: 05/25/2024 [...] Cox Jr., D.O.05/25/2024 10:29 PM Dictation Location: [place] [address] Electronically authenticated by: [id number] Y Date: 05/25/2024 22:29 Dictated By: Jason Cox M.D. Signed By: 05/25/242231 DD/ 28 TD/TT: Armature Winder Repair Helper: [facility] Radiology, Radiologist, MD - 05/25/[address] [address] Ultrasound Report Signed Patient: SHY HAN MR#: [id number] : 2000 Acct:[id number] Age/Sex: 24 / F ADM Date: 05/25/24 Loc: US Attending Dr: Nikki Erwin D.O. Ordering Physician: Nikki Erwin D.O. Date of Service: 05/25/24 Procedure(s): US OB cervical length Accession Number(s): [id number] cc: Nikki Erwin D.O.; Physician,Non-Staff Daniel [address] [address] Patient Name: SHY HAN MRN: [id number] date: 2000 Sex: F Assigned Patient Location: US Current Patient Location: US Accession/Order Number: [id number] Exam Date: 05/25/2024 22:23 Report Date: 05/25/2024 [...] Cox Jr., D.O.05/25/2024 10:29 PM Dictation Location: [place] [address] Electronically authenticated by: [id number] Y Date: 05/25/2024 22:29 Dictated By: Jason Cox M.D. Signed By: 05/25/242231 DD/ 28 TD/TT: Armature Winder Repair Helper[facility] PLACENTAon 05-25-2024 [place] [address] Ultrasound Report Signed Patient: SHY HAN MR#: [id number] : 2000 Acct:[id number] Age/Sex: 24 / F ADM Date: 05/25/24 Loc: US Attending Dr: Nikki Erwin D.O. Ordering Physician: Nikki Erwin D.O. Date of Service: 05/25/24 Procedure(s): US OB placenta Accession Number(s): [id number] cc: Nikki Erwin D.O.; Physician,Non-Staff Daniel The [place] [address] Patient Name: SHY HAN MRN: [facility]:[id number] date: 2000 Sex: F Assigned Patient Location: US Current Patient Location: US Accession/Order Number: [id number] Exam Date: 05/25/2024 22:23 Report Date: 05/25/2024 [...] Cox Jr., D.O.05/25/2024 10:29 PM Dictation Location: [place] [address] Electronically authenticated by: [id number] Y Date: 05/25/2024 22:29 Dictated By: Jason Cox M.D. Signed By: 05/25/242231 DD/ 28 TD/TT: Armature Winder Repair Helper: [facility] Radiology, Radiologist, MD - 05/25/2024 [place] [address] Ultrasound Report Signed Patient: SHY HAN MR#: [id number] : 2000 Acct:[id number] Age/Sex: 24 / F ADM Date: 05/25/24 Loc: US Attending Dr: Nikki Erwin D.O. Ordering Physician: Nikki Erwin D.O. Date of Service: 05/25/24 Procedure(s): US OB placenta Accession Number(s): [id number] cc: Nikki Erwin D.O.; Physician,Non-Staff Daniel [place] [id number] Patient Name: SHY HAN MRN: [facility]:[id number] date: 2000 Sex: F Assigned Patient Location: US Current Patient Location: US Accession/Order Number: [id number] Exam Date: 05/25/2024 22:23 Report Date: 05/25/2024 [...] Cox Jr., D.O.05/25/2024 10:29 PM Dictation Location: [place] [address] Electronically authenticated by: [id number] Y Date: 05/25/2024 22:29 Dictated By: Jason Cox M.D. Signed By: 05/25/242231 DD/ 28 TD/TT: Armature Winder Repair Helper: [facility] ALL CBC WITH AUTO DIFFon BASOPHILS ABSOLUTE AUTO 0 [facility] Basophils/100 WBC (Bld) 0.4 % 0.2 - 2.0 % [facility] Eosinophils/100 WBC (Bld) 0.2 % Low 0.9 - 7.0 % [facility] Erythrocyte distribution width (RBC) [Ratio] 12.4 % 11.0 - 15.0 % [facility] Hematocrit (Bld) [Volume fraction] 31.6 % Low 36.0 - 48.0 % [facility] Hemoglobin (Bld) [Mass/Vol] 10.8 g/dL Low 12.0 - 16.0 g/dL [facility] IMMATURE GRANULOCYTES ABS AUTO 0.07 High [facility] Immature granulocytes/100 WBC (Bld) 1.4 % High 0.0 - 0.5 % [facility] Interpretation and review of laboratory results Abnormal [facility] LYMPHOCYTES ABSOLUTE AUTO 0.9 Low [facility] Lymphocytes/100 WBC (Bld) 17.5 % Low 20.5 - 60.0 % [facility] MCH (RBC) [Entitic mass] 30.5 pg 26.7 - 34.0 pg [facility] MCHC (RBC) [Mass/Vol] 34.2 g/dL 29.9 - 35.2 g/dL [facility] MCV (RBC) [Entitic vol] 89.3 fL 81.0 - 99.0 fL [facility] MONOCYTES ABSOLUTE AUTO 0.5 [facility] Monocytes/100 WBC (Bld) 9.3 % 1.7 - 12.0 % [facility] NEUTROPHILS ABSOLUTE AUTO 3.6 [facility] Neutrophils/100 WBC (Bld) 71.2 % 43.0 - 75.0 % [facility] Platelet mean volume (Bld) [Entitic vol] 10.4 fL 9.5 - 13.5 fL [facility]H EO # 0 [facility] PLT 216 [facility] RBC 3.54 Low [facility] WBC 5 [facility] No Panel InformationOrdered By: Radiologist Radiology on 04-29-2024 [facility] Work Phone: No Panel Informationon 04-29 Radiology Study observation (narrative) [facility] US OB ANATOMYon 04-29-[address] [address] Ultrasound Report Signed Patient: SHY HAN MR#: [id number] : 2000 Acct:[id number] Age/Sex: 24 / F ADM Date: 04/29/24 Loc: US Attending Dr: Nikki Erwin D.O. Ordering Physician: Nikki Erwin D.O. Date of Service: 04/29/24 Procedure(s): US OB anatomy Accession Number(s): [id number] cc: Nikki Erwin D.O.; Physician,Non-Staff Daniel [address] [address] Patient Name: SHY HAN MRN: [facility]:[id number] date: 2000 Sex: F Assigned Patient Location: US Current Patient Location: US Accession/Order Number: [id number] Exam Date: 04/29/2024 15:00 Report Date: 04/29/2024 [...] Signed By: 04/29/24 1603 DD/ 1600 TD/TT: Armature Winder Repair Helper: [facility] Radiology, Radiologist, MD - 04/29/2024 [place] [address] Ultrasound Report Signed Patient: SHY HAN MR#: [id number] : 2000 Acct:[id number] Age/Sex: 24 / F ADM Date: 04/29/24 Loc: US Attending Dr: Nikki Erwin D.O. Ordering Physician: Nikki Erwin D.O. Date of Service: 04/29/24 Procedure(s): US OB anatomy Accession Number(s): [id number] cc: Nikki Erwin D.O.; Physician,Non-Staff Daniel The [place] [address] Patient Name: SHY HAN MRN: [facility]:[id number] date: 2000 Sex: F Assigned Patient Location: US Current Patient Location: US Accession/Order Number: [id number] Exam Date: 04/29/2024 15:00 Report Date: 04/29/2024 [...] Signed By: 04/29/24 1603 DD/ 1600 TD/TT: Armature Winder Repair Helper: [facility] [place] [address] Ultrasound Report Signed Patient: SHY HAN MR#: [id number] : 2000 Acct:[id number] Age/Sex: 24 / F ADM Date: 04/29/24 Loc: US Attending Dr: Nikki Erwin D.O. Ordering Physician: Nikki Erwin D.O. Date of Service: 04/29/24 Procedure(s): US OB cervical length Accession Number(s): [id number] cc: Nikki Erwin D.O.; Physician,Non-Staff Daniel The [place] [id number] Patient Name: SHY HAN MRN: [facility]:[id number] date: 2000 Sex: F Assigned Patient Location: US Current Patient Location: US Accession/Order Number: [id number] Exam Date: 04/29/2024 15:00 Report Date: 04/29/2024 [...] Signed By: 04/29/24 1603 DD/ 1600 TD/TT: Armature Winder Repair Helper: [facility] Radiology, Radiologist, MD - 04/29/2024 [place] [address] Ultrasound Report Signed Patient: SHY HAN MR#: [id number] : 2000 Acct:[id number] Age/Sex: 24 / F ADM Date: 04/29/24 Loc: US Attending Dr: Nikki Erwin D.O. Ordering Physician: Nkiki Erwin D.O. Date of Service: 04/29/24 Procedure(s): US OB cervical length Accession Number(s): [id number] cc: Nikki Erwin D.O.; Physician,Non-Staff MRyan [place] [address] Patient Name: SHY HAN MRN: [id number]:[id number] date: 2000 Sex: F Assigned Patient Location: US Current Patient Location: US Accession/Order Number: [id number] Exam Date: 04/29/2024 15:00 Report Date: 04/29/2024 [...] Signed By: 04/29/24 1603 DD/ 1600 TD/TT: Armature Winder Repair Helper: [facility] Urinalysis macro (dipstick) panel (U)on 04-28-2024 Bilirubin, UA Negative Negative - 4(70) +++ mg/dL [facility] Blood, UA Negative Negative - 50 Chidi/mcL [facility] Clarity, UA Clear [facility] Color, UA Yellow [facility] Glucose, UA Negative Negative - 2000(110) ++++ mg/dL [facility] Interpretation and review of laboratory results Abnormal [facility] Ketones, UA Negative Negative - 160(16) ++++ mg/dL [facility] Leukocytes, UA Negative Negative - 500+++ Gabi/mcL [facility] Nitrite, UA Negative Negative - Positive [facility] pH, UA 7 5 - 9 [facility] Protein, UA Trace Negative - 2000(20) ++++ mg/dL [facility] Spec Grav, UA 1.025 1 - 1.03 [facility] Urobilinogen, UA 0.2 0.2 - 12 mg/dL [facility] IGP,APTIMA HPV,AGE GDLNon AGE GDLN ACOG TESTING Note . [facility] Comment on above: TESTS RESULT FLAG UN ITS REF RANGE LAB Clinician Provided Cytology Information Source.............Cervix No. of containers..01 ThinPrep Vial Age Algo ACOG Luzma... 21-21 04 FLAG LEGEND: L-Low Normal,H-High Normal,LL-Alert Low,HH-Alert High <-Panic Low,>-Panic High,A-Abnormal,AA-Critical Abnormal Performed at: 01 =G [facility] [place] [address] Letha Woodson MD, IGP, RFX APTIMA HPV ASCU Note . [facility] Comment on above: TESTS RESULT FLAG UN ITS REF RANGE LAB DIAGNOSIS: 02 NEGATIVE FOR INTRAEPITHELIAL LESION OR MALIGNANCY. FUNGAL ORGANISMS MORPHOLOGICALLY CONSISTENT WITH ZHANE SPECIES ARE PRESENT. Specimen adequacy: 02 Satisfactory for evaluation. No endocervical component is identified. Performed by: Ashlyn Bautista, Spout Liner Helper (ASCP) . 02 Note: Note 02 The Pap [...] <-Panic Low,>-Panic High,A-Abnormal,AA-Critical Abnormal Performed at: [address] [address] Letha Woodson MD, Performed at: = - [facility] [id number] Iuss Master Analyst: Letha Woodson MD, Phone: [phone] Performed at: [facility] [address] [id number] Iuss Master Analyst: Letha Woodson MD, Phone: [phone] SPATULA-ALONE CERVIX [facility] RECURRENT VAGINITIS (HTRX)on 04-02-2024 ATOPOBIUM VAGINAE 0 [facility] ATOPOBIUM VAGINAE Not detected [facility] BVAB 2,3 (BACTERIAL VAGINOSIS ASSOCIATED BACTERIA 2, 3); MOBILUNCUS SPP 0 [facility] BVAB 2,3 (BACTERIAL VAGINOSIS ASSOCIATED BACTERIA 2, 3); MOBILUNCUS SPP Not detected [facility] ZHANE ALBICANS, PARAPSILOSIS, TROPICALIS 0 [facility] ZHANE ALBICANS, PARAPSILOSIS, TROPICALIS Not detected [facility] ZHANE GLABRATA 0 [facility] ZHANE GLABRATA Not detected [facility] ZHANE KRUSEI 0 [facility] ZHANE KRUSEI Not detected [facility] CHLAMYDIA TRACHOMATIS 0 [facility] CHLAMYDIA TRACHOMATIS Not detected [facility] GARDNERELLA VAGINALIS 0 [facility] GARDNERELLA VAGINALIS Not detected [facility] MEGASPHAERA (TYPES 1, 2) 0 [facility] MEGASPHAERA (TYPES 1, 2) Not detected [facility] MYCOPLASMA GENITALIUM 0 [facility] MYCOPLASMA GENITALIUM Not detected [facility] NEISSERIA GONORRHOEAE 0 [facility] NEISSERIA GONORRHOEAE Not detected [facility] TRICHOMONAS VAGINALIS 0 [facility] TRICHOMONAS VAGINALIS Not detected [facility] Urinalysis macro (dipstick) panel (U)on 03-31-2024 Bilirubin, UA Negative Negative - 4(70) +++ mg/dL [facility] Blood, UA Negative Negative - 50 Chidi/mcL [facility] Clarity, UA Clear [facility] Color, UA Yellow [facility] Glucose, UA Negative Negative - 1999(110) ++++ mg/dL [facility] Interpretation and review of laboratory results Abnormal [facility] Ketones, UA Positive Negative - 160(16) ++++ mg/dL [facility] Leukocytes, UA Negative Negative - 500+++ Gabi/mcL [facility] Nitrite, UA Negative Negative - Positive [facility] pH, UA 6.5 5 - 9 [facility] Protein, UA Negative Negative - 1999(20) ++++ mg/dL [facility] Spec Grav, UA 1.02 1 - 1.03 [facility] Urobilinogen, UA 1.0 0.2 - 12 mg/dL [facility] Urinalysis macro (dipstick) panel (U)on 02-25-2024 Bilirubin, UA Negative Negative - 4(70) +++ mg/dL [facility] Blood, UA Negative Negative - 50 Chidi/mcL [facility] Clarity, UA Clear [facility] Color, UA Yellow [facility] Glucose, UA Negative Negative - 1999(110) ++++ mg/dL [facility] Interpretation and review of laboratory results Abnormal [facility] Ketones, UA Positive Negative - 160(16) ++++ mg/dL [facility] Comment on above: 40 Leukocytes, UA Positive Negative - 500+++ Gabi/mcL [facility] Comment on above: small Nitrite, UA Negative Negative - Positive [facility] pH, UA 6.5 5 - 9 [facility] Protein, UA Negative Negative - 1999(20) ++++ mg/dL [facility] Spec Grav, UA 1.025 1 - 1.03 [facility] Urobilinogen, UA 0.2 0.2 - 12 mg/dL [facility] ALL RUBELLA IGG ABon 024 RUBELLA ANTIBODIES, IGG 1.67 Immune >0.99 index [facility] Comment on above: Non-immune <0.90 Equivocal 0.90 - 0.99 Immune >0.99 HBSAG SCREENon 02-04-2024 HBSAG SCREEN Negative Negative [facility] Comment on above: Performed at: [facility] [id number] [address] [id number] I[employer] Master Analyst: Johan Rivera PhD, Phone: [phone] HCV ANTIBODY RFX TO QUANT [facility] Axel 02-04-2024 HCV AB Non-Reactive Non Reactive [facility] INTERPRETATION: Comment . [facility] Comment on above: Not infected with HC V unless early or acute infection is suspected (which may be delayed in an immunocompromised individual), or other evidence exists to indicate HCV infection. HIV AB/P24 AG WITH REFLEXon 02-04-2024 HIV AB/P24 AG SCREEN Non-Reactive Non Reactive [facility] Comment on above: HIV-1/HIV-2 antibodi es and HIV-1 p24 antigen were NOT detected. There is no laboratory evidence of HIV infection. HIV Negative Performed at: [facility] [address] [id number] Iuss Master Analyst: Johan Rivera PhD, Phone: [phone] No Panel Informationon 02-03 [facility] RAPID PLASMA REAGIN, QUANTon 02-04-2024 RAPID PLASMA REAGIN, QUANT Non-Reactive NonRea<1:1 titer [facility] Comment on above: Please Note: This te st does not meet current guidelines for screening and diagnosis of syphilis. This test is intended for following treatment response in patients being treated for syphilis infection. To screen for syphilis infection, a reflex cascade that includes both RPR and a treponema-specific assay should be utilized, such as Treponema pallidum (Syphilis) Screening [place] (816364) or Rapid Plasma Reagin (RPR) Test With Reflex to Quantitative RPR and Confirmatory Treponema pallidum Antibodies ([id number]). Performed at: [facility] [address] [id number] Iuss Master Analyst: Johan Rivera PhD, Phone: [phone] ALL CBC WITH AUTO DIFFon BASOPHILS ABSOLUTE AUTO 0 [facility] Basophils/100 WBC (Bld) 0.4 % 0.2 - 2.0 % [facility] Eosinophils/100 WBC (Bld) 1.5 % 0.9 - 7.0 % [facility] Erythrocyte distribution width (RBC) [Ratio] 12.9 % 11.0 - 15.0 % [facility] Hematocrit (Bld) [Volume fraction] 36.1 % 36.0 - 48.0 % [facility] Hemoglobin (Bld) [Mass/Vol] 12.5 g/dL 12.0 - 16.0 g/dL [facility] IMMATURE GRANULOCYTES ABS AUTO 0.02 [facility] Immature granulocytes/100 WBC (Bld) 0.3 % 0.0 - 0.5 % [facility] LYMPHOCYTES ABSOLUTE AUTO 1.7 [facility] Lymphocytes/100 WBC (Bld) 23.2 % 20.5 - 60.0 % [facility] MCH (RBC) [Entitic mass] 29.3 pg 26.7 - 34.0 pg [facility] MCHC (RBC) [Mass/Vol] 34.6 g/dL 29.9 - 35.2 g/dL [facility] MCV (RBC) [Entitic vol] 84.7 fL 81.0 - 99.0 fL [facility] MONOCYTES ABSOLUTE AUTO 0.5 [facility] Monocytes/100 WBC (Bld) 6.6 % 1.7 - 12.0 % [facility] NEUTROPHILS ABSOLUTE AUTO 5 [facility] Neutrophils/100 WBC (Bld) 68 % 43.0 - 75.0 % [facility] Platelet mean volume (Bld) [Entitic vol] 11.1 fL 9.5 - 13.5 fL [facility] TBH EO # 0.1 [facility] PLT 259 [facility] RBC 4.26 [facility] WBC 7.4 [facility] ALL TYPE AND SCREENon 2023 ABO and Rh group Nom (Bld) Blood group O Rh(D) positive [facility] BOX TESTon 02-02-2024 BOX TEST SENT OUT [facility] BOX1 [facility] BOX2 02/02/2024 [facility] BOX [facility] MLR HEMOGLOBIN A1Con 024 Glucose [Mass/Vol] 97 mg/dL [facility] HbA1c (Bld) [Mass fraction] 5 % 4.5 - 6.2 % [facility] Comment on above: ADA RECOMMENDED LIMI T 4.0 - 6.0 ADA THERAPEUTIC TARGET < 7.0 ACTION SUGGESTED > 7.0 [facility] DRUG SCREEN RAPID (URINE )on 02-02-2024 AMPHETAMINE SCREEN URINE Negative NEGATIVE [facility] BARBITURATES SCREEN URINE Negative NEGATIVE [facility] BENZODIAZEPINES SCREEN URINE Negative NEGATIVE [facility] BUPRENORPHINE SCREEN URINE Negative NEGATIVE [facility] Comment on above: DRUG CLASS TEST SYST [...] 300 ng/mL CANNABINOID SCREEN URINE Negative NEGATIVE [facility] COCAINE SCREEN URINE Negative NEGATIVE [facility] METHADONE SCREEN URINE Negative NEGATIVE NO [facility] METHAMPHETAMINES SCREEN URINE Negative NEGATIVE [facility] OPIATE SCREEN URINE Negative NEGATIVE [facility] OXYCODONE SCREEN URINE Negative NEGATIVE NO [facility] PHENCYCLIDINE SCREEN URINE Negative NEGATIVE [facility] TRICYCLIC ANTIDEPRESSANT URINE Negative NEGATIVE [facility] Ql (U)o n 01-29-2024 Interpretation and review of laboratory results Abnormal [facility] Preg Test, Ur Positive Negative [facility] Urinalysis macro (dipstick) panel (U)on 01-29-2024 Bilirubin, UA Negative Negative - 4(70) +++ mg/dL [facility] Blood, UA Negative Negative - 50 Chidi/mcL [facility] Clarity, UA Clear [facility] Color, UA Yellow [facility] Glucose, UA Negative Negative - 1999(110) ++++ mg/dL [facility] Interpretation and review of laboratory results Normal [facility] Ketones, UA Negative Negative - 160(16) ++++ mg/dL [facility] Leukocytes, UA Negative Negative - 500+++ Gabi/mcL [facility] Nitrite, UA Negative Negative - Positive [facility] pH, UA 6 5 - 9 [facility] Protein, UA Negative Negative - 1999(20) ++++ mg/dL [facility] Spec Grav, UA 1.02 1 - 1.03 [facility] Urobilinogen, UA 0.2 0.2 - 12 mg/dL [facility] ALL CBC WITH AUTO DIFFon BASOPHILS ABSOLUTE AUTO 0.0 [facility] Basophils/100 WBC (Bld) 0.3 % 0.2 - 2.0 % [facility] Eosinophils/100 WBC (Bld) 1.6 % 0.9 - 7.0 % [facility] Erythrocyte distribution width (RBC) [Ratio] 12.4 % 11.0 - 15.0 % [facility] Hematocrit (Bld) [Volume fraction] 33.3 % Low 36.0 - 48.0 % [facility] Hemoglobin (Bld) [Mass/Vol] 10.6 g/dL Low 12.0 - 16.0 g/dL [facility] IMMATURE GRANULOCYTES ABS AUTO 0.05 High [facility] Immature granulocytes/100 WBC (Bld) 0.6 % High 0.0 - 0.5 % [facility] Interpretation and review of laboratory results Abnormal [facility] LYMPHOCYTES ABSOLUTE AUTO 1.5 [facility] Lymphocytes/100 WBC (Bld) 17.1 % Low 20.5 - 60.0 % [facility] MCH (RBC) [Entitic mass] 28.1 pg 26.7 - 34.0 pg [facility] MCHC (RBC) [Mass/Vol] 31.8 g/dL 29.9 - 35.2 g/dL [facility] MCV (RBC) [Entitic vol] 88.3 fL 81.0 - 99.0 fL [facility] MONOCYTES ABSOLUTE AUTO 0.5 [facility] Monocytes/100 WBC (Bld) 5.8 % 1.7 - 12.0 % [facility] NEUTROPHILS ABSOLUTE AUTO 6.5 [facility] Neutrophils/100 WBC (Bld) 74.6 % 43.0 - 75.0 % [facility] Platelet mean volume (Bld) [Entitic vol] 10.6 fL 9.5 - 13.5 fL [facility] TBH EO # 0.1 [facility] PLT 241 [facility] TB RBC 3.77 Low [facility] TBH WBC 8.7 [facility] Urinalysis macro (dipstick) panel (U)on 05-06-2023 Bilirubin, UA Negative Negative - 4(70) +++ mg/dL [facility] Blood, UA Negative Negative - 50 Chidi/mcL [facility] Clarity, UA Clear [facility] Color, UA Yellow [facility] Glucose, UA Negative Negative - 1999(110) ++++ mg/dL [facility] Interpretation and review of laboratory results Abnormal [facility] Ketones, UA Negative Negative - 160(16) ++++ mg/dL [facility] Leukocytes, UA Negative Negative - 500+++ Gabi/mcL [facility] Nitrite, UA Negative Negative - Positive [facility] pH, UA 5.5 5 - 9 [facility] Protein, UA Negative Negative - 1999(20) ++++ mg/dL [facility] Spec Grav, UA 1.020 1 - 1.03 [facility] Urobilinogen, UA 1.0 0.2 - 12 mg/dL [...] [place] Date: 2022-07-10 22:30 Normal [facility] CBC AUTO DIFFon 07-10-2022 BASO # 0.0 103/ul Normal 0.0-0.1 [facility] Comment on above: Performed By: #### C BC #### [facility] [address], [place] [address] Dr. Papo Swanson Basophils/100 WBC (Bld) 0.4 % Normal 0.2-2.0 [facility] Comment on above: Performed By: #### C BC #### [facility] [address] [place], [place] [address] Dr. Papo Swanson EO # 0.1 103/ul Normal 0.0-0.7 [facility] Comment on above: Performed By: #### C BC #### [facility] [address] [place] [address] Dr. Papo Swanson Eosinophils/100 WBC (Bld) 0.6 % Critically low 0.9-7.0 [facility] Comment on above: Performed By: #### C BC #### [facility] [address] [place] [address] Dr. Papo Swanson Erythrocyte distribution width (RBC) [Ratio] 14.4 % Normal 11.0-15.0 [facility] Comment on above: Performed By: #### C BC #### [facility] [address] [place] [address] Dr. Papo Swanson Hematocrit (Bld) [Volume fraction] 42.2 % Normal 36.0-48.0 [facility] Comment on above: Performed By: #### C BC #### [facility] [address] [place] [address] Dr. Papo Swanson Hemoglobin (Bld) [Mass/Vol] 13.7 g/dL Normal 12.0-16.0 [facility] Comment on above: Performed By: #### C BC #### [facility] [address] [place] [address] Dr. Papo Swanson IG # 0.03 10e3/ul Normal 0.00-0.03 [facility] Comment on above: Performed By: #### C BC #### [facility] [address] [place] [address] Dr. Papo Swanson IG % 0.3 % Normal 0.0-0.5 [facility] Comment on above: Performed By: #### C BC #### [facility] [address] [place] [address] Dr. Papo Swanson LYMPH # 1.5 103/ul Normal 1.2-3.8 [facility] Comment on above: Performed By: #### C BC #### [facility] [address] [place] [address] Dr. Papo Swanson Lymphocytes/100 WBC (Bld) 15.7 % Critically low 20.5-60.0 [facility] Comment on above: Performed By: #### C BC #### [facility] [address] [place] [address] Dr. Papo Swanson MANUAL DIFF REQ NO Normal [facility] Comment on above: Performed By: #### C BC #### [facility] [address] [place] [address] Dr. Papo Swanson MCH (RBC) [Entitic mass] 27.0 pg Normal 26.7-34.0 [facility] Comment on above: Performed By: #### C BC #### [facility] [address] [place] [address] Dr. Papo Swanson MCHC (RBC) [Mass/Vol] 32.5 g/dL Normal 29.9-35.2 [facility] Comment on above: Performed By: #### C BC #### [facility] [address] [place] [address] Dr. Papo Swanson MCV (RBC) [Entitic vol] 83.2 fL Normal 81.0-99.0 [facility] Comment on above: Performed By: #### C BC #### [facility] [address] [place] [address] Dr. Papo Swanson MONO # 0.6 103/ul Normal 0.3-0.8 [facility] Comment on above: Performed By: #### C BC #### [facility] [address] [place] [address] Dr. Papo Swanson Monocytes/100 WBC (Bld) 5.9 % Normal 1.7-12.0 [facility] Comment on above: Performed By: #### C BC #### [facility] [address] [place] [address] Dr. Papo Swanson NEUT # 7.4 103/ul Critically high 1.4-6.5 [facility] [place] [facility] Comment on above: Performed By: #### C BC #### [facility] [address] [place] [address] Dr. Papo Swanson Neutrophils/100 WBC (Bld) 77.1 % Critically high 43.0-75.0 [facility] Comment on above: Performed By: #### C BC #### [facility] [address] [place] [address] Dr. Papo Swanson Platelet mean volume (Bld) [Entitic vol] 10.5 fL Normal 9.5-13.5 [facility] Comment on above: Performed By: #### C BC #### [facility] [address] [place] [address] Dr. Papo Swanson PLT 318 103/ul Normal 150-450 [facility] Comment on above: Performed By: #### C BC #### [facility] [address] [place] [address] Dr. Papo Swanson RBC 5.07 106/ul Normal 4.20-5.40 [facility] Comment on above: Performed By: #### C BC #### [facility] [address] [place] [address] Dr. Papo Swanson WBC 9.7 103/ul Normal 4.0-11.0 [facility] Comment on above: Performed By: #### C BC #### [facility] [address] [place] [address] Dr. Papo Swanson ER URINE PROFILEon 3 Bilirubin Ql (U) Negative Normal NEGATIVE [facility] Comment on above: Performed By: #### E RUR #### [facility] [address] [place] [address] Dr. Papo Swanson Clarity (U) CLEAR Normal CLEAR [facility] Comment on above: Performed By: #### E RUR #### [facility] [address] [place] [address] Dr. Papo Swanson Color (U) LT. YELLOW Normal YELLOW [facility] Comment on above: Performed By: #### E RUR #### [facility] [address] [place] [address] Dr. Papo JAIMES A micrscopic examination will be performed if indicated. Normal [facility] Comment on above: Performed By: #### E RUR #### [facility] [address] [place] [address] Dr. Papo Swanson Glucose Ql (U) Negative Normal NEGATIVE [facility] Comment on above: Performed By: #### E RUR #### [facility] [address] [place] [address] Dr. Papo Swanson Hemoglobin Ql (U) Negative Normal NEGATIVE [facility] Comment on above: Performed By: #### E RUR #### [facility] [address] [place] [address] Dr. Papo Swanson Ketones Ql (U) Negative Normal NEGATIVE [facility] Comment on above: Performed By: #### E RUR #### [facility] [address] [place] [address] Dr. Papo Swanson LEUKOCYTES Negative Normal NEGATIVE [facility] Comment on above: Performed By: #### E RUR #### [facility] [address] [place] [address] Dr. Papo Swanson Nitrite Ql (U) Negative Normal NEGATIVE [facility] Comment on above: Performed By: #### E RUR #### [facility] [address] [place] [address] Dr. Papo Swanson pH (U) 7.0 [pH] Normal 5-9 [facility] Comment on above: Performed By: #### E RUR #### [facility] [address] [place] [address] Dr. Papo Swanson SPEC GRAVITY 1.025 Normal 1.005-<=1.025 [facility] [place] [facility] Comment on above: Performed By: #### E RUR #### [facility] [address] [place] [address] Dr. Papo Swanson UA PROTEIN Negative Normal NEGATIVE/ TRACE [facility] Comment on above: Performed By: #### E RUR #### [facility] [address] [place] [address] Dr. Papo Swanson UR MICRO IND NOT INDICATED Normal [facility] [place] [facility] Comment on above: Performed By: #### E RUR #### [facility] [address] [place] [address] Dr. Papo Swanson Urobilinogen Qn (U) 0.2 {Kelle'U}/dL Normal 0.2 - 1. 0 [facility] Comment on above: Performed By: #### E RUR #### [facility] [address] [place] [address] [address] Papo Swanson LIPASEon 07-10-2022 Lipase [Catalytic activity/Vol] 54.0 U/L Critically low 73.0-393.0 [facility] Comment on above: Performed By: #### D RUGRPD #### [facility] [address] [address] [address] Papo Swanson PREG HCG QUALon 07-10-2022 , QUAL Negative Normal NEGATIVE [facility] Comment on above: Performed By: #### E RUR #### [facility] [address] [place] [address] Dr. Papo Swanson PROF 14(COMP METB)on 023 Albumin [Mass/Vol] 4.3 g/dL Normal 3.4-5.0 [facility] Comment on above: Performed By: #### D RUGRPD #### [facility] [address] [place] [address] Dr. Papo Swanson Albumin/Globulin [Mass ratio] 1.0 {ratio} Normal [facility] Comment on above: Performed By: #### D RUGRPD #### [facility] [address] [place] [address] Dr. Papo Swanson ALP [Catalytic activity/Vol] 91 U/L Normal 46-116 [facility] Comment on above: Performed By: #### D RUGRPD #### [facility] [address] [place] [address] Dr. Papo Swanson ALT [Catalytic activity/Vol] 19 U/L Normal 14-59 [facility] Comment on above: Performed By: #### D RUGRPD #### [facility] [address] [place] [address] Dr. Papo Swanson Anion gap [Moles/Vol] 13.9 mmol/L Normal [facility] Comment on above: Performed By: #### D RUGRPD #### [facility] [address] [address] [address] Papo Swanson AST [Catalytic activity/Vol] 13 U/L Critically low 15-37 [facility] Comment on above: Performed By: #### D RUGRPD #### [facility] [address] [address] [address] Papo Swanson Bilirubin [Mass/Vol] 0.3 mg/dL Normal 0.2-1.0 [facility] Comment on above: Performed By: #### D RUGRPD #### [facility] [address] [address] [address] Papo Swanson Calcium [Mass/Vol] 9.1 mg/dL Normal 8.5-10.1 [facility] Comment on above: Performed By: #### D RUGRPD #### [facility] [address] [address] [address] Papo Swanson Chloride [Moles/Vol] 104 mmol/L Normal 98-107 [facility] Comment on above: Performed By: #### D RUGRPD #### [facility] [address] [address] [address] Papo Swanson CO2 [Moles/Vol] 25.4 mmol/L Normal 21.0-32.0 [facility] Comment on above: Performed By: #### D RUGRPD #### [facility] [address] [address] [address] Papo Swanson Creatinine [Mass/Vol] 0.64 mg/dL Normal 0.55-1.02 [facility] Comment on above: Performed By: #### D RUGRPD #### [facility] [address] [address] [address] Papo Swanson EGFR-AF [place]ORE[place] >60 Normal >=60 [facility] Comment on above: Performed By: #### D RUGRPD #### [facility] [address] [address] [address] Papo Swanson EGFR-NON AF [place] >60 Normal >=60 [facility] Comment on above: Performed By: #### D RUGRPD #### [facility] [address] [address] [address] Papo Swanson Globulin (S) [Mass/Vol] 4.3 g/dL Normal [facility] Comment on above: Performed By: #### D RUGRPD #### [facility] [address] [place] [address] Dr. Papo Swanson Glucose [Mass/Vol] 101 mg/dL Normal 74-106 [facility] Comment on above: Performed By: #### D RUGRPD #### [facility] [address] [place] [address] Dr. Papo Swanson Potassium [Moles/Vol] 3.3 mmol/L Critically low 3.5-5.1 [facility] Comment on above: Performed By: #### D RUGRPD #### [facility] [address] [place] [address] Dr. Papo Swanson Protein [Mass/Vol] 8.6 g/dL Critically high 6.4-8.2 [facility] Comment on above: Performed By: #### D RUGRPD #### [facility] [address] [place] [address] Dr. Papo Swanson Sodium [Moles/Vol] 140 mmol/L Normal 136-[address] [facility] Comment on above: Performed By: #### D RUGRPD #### [facility] [address] [place] [address] Dr. Papo Swanson Urea nitrogen [Mass/Vol] 8.0 mg/dL Normal 7.0-18.0 [facility] Comment on above: Performed By: #### D RUGRPD #### [facility] [address] [place] [address] Dr. Papo Swanson Urea nitrogen/Creatinine [Mass ratio] 12.5 mg/mg Normal [facility] Comment on above: Performed By: #### D RUGRPD #### [facility] [address] [place] [address] Dr. Papo Swanson CBC AUTO DIFFon 12-27-2021 BASO # 0.0 103/ul Normal 0.0-0.1 [facility] Comment on above: Performed By: #### C BC #### [facility] [address] [place] [address] Dr. Papo Swanson Basophils/100 WBC (Bld) 0.2 % Normal 0.2-2.0 [facility] Comment on above: Performed By: #### C BC #### [facility] [address] [place] [address] Dr. Papo Swanson EO # 0.0 103/ul Normal 0.0-0.7 [facility] Comment on above: Performed By: #### C BC #### [facility] [address] [place] [address] Dr. Papo Swanson Eosinophils/100 WBC (Bld) 0.3 % Critically low 0.9-7.0 [facility] Comment on above: Performed By: #### C BC #### [facility] [address] [place] [address] Dr. Papo Swanson Erythrocyte distribution width (RBC) [Ratio] 15.4 % Critically high 11.0-15.0 [facility] Comment on above: Performed By: #### C BC #### [facility] [address] [place] [address] Dr. Papo Swanson Hematocrit (Bld) [Volume fraction] 27.8 % Critically low 36.0-48.0 [facility] Comment on above: Performed By: #### C BC #### [facility] [address] [place] [address] Dr. Papo Swanson Hemoglobin (Bld) [Mass/Vol] 8.7 g/dL Critically low 12.0-16.0 [facility] Comment on above: Performed By: #### C BC #### [facility] [address] [place] [address] Dr. Papo Swanson IG # 0.11 10e3/ul Critically high 0.00-0.03 [facility] Comment on above: Performed By: #### C BC #### [facility] [address] [place] [address] Dr. Papo Swanson IG % 0.9 % Critically high 0.0-0.5 [facility] Comment on above: Performed By: #### C BC #### [facility] [address] [place] [address] Dr. Papo Swanson LYMPH # 2.4 103/ul Normal 1.2-3.8 [facility] Comment on above: Performed By: #### C BC #### [facility] [address] [place] [address] Dr. Papo Swanson Lymphocytes/100 WBC (Bld) 19.6 % Critically low 20.5-60.0 [facility] Comment on above: Performed By: #### C BC #### [facility] [address] [place] [address] Dr. Papo Swanson MANUAL DIFF REQ NO Normal [facility] Comment on above: Performed By: #### C BC #### [facility] [address] [place] [address] Dr. Papo Swanson MCH (RBC) [Entitic mass] 24.6 pg Critically low 26.7-34.0 [facility] Comment on above: Performed By: #### C BC #### [facility] [address] [place] [address] Dr. Papo Swanson MCHC (RBC) [Mass/Vol] 31.3 g/dL Normal 29.9-35.2 [facility] Comment on above: Performed By: #### C BC #### [facility] [address] [place] [address] Dr. Papo Swanson MCV (RBC) [Entitic vol] 78.8 fL Critically low 81.0-99.0 [facility] Comment on above: Performed By: #### C BC #### [facility] [address] [place] [address] Dr. Papo Swanson MONO # 0.8 103/ul Normal 0.3-0.8 [facility] Comment on above: Performed By: #### C BC #### [facility] [address] [place] [address] Dr. Papo Swanson Monocytes/100 WBC (Bld) 6.2 % Normal 1.7-12.0 [facility] Comment on above: Performed By: #### C BC #### [facility] [address] [place] [address] Dr. Papo Swanson NEUT # 8.9 103/ul Critically high 1.4-6.5 [facility] [place] [facility] Comment on above: Performed By: #### C BC #### [facility] [address] [place] [address] Dr. Papo Swanson Neutrophils/100 WBC (Bld) 72.8 % Normal 43.0-75.0 [facility] Comment on above: Performed By: #### C BC #### [facility] [address] [place] [address] Dr. Papo Swanson Platelet mean volume (Bld) [Entitic vol] 11.7 fL Normal 9.5-13.5 [facility] Comment on above: Performed By: #### C BC #### [facility] [address] [place] [address] Dr. Papo Swanson PLT 173 103/ul Normal 150-450 [facility] Comment on above: Performed By: #### C BC #### [facility] [address] [place] [address] Dr. Papo Swanson RBC 3.53 106/ul Critically low 4.20-5.40 [facility] [place] [facility] Comment on above: Performed By: #### C BC #### [facility] [facility] [address] [place] [address] Dr. Papo Swanson WBC 12.2 103/ul Critically high 4.0-11.0 [facility] Comment on above: Performed By: #### C BC #### [facility] [address] [place] [address] Dr. Papo Swanson CBC AUTO DIFFon 12-26-2021 BASO # 0.0 103/ul Normal 0.0-0.1 [facility] Comment on above: Performed By: #### C BC #### [facility] [address] [place] [address] Dr. Papo Swanson Basophils/100 WBC (Bld) 0.2 % Normal 0.2-2.0 [facility] Comment on above: Performed By: #### C BC #### [facility] [address] [address] [address] Papo Swanson EO # 0.1 103/ul Normal 0.0-0.7 [facility] Comment on above: Performed By: #### C BC #### [facility] [address] [place] [address] Dr. Papo Swanson Eosinophils/100 WBC (Bld) 0.8 % Critically low 0.9-7.0 [facility] Comment on above: Performed By: #### C BC #### [facility] [address] [place] [address] Dr. Papo Swanson Erythrocyte distribution width (RBC) [Ratio] 15.2 % Critically high 11.0-15.0 [facility] Comment on above: Performed By: #### C BC #### [facility] [address] [place] [address] Dr. Papo Swanson Hematocrit (Bld) [Volume fraction] 31.5 % Critically low 36.0-48.0 [facility] Comment on above: Performed By: #### C BC #### [facility] [address] [place] [address] Dr. Papo Swanson Hemoglobin (Bld) [Mass/Vol] 9.9 g/dL Critically low 12.0-16.0 [facility] Comment on above: Performed By: #### C BC #### [facility] [address] [place] [address] Dr. Papo Swanson IG # 0.21 10e3/ul Critically high 0.00-0.03 [facility] Comment on above: Performed By: #### C BC #### [facility] [address] [place] [address] Dr. Papo Swanson IG % 2.5 % Critically high 0.0-0.5 [facility] Comment on above: Performed By: #### C BC #### [facility] [address] [place] [address] Dr. Papo Swanson LYMPH # 1.8 103/ul Normal 1.2-3.8 [facility] Comment on above: Performed By: #### C BC #### [facility] [address] [address] [address] Papo Swanson Lymphocytes/100 WBC (Bld) 20.8 % Normal 20.5-60.0 [facility] Comment on above: Performed By: #### C BC #### [facility] [address] [place] [address] Dr. Papo Swanson MANUAL DIFF REQ NO Normal [facility] Comment on above: Performed By: #### C BC #### [facility] [address] [address] [address] Papo Swanson MCH (RBC) [Entitic mass] 24.5 pg Critically low 26.7-34.0 [facility] Comment on above: Performed By: #### C BC #### [facility] [address] [place] [address] Dr. Papo Swanson MCHC (RBC) [Mass/Vol] 31.4 g/dL Normal 29.9-35.2 [facility] Comment on above: Performed By: #### C BC #### [facility] [address] [place] [address] Dr. Papo Swanson MCV (RBC) [Entitic vol] 78.0 fL Critically low 81.0-99.0 [facility] Comment on above: Performed By: #### C BC #### [facility] [address] [place] [address] Dr. Papo Swanson MONO # 0.5 103/ul Normal 0.3-0.8 [facility] Comment on above: Performed By: #### C BC #### [facility] [address] [place] [address] Dr. Papo Swanson Monocytes/100 WBC (Bld) 6.4 % Normal 1.7-12.0 [facility] Comment on above: Performed By: #### C BC #### [facility] [address] [place] [address] Dr. Papo Swanson NEUT # 5.8 103/ul Normal 1.4-6.5 [facility] Comment on above: Performed By: #### C BC #### [facility] [address] [address] [address] Papo Swanson Neutrophils/100 WBC (Bld) 69.3 % Normal 43.0-75.0 [facility] Comment on above: Performed By: #### C BC #### [facility] [address] [place] [address] Dr. Papo Swanson Platelet mean volume (Bld) [Entitic vol] 12.2 fL Normal 9.5-13.5 [facility] Comment on above: Performed By: #### C BC #### [facility] [address] [place] [address] Dr. Papo Swanson PLT 195 103/ul Normal 150-450 [facility] Comment on above: Performed By: #### C BC #### [facility] [address] [place] [address] Dr. Papo Swanson RBC 4.04 106/ul Critically low 4.20-5.40 [facility] Comment on above: Performed By: #### C BC #### [facility] [address] [place] [address] Dr. Papo Swanson WBC 8.4 103/ul Normal 4.0-11.0 [facility] Comment on above: Performed By: #### C BC #### [facility] [address] [place] [address] Dr. Papo Swanson CULTURE URINEon 12-26-2021 CULTURE URINE Culture Observations : LIGHT GROWTH OF MIXED GENITAL NICOLE. NO POTENTIAL PATHOGENS SEEN. Normal [facility] Comment on above: Performed By: #### U RCX #### [facility] [address] [place] [address] Dr. Papo Swanson Covid-19 PCR (CVDTB)on SARS-CoV-2 (COVID-19) RNA PRIYA+probe Ql (Unsp spec) Not detected Normal NOT DETECTED [facility] Comment on above: Result Comment: When [...] for this test is supported by the [employer] Manager of Health and Human Service's declaration that [...] used). Performed By: #### C VDTBH #### [facility] [address] [place] [address] Dr. Papo Swanson DRUG SCREEN RAPID (URINE)on 12-26-2021 AMP Negative Normal NEGATIVE [facility] Comment on above: Performed By: #### D RUGRPD #### [facility] [address] [place] [address] Dr. Papo Swanson BAR Negative Normal NEGATIVE [facility] Comment on above: Performed By: #### D RUGRPD #### [facility] [address] [place] [address] Dr. Papo Swanson BUP Negative Normal NEGATIVE [facility] Comment on above: Performed By: #### D RUGRPD #### [facility] [address] [place] [address] Dr. Papo Swanson BZO Negative Normal NEGATIVE [facility] Comment on above: Performed By: #### D RUGRPD #### [facility] [address] [place] [address] Dr. Papo Swanson GIRISH Negative Normal NEGATIVE [facility] Comment on above: Performed By: #### D RUGRPD #### [facility] [address] [place] [address] Dr. Papo Swanson CUT-OFFS SEE BELOW Normal [facility] Comment on above: Result Comment: AMP [...] ng/mL Performed By: #### D RUGRPD #### [facility] [address] [place] [address] Dr. Papo Swanson DRUG CUT HEADER DRUG CLASS TEST SYSTEM CUT-OFF CONCENTRATIONS ARE FOLLOWS: Normal [facility] Comment on above: Performed By: #### D RUGRPD #### [facility] [address] [place] [address] Dr. Papo Swanson mAMP Negative Normal NEGATIVE [facility] Comment on above: Performed By: #### D RUGRPD #### [facility] [address] [place] [address] Dr. Papo Swanson MTD Negative Normal NEGATIVE [facility] Comment on above: Performed By: #### D RUGRPD #### [facility] [address] [place] [address] Dr. Papo Swanson OPI Negative Normal NEGATIVE [facility] Comment on above: Performed By: #### D RUGRPD #### [facility] [address] [place] [address] Dr. Papo Swanson OXY Negative Normal NEGATIVE [facility] Comment on above: Performed By: #### D RUGRPD #### [facility] [address] [place] [address] Dr. Papo Swanson PCP Negative Normal NEGATIVE [facility] Comment on above: Performed By: #### D RUGRPD #### [facility] [address] [place] [address] Dr. Papo Swanson PPX Negative Normal NEGATIVE [facility] Comment on above: Performed By: #### D RUGRPD #### [facility] [address] [place] [address] Dr. Papo Swanson TCA Negative Normal NEGATIVE [facility] Comment on above: Performed By: #### D RUGRPD #### [facility] [address] [place] [address] Dr. Papo Swanson THC Negative Normal NEGATIVE [facility] Comment on above: Performed By: #### D RUGRPD #### [facility] [address] [place] [address] Dr. Papo Swanson TYPE AND SCREENon 12-26-2021 TYPE AND SCREEN Negative Normal [facility] Comment on above: Performed By: #### D RUGRPD #### [facility] [address] [place] [address] Dr. Papo Swanson UA (CLEAN/CATCH) IRON CARRIER/MICRO I F IND.on 12-26-2021 Bilirubin Ql (U) Negative Normal NEGATIVE [facility] Comment on above: Performed By: #### D RUGRPD #### [facility] [address] [place] [address] Dr. Papo Swanson Clarity (U) CLEAR Normal CLEAR [facility] Comment on above: Performed By: #### D RUGRPD #### [facility] [address] [place] [address] Dr. Papo Swanson Color (U) LT. YELLOW Normal YELLOW [facility] Comment on above: Performed By: #### D RUGRPD #### [facility] [address] [place] [address] Dr. Papo Swanson Glucose Ql (U) Negative Normal NEGATIVE [facility] Comment on above: Performed By: #### D RUGRPD #### [facility] [address] [place] [address] Dr. Papo Swanson Hemoglobin Ql (U) Negative Normal NEGATIVE [facility] Comment on above: Performed By: #### D RUGRPD #### [facility] [address] [place] [address] Dr. Papo Swanson Ketones Ql (U) Negative Normal NEGATIVE [facility] Comment on above: Performed By: #### D RUGRPD #### [facility] [address] [place] [address] Dr. Papo Swanson LEUKOCYTES LARGE Abnormal NEGATIVE [facility] Comment on above: Performed By: #### D RUGRPD #### [facility] [address] [place] [address] Dr. Papo Swanson Nitrite Ql (U) Negative Normal NEGATIVE [facility] Comment on above: Performed By: #### D RUGRPD #### [facility] [address] [place] [address] Dr. Papo Swanson pH (U) 7.5 [pH] Normal 5-9 [facility] Comment on above: Performed By: #### D RUGRPD #### [facility] [address] [place] [address] Dr. Papo Swanson SPEC GRAVITY 1.015 Normal 1.005-<=1.025 [facility] Comment on above: Performed By: #### D RUGRPD #### [facility] [address] [place] [address] Dr. Papo Swanson UA PROTEIN Negative Normal NEGATIVE/ TRACE [facility] Comment on above: Performed By: #### D RUGRPD #### [facility] [address] [place] [address] Dr. Papo Swanson UR MICRO IND INDICATED Normal [facility] Comment on above: Performed By: #### D RUGRPD #### [facility] [address] [place] [address] Dr. Papo Swanson Urobilinogen Qn (U) 0.2 {Kelle'U}/dL Normal 0.2 - 1. 0 [facility] Comment on above: Performed By: #### D RUGRPD #### [facility] [address] [place] [address] Dr. Papo Swanson URINE MICROSCOPIC ONLYon BACTERIA SMALL Abnormal NONE SEEN [facility] Comment on above: Performed By: #### D RUGRPD #### [facility] [address] [place] [address] Dr. Papo Swanson Bacteria identified Cx Nom (U) INDICATED Normal [facility] Comment on above: Performed By: #### D RUGRPD #### [facility] [address] [place] [address] Dr. Papo Swanson CAST NONE SEEN Normal NONE SEEN [facility] Comment on above: Performed By: #### D RUGRPD #### [facility] [address] [place] [address] Dr. Papo Swanson Crystals LM Nom (Urine sed) NONE SEEN Normal NONE SEEN [facility] Comment on above: Performed By: #### D RUGRPD #### [facility] [address] [place] [address] Dr. Papo Swanson Epithelial cells LM Ql (Urine sed) MODERATE Abnormal NONE SEEN /RARE [facility] Comment on above: Performed By: #### D RUGRPD #### [facility] [address] [place] [address] Dr. Papo Swanson MUCOUS NONE SEEN Normal NONE SEEN [facility] Comment on above: Performed By: #### D RUGRPD #### [facility] [address] [place] [address] Dr. Papo Swanson RBC 0-2 Normal 0-2 [facility] Comment on above: Performed By: #### D RUGRPD #### [facility] [address] [place] [address] Dr. Papo Swanson WBC 10-20 Abnormal NONE SEEN [facility] Comment on above: Performed By: #### D RUGRPD #### [facility] [address] [place] [address] Dr. Papo Swanson US PREG GROWTHon 12-21-2021 [...] SHANA ROBLERO Date: 2021-12-21 18:09 Normal [facility] GROUP B STREP CULTUREon 11-23 S. agalactiae Ag Ql (Unsp spec) Culture Observations: NEGATIVE FOR GROUP B STREPTOCOCCUS. Normal [facility] Comment on above: Performed By: #### D RUGRPD #### [facility] [address] [place] [address] Dr. Papo Swanson GLUCOSE - 1HRon 10-16-2021 Glucose [Mass/Vol] 148 mg/dL Critically high 74-106 [facility] Comment on above: Performed By: #### G LU1HR #### [facility] [address] [place] [address] Dr. Papo Swanson HEMOGRAM AND PLATELon 2021 Hematocrit (Bld) [Volume fraction] 31.5 % Critically low 36.0-48.0 [facility] Comment on above: Performed By: #### H H #### [facility] [address] [place] [address] Dr. Papo Swanson Hemoglobin (Bld) [Mass/Vol] 10.4 g/dL Critically low 12.0-16.0 [facility] Comment on above: Performed By: #### H H #### [facility] [address] [place] [address] Dr. Papo Swanson MCH (RBC) [Entitic mass] 27.8 pg Normal 26.7-34.0 [facility] Comment on above: Performed By: #### H H #### [facility] [address] [place] [address] Dr. Papo Swanson MCHC (RBC) [Mass/Vol] 33.0 g/dL Normal 29.9-35.2 [facility] Comment on above: Performed By: #### H H #### [facility] [address] [address] [address] Papo Swanson MCV (RBC) [Entitic vol] 84.2 fL Normal 81.0-99.0 [facility] Comment on above: Performed By: #### H H #### [facility] [address] [address] [address] Papo Swanson PLT 248 103/ul Normal 150-450 [facility] Comment on above: Performed By: #### H H #### [facility] [address] [address] [address] Papo Swanson RBC 3.74 106/ul Critically low 4.20-5.40 [facility] Comment on above: Performed By: #### H H #### [facility] [address] [address] [address] Papo Swanson WBC 7.4 103/ul Normal 4.0-11.0 [facility] Comment on above: Performed By: #### H H #### [facility] [address] [address] [address] Papo Swanson US PREG ANATOMY SINGLEon [...] SHANA ROBLERO Date: 2021-08-21 16:22 Normal [facility] US PREG CERVICAL LENGTHon US PREG [...] DEON STEINER Date: 2021-08-01 13:33 Normal [facility] CHLAMYDIA/GONOCOCCUS PRIYA (SW AB/URINE/PAPon 07-28-2021 Chlamydia trachomatis, PRIYA Negative Normal Negative [facility] Comment on above: Performed By: #### C T/NGNA #### [facility] [address] [place] [address] Dr. Papo wSanson Neisseria gonorrhoeae, PRIYA Negative Normal Negative [facility] Comment on above: Performed By: #### C T/NGNA #### [facility] [address] [address] [address] Papo Swanson VAGINITIS/VAGINOSIS DNA PROB Anthony 07-27-2021 Zhane species Positive Abnormal Negative [facility] Comment on above: Performed By: #### E RUR #### [facility] [address] [address] [address] Papo Swanson Gardnerella vaginalis Negative Normal Negative [facility] Comment on above: Performed By: #### E RUR #### [facility] [address] [address] [address] Papo Swanson Trichomonas vaginalis Negative Normal Negative [facility] Comment on above: Performed By: #### E RUR #### [facility] [address] [address] [address] Papo Swanson Vital Signs Date Time Vital Sign Value Performing Clinician [facility] 08-09-2024 [id number] Body weight 70.22 kg Gabi Jain [employer] [facility] Work Phone: [facility] 08-09-2024 10:02-0400 Diastolic blood pressure 60 mm[Hg] Gabi Jain [employer] Work Phone: [facility] 08-09-2024 10:02-0400 Systolic blood pressure 100 mm[Hg] Gabi Jain [employer] [facility] Work Phone: [facility] 08-02-2024 10:21-0400 Body weight 69.58 kg Nikki Rip DO Work Phone: [facility] 08-02-2024 10:21-0400 Diastolic blood pressure 70 mm[Hg] Nikki Rip DO Work Phone: [facility] 08-02-2024 10:21-0400 Systolic blood pressure 100 mm[Hg] Nikki Rip DO Work Phone: [facility] 07-26-2024 13:55-0400 Body weight 68.95 kg Gaviota CHAIDEZ Work Phone: [facility] 07-26-2024 13:55-0400 Diastolic blood pressure 76 mm[Hg] Gaviota CHAIDEZ Work Phone: [facility] 07-26-2024 13:55-0400 Systolic blood pressure 110 mm[Hg] Gaviota CHAIDEZ Work Phone: [facility] 07-12-2024 09:23-0400 Body weight 68.04 kg Nikki Rip DO Work Phone: [facility] 07-12-2024 09:23-0400 Diastolic blood pressure 78 mm[Hg] Nikki Rip DO Work Phone: [facility] 07-12-2024 09:23-0400 Systolic blood pressure 104 mm[Hg] Nikki Rip DO Work Phone: [facility] 06-28-2024 15:33-0400 Body weight 67.31 kg Gaviota Arvin PA Work Phone: [facility] 06-28-2024 15:33-0400 Diastolic blood pressure 68 mm[Hg] Gaviota Wallingford PA Work Phone: [facility] 06-28-2024 15:33-0400 Systolic blood pressure 104 mm[Hg] Gaviota Wallingford PA Work Phone: [facility] 06-14-2024 13:13-0400 Body weight 65.83 kg Nikki Rip DO Work Phone: [facility] 06-14-2024 13:13-0400 Diastolic blood pressure 70 mm[Hg] Nikki Rip DO Work Phone: [facility] 06-14-2024 13:13-0400 Systolic blood pressure 98 mm[Hg] Nikki Rip DO Work Phone: [facility] 05-27-2024 14:41-0500 Body weight 67.04 kg Gaviota Arvin PA Work Phone: [facility] 05-27-2024 14:41-0500 Diastolic blood pressure 64 mm[Hg] Gaviota Arvin PA Work Phone: [facility] 05-27-2024 14:41-0500 Systolic blood pressure 100 mm[Hg] Gaviota Arvin PA Work Phone: [facility] 04-28-2024 15:17-0500 Body weight 66.13 kg Nikki Rip DO Work Phone: [facility] 04-28-2024 15:17-0500 Diastolic blood pressure 72 mm[Hg] Nikki Rip DO Work Phone: [facility] 04-28-2024 15:17-0500 Systolic blood pressure 100 mm[Hg] Nikki Rip DO Work Phone: [facility] 03-31-2024 16:01-0500 Body weight 63.78 kg Gaviota CHAIDEZ Work Phone: [facility] 03-31-2024 16:01-0500 Diastolic blood pressure 66 mm[Hg] Gaviota CHAIDEZ Work Phone: [facility] 03-31-2024 16:01-0500 Systolic blood pressure 108 mm[Hg] Gaviota CHAIDEZ Work Phone: [facility] 02-25-2024 14:04-0500 Body weight 63.23 kg Nikki Rip DO Work Phone: [facility] 02-25-2024 14:04-0500 Diastolic blood pressure 70 mm[Hg] Nikki Rip DO Work Phone: [facility] 02-25-2024 14:04-0500 Systolic blood pressure 110 mm[Hg] Nikki Rip DO Work Phone: [facility] 01-29-2024 13:30-0500 Body weight 64.41 kg Nom Nurse [facility] 01-29-2024 13:30-0500 Diastolic blood pressure 68 mm[Hg] Nom Nurse [facility] 01-29-2024 13:30-0500 Systolic blood pressure 112 mm[Hg] Nom Nurse [facility] 05-06-2023 11:05-0500 Body weight 61.69 kg Gaviota CHAIDEZ Work Phone: [facility] 05-06-2023 11:05-0500 Diastolic blood pressure 68 mm[Hg] Gaviota CHAIDEZ Work Phone: [facility] 05-06-2023 11:05-0500 Systolic blood pressure 108 mm[Hg] Gaviota CHAIDEZ Work Phone: [facility] Healthcare Encounters Encounter Date Encounter Type Care Provider Facility Start: 08-09-2024 End: 08-09-2024 Bamboo flowsfranchesca Jain NP Work Phone: [facility] Start: 08-09-2024 End: 08-09-2024 Bamboo flowsheet Gabi Cristobal [employer] [facility] Work Phone: [facility] Start: 08-09-2024 End: 08-09-2024 Office outpatient visit 15 minutes Gabi Cristobal [employer] [facility] Work Phone: [facility] Comment on above: 37 weeks gestation o f ; Third trimester Start: 08-09-2024 End: 08-09-2024 ambulatory GABI CRISTOBAL Not Available Start: 08-02-2024 End: 08-02-2024 Bamboo flowsheet Nikki Rip DO Work Phone: [facility] Start: 08-02-2024 End: 08-02-2024 Bamboo flowsheet Nikki Rip DO Work Phone: [facility] Start: 08-02-2024 End: 08-02-2024 ambulatory NIKKI RIP Not Available Start: 08-02-2024 End: 08-02-2024 Office outpatient visit 15 minutes Nikki Rip DO Work Phone: [facility] Comment on above: 36 weeks gestation o f ; Third trimester Start: 07-28-2024 End: 07-28-2024 ambulatory NIKKI RIP Not Available Start: 07-26-2024 End: 07-26-2024 Bamboo flowsheet Gaviota CHAIDEZ Work Phone: [facility] Start: 07-26-2024 End: 07-26-2024 Bamboo flowsheet Gaviota CHAIDEZ Work Phone: [facility] Start: 07-26-2024 End: 07-26-2024 Office outpatient visit 15 minutes Gaviota CHAIDEZ Work Phone: [facility] Comment on above: Third trimester preg isi; 35 weeks gestation of ; SGA (small for gestational age) Start: 07-26-2024 End: 07-26-2024 ambulatory GAVIOTA SHERIDAN Not Available Start: 07-12-2024 End: 07-12-2024 Bamboo flowsheet Nikki Rip DO Work Phone: [facility] Start: 07-12-2024 End: 07-12-2024 Bamboo flowsheet Nikki Rip DO Work Phone: [facility] Start: 07-12-2024 End: 07-12-2024 Office outpatient visit 15 minutes Nikki Rip DO Work Phone: [facility] Comment on above: Third trimester preg isi; 33 weeks gestation of Start: 07-12-2024 End: 07-12-2024 ambulatory NIKKI RIP Not Available Start: 06-28-2024 End: 06-28-2024 Office outpatient visit 15 minutes Gaviota CHAIDEZ Work Phone: [facility] Comment on above: 31 weeks gestation o f ; Third trimester ; HSV infection; Low iron; Drug-induced constipation Start: 06-28-2024 End: 06-28-2024 ambulatory GAVIOTA SHERIDAN Not Available Start: 06-14-2024 End: 06-14-2024 Bamboo flowsheet Nikki Rip DO Work Phone: [facility] Start: 06-14-2024 End: 06-14-2024 Bamboo flowsheet Nikki Rip DO Work Phone: [facility] Start: 06-14-2024 End: 06-14-2024 Office outpatient visit 15 minutes Nikki Rip DO Work Phone: [facility] Comment on above: Third trimester preg isi; 28 weeks gestation of ; size inconsistent with dates Start: 06-14-2024 End: 06-14-2024 ambulatory NIKKI RIP Not Available Start: 05-27-2024 End: 05-27-2024 Office outpatient visit 15 minutes Gaviota CHAIDEZ Work Phone: [facility] Comment on above: Low iron; 26 weeks gestation of ; Second trimester Start: 05-27-2024 End: 05-27-2024 ambulatory GAVIOTA SHERIDAN Not Available Start: 05-27-2024 End: 05-27-2024 Bamboo flowsheet Gaviota CHAIDEZ Work Phone: [facility] Start: 05-27-2024 End: 05-27-2024 Bamboo flowsheet Gaviota CHAIDEZ Work Phone: [facility] Start: 05-25-2024 End: 05-25-2024 Clinisync Result Encounter Inkki Rip DO Work Phone: [facility] External [facility] [...] 01-21-2024 End: 01-21-2024 Emergency department patient visit [facility] Start: 01-21-2024 End: 01-21-2024 Emergency department patient visit WIL WARNER [facility] Start: 05-06-2023 Clinisync Result Encounter Nikki Rip [...] Date Procedure Procedure Detail Performing Clinician Start: 08-09-2024 Urnls dip stick/tabl et rgnt non-auto w/o micrscp Gabi Jain NP Work Phone: Start: 08-02-2024 Urnls dip stick/tabl et rgnt non-auto w/o micrscp Nikki Rip DO Work Phone: Start: 07-26-2024 Urnls dip stick/tabl et rgnt [...] w/o micrscp Gaviota CHAIDEZ Work Phone: Start: 05-06-2023 ALL CBC WITH AUTO DIFF Nikki Erwin DO Work Phone: Start: 12-26-2021 Delivery of Products of Conception, External Approach DR NIKKI ERWIN . Start: 12-26-2021 Repair Perineum Skin , External Approach DR NIKKI ERWIN . Plan of Treatment Date Care Activity Detail Author Start: 11-22-2024 Influenza vaccination Influenz a Vaccine (Season Ended) [facility] Start: 08-17-2024 End: 08-17-2024 Patient encounter procedure 08/17/2024 9:00 AM EDT Routine [facility] [address] [place] [address] Nikki Erwin, DO [address] [place], [place] [id number] [facility] Start: 08-09-2024 End: 08-09-2024 Patient encounter procedure [facility] Comment on above: Arrived Start: 08-02-2024 End: 08-02-2025 CULTURE, GROUP B STREP WITH SUSCEPTIBLITY CULTURE, GROUP B STREP WITH SUSCEPTIBLITY Lab Routine Third trimester Expected: 08/02/2024, Expires: 08/02/2025 [facility] Work Phone: Comment on above: Expected: 08/02/2024 , Expires: 08/02/2025 Start: 08-02-2024 End: 08-02-2024 Patient encounter procedure 08/02/2024 10:00 AM EDT Office Visit [facility] [address] [place] [address] Nikki Erwin, DO [address] [place] [address] [facility] Start: 07-28-2024 End: 07-28-2024 Professional / ancillary services management 07/28/2024 8:00 AM EDT Ancillary Procedure [facility] [address] [place] [phone] [facility] Start: 07-26-2024 End: 11-26-2024 US for US OB follow up transabdominal approach Imaging Routine SGA (small for gestational age) Expected: 07/26/2024, Expires: 11/26/2024 [facility] Work Phone: Comment on above: Expected: 07/26/2024 , Expires: 11/26/2024 Start: 07-26-2024 End: 07-26-2024 Patient encounter procedure [facility] Comment on above: Arrived Start: 07-12-2024 End: 07-12-2024 Patient encounter procedure [facility] Comment on above: Arrived Start: 06-28-2024 End: 06-28-2024 Patient encounter procedure 06/28/2024 3:30 PM EDT Routine [facility] [address] [place] [phone] Gaviota Sheridan PA [address] [place], [place] [id number] [facility] Start: 06-28-2024 End: 06-28-2024 Professional / ancillary services management 06/28/2024 3:00 PM EDT Ancillary Procedure [facility] [address] [place] [phone] [facility] Start: 06-14-2024 End: 06-14-2025 [...] PM EST Routine [facility] [address] [place] [phone] Nikki Erwin, [address] [place] [address] [facility] Start: 04-28-2024 End: 04-28-2025 CBC panel - Blood by Automated count CBC Lab Routine Diabetes mellitus screening Expected: 04/28/2024 (Approximate), Expires: 04/28/2025 [facility] Work Phone: Comment on above: Expected: 04/28/2024 (Approximate), Expires: 04/28/2025 Start: 04-28-2024 End: 04-28-2025 Measurement of glucose 1 hour after glucose challenge for glucose tolerance test Glucose tolerance, 1 hour Lab Routine Diabetes mellitus screening Expected: 04/28/2024 (Approximate), Expires: 04/28/2025 [facility] Comment on above: Expected: 04/28/2024 [...] for anatomic survey Expected: 03/31/2024, Expires: 03/31/2025 [facility] Comment on above: Expected: 03/31/2024 , Expires: 03/31/2025 Start: 02-25-2024 End: 02-25-2024 Patient encounter procedure 02/25/2024 1:40 PM EST Routine [facility] [address] [place] [phone] Nikki Erwin DO [address] [place] [address] [place] [address] [facility] Start: 01-29-2024 End: 01-28-2025 ABO/Rh ABO/Rh Lab Routine Missed menses , unspecified gestational age Expected: 01/29/2024 (Approximate), Expires: 01/28/2025 [facility] Comment on above: Expected: 01/29/2024 (Approximate), Expires: 01/28/2025 Start: 01-29-2024 End: 01-28-2025 Blood type and Indirect antibody screen panel - Blood Type and screen Lab Routine Missed menses , unspecified gestational age Expected: 01/29/2024 (Approximate), Expires: 01/28/2025 [facility] Work Phone: Comment on above: Expected: 01/29/2024 (Approximate), Expires: 01/28/2025 Start: 01-29-2024 End: 01-28-2025 Drugs of abuse panel - Urine by Screen method Rapid drug screen, urine Lab Routine , unspecified gestational age Encounter for supervision of normal first in first trimester Expected: 01/29/2024 (Approximate), Expires: 01/28/2025 [facility] Comment on above: Expected: 01/29/2024 (Approximate), Expires: 01/28/2025 Start: 01-29-2024 End: 01-28-2025 US Pelvis transvaginal US OB transvaginal Imaging Routine Missed menses Expected: 01/29/2024 (Approximate), Expires: 01/28/2025 [facility] Comment on above: Expected: 01/29/2024 (Approximate), Expires: 01/28/2025 Start: 11-23-2023 Influenza vaccination Influenza Vacc ine (#1) [facility] Start: 05-20-2023 End: 05-20-2023 Patient encounter procedure 05/20/2023 10:00 AM EST Routine [facility] [address] [place] [address] Nikki Erwin DO [address] [place] [address] [facility] Start: 05-06-2023 End: 05-06-2023 Patient encounter procedure 05/06/2023 11:20 AM EST Routine [facility] [address] [place] [phone] Gaviota Sheridan PA [address] [place] [address] Third trimester [facility] Comment on above: Third trimester preg isi Bacteria identified in Urine by Culture Urine culture Microbiology Routine Missed menses Ordered: 01/29/2024 [facility] Comment on above: Ordered: 01/29/2024 Bacteria identified in Urine by Culture Urine culture Microbiology Routine 36 weeks gestation of Third trimester Ordered: 08/02/2024 [facility] Comment on above: Ordered: 08/02/2024 CBC W Auto Different ial panel - Blood CBC and differential Lab Routine Missed menses , unspecified gestational age Ordered: 01/29/2024 [facility] Comment on above: Ordered: 01/29/2024 CHLAMYDIA TRACHOMATI S (GENITO/STI) CHLAMYDIA TRACHOMATIS (GENITO/STI) Lab Routine STD exposure Ordered: 03/31/2024 [facility] Comment on above: Ordered: 03/31/2024 Cytology Cervical or vaginal smear or scraping study Pap Smear Pathology and Cytology Routine Well woman exam with routine gynecological exam Ordered: 03/31/2024 [facility] Comment on above: Ordered: 03/31/2024 Hemoglobin A1c/Hemoglobin.total in Blood Hemoglobin A1c Lab Routine Missed menses , unspecified gestational age Ordered: 01/29/2024 [facility] Comment on above: Ordered: 01/29/2024 Hepatitis B virus surface Ag [Presence] in Serum or Plasma by Immunoassay Hepatitis B surface antigen Lab Routine Missed menses , unspecified gestational age Ordered: 01/29/2024 [facility] Comment on above: Ordered: 01/29/2024 Hepatitis C virus Ab [Presence] in Serum or Plasma by Immunoassay Hepatitis C antibody Lab Routine Missed menses , unspecified gestational age Ordered: 01/29/2024 [facility] Comment on above: Ordered: 01/29/2024 HIV-1/HIV-2 antigen/antibody combination immunoassay HIV-1 and HIV-2 antibodies Lab Routine Missed menses , unspecified gestational age Ordered: 01/29/2024 [facility] Comment on above: Ordered: 01/29/2024 Neisseria gonorrhoea e DNA [Presence] in Unspecified specimen by PRIYA with probe detection Neisseria gonorrhea DNA probe, direct Lab Routine STD exposure Ordered: 03/31/2024 [facility] Comment on above: Ordered: 03/31/2024 Reagin Ab [Presence] in Serum by RPR RPR Lab Routine Missed menses , unspecified gestational age Ordered: 01/29/2024 [facility] Comment on above: Ordered: 01/29/2024 Rubella antibody, IgG Rubella an tibody, IgG Lab Routine Missed menses , unspecified gestational age Ordered: 01/29/2024 [facility] Comment on above: Ordered: 01/29/2024 SURESWAB(R) ADVANCED VAGINITIS PLUS, TMA SURESWAB(R) ADVANCED VAGINITIS PLUS, TMA Pathology and Cytology Routine Vaginal discharge Ordered: 03/31/2024 [facility] Work Phone: Comment on above: Ordered: 03/31/2024 Payers Date Payer Category Payer Worker's Compensation [id number] 2022 Medicaid [id number] 2022 Medicaid [id number] 2001 Unknown [id number] 2.16.84 0.1.949877.3.579.2.593 2001 Unknown [id number] 2.16.84 0.1.100415.3.579.2.593 2001 Unknown [id number] 2.16.84 0.1.699323.3.579.2.593 2001 Unknown [id number] 2.16.84 0.1.462201.3.579.2.593 2001 Unknown [id number] 2.16.84 0.1.347638.3.579.2.593 2001 Unknown [id number] 2.16.84 0.1.669702.3.579.2.593 2001 Unknown [id number] 2.16.84 0.1.714212.3.579.2.593 2001 Unknown [id number] 2.16.84 0.1.200601.3.579.2.593 2001 Unknown [id number] 2.16.8 40.1.872374.3.579.2.1286 2001 Unknown [id number] 2.16.8 40.1.169344.3.579.2.1286 2001 Unknown [id number] 2.16.84 0.1.173421.3.579.2.1259 2001 Unknown [id number] 2.16.84 0.1.447247.3.579.2.1259 2001 Unknown [id number] 2.16.84 0.1.099518.3.579.2.1259 2001 Unknown [id number] 2.16.84 0.1.346044.3.579.2.1259 2001 Unknown [id number] 2.16.84 0.1.950709.3.579.2.1259 2001 Unknown [id number] 2.16.84 0.1.771466.3.579.2.1259 2001 Unknown [id number] 2.16.84 0.1.644782.3.579.2.1259 2001 Unknown [id number] 2.16.84 0.1.011380.3.579.2.1259 2001 Unknown [id number] 2.16.84 0.1.889335.3.579.2.1259 2001 Unknown [id number] 2.16.84 0.1.275043.3.579.2.1259 2001 Unknown [id number] 2.16.84 0.1.119532.3.579.2.1259 2001 Unknown [id number] 2.16.84 0.1.772565.3.579.2.1259 2001 Unknown [id number] 2.16.84 0.1.877153.3.579.2.1259 1959 Unknown [id number] Social History Date Type Detail Facility Tobacco smoking stat [facility] Tobacco smoking consumption unknown [facility] Start: 11-05-2022 [facility] Start: 2001 Sex Assigned At Not on file [facility] Gender identity Not on file [facility] Clinical Notes 05-06-2023 to 08-09-2024 Gabi Jain NP - 08/09/2024 10:00 AM Rose Marie Patel LPN - 08/02/2024 10:00 AM DM Garcia - 07/26/2024 1:50 PM Rose Marie Patel LPN - 07/12/2024 9:30 AM EDT Note Date & Type Note Facility 08-09-2024 History of Presen t illness Narrative Reason [...] nursing note reviewed. Exam conducted with a insulation worker present. Vitals: There is no height or weight on file to calculate BMI. BP: 100/60 Patient's last menstrual period was 11/24/2023. ASSESSMENT & PLAN ICD-10-CM 1. 37 weeks gestation of Z3A.37 POCT urinalysis dipstick manually resulted 2. Third trimester Z34.93 POCT urinalysis dipstick manually resulted Return OB: Patient presents today for a routine obstetrics appointment. Patient is currently 37w0d . Patient states she is doing well but has complaints of being tired due to current . Patient has verbalizes frequent movement. labor precautions was discussed/given and patient was instructed to perform kick counts three times a day. Orders Placed This Encounter Procedures POCT urinalysis dipstick manually resulted Follow Up: Patient is to return to office in 1 week for routine OB appointment. Patient continues to take her ProFe daily as well as Valtrex as prescribed. Documented by Gabi Jain NP on behalf of: Gabi Jain NP documented in this encounter [facility] 08-02-2024 History of Presen t illness Narrative Reason [...] Constitutional: Appearance: Normal appearance. She is well-developed. Genitourinary: Vulva normal. Cardiovascular: Rate and Rhythm: Normal rate and [...] nursing note reviewed. Exam conducted with a insulation worker present. Vitals: There is no height or weight on file to calculate BMI. BP: 100/70 Patient's last menstrual period was 11/24/2023. ASSESSMENT & PLAN ICD-10-CM 1. 36 weeks gestation of Z3A.36 POCT urinalysis dipstick manually resulted Urine culture 2. Third trimester Z34.93 POCT urinalysis dipstick manually resulted CULTURE, GROUP B STREP WITH SUSCEPTIBLITY CULTURE, GROUP B STREP WITH SUSCEPTIBLITY Urine culture Patient is doing well but has complaints of being tired and having maternal discomfort due to . Patient verbalized frequent movement and was instructed to perform kick counts three times per day. labor precautions were given, LARC consent was signed/declined, and GBS was obtained. Orders Placed This Encounter Procedures Urine culture CULTURE, GROUP B STREP WITH SUSCEPTIBLITY POCT urinalysis dipstick manually resulted Follow Up: Patient is to return to office in 1 week for routine OB appointment Documented by Katharina Patel LPN on behalf of: Nikki Erwin DO documented in this encounter [facility] 07-26-2024 History of Presen t illness Narrative [...] of: DM Chang documented in this encounter [facility] 07-12-2024 History of Presen t illness Narrative [...] nursing note reviewed. Exam conducted with a insulation worker present. Vitals: There is no height or [...] Nikki Erwin DO documented in this encounter [facility] 06-28-2024 History of Presen t illness Narrative [...] nursing note reviewed. Exam conducted with a insulation worker present. Vitals: There is no height or [...] of: DM Chang documented in this encounter [facility] 06-14-2024 History of Presen t illness Narrative [...] nursing note reviewed. Exam conducted with a insulation worker present. Vitals: There is no height or [...] Nikki Erwin DO documented in this encounter [facility] 05-27-2024 History of Presen t illness Narrative [...] nursing note reviewed. Exam conducted with a insulation worker present. Vitals: There is no height or [...] of: DM Chang documented in this encounter [facility] 04-28-2024 History of Presen t illness Narrative [...] nursing note reviewed. Exam conducted with a insulation worker present. Vitals: There is no height or [...] Nikki Erwin DO documented in this encounter [facility] 03-31-2024 History of Presen t illness Narrative [...] obtained without difficulty and patient was given [facility] order to have obtained. Orders Placed This Encounter Procedures US OB 14+ weeks anatomy scan CHLAMYDIA TRACHOMATIS (GENITO/STI) Neisseria gonorrhea DNA probe, direct Alpha fetoprotein, maternal POCT urinalysis dipstick manually resulted Follow Up: Patient is to return to our office in 4 weeks for routine OB appointment Documented by Katharina Patel LPN on behalf of: DM Chang documented in this encounter [facility] 02-25-2024 History of Presen t illness Narrative [...] nursing note reviewed. Exam conducted with a insulation worker present. Vitals: There is no height or [...] or undercooked meat, and stay away from [facility]. Patient has been consulted regarding any further do's and don'ts of . Patient voiced understanding and all questions and concerns were answered. Orders Placed This Encounter Procedures POCT urinalysis dipstick manually resulted Follow Up: Patient is to return in 4 weeks for routine OB appointment. Documented by Aylin Cummings LPN on behalf of: Nikki Erwin DO documented in this encounter [facility] 01-29-2024 History of Presen t illness Narrative [...] or undercooked meat, and stay away from [facility]. Patient has also been advised to not [...] Mary Flores MA documented in this encounter [facility] 05-06-2023 History of Presen t illness Narrative [...] gestation of SGA (small for gestational age) Axxdo-tgt-psesy without mention of malnutrition, unspecified (weight) documented in [facility]* Diagnosis 36 weeks gestation of Third trimester state, incidental documented in this encounter [facility]* Diagnosis 37 weeks gestation of Third trimester state, incidental documented in this encounter [facility] Summary Purpose Family History No Family History Records FoundNo Family History Records FoundNo Family History Records Found Advance Directives No Advanced Directives Records FoundNo Advanced Directives Records FoundNo Advanced Directives Records Found Additional Source Comments INFORMATION SOURCE (unrecogn ized section and content) DATE CREATED AUTHOR 07/13/2022 [facility] DATE CREATED AUTHOR AUTHOR'S ORGANIZ ATION 01/23/2024 [facility] DATE CREATED AUTHOR AUTHOR'S ORGANIZ ATION 08/09/2024 [facility] EPIC Reason for Visit (unrecogniz ed section and content) Reason Comments Routine Visit Reason Comments Amenorrhea Reason Comments Well Women Visit Routine Visit STI Screening Care Teams (unrecognized sec tion and content) Certified Medical Technician Assistant Relationship Specialty Start Date End Date Nikki Erwin, DO [address] [place] [address] PCP - [facility] 12/23/23 Certified Medical Technician Assistant Relationship Specialty Start Date End Date Nikki Erwin, DO [address] [place] [address] PCP - [facility] 12/23/23 Certified Medical Technician Assistant Relationship Specialty Start Date End Date Nikki Erwin, DO [address] [place] [address] PCP - [facility] 12/23/23 Certified Medical Technician Assistant Relationship Specialty Start Date End Date Guanakito Erwiny, DO [address] [place] [address] PCP - [facility] 12/23/23 Certified Medical Technician Assistant Relationship Specialty Start Date End Date Nikki Erwin, DO [address] [place] [address] PCP - [facility] 12/23/23 Certified Medical Technician Assistant Relationship Specialty Start Date End Date Nikki Erwin, DO [address] [place] [address] PCP - [facility] 12/23/23 Certified Medical Technician Assistant Relationship Specialty Start Date End Date Guanakito Erwiny, DO [address] [place] [address] PCP - [facility] 12/23/23 Certified Medical Technician Assistant Relationship Specialty Start Date End Date Guanakito Erwiny, DO [address] [place] [address] PCP - [facility] 12/23/23 Certified Medical Technician Assistant Relationship Specialty Start Date End Date RipGuanakitoy, DO [address] [place] [address] PCP - [facility] 12/23/23 Certified Medical Technician Assistant Relationship Specialty Start Date End Date RipGuanakitoy, DO [address] [place] [address] PCP - [facility] 12/23/23 Certified Medical Technician Assistant Relationship Specialty Start Date End Date Guanakito Erwiny, DO [address] [place] [address] PCP - [facility] 12/23/23 Certified Medical Technician Assistant Relationship Specialty Start Date End Date RipGuanakitoy, DO [address] [place] [address] PCP - [facility] 12/23/23 Certified Medical Technician Assistant Relationship Specialty Start Date End Date RipGuanakitoy, DO [address] [place] [address] PCP - [facility] 12/23/23 FOR RECORDS PERTAINING TO PATIENTS [...] BE BASED ON THE PRIMARY CLINICAL RECORDS. [employer] [facility]. provides no warranty or guarantee of the accuracy or completeness of information in this document.
[2024-08-10 18:57] VITALS: BP 126/83; PULSE 86
[2024-08-10 19:30] LABS: Bilirubin Urine NEGATIVE (NEGATIVE); Blood Urine TRACE-I (NEGATIVE); Clarity Urine CLOUDY (CLEAR); Glucose Urine UA NEGATIVE (NEGATIVE); Ketones Urine NEGATIVE (NEGATIVE); Leukocyte Esterase Urine MODERATE (NEGATIVE); Nitrite Urine NEGATIVE (NEGATIVE); Protein Urine 30 mg/dL (NEG/TRACE); Specific Gravity Urine >=1.030 (1.005-1.025); Urobilinogen Urine 0.2 EU/dL (0.2-1.0)
[2024-08-10 19:32] LABS: Color Urine YELLOW (YELLOW); Urine Microscopic Indicated YES
[2024-08-10 19:58] LABS: Bacteria Urine LARGE #/HPF (NONE SEEN); Cast Seen? NONE SEEN #/LPF (NONE SEEN); Crystals Seen? None Seen #/HPF (None Seen); Mucus Urine SMALL (NONE SEEN); RBC Urine 0-2 #/HPF (0-2); Squamous Epithelial Cell Urine MODERATE #/LPF (NONE/RARE); Urine Culture Indicated YES-LC; WBC Urine 50-75 #/HPF (NONE SEEN)
== END 2024-08-10 21:43 | disposition home or self-care (01) ==
PROVIDERS: Admitting Provider Obstetrics & Gynecology; Visit Provider Obstetrics & Gynecology
DX: O47.03 False labor before 37 completed weeks of gestation, third trimester (principal); Z3A.37 37 weeks gestation of pregnancy
CPT/HCPCS: 59025; 81001; 87086; G0378; G0379

== ENCOUNTER 2024-08-21 10:00 | Inpatient (IN) | payer MEDICAID, SELFPAY ==
[2024-08-21] VITALS (17 sets, daily range): BP systolic 107–131; BP diastolic 58–89; PULSE 65–96; TEMP 35.7–37.4
--- OUTSIDE RECORDS SUMMARY | 2024-08-21 10:05 | XMS_ITS | CCD ---
Author Organization [facility] Care Team Providers Care Telesales Specialist Name Role Phone RIP ., DR JORDAN [...] Unavailable Primary Care Provider Unavailjane e SERVICES, [facility] Primary Care Unava ilable IVAN, SHANA Attending Unavailable ALANA, WIL Attending Unavailable WIL WARNER Referring Unavailable SERVICES, [facility] Unava ilable Rip MILLER Nikki Unavailable NIKKI ERWIN Attending Unavailable GAVIOTA SHERIDAN Attending Unavailable RIP, NIKKI Attending Unavailable RIP, NIKIK Referring Unavailable ARVIN, GAVIOTA Attending Unavailable RIP, NIKKI Attending Unavailable RIP, NIKKI Attending Unavailable ARVIN, GAVIOTA Attending Unavailable ARVIN, GAVIOTA Attending Unavailable RIP, NIKKI Attending Unavailable GABI JAIN Attending Unavailable RIP, NIKKI Attending Unavailable Medications Current Medications Medication Drug Class(es) Dates Sig (Normalized) Sig (Original) docusate sodium 100 mg oral capsule (18 sources) Start: 06-28-2024 End: 12-25-2024 take 1 capsule by mouth twice daily as needed for constipation docusate sodium (Colace) 100 MG capsule Indications: Drug-induced constipation Take 1 capsule (100 mg) by mouth 2 (two) times a day as needed for constipation 30 capsule 11 06/28/2024 12/25/2024 Active ferrous sulfate 325 mg delayed release oral tablet (18 sources) Start: 06-28-2024 End: 06-28-2025 take 1 [...] [37 weeks gestation of ] 08-09-2024 Episodic Residual codes; unclassified (2 sources) Gestation period, 38 weeks; Translations: [38 weeks gestation of ] 08-17-2024 Episodic Short gestation; low weight; and growth retardation (2 sources) Ilhcr-jxr-xrjvk baby; Translations: [ small for gestational age, [...] Range Facility Urinalysis macro (dipstick) panel (U)on 08-17-2024 Bilirubin, UA Negative Negative - 4(70) +++ mg/dL [facility] Blood, UA Positive Negative - 50 Chidi/mcL [facility] Comment on above: trace-intact Clarity, UA Clear [facility] Color, UA Yellow [facility] Glucose, UA Negative Negative - 2000(110) ++++ mg/dL [facility] Interpretation and review of laboratory results Abnormal [facility] Ketones, UA Negative Negative - 160(16) ++++ mg/dL [facility] Leukocytes, UA Positive Negative - 500+++ Gabi/mcL [facility] Comment on above: large Nitrite, UA Negative Negative - Positive [facility] pH, UA 6.5 5 - 9 [facility] Protein, UA Positive Negative - 2000(20) ++++ mg/dL [facility] Comment on above: 30 Spec Grav, UA 1.025 1 - 1.03 [facility] Urobilinogen, UA 0.2 0.2 - 12 mg/dL [facility] UA (CLEAN/CATCH) CAD DESIGNER DRAFTER/MURRAY RO IF IND.on 08-10-2024 BILIRUBIN URINE Negative NEGATIVE [facility] BLOOD URINE TRACE-I NEGATIVE [facility] Clarity (U) CLOUDY Abnormal CLEAR [facility] Color (U) YELLOW YELLOW [facility] GLUCOSE URINE UA Negative NEGATIVE mg/dL [facility] Interpretation and review of laboratory results Abnormal [facility] Ketones Ql (U) Negative NEGATIVE mg/dL [facility] Leukocyte esterase Test strip Ql (U) MODERATE Abnormal NEGATIVE [facility] NITRITE URINE Negative NEGATIVE [facility] pH (U) 6.0 [pH] 5.0 - 9.0 [facility] Protein (U) [Mass/Vol] 30 mg/dL Abnormal NEG/TRACE NO [facility] SPECIFIC GRAVITY URINE >=1.030 Abnormal 1.005 - 1.025 [facility] URINE MICROSCOPIC INDICATED YES [facility] UROBILINOGEN URINE 0.2 EU/dL 0.2 - 1.0 EU/dL [facility] Urinalysis macro (dipstick) panel (U)on 08-09-2024 Bilirubin, UA Negative Negative - 4(70) +++ mg/dL [facility] Blood, UA Negative Negative - 50 Chidi/mcL [facility] Clarity, UA Clear [facility] Color, UA Yellow [facility] Glucose, UA Negative Negative - 1999(110) ++++ mg/dL [facility] Interpretation and review of laboratory results Normal [facility] Ketones, UA Negative Negative - 160(16) ++++ mg/dL [facility] Leukocytes, UA Negative Negative - 500+++ Gabi/mcL [facility] Nitrite, UA Negative Negative - Positive [facility] pH, UA 6.5 5 - 9 [facility] Protein, UA Negative Negative - 1999(20) ++++ mg/dL [facility] Spec Grav, UA 1.015 1 - 1.03 [facility] Urobilinogen, UA 0.2 0.2 - 12 mg/dL [facility] Urinalysis macro (dipstick) panel (U)on 08-02-2024 Bilirubin, UA Positive Negative - 4(70) +++ mg/dL [facility] Comment on above: small Blood, UA Negative Negative - 50 Chidi/mcL [facility] Clarity, UA Clear [facility] Color, UA Yellow [facility] Glucose, UA Negative Negative - 1999(110) ++++ mg/dL [facility] Interpretation and review of laboratory results Abnormal [facility] Ketones, UA Positive Negative - 160(16) ++++ mg/dL [facility] Comment on above: trace Leukocytes, UA Positive Negative - 500+++ Gabi/mcL [facility] Comment on above: large Nitrite, UA Negative Negative - Positive [facility] pH, UA 6 5 - 9 [facility] Protein, UA Positive Negative - 2000(20) ++++ mg/dL [facility] Comment on above: 100 Spec Grav, UA 1.03 1 - 1.03 [facility] Urobilinogen, UA 1.0 0.2 - 12 mg/dL [facility] US OB LIMITED 1+ FETUSESon [...] II, MD, PHD at 01-Aug-2024 08:19:12 PM [facility] Normal Not Available Comment on above: Order Comment: US OB PLACENTA W US OB TRANSVAGINAL Estimated Date of Delivery: 08/30/24 Gestational Age as of 05/21/2024: 25w4d Urinalysis macro (dipstick) panel (U)on 07-26-2024 Bilirubin, UA Negative Negative - 4(70) +++ mg/dL [facility] Blood, UA Negative Negative - 50 Chidi/mcL [facility] Clarity, UA Clear [facility] Color, UA Yellow [facility] Glucose, UA Negative Negative - 1999(110) ++++ mg/dL [facility] Interpretation and review of laboratory results Abnormal [facility] Ketones, UA Negative Negative - 160(16) ++++ mg/dL [facility] Leukocytes, UA Positive Negative - 500+++ Gabi/mcL [facility] Comment on above: small Nitrite, UA Negative Negative - Positive [facility] pH, UA 7.5 5 - 9 [facility] Protein, UA Trace Negative - 1999(20) ++++ mg/dL [facility] Spec Grav, UA 1.02 1 - 1.03 [facility] Urobilinogen, UA 0.2 0.2 - 12 mg/dL [facility] Urinalysis macro (dipstick) panel (U)on 07-12-2024 Bilirubin, UA Negative Negative - 4(70) +++ mg/dL [facility] Blood, UA Positive Negative - 50 Chidi/mcL [facility] Comment on above: Trace-lysed Clarity, UA Clear [facility] Color, UA Yellow [facility] Glucose, UA Negative Negative - 2000(110) ++++ mg/dL [facility] Interpretation and review of laboratory results Abnormal [facility] Ketones, UA Negative Negative - 160(16) ++++ mg/dL [facility] Leukocytes, UA Positive Negative - 500+++ Gabi/mcL [facility] Comment on above: Moderate Nitrite, UA Negative Negative - Positive [facility] pH, UA 6 5 - 9 [facility] Protein, UA Positive Negative - 2000(20) ++++ mg/dL [facility] Comment on above: 30mg/dL Spec Grav, UA 1.025 1 - 1.03 [facility] Urobilinogen, UA 0.2 0.2 - 12 mg/dL [facility] US OB FOLLOW UP TRANSABDOMIN AL APPROACHon [...] II, MD, PHD at 29-Jun-2024 11:30:38 PM [facility] Normal Not Available Comment on above: Order Comment: US OB SCAN FOR GROWTH Estimated Date of Delivery: 08/30/24 Gestational Age as of 06/14/2024: 29w0d Urinalysis macro (dipstick) panel (U)on 06-28-2024 Bilirubin, UA Negative Negative - 4(70) +++ mg/dL [facility] Blood, UA Negative Negative - 50 Chidi/mcL [facility] Healthcare Clarity, UA Clear [facility] Color, UA Yellow [facility] Glucose, UA Negative Negative - 1999(110) ++++ mg/dL [facility] Interpretation and review of laboratory results Abnormal [facility] Healthcare Ketones, UA Negative Negative - 160(16) ++++ mg/dL [facility] Leukocytes, UA Positive Negative - 500+++ Gabi/mcL [facility] Comment on above: small Nitrite, UA Negative Negative - Positive [facility] pH, UA 7 5 - 9 [facility] Protein, UA Positive Negative - 1999(20) ++++ mg/dL [facility] Comment on above: 30 Spec Grav, UA 1.025 1 - 1.03 [facility] Urobilinogen, UA 0.2 0.2 - 12 mg/dL [facility] Urinalysis macro (dipstick) panel (U)on 06-14-2024 Bilirubin, UA Positive Negative - 4(70) +++ mg/dL [facility] Comment on above: small Blood, UA Negative Negative - 50 Chidi/mcL [facility] Healthcare Clarity, UA Clear [facility] Color, UA Yellow [facility] Glucose, UA Negative Negative - 1999(110) ++++ mg/dL [facility] Interpretation and review of laboratory results Abnormal [facility] Ketones, UA Positive Negative - 160(16) ++++ mg/dL [facility] Comment on above: 80mg/dL Leukocytes, UA Positive Negative - 500+++ Gabi/mcL [facility] Comment on above: small Nitrite, UA Negative Negative - Positive [facility] pH, UA 7 5 - 9 [facility] Protein, UA Positive Negative - 1999(20) ++++ mg/dL [facility] Comment on above: 100mg/dL Spec Grav, UA 1.025 1 - 1.03 [facility] Urobilinogen, UA 1.0 0.2 - 12 mg/dL [facility] Urinalysis macro (dipstick) panel (U)on 05-27-2024 Bilirubin, UA Negative Negative - 4(70) +++ mg/dL [facility] Blood, UA Negative Negative - 50 Chidi/mcL [facility] Clarity, UA Clear [facility] Color, UA Yellow [facility] Glucose, UA Negative Negative - 1999(110) ++++ mg/dL [facility] Interpretation and review of laboratory results Abnormal [facility] Ketones, UA Negative Negative - 160(16) ++++ mg/dL [facility] Leukocytes, UA 1+ Negative - 500+++ Gabi/mcL [facility] Comment on above: small Nitrite, UA Negative Negative - Positive [facility] pH, UA 6 5 - 9 [facility] Protein, UA Trace Negative - 1999(20) ++++ mg/dL [facility] Spec Grav, UA 1.03 1 - 1.03 [facility] Urobilinogen, UA 0.2 0.2 - 12 mg/dL [facility] No Panel InformationOrdered By: Radiologist Radiology on 05-25-2024 [facility] Work Phone: No Panel Informationon 05-25 Radiology Study observation (narrative) [facility] [place] [address] Ultrasound Report Signed Patient: SHY HAN MR#: [id number] : 2000 Acct:[id number] Age/Sex: 24 / F ADM Date: 05/25/24 Loc: US Attending Dr: Nikki Erwin D.O. Ordering Physician: Nikki Erwin D.O. Date of Service: 05/25/24 Procedure(s): US OB cervical length Accession Number(s): [id number] cc: Nikki Erwin D.O.; Physician,Non-Staff M.Ubaldo The [place] [id number] Patient Name: SHY HAN MRN: [facility]:[id number] date: 2000 Sex: F Assigned Patient Location: US Current Patient Location: US Accession/Order Number: [id number] Exam Date: 05/25/2024 22:23 Report Date: 05/25/2024 [...] Cox Jr., D.O.05/25/2024 10:29 PM Dictation Location: [place] [address] Electronically authenticated by: [id number] Y Date: 05/25/2024 22:29 Dictated By: Jason Cox M.D. Signed By: 05/25/242231 DD/ 28 TD/TT: [employer] Sales Consultant: [facility] Radiology, Radiologist, MD - 05/25/2024 The [place] [id number] Ultrasound Report Signed Patient: SHY HAN MR#: [id number] : 2000 Acct:[id number] Age/Sex: 24 / F ADM Date: 05/25/24 Loc: US Attending Dr: Nikki Erwin D.O. Ordering Physician: Nikki Erwin D.O. Date of Service: 05/25/24 Procedure(s): US OB cervical length Accession Number(s): [id number] cc: Nikki Erwin D.O.; Physician,Non-Staff [facility] [place] [id number] Patient Name: SHY HAN MRN: [id number] date: 2000 Sex: F Assigned Patient Location: US Current Patient Location: US Accession/Order Number: [id number] Exam Date: 05/25/2024 22:23 Report Date: 05/25/2024 [...] oCx Jr., D.O.05/25/2024 10:29 PM Dictation Location: [place] [address] Electronically authenticated by: [id number] Y Date: 05/25/2024 22:29 Dictated By: Jason Cox M.D. Signed By: 05/25/242231 DD/ 28 TD/TT: [employer] Sales Consultant: [facility] OB PLACENTAon 05-25-2024 [place] [address] Ultrasound Report Signed Patient: SHY HAN MR#: [id number] : 2000 Acct:[id number] Age/Sex: 24 / F ADM Date: 05/25/24 Loc: US Attending Dr: Nikki Erwin D.O. Ordering Physician: Nikki Erwin D.O. Date of Service: 05/25/24 Procedure(s): US OB placenta Accession Number(s): [id number] cc: Nikki Erwin D.O.; Physician,Non-Staff Daniel The [address] [address] Patient Name: SHY HAN MRN: [facility]:[id number] date: 2000 Sex: F Assigned Patient Location: US Current Patient Location: US Accession/Order Number: [id number] Exam Date: 05/25/2024 22:23 Report Date: 05/25/2024 [...] Cox Jr., D.O.05/25/2024 10:29 PM Dictation Location: [place] [address] Electronically authenticated by: [id number] Y Date: 05/25/2024 22:29 Dictated By: Jason Cox M.D. Signed By: 05/25/242231 DD/ 28 TD/TT: [employer] Sales Consultant: [facility] Radiology, Radiologist, MD - 05/25/2024 [place] [address] Ultrasound Report Signed Patient: SHY HAN MR#: [id number] : 2000 Acct:[id number] Age/Sex: 24 / F ADM Date: 05/25/24 Loc: US Attending Dr: Nikki Erwin D.O. Ordering Physician: Nikki Erwin D.O. Date of Service: 05/25/24 Procedure(s): US OB placenta Accession Number(s): [id number] cc: Nikki Erwin D.O.; Physician,Non-Staff [place] [address] Patient Name: SHY HAN MRN: [facility]:[id number] date: 2000 Sex: F Assigned Patient Location: US Current Patient Location: US Accession/Order Number: [id number] Exam Date: 05/25/2024 22:23 Report Date: 05/25/2024 [...] without evidence of funneling. Impression dictated by: aJson Cox Jr., D.O.05/25/2024 10:29 PM Dictation Location: [place] [address] Electronically authenticated by: [id number] Y Date: 05/25/2024 22:29 Dictated By: Jason Cox M.D. Signed By: 05/25/242231 DD/ 28 TD/TT: [employer] Sales Consultant: [facility] ALL CBC WITH AUTO DIFFon BASOPHILS ABSOLUTE AUTO 0 [facility] Basophils/100 WBC (Bld) 0.4 % 0.2 - 2.0 % [facility] Eosinophils/100 WBC (Bld) 0.2 % Low 0.9 - 7.0 % [facility] Erythrocyte distribution width (RBC) [Ratio] 12.4 % 11.0 - 15.0 % [facility] Hematocrit (Bld) [Volume fraction] 31.6 % Low 36.0 - 48.0 % [facility] Hemoglobin (Bld) [Mass/Vol] 10.8 g/dL Low 12.0 - 16.0 g/dL [facility] IMMATURE GRANULOCYTES ABS AUTO 0.07 High [facility] Immature granulocytes/100 WBC (Bld) 1.4 % High 0.0 - 0.5 % [facility] Interpretation and review of laboratory results Abnormal [facility] LYMPHOCYTES ABSOLUTE AUTO 0.9 Low [facility] Lymphocytes/100 WBC (Bld) 17.5 % Low 20.5 - 60.0 % [facility] MCH (RBC) [Entitic mass] 30.5 pg 26.7 - 34.0 pg [facility] MCHC (RBC) [Mass/Vol] 34.2 g/dL 29.9 - 35.2 g/dL [facility] MCV (RBC) [Entitic vol] 89.3 fL 81.0 - 99.0 fL [facility] MONOCYTES ABSOLUTE AUTO 0.5 [facility] Monocytes/100 WBC (Bld) 9.3 % 1.7 - 12.0 % [facility] NEUTROPHILS ABSOLUTE AUTO 3.6 [facility] Neutrophils/100 WBC (Bld) 71.2 % 43.0 - 75.0 % [facility] Platelet mean volume (Bld) [Entitic vol] 10.4 fL 9.5 - 13.5 fL [facility] EO # 0 [facility] PLT [address] [facility] RBC 3.54 Low [facility] TB WBC 5 [facility] No Panel InformationOrdered By: Radiologist Radiology on 04-29-2024 [facility] Work Phone: No Panel Informationon 04-29 Radiology Study observation (narrative) [facility] US OB ANATOMYon 04-29-2024 [place] [address] Ultrasound Report Signed Patient: SHY HAN MR#: [id number] : 2000 Acct:[id number] Age/Sex: 24 / F ADM Date: 04/29/24 Loc: US Attending Dr: Nikki Erwin D.O. Ordering Physician: Nikki Erwin D.O. Date of Service: 04/29/24 Procedure(s): US OB anatomy Accession Number(s): [id number] cc: Nikki Erwin D.O.; Physician,Non-Staff [facility] [place] [id number] Patient Name: SHY HAN MRN: [id number] date: 2000 Sex: F Assigned Patient Location: US Current Patient Location: US Accession/Order Number: [id number] Exam Date: 04/29/2024 15:00 Report Date: 04/29/2024 [...] Signed By: 04/29/24 1603 DD/ 1600 TD/TT: [employer] Sales Consultant: [facility] Radiology, Radiologist, MD - 04/29/2024 [place] [address] Ultrasound Report Signed Patient: SHY HAN MR#: [id number] : 2000 Acct:[id number] Age/Sex: 24 / F ADM Date: 04/29/24 Loc: US Attending Dr: Nikki Erwin D.O. Ordering Physician: Nikki Erwin D.O. Date of Service: 04/29/24 Procedure(s): US OB anatomy Accession Number(s): [id number] cc: Nikki Erwin D.O.; Physician,Non-Staff Daniel The [place] [address] Patient Name: SHY HAN MRN: [facility]:[id number] date: 2000 Sex: F Assigned Patient Location: US Current Patient Location: US Accession/Order Number: [id number] Exam Date: 04/29/2024 15:00 Report Date: 04/29/2024 [...] Signed By: 04/29/24 1603 DD/ 1600 TD/TT: [employer] Sales Consultant: [employer] [facility] [place] [address] Ultrasound Report Signed Patient: SHY HAN MR#: [id number] : 2000 Acct:[id number] Age/Sex: 24 / F ADM Date: 04/29/24 Loc: US Attending Dr: Nikki Erwin D.O. Ordering Physician: Nikki Erwin D.O. Date of Service: 04/29/24 Procedure(s): US OB cervical length Accession Number(s): [id number] cc: Nikki Erwin D.O.; Physician,Non-Staff Daniel [facility] [place] [id number] Patient Name: SHY HAN MRN: [id number] date: 2000 Sex: F Assigned Patient Location: US Current Patient Location: US Accession/Order Number: [id number] Exam Date: 04/29/2024 15:00 Report Date: 04/29/2024 [...] Signed By: 04/29/24 1603 DD/ 1600 TD/TT: [employer] Sales Consultant: [facility] Radiology, Radiologist, - 04/29/[address] [address] Ultrasound Report Signed Patient: SHY HAN MR#: [id number] : 2000 Acct:[id number] Age/Sex: 24 / F ADM Date: 04/29/24 Loc: US Attending Dr: Nikki Erwin D.O. Ordering Physician: Nikki Erwin D.O. Date of Service: 04/29/24 Procedure(s): US OB cervical length Accession Number(s): [id number] cc: Nikki Erwin D.O.; Physician,Non-Staff [place] [address] Patient Name: SHY HAN MRN: [id number] date: 2000 Sex: F Assigned Patient Location: US Current Patient Location: US Accession/Order Number: [id number] Exam Date: 04/29/2024 15:00 Report Date: 04/29/2024 [...] Signed By: 04/29/24 1603 DD/ 1600 TD/TT: [employer] Sales Consultant: [facility] Urinalysis macro (dipstick) panel (U)on 04-28-2024 Bilirubin, UA Negative Negative - 4(70) +++ mg/dL [facility] Blood, UA Negative Negative - 50 Chidi/mcL [facility] Clarity, UA Clear [facility] Color, UA Yellow [facility] Glucose, UA Negative Negative - 2000(110) ++++ mg/dL [facility] Interpretation and review of laboratory results Abnormal [facility] Ketones, UA Negative Negative - 160(16) ++++ mg/dL [facility] Leukocytes, UA Negative Negative - 500+++ Gabi/mcL [facility] Nitrite, UA Negative Negative - Positive [facility] pH, UA 7 5 - 9 [facility] Protein, UA Trace Negative - 2000(20) ++++ mg/dL [facility] Spec Grav, UA 1.025 1 - 1.03 [facility] Urobilinogen, UA 0.2 0.2 - 12 mg/dL [facility] IGP,APTIMA HPV,AGE GDLNon AGE GDLN ACOG TESTING Note . [facility] Comment on above: TESTS RESULT FLAG UN ITS REF RANGE LAB Clinician Provided Cytology Information Source.............Cervix No. of containers..01 ThinPrep Vial Age Algo ACOG Luzma... 21- 01 FLAG LEGEND: L-Low Normal,H-High Normal,LL-Alert Low,HH-Alert High <-Panic Low,>-Panic High,A-Abnormal,AA-Critical Abnormal Performed at: 01 =G [facility] [place] [address] Letha Woodson MD, IGP, RFX APTIMA HPV ASCU Note . [facility] Comment on above: TESTS RESULT FLAG UN ITS REF RANGE LAB DIAGNOSIS: 02 NEGATIVE FOR INTRAEPITHELIAL LESION OR MALIGNANCY. FUNGAL ORGANISMS MORPHOLOGICALLY CONSISTENT WITH ZHANE SPECIES ARE PRESENT. Specimen adequacy: 02 Satisfactory for evaluation. No endocervical component is identified. Performed by: Ashlyn Bautista, Warp Splitter ([facility]) . 02 Note: Note 02 The [...] <-Panic Low,>-Panic High,A-Abnormal,AA-Critical Abnormal Performed at: [address] [address] Letha Woodson MD, Performed at: = - [facility] [id number] [employer]: Letha Woodson MD, Phone: [phone] Performed at: [facility] [id number] [employer]: Letha Woodson MD, Phone: [phone] SPATULA-ALONE CERVIX [facility] RECURRENT VAGINITIS (HTRX)on 04-02-2024 ATOPOBIUM VAGINAE 0 [facility] ATOPOBIUM VAGINAE Not detected [facility] BVAB 2,3 (BACTERIAL VAGINOSIS ASSOCIATED BACTERIA 2, 3); MOBILUNCUS SPP 0 [facility] BVAB 2,3 (BACTERIAL VAGINOSIS ASSOCIATED BACTERIA 2, 3); MOBILUNCUS SPP Not detected [facility] ZHANE ALBICANS, PARAPSILOSIS, TROPICALIS 0 [facility] ZHANE ALBICANS, PARAPSILOSIS, TROPICALIS Not detected [facility] ZHANE GLABRATA 0 [facility] ZHANE GLABRATA Not detected [facility] ZHANE KRUSEI 0 [facility] ZHANE KRUSEI Not detected [facility] Healthcare CHLAMYDIA TRACHOMATIS 0 [facility] CHLAMYDIA TRACHOMATIS Not detected [facility] GARDNERELLA VAGINALIS 0 [facility] Healthcare GARDNERELLA VAGINALIS Not detected [facility] MEGASPHAERA (TYPES 1, 2) 0 [facility] MEGASPHAERA (TYPES 1, 2) Not detected [facility] MYCOPLASMA GENITALIUM 0 [facility] S Healthcare MYCOPLASMA GENITALIUM Not detected [facility] NEISSERIA GONORRHOEAE 0 [facility] S Healthcare NEISSERIA GONORRHOEAE Not detected [facility] TRICHOMONAS VAGINALIS 0 [facility] TRICHOMONAS VAGINALIS Not detected [facility] Urinalysis macro (dipstick) panel (U)on 03-31-2024 Bilirubin, UA Negative Negative - 4(70) +++ mg/dL [facility] Blood, UA Negative Negative - 50 Chidi/mcL [facility] Clarity, UA Clear [facility] Color, UA Yellow [facility] Glucose, UA Negative Negative - 1999(110) ++++ mg/dL [facility] Interpretation and review of laboratory results Abnormal [facility] Ketones, UA Positive Negative - 160(16) ++++ mg/dL [facility] Leukocytes, UA Negative Negative - 500+++ Gabi/mcL [facility] Nitrite, UA Negative Negative - Positive [facility] pH, UA 6.5 5 - 9 [facility] Protein, UA Negative Negative - 1999(20) ++++ mg/dL [facility] Spec Grav, UA 1.02 1 - 1.03 [facility] Urobilinogen, UA 1.0 0.2 - 12 mg/dL [facility] Urinalysis macro (dipstick) panel (U)on 02-25-2024 Bilirubin, UA Negative Negative - 4(70) +++ mg/dL [facility] Blood, UA Negative Negative - 50 Chidi/mcL [facility] Clarity, UA Clear [facility] Color, UA Yellow [facility] Glucose, UA Negative Negative - 1999(110) ++++ mg/dL [facility] Interpretation and review of laboratory results Abnormal [facility] Ketones, UA Positive Negative - 160(16) ++++ mg/dL [facility] Comment on above: 40 Leukocytes, UA Positive Negative - 500+++ Gabi/mcL [facility] Comment on above: small Nitrite, UA Negative Negative - Positive [facility] pH, UA 6.5 5 - 9 [facility] Protein, UA Negative Negative - 1999(20) ++++ mg/dL [facility] Spec Grav, UA 1.025 1 - 1.03 [facility] Urobilinogen, UA 0.2 0.2 - 12 mg/dL [facility] ALL RUBELLA IGG ABon 024 RUBELLA ANTIBODIES, IGG 1.67 Immune >0.99 index [facility] Comment on above: Non-immune <0.90 Equivocal 0.90 - 0.99 Immune >0.99 HBSAG SCREENon 02-04-2024 HBSAG SCREEN Negative Negative [facility] Comment on above: Performed at: [address] [id number] [employer]: Johan Rivera PhD, Phone: [phone] HCV ANTIBODY RFX TO QUANT PC Axel 02-04-2024 HCV AB Non-Reactive Non Reactive [facility] INTERPRETATION: Comment . [facility] Comment on above: Not infected with HC V unless early or acute infection is suspected (which may be delayed in an immunocompromised individual), or other evidence exists to indicate HCV infection. HIV AB/P24 AG WITH REFLEXon 02-04-2024 HIV AB/P24 AG SCREEN Non-Reactive Non Reactive [facility] Comment on above: HIV-1/HIV-2 antibodi es and HIV-1 p24 antigen were NOT detected. There is no laboratory evidence of HIV infection. HIV Negative Performed at: [address] [id number] [employer]: Johan Rivera PhD, Phone: [phone] No Panel Informationon 02-03 [facility] RAPID PLASMA REAGIN, QUANTon 02-04-2024 RAPID PLASMA REAGIN, QUANT Non-Reactive NonRea<1:1 titer [facility] Comment on above: Please Note: This te st does not meet current guidelines for screening and diagnosis of syphilis. This test is intended for following treatment response in patients being treated for syphilis infection. To screen for syphilis infection, a reflex cascade that includes both RPR and a treponema-specific assay should be utilized, such as Treponema pallidum (Syphilis) Screening [place] (426425) or Rapid Plasma Reagin (RPR) Test With Reflex to Quantitative RPR and Confirmatory Treponema pallidum Antibodies ([id number]). Performed at: [address] [id number] [employer]: Johan Rivera PhD, Phone: [phone] ALL CBC WITH AUTO DIFFon BASOPHILS ABSOLUTE AUTO 0 [facility] Basophils/100 WBC (Bld) 0.4 % 0.2 - 2.0 % [facility] Eosinophils/100 WBC (Bld) 1.5 % 0.9 - 7.0 % [facility] Erythrocyte distribution width (RBC) [Ratio] 12.9 % 11.0 - 15.0 % [facility] Hematocrit (Bld) [Volume fraction] 36.1 % 36.0 - 48.0 % [facility] Hemoglobin (Bld) [Mass/Vol] 12.5 g/dL 12.0 - 16.0 g/dL [facility] IMMATURE GRANULOCYTES ABS AUTO 0.02 [facility] Immature granulocytes/100 WBC (Bld) 0.3 % 0.0 - 0.5 % [facility] LYMPHOCYTES ABSOLUTE AUTO 1.7 [facility] Lymphocytes/100 WBC (Bld) 23.2 % 20.5 - 60.0 % [facility] MCH (RBC) [Entitic mass] 29.3 pg 26.7 - 34.0 pg [facility] MCHC (RBC) [Mass/Vol] 34.6 g/dL 29.9 - 35.2 g/dL [facility] MCV (RBC) [Entitic vol] 84.7 fL 81.0 - 99.0 fL [facility] MONOCYTES ABSOLUTE AUTO 0.5 [facility] Monocytes/100 WBC (Bld) 6.6 % 1.7 - 12.0 % [facility] NEUTROPHILS ABSOLUTE AUTO 5 [facility] Neutrophils/100 WBC (Bld) 68 % 43.0 - 75.0 % [facility] Platelet mean volume (Bld) [Entitic vol] 11.1 fL 9.5 - 13.5 fL [facility] TBH EO # 0.1 [facility] TB PLT [address] [facility] RBC 4.26 [facility] WBC 7.4 [facility] ALL TYPE AND SCREENon 2023 ABO and Rh group Nom (Bld) Blood group O Rh(D) positive [facility]24 BOX TEST SENT OUT [facility] BOX1 [facility] BOX2 02/02/2024 [facility] M[facility] HEMOGLOBIN A1Con 024 Glucose [Mass/Vol] 97 mg/dL [facility] HbA1c (Bld) [Mass fraction] 5 % 4.5 - 6.2 % [facility] Comment on above: ADA RECOMMENDED LIMI T 4.0 - 6.0 ADA THERAPEUTIC TARGET < 7.0 ACTION SUGGESTED > 7.0 [facility] DRUG SCREEN RAPID (URINE )on 02-02-2024 AMPHETAMINE SCREEN URINE Negative NEGATIVE [facility] BARBITURATES SCREEN URINE Negative NEGATIVE [facility] BENZODIAZEPINES SCREEN URINE Negative NEGATIVE [facility] BUPRENORPHINE SCREEN URINE Negative NEGATIVE [facility] Comment on above: DRUG CLASS [...] 300 ng/mL CANNABINOID SCREEN URINE Negative NEGATIVE [facility] COCAINE SCREEN URINE Negative NEGATIVE [facility] METHADONE SCREEN URINE Negative NEGATIVE NO MS [facility] METHAMPHETAMINES SCREEN URINE Negative NEGATIVE [facility] OPIATE SCREEN URINE Negative NEGATIVE [facility] OXYCODONE SCREEN URINE Negative NEGATIVE NO [facility] PHENCYCLIDINE SCREEN URINE Negative NEGATIVE [facility] TRICYCLIC ANTIDEPRESSANT URINE Negative NEGATIVE [facility] HCG ( test) Ql (U)o n 01-29-2024 Interpretation and review of laboratory results Abnormal [facility] Preg Test, Ur Positive Negative [facility] Urinalysis macro (dipstick) panel (U)on 01-29-2024 Bilirubin, UA Negative Negative - 4(70) +++ mg/dL [facility] Blood, UA Negative Negative - 50 Chidi/mcL [facility] Clarity, UA Clear [facility] Color, UA Yellow [facility] Glucose, UA Negative Negative - 1999(110) ++++ mg/dL [facility] Interpretation and review of laboratory results Normal [facility] Ketones, UA Negative Negative - 160(16) ++++ mg/dL [facility] Leukocytes, UA Negative Negative - 500+++ Gabi/mcL [facility] Nitrite, UA Negative Negative - Positive [facility] pH, UA 6 5 - 9 [facility] Protein, UA Negative Negative - 1999(20) ++++ mg/dL [facility] Spec Grav, UA 1.02 1 - 1.03 [facility] Urobilinogen, UA 0.2 0.2 - 12 mg/dL [facility] ALL CBC WITH AUTO DIFFon BASOPHILS ABSOLUTE AUTO 0.0 [facility] Basophils/100 WBC (Bld) 0.3 % 0.2 - 2.0 % [facility] Eosinophils/100 WBC (Bld) 1.6 % 0.9 - 7.0 % [facility] Erythrocyte distribution width (RBC) [Ratio] 12.4 % 11.0 - 15.0 % [facility] Hematocrit (Bld) [Volume fraction] 33.3 % Low 36.0 - 48.0 % [facility] Hemoglobin (Bld) [Mass/Vol] 10.6 g/dL Low 12.0 - 16.0 g/dL [facility] IMMATURE GRANULOCYTES ABS AUTO 0.05 High [facility] Immature granulocytes/100 WBC (Bld) 0.6 % High 0.0 - 0.5 % [facility] Interpretation and review of laboratory results Abnormal [facility] LYMPHOCYTES ABSOLUTE AUTO 1.5 [facility] Lymphocytes/100 WBC (Bld) 17.1 % Low 20.5 - 60.0 % [facility] MCH (RBC) [Entitic mass] 28.1 pg 26.7 - 34.0 pg [facility] MCHC (RBC) [Mass/Vol] 31.8 g/dL 29.9 - 35.2 g/dL [facility] MCV (RBC) [Entitic vol] 88.3 fL 81.0 - 99.0 fL [facility] MONOCYTES ABSOLUTE AUTO 0.5 [facility] Monocytes/100 WBC (Bld) 5.8 % 1.7 - 12.0 % [facility] NEUTROPHILS ABSOLUTE AUTO 6.5 [facility] Neutrophils/100 WBC (Bld) 74.6 % 43.0 - 75.0 % [facility] Platelet mean volume (Bld) [Entitic vol] 10.6 fL 9.5 - 13.5 fL [facility] TBH EO # 0.1 [facility] TBH PLT 241 [facility] TB RBC 3.77 Low [facility] TB WBC 8.7 [facility] Urinalysis macro (dipstick) panel (U)on 05-06-2023 Bilirubin, UA Negative Negative - 4(70) +++ mg/dL [facility] Blood, UA Negative Negative - 50 Chidi/mcL [facility] Clarity, UA Clear [facility] Color, UA Yellow [facility] Glucose, UA Negative Negative - 1999(110) ++++ mg/dL [facility] Interpretation and review of laboratory results Abnormal [facility] Ketones, UA Negative Negative - 160(16) ++++ mg/dL [facility] Leukocytes, UA Negative Negative - 500+++ Gabi/mcL [facility] Nitrite, UA Negative Negative - Positive [facility] pH, UA 5.5 5 - 9 [facility] Protein, UA Negative Negative - 1999(20) ++++ mg/dL [facility] Spec Grav, UA 1.020 1 - 1.03 [facility] Urobilinogen, UA 1.0 0.2 - 12 mg/dL [facility] XR ABD FLAT UP_PA Arielle 07-11 XR [...] [place] Date: 2022-07-10 22:30 Normal The [facility] CBC AUTO DIFFon 07-10-2022 BASO # 0.0 103/ul Normal 0.0-0.1 [facility] Comment on above: Performed By: #### C BC #### [facility] [address] [place], [place] [address] Dr. Papo Swanson Basophils/100 WBC (Bld) 0.4 % Normal 0.2-2.0 [facility] Comment on above: Performed By: #### C BC #### [facility] [address] [place], [place] [address] Dr. Papo Swanson EO # 0.1 103/ul Normal 0.0-0.7 [facility] Comment on above: Performed By: #### C BC #### [facility] [address] [place] [address] Dr. Papo Swanson Eosinophils/100 WBC (Bld) 0.6 % Critically low 0.9-7.0 [facility] Comment on above: Performed By: #### C BC #### [facility] [address] [place] [address] Dr. Papo Swanson Erythrocyte distribution width (RBC) [Ratio] 14.4 % Normal 11.0-15.0 [facility] Comment on above: Performed By: #### C BC #### [facility] [address] [place] [address] Dr. Papo Swanson Hematocrit (Bld) [Volume fraction] 42.2 % Normal 36.0-48.0 [facility] Comment on above: Performed By: #### C BC #### [facility] [address] [place] [address] Dr. Papo Swanson Hemoglobin (Bld) [Mass/Vol] 13.7 g/dL Normal 12.0-16.0 [facility] Comment on above: Performed By: #### C BC #### [facility] [address] [place] [address] Dr. Papo Swanson IG # 0.03 10e3/ul Normal 0.00-0.03 [facility] Comment on above: Performed By: #### C BC #### [facility] [address] [place] [address] Dr. Papo Swanson IG % 0.3 % Normal 0.0-0.5 [facility] Comment on above: Performed By: #### C BC #### [facility] [address] [place] [address] Dr. Papo Swanson LYMPH # 1.5 103/ul Normal 1.2-3.8 [facility] Comment on above: Performed By: #### C BC #### [facility] [address] [place] [address] Dr. Papo Swanson Lymphocytes/100 WBC (Bld) 15.7 % Critically low 20.5-60.0 [facility] Comment on above: Performed By: #### C BC #### [facility] [address] [place] [address] Dr. Papo Swanson MANUAL DIFF REQ NO Normal [facility] Comment on above: Performed By: #### C BC #### [facility] [address] [place] [address] Dr. Papo Swanson MCH (RBC) [Entitic mass] 27.0 pg Normal 26.7-34.0 [facility] Comment on above: Performed By: #### C BC #### [facility] [address] [place] [address] Dr. Papo Swanson MCHC (RBC) [Mass/Vol] 32.5 g/dL Normal 29.9-35.2 [facility] Comment on above: Performed By: #### C BC #### [facility] [address] [place] [address] Dr. Papo Swanson MCV (RBC) [Entitic vol] 83.2 fL Normal 81.0-99.0 [facility] Comment on above: Performed By: #### C BC #### [facility] [address] [place] [address] Dr. Papo Swanson MONO # 0.6 103/ul Normal 0.3-0.8 [facility] Comment on above: Performed By: #### C BC #### [facility] [address] [place] [address] Dr. Papo Swanson Monocytes/100 WBC (Bld) 5.9 % Normal 1.7-12.0 [facility] Comment on above: Performed By: #### C BC #### [facility] [address] [place] [address] Dr. Papo Swanson NEUT # 7.4 103/ul Critically high 1.4-6.5 [facility] Comment on above: Performed By: #### C BC #### [facility] [address] [place] [address] Dr. Papo Swanson Neutrophils/100 WBC (Bld) 77.1 % Critically high 43.0-75.0 [facility] Comment on above: Performed By: #### C BC #### [facility] [address] [place] [address] Dr. Papo Swanson Platelet mean volume (Bld) [Entitic vol] 10.5 fL Normal 9.5-13.5 [facility] Comment on above: Performed By: #### C BC #### [facility] [address] [place] [address] Dr. Papo Swanson PLT 318 103/ul Normal 150-450 [facility] Comment on above: Performed By: #### C BC #### [facility] [address] [place] [address] Dr. Papo Swanson RBC 5.07 106/ul Normal 4.20-5.40 [facility] Comment on above: Performed By: #### C BC #### [facility] [address] [place] [address] Dr. Papo Swanson WBC 9.7 103/ul Normal 4.0-11.0 [facility] Comment on above: Performed By: #### C BC #### [facility] [address] [place] [address] Dr. Papo Swanson ER URINE PROFILEon 3 Bilirubin Ql (U) Negative Normal NEGATIVE [facility] Comment on above: Performed By: #### E RUR #### [facility] [address] [place] [address] Dr. Papo Swanson Clarity (U) CLEAR Normal CLEAR [facility] Comment on above: Performed By: #### E RUR #### [facility] [address] [place] [address] Dr. Papo Swanson Color (U) LT. YELLOW Normal YELLOW [facility] Comment on above: Performed By: #### E RUR #### [facility] [address] [place] [address] Dr. Papo JAIMES A micrscopic examination will be performed if indicated. Normal [facility] Comment on above: Performed By: #### E RUR #### [facility] [address] [place] [address] Dr. Papo Swanson Glucose Ql (U) Negative Normal NEGATIVE [facility] Comment on above: Performed By: #### E RUR #### [facility] [address] [place] [address] Dr. Papo Swanson Hemoglobin Ql (U) Negative Normal NEGATIVE [facility] Comment on above: Performed By: #### E RUR #### [facility] [address] [place] [address] Dr. Papo Swanson Ketones Ql (U) Negative Normal NEGATIVE [facility] Comment on above: Performed By: #### E RUR #### [facility] [address] [place] [address] Dr. Papo Swanson LEUKOCYTES Negative Normal NEGATIVE [facility] Comment on above: Performed By: #### E RUR #### [facility] [address] [place] [address] Dr. Papo Swanson Nitrite Ql (U) Negative Normal NEGATIVE [facility] Comment on above: Performed By: #### E RUR #### [facility] [address] [place] [address] Dr. Papo Swanson pH (U) 7.0 [pH] Normal 5-9 [facility] Comment on above: Performed By: #### E RUR #### [facility] [address] [place] [address] Dr. Papo Swanson SPEC GRAVITY 1.025 Normal 1.005-<=1.025 [facility] Comment on above: Performed By: #### E RUR #### [facility] [address] [place] [address] Dr. Papo Swanson UA PROTEIN Negative Normal NEGATIVE/ TRACE [facility] Comment on above: Performed By: #### E RUR #### [facility] [address] [place] [address] Dr. Papo Swanson UR MICRO IND NOT INDICATED Normal [facility] Comment on above: Performed By: #### E RUR #### [facility] [address] [place] [address] Dr. Papo Swanson Urobilinogen Qn (U) 0.2 {Kelle'U}/dL Normal 0.2 - 1. 0 [facility] Comment on above: Performed By: #### E RUR #### [facility] [address] [place] [address] Dr. Papo Swanson LIPASEon 07-10-2022 Lipase [Catalytic activity/Vol] 54.0 U/L Critically low 73.0-393.0 [facility] Comment on above: Performed By: #### D RUGRPD #### [facility] [address] [place] [address] Dr. Papo Swanson PREG HCG QUALon 07-10-2022 , QUAL Negative Normal NEGATIVE [facility] Comment on above: Performed By: #### E RUR #### [facility] [address] [place] [address] Dr. Papo Swanson PROF 14(COMP METB)on 023 Albumin [Mass/Vol] 4.3 g/dL Normal 3.4-5.0 [facility] Comment on above: Performed By: #### D RUGRPD #### [facility] [address] [place] [address] Dr. Papo Swanson Albumin/Globulin [Mass ratio] 1.0 {ratio} Normal [facility] Comment on above: Performed By: #### D RUGRPD #### [facility] [address] [place] [address] Dr. Papo Swanson ALP [Catalytic activity/Vol] 91 U/L Normal 46-116 [facility] Comment on above: Performed By: #### D RUGRPD #### [facility] [address] [place] [address] Dr. Papo Swanson ALT [Catalytic activity/Vol] 19 U/L Normal 14-59 [facility] Comment on above: Performed By: #### D RUGRPD #### [facility] [address] [place] [address] Dr. Papo Swanson Anion gap [Moles/Vol] 13.9 mmol/L Normal [facility] Comment on above: Performed By: #### D RUGRPD #### [facility] [address] [place] [address] Dr. Papo Swanson AST [Catalytic activity/Vol] 13 U/L Critically low 15-37 [facility] Comment on above: Performed By: #### D RUGRPD #### [facility] [address] [place] [address] Dr. Papo Swanson Bilirubin [Mass/Vol] 0.3 mg/dL Normal 0.2-1.0 [facility] Comment on above: Performed By: #### D RUGRPD #### [facility] [address] [place] [address] Dr. Papo Swanson Calcium [Mass/Vol] 9.1 mg/dL Normal 8.5-10.1 [facility] Comment on above: Performed By: #### D RUGRPD #### [facility] [facility] [address] [place] [address] Dr. Papo Swanson Chloride [Moles/Vol] 104 mmol/L Normal 98-107 [facility] Comment on above: Performed By: #### D RUGRPD #### [facility] [address] [place] [address] Dr. Papo Swanson CO2 [Moles/Vol] 25.4 mmol/L Normal 21.0-32.0 [facility] Comment on above: Performed By: #### D RUGRPD #### [facility] [address] [place] [address] Dr. Papo Swanson Creatinine [Mass/Vol] 0.64 mg/dL Normal 0.55-1.02 [facility] Comment on above: Performed By: #### D RUGRPD #### [facility] [address] [place] [address] Dr. Papo Swanson EGFR-AF ALBANIAN >60 Normal >=60 [facility] Comment on above: Performed By: #### D RUGRPD #### [facility] [address] [place] [address] Dr. Papo Swanson EGFR-NON AF ALBANIAN >60 Normal >=60 The [facility] Comment on above: Performed By: #### D RUGRPD #### [facility] [address] [place] [address] Dr. Papo Swanson Globulin (S) [Mass/Vol] 4.3 g/dL Normal [facility] Comment on above: Performed By: #### D RUGRPD #### [facility] [address] [place] [address] Dr. Papo Swanson Glucose [Mass/Vol] 101 mg/dL Normal 74-106 [facility] Comment on above: Performed By: #### D RUGRPD #### [facility] [address] [place] [address] Dr. Papo Swanson Potassium [Moles/Vol] 3.3 mmol/L Critically low 3.5-5.1 [facility] Comment on above: Performed By: #### D RUGRPD #### [facility] [address] [place] [address] Dr. Papo Swanson Protein [Mass/Vol] 8.6 g/dL Critically high 6.4-8.2 [facility] Comment on above: Performed By: #### D RUGRPD #### [facility] [address] [place] [address] Dr. Papo Swanson Sodium [Moles/Vol] 140 mmol/L Normal 136-145 [facility] Comment on above: Performed By: #### D RUGRPD #### [facility] [address] [place] [address] Dr. Papo Swanson Urea nitrogen [Mass/Vol] 8.0 mg/dL Normal 7.0-18.0 [facility] Comment on above: Performed By: #### D RUGRPD #### [facility] [address] [place] [address] Dr. Papo Swanson Urea nitrogen/Creatinine [Mass ratio] 12.5 mg/mg Normal [facility] Comment on above: Performed By: #### D RUGRPD #### [facility] [address] [place] [address] Dr. Papo Swanson CBC AUTO DIFFon 12-27-2021 BASO # 0.0 103/ul Normal 0.0-0.1 [facility] Comment on above: Performed By: #### C BC #### [facility] [address] [place], [place] [id number] Dr. Papo Swanson Basophils/100 WBC (Bld) 0.2 % Normal 0.2-2.0 [facility] Comment on above: Performed By: #### C BC #### [facility] [address] [place] [address] Dr. Papo Swanson EO # 0.0 103/ul Normal 0.0-0.7 The [facility] Comment on above: Performed By: #### C BC #### [facility] [address] [place] [address] Dr. Papo Swanson Eosinophils/100 WBC (Bld) 0.3 % Critically low 0.9-7.0 [facility] Comment on above: Performed By: #### C BC #### [facility] [address] [place] [address] Dr. Papo Swanson Erythrocyte distribution width (RBC) [Ratio] 15.4 % Critically high 11.0-15.0 [facility] Comment on above: Performed By: #### C BC #### [facility] [address] [place] [address] Dr. Papo Swanson Hematocrit (Bld) [Volume fraction] 27.8 % Critically low 36.0-48.0 [facility] Comment on above: Performed By: #### C BC #### [facility] [address] [place] [address] Dr. Papo Swanson Hemoglobin (Bld) [Mass/Vol] 8.7 g/dL Critically low 12.0-16.0 The [facility] Comment on above: Performed By: #### C BC #### [facility] [address] [place] [address] Dr. Papo Swanson IG # 0.11 10e3/ul Critically high 0.00-0.03 The [facility] Comment on above: Performed By: #### C BC #### [facility] [address] [place] [address] Dr. Papo Swanson IG % 0.9 % Critically high 0.0-0.5 [facility] Comment on above: Performed By: #### C BC #### [facility] [address] [place] [address] Dr. Papo Swanson LYMPH # 2.4 103/ul Normal 1.2-3.8 [facility] Comment on above: Performed By: #### C BC #### [facility] [address] [place] [address] Dr. Papo Swanson Lymphocytes/100 WBC (Bld) 19.6 % Critically low 20.5-60.0 [facility] Comment on above: Performed By: #### C BC #### [facility] [address] [place] [address] Dr. Papo Swanson MANUAL DIFF REQ NO Normal [facility] Comment on above: Performed By: #### C BC #### [facility] [address] [place] [address] Dr. Papo Swanson MCH (RBC) [Entitic mass] 24.6 pg Critically low 26.7-34.0 [facility] Comment on above: Performed By: #### C BC #### [facility] [address] [place] [address] Dr. Papo Swanson MCHC (RBC) [Mass/Vol] 31.3 g/dL Normal 29.9-35.2 [facility] Comment on above: Performed By: #### C BC #### [facility] [address] [place] [address] Dr. Papo Swanson MCV (RBC) [Entitic vol] 78.8 fL Critically low 81.0-99.0 [facility] Comment on above: Performed By: #### C BC #### [facility] [address] [place] [address] Dr. Papo Swanson MONO # 0.8 103/ul Normal 0.3-0.8 The [facility] Comment on above: Performed By: #### C BC #### [facility] [address] [place] [address] Dr. Papo Swanson Monocytes/100 WBC (Bld) 6.2 % Normal 1.7-12.0 The [facility] Comment on above: Performed By: #### C BC #### [facility] [address] [place] [address] Dr. Papo Swanson NEUT # 8.9 103/ul Critically high 1.4-6.5 [facility] Comment on above: Performed By: #### C BC #### [facility] [address] [place] [address] Dr. Papo Swanson Neutrophils/100 WBC (Bld) 72.8 % Normal 43.0-75.0 [facility] Comment on above: Performed By: #### C BC #### [facility] [address] [place] [address] Dr. Papo Swanson Platelet mean volume (Bld) [Entitic vol] 11.7 fL Normal 9.5-13.5 The [facility] Comment on above: Performed By: #### C BC #### [facility] [address] [place] [address] Dr. Papo Swanson PLT 173 103/ul Normal 150-450 The [facility] Comment on above: Performed By: #### C BC #### [facility] [address] [place] [address] Dr. Papo Swanson RBC 3.53 106/ul Critically low 4.20-5.40 [facility] Comment on above: Performed By: #### C BC #### [facility] [address] [place] [address] Dr. Papo Swanson WBC 12.2 103/ul Critically high 4.0-11.0 [facility] Comment on above: Performed By: #### C BC #### [facility] [address] [place] [address] Dr. Papo Swanson CBC AUTO DIFFon 12-26-2021 BASO # 0.0 103/ul Normal 0.0-0.1 The [facility] Comment on above: Performed By: #### C BC #### [facility] [address] [place] [address] Dr. Papo Swanson Basophils/100 WBC (Bld) 0.2 % Normal 0.2-2.0 The [facility] Comment on above: Performed By: #### C BC #### [facility] [address] [place] [address] Dr. Papo Swanson EO # 0.1 103/ul Normal 0.0-0.7 [facility] Comment on above: Performed By: #### C BC #### [facility] [address] [place] [address] Dr. Papo Swanson Eosinophils/100 WBC (Bld) 0.8 % Critically low 0.9-7.0 [facility] Comment on above: Performed By: #### C BC #### [facility] [address] [place] [address] Dr. Papo Swanson Erythrocyte distribution width (RBC) [Ratio] 15.2 % Critically high 11.0-15.0 [facility] Comment on above: Performed By: #### C BC #### [facility] [address] [place] [address] Dr. Papo Swanson Hematocrit (Bld) [Volume fraction] 31.5 % Critically low 36.0-48.0 [facility] Comment on above: Performed By: #### C BC #### [facility] [address] [place] [address] Dr. Papo Swanson Hemoglobin (Bld) [Mass/Vol] 9.9 g/dL Critically low 12.0-16.0 [facility] Comment on above: Performed By: #### C BC #### [facility] [address] [place] [address] Dr. Papo Swanson IG # 0.21 10e3/ul Critically high 0.00-0.03 [facility] Comment on above: Performed By: #### C BC #### [facility] [address] [place] [address] Dr. Papo Swanson IG % 2.5 % Critically high 0.0-0.5 [facility] Comment on above: Performed By: #### C BC #### [facility] [address] [place] [address] Dr. Papo Swanson LYMPH # 1.8 103/ul Normal 1.2-3.8 The [facility] Comment on above: Performed By: #### C BC #### [facility] [address] [place] [address] Dr. Papo Swanson Lymphocytes/100 WBC (Bld) 20.8 % Normal 20.5-60.0 [facility] Comment on above: Performed By: #### C BC #### [facility] [address] [place] [address] Dr. Papo Swanson MANUAL DIFF REQ NO Normal [facility] Comment on above: Performed By: #### C BC #### [facility] [address] [place] [address] Dr. Papo Swanson MCH (RBC) [Entitic mass] 24.5 pg Critically low 26.7-34.0 [facility] Comment on above: Performed By: #### C BC #### [facility] [address] [place] [address] Dr. Papo Sawnson MCHC (RBC) [Mass/Vol] 31.4 g/dL Normal 29.9-35.2 [facility] Comment on above: Performed By: #### C BC #### [facility] [address] [place] [address] Dr. Papo Swanson MCV (RBC) [Entitic vol] 78.0 fL Critically low 81.0-99.0 [facility] Comment on above: Performed By: #### C BC #### [facility] [address] [place] [address] Dr. Papo Swanson MONO # 0.5 103/ul Normal 0.3-0.8 [facility] Comment on above: Performed By: #### C BC #### [facility] [address] [place] [address] Dr. Papo Swanson Monocytes/100 WBC (Bld) 6.4 % Normal 1.7-12.0 [facility] Comment on above: Performed By: #### C BC #### [facility] [address] [place] [address] Dr. Papo Swanson NEUT # 5.8 103/ul Normal 1.4-6.5 [facility] Comment on above: Performed By: #### C BC #### [facility] [address] [place] [address] Dr. Papo Swanson Neutrophils/100 WBC (Bld) 69.3 % Normal 43.0-75.0 [facility] Comment on above: Performed By: #### C BC #### [facility] [address] [place] [address] Dr. Papo Swanson Platelet mean volume (Bld) [Entitic vol] 12.2 fL Normal 9.5-13.5 [facility] Comment on above: Performed By: #### C BC #### [facility] [address] [place] [address] Dr. Papo Swanson PLT 195 103/ul Normal 150-450 [facility] Comment on above: Performed By: #### C BC #### [facility] [address] [place] [address] Dr. Papo Swanson RBC 4.04 106/ul Critically low 4.20-5.40 [facility] Comment on above: Performed By: #### C BC #### [facility] [address] [place] [address] Dr. Papo Swanson WBC 8.4 103/ul Normal 4.0-11.0 [facility] Comment on above: Performed By: #### C BC #### [facility] [address] [place] [address] Dr. Papo Swanson CULTURE URINEon 12-26-2021 CULTURE URINE Culture Observations : LIGHT GROWTH OF MIXED GENITAL NICOLE. NO POTENTIAL PATHOGENS SEEN. Normal The [facility] Comment on above: Performed By: #### U RCX #### [facility] [address] [place] [address] Dr. Papo Swanson Covid-19 PCR ([facility])on SARS-CoV-2 (COVID-19) RNA PRIYA+probe Ql (Unsp spec) Not detected Normal NOT DETECTED The [facility] Comment on above: Result Comment: When diagnostic [...] for this test is supported by the [place] of [employer] and Human Service's declaration that [...] used). Performed By: #### C VDTBH #### [facility] [address] [place] [address] Dr. Papo Swanson DRUG SCREEN RAPID (URINE)on 12-26-2021 AMP Negative Normal NEGATIVE [facility] Comment on above: Performed By: #### D RUGRPD #### [facility] [address] [place] [address] Dr. Papo Swanson BAR Negative Normal NEGATIVE [facility] Comment on above: Performed By: #### D RUGRPD #### [facility] [address] [place] [address] Dr. Papo Swanson BUP Negative Normal NEGATIVE [facility] Comment on above: Performed By: #### D RUGRPD #### [facility] [address] [place] [address] Dr. Papo Swanson BZO Negative Normal NEGATIVE [facility] Comment on above: Performed By: #### D RUGRPD #### [facility] [address] [place] [address] Dr. Papo Swanson GIRISH Negative Normal NEGATIVE [facility] Comment on above: Performed By: #### D RUGRPD #### [facility] [address] [place] [address] Dr. Papo Swanson CUT-OFFS SEE BELOW Normal The [facility] Comment on above: Result Comment: AMP (Amphetamine): 500ng/mL, BAR (Barbituates): 200 ng/mL, BZO (Benzodiazepines): 150 ng/mL, BUP (Buprenorphine): 10 ng/mL, GIRISH (Cocaine): 150 ng/mL, mAMP (Methamphetamine): 500 ng/mL, MTD (Methadone): 200 ng/mL, OPI (Opiates): 100 ng/mL, OXY (Oxycodone): 100 ng/mL, PCP (Phencyclidine): 25 ng/mL, PPX (Propoxyphene): 300 ng/mL, THC (Cannabinoids): 50 ng/mL, TCA (Trycyclic Antidepressants): 300 ng/mL Performed By: #### D RUGRPD #### [facility] [address] [place] [address] Dr. Papo Swanson DRUG CUT HEADER DRUG CLASS TEST SYSTEM CUT-OFF CONCENTRATIONS ARE FOLLOWS: Normal The [facility] Comment on above: Performed By: #### D RUGRPD #### [facility] [address] [place] [address] Dr. Papo Swanson mAMP Negative Normal NEGATIVE [facility] Comment on above: Performed By: #### D RUGRPD #### [facility] [address] [place] [address] Dr. Papo Swanson MTD Negative Normal NEGATIVE [facility] Comment on above: Performed By: #### D RUGRPD #### [facility] [address] [place] [address] Dr. Papo Swanson OPI Negative Normal NEGATIVE [facility] Comment on above: Performed By: #### D RUGRPD #### [facility] [address] [place] [address] Dr. Papo Swanson OXY Negative Normal NEGATIVE [facility] Comment on above: Performed By: #### D RUGRPD #### [facility] [address] [place] [address] Dr. Papo Swanson PCP Negative Normal NEGATIVE [facility] Comment on above: Performed By: #### D RUGRPD #### [facility] [address] [place] [address] Dr. Papo Swanson PPX Negative Normal NEGATIVE [facility] Comment on above: Performed By: #### D RUGRPD #### [facility] [address] [place] [address] Dr. Papo Swanson TCA Negative Normal NEGATIVE [facility] Comment on above: Performed By: #### D RUGRPD #### [facility] [address] [place] [address] Dr. Papo Swanson THC Negative Normal NEGATIVE [facility] Comment on above: Performed By: #### D RUGRPD #### [facility] [address] [place] [address] Dr. Papo Swanson TYPE AND SCREENon 12-26-2021 TYPE AND SCREEN Negative Normal [facility] Comment on above: Performed By: #### D RUGRPD #### [facility] [address] [place] [address] Dr. Papo Swanson UA (CLEAN/CATCH) CAD DESIGNER DRAFTER/MICRO I F IND.on 12-26-2021 Bilirubin Ql (U) Negative Normal NEGATIVE [facility] Comment on above: Performed By: #### D RUGRPD #### [facility] [address] [place] [address] Dr. Papo Swanson Clarity (U) CLEAR Normal CLEAR [facility] Comment on above: Performed By: #### D RUGRPD #### [facility] [address] [place] [address] Dr. Papo Swanson Color (U) LT. YELLOW Normal YELLOW [facility] Comment on above: Performed By: #### D RUGRPD #### [facility] [address] [place] [address] Dr. Papo Swanson Glucose Ql (U) Negative Normal NEGATIVE [facility] Comment on above: Performed By: #### D RUGRPD #### [facility] [address] [place] [address] Dr. Papo Swanson Hemoglobin Ql (U) Negative Normal NEGATIVE [facility] Comment on above: Performed By: #### D RUGRPD #### [facility] [address] [place] [address] Dr. Papo Swanson Ketones Ql (U) Negative Normal NEGATIVE [facility] Comment on above: Performed By: #### D RUGRPD #### [facility] [address] [place] [address] Dr. Papo Swanson LEUKOCYTES LARGE Abnormal NEGATIVE The [facility] Comment on above: Performed By: #### D RUGRPD #### [facility] [address] [address] [address] Papo Swanson Nitrite Ql (U) Negative Normal NEGATIVE [facility] Comment on above: Performed By: #### D RUGRPD #### [facility] [address] [place] [address] Dr. Papo Swanson pH (U) 7.5 [pH] Normal 5-9 The [facility] Comment on above: Performed By: #### D RUGRPD #### [facility] [address] [place] [address] Dr. Papo Swanson SPEC GRAVITY 1.015 Normal 1.005-<=1.025 [facility] Comment on above: Performed By: #### D RUGRPD #### [facility] [address] [place] [address] Dr. Papo Swanson UA PROTEIN Negative Normal NEGATIVE/ TRACE The [facility] Comment on above: Performed By: #### D RUGRPD #### [facility] [address] [place] [address] Dr. Papo Swanson UR MICRO IND INDICATED Normal The [facility] Comment on above: Performed By: #### D RUGRPD #### [facility] [address] [place] [address] Dr. Papo Swanson Urobilinogen Qn (U) 0.2 {Kelle'U}/dL Normal 0.2 - 1. 0 [facility] Comment on above: Performed By: #### D RUGRPD #### [facility] [address] [place] [address] Dr. Papo Swanson URINE MICROSCOPIC ONLYon BACTERIA SMALL Abnormal NONE SEEN The [facility] Comment on above: Performed By: #### D RUGRPD #### [facility] [address] [place] [address] Dr. Papo Swanson Bacteria identified Cx Nom (U) INDICATED Normal The [facility] Comment on above: Performed By: #### D RUGRPD #### [facility] [address] [place] [address] Dr. Papo Swanson CAST NONE SEEN Normal NONE SEEN The [facility] Comment on above: Performed By: #### D RUGRPD #### [facility] [address] [address] [address] Papo Swanson Crystals LM Nom (Urine sed) NONE SEEN Normal NONE SEEN The [facility] Comment on above: Performed By: #### D RUGRPD #### [facility] [address] [place] [address] Dr. Papo Swanson Epithelial cells LM Ql (Urine sed) MODERATE Abnormal NONE SEEN /RARE The [facility] Comment on above: Performed By: #### D RUGRPD #### [facility] [address] [place] [address] Dr. Papo Swanson MUCOUS NONE SEEN Normal NONE SEEN The [facility] Comment on above: Performed By: #### D RUGRPD #### [facility] [address] [place] [address] Dr. Papo Swanson RBC 0-2 Normal 0-2 The [facility] Comment on above: Performed By: #### D RUGRPD #### [facility] [address] [place] [address] Dr. Papo Swanson WBC 10-20 Abnormal NONE SEEN The [facility] Comment on above: Performed By: #### D RUGRPD #### [facility] [address] [place] [address] Dr. Papo Swanson US PREG GROWTHon 12-21-2021 [...] by: SHANA ROBLERO Date: 2021-12-21 18:09 Normal [facility] GROUP B STREP CULTUREon 11-23 S. agalactiae Ag Ql (Unsp spec) Culture Observations: NEGATIVE FOR GROUP B STREPTOCOCCUS. Normal The [facility] Comment on above: Performed By: #### D RUGRPD #### [facility] [address] [place] [address] Dr. Papo Swanson GLUCOSE - 1HRon 10-16-2021 Glucose [Mass/Vol] 148 mg/dL Critically high 74-106 [facility] Comment on above: Performed By: #### G LU1HR #### [facility] [address] [place] [address] Dr. Papo Swanson HEMOGRAM AND PLATELon 2021 Hematocrit (Bld) [Volume fraction] 31.5 % Critically low 36.0-48.0 [facility] Comment on above: Performed By: #### H H #### [facility] [address] [place] [address] Dr. Papo Swanson Hemoglobin (Bld) [Mass/Vol] 10.4 g/dL Critically low 12.0-16.0 [facility] Comment on above: Performed By: #### H H #### [facility] [address] [place] [address] Dr. Papo Swanson MCH (RBC) [Entitic mass] 27.8 pg Normal 26.7-34.0 [facility] Comment on above: Performed By: #### H H #### [facility] [address] [place] [address] Dr. Papo Swanson MCHC (RBC) [Mass/Vol] 33.0 g/dL Normal 29.9-35.2 [facility] Comment on above: Performed By: #### H H #### [facility] [address] [place] [address] Dr. Papo Swanson MCV (RBC) [Entitic vol] 84.2 fL Normal 81.0-99.0 [facility] Comment on above: Performed By: #### H H #### [facility] [address] [address] [address] Papo Swanson PLT 248 103/ul Normal 150-450 [facility] Comment on above: Performed By: #### H H #### [facility] [address] [address] [address] Papo Swanson RBC 3.74 106/ul Critically low 4.20-5.40 [facility] Comment on above: Performed By: #### H H #### [facility] [address] [address] [address] Papo Swanson WBC 7.4 103/ul Normal 4.0-11.0 [facility] Comment on above: Performed By: #### H H #### [facility] [address] [address] [address] Papo Swanson US PREG ANATOMY SINGLEon [...] SHANA ROBLERO Date: 2021-08-21 16:22 Normal The [facility] US PREG CERVICAL LENGTHon US PREG CERVICAL [...] DEON STEINER Date: 2021-08-01 13:33 Normal The [facility] CHLAMYDIA/GONOCOCCUS PRIYA (SW AB/URINE/PAPon 07-28-2021 Chlamydia trachomatis, PRIYA Negative Normal Negative The [facility] Comment on above: Performed By: #### C T/NGNA #### [facility] [address] [place] [address] Dr. Papo Swanson Neisseria gonorrhoeae, PRIYA Negative Normal Negative The [facility] Comment on above: Performed By: #### C T/NGNA #### [facility] [address] [address] [address] Papo Swanson VAGINITIS/VAGINOSIS DNA PROB Anthony 07-27-2021 Zhane species Positive Abnormal Negative [facility] Comment on above: Performed By: #### E RUR #### [facility] [address] [place] [address] Dr. Papo Swanson Gardnerella vaginalis Negative Normal Negative [facility] Comment on above: Performed By: #### E RUR #### [facility] [address] [address] [address] Papo Swanson Trichomonas vaginalis Negative Normal Negative The [facility] Comment on above: Performed By: #### E RUR #### [facility] [address] [place], [place] [id number] Dr. Papo Swanson Vital Signs Date Time Vital Sign Value Performing Clinician Faci timmy 08-17-2024 09:05-0400 Body weight 70.76 kg Nikki Rip DO Work Phone: [facility] 08-17-2024 09:05-0400 Diastolic blood pressure 70 mm[Hg] Nikki Rip DO Work Phone: [facility] 08-17-2024 09:05-0400 Systolic blood pressure 108 mm[Hg] Nikki Rip DO Work Phone: [facility] 08-09-2024 10:02-0400 Body weight 70.22 kg Gabi Jain REPRESENTATIVE [employer] Work Phone: [facility] 08-09-2024 10:02-0400 Diastolic blood pressure 60 mm[Hg] Gabi Jain REPRESENTATIVE [employer] Work Phone: [facility] 08-09-2024 10:02-0400 Systolic blood pressure 100 mm[Hg] Gabi Cristobal REPRESENTATIVE [employer] Work Phone: [facility] 08-02-2024 10:21-0400 Body weight 69.58 kg Nikki Rip DO Work Phone: [facility] 08-02-2024 10:21-0400 Diastolic blood pressure 70 mm[Hg] Nikki Irp DO Work Phone: [facility] 08-02-2024 10:21-0400 Systolic blood pressure 100 mm[Hg] Nikki Rip DO Work Phone: [facility] 07-26-2024 13:55-0400 Body weight 68.95 kg Gaviota CHAIDEZ Work Phone: [facility] 07-26-2024 13:55-0400 Diastolic blood pressure 76 mm[Hg] Gaviota CHAIDEZ Work Phone: [facility] 07-26-2024 13:55-0400 Systolic blood pressure 110 mm[Hg] Gaviota Arvin PA Work Phone: [facility] 07-12-2024 09:23-0400 Body weight 68.04 kg Nikki Rip DO Work Phone: [facility] 07-12-2024 09:23-0400 Diastolic blood pressure 78 mm[Hg] Nikki Rip DO Work Phone: [facility] 07-12-2024 09:23-0400 Systolic blood pressure 104 mm[Hg] Nikki Rip DO Work Phone: [facility] 06-28-2024 15:33-0400 Body weight 67.31 kg Gaviota Arvin PA Work Phone: [facility] 06-28-2024 15:33-0400 Diastolic blood pressure 68 mm[Hg] Gaviota hSeridan PA Work Phone: [facility] 06-28-2024 15:33-0400 Systolic blood pressure 104 mm[Hg] Gaviota Arvin PA Work Phone: [facility] 06-14-2024 13:13-0400 Body weight 65.83 kg Nikki Rip DO Work Phone: [facility] 06-14-2024 13:13-0400 Diastolic blood pressure 70 mm[Hg] Nikki Rip DO Work Phone: [facility] 06-14-2024 13:13-0400 Systolic blood pressure 98 mm[Hg] Nikki Rip DO Work Phone: [facility] 05-27-2024 14:41-0500 Body weight 67.04 kg Gaviota CHAIDEZ Work Phone: [facility] 05-27-2024 14:41-0500 Diastolic blood pressure 64 mm[Hg] Gaviota Arvin PA Work Phone: [facility] 05-27-2024 14:41-0500 Systolic blood pressure 100 mm[Hg] Gaviota Sheridan PA Work Phone: [facility] 04-28-2024 15:17-0500 Body weight 66.13 kg Nikki Rip DO Work Phone: [facility] 04-28-2024 15:17-0500 Diastolic blood pressure 72 mm[Hg] Nikki Irp DO Work Phone: [facility] 04-28-2024 15:17-0500 Systolic blood pressure 100 mm[Hg] Nikki Rip DO Work Phone: [facility] 03-31-2024 16:01-0500 Body weight 63.78 kg Gaviota CHAIDEZ Work Phone: [facility] 03-31-2024 16:01-0500 Diastolic blood pressure 66 mm[Hg] Gaviota CHAIDEZ Work Phone: [facility] 03-31-2024 16:01-0500 Systolic blood pressure 108 mm[Hg] Gaviota CHAIDEZ Work Phone: [facility] 02-25-2024 14:04-0500 Body weight 63.23 kg Nikki Rip DO Work Phone: [facility] 02-25-2024 14:04-0500 Diastolic blood pressure 70 mm[Hg] Nikki Rip DO Work Phone: [facility] 02-25-2024 14:04-0500 Systolic blood pressure 110 mm[Hg] Nikki Rip DO Work Phone: [facility] 01-29-2024 13:30-0500 Body weight 64.41 kg Nom Nurse [facility] 01-29-2024 13:30-0500 Diastolic blood pressure 68 mm[Hg] [facility] Nurse [facility] 01-29-2024 13:30-0500 Systolic blood pressure 112 mm[Hg] Nom Nurse [facility] 05-06-2023 11:05-0500 Body weight 61.69 kg Gaviota CHAIDEZ Work Phone: [facility] 05-06-2023 11:05-0500 Diastolic blood pressure 68 mm[Hg] Gaviota CHAIDEZ Work Phone: [facility] 05-06-2023 11:05-0500 Systolic blood pressure 108 mm[Hg] Gaviota CHAIDEZ Work Phone: [facility] Healthcare Encounters Encounter Date Encounter Type Care Provider Facility Start: 08-17-2024 End: 08-17-2024 Bamboo flowsheet Nikki Rip DO Work Phone: [facility] Start: 08-17-2024 End: 08-17-2024 Bamboo flowsheet Nikki Rip DO Work Phone: [facility] Start: 08-17-2024 End: 08-17-2024 Office outpatient visit 15 minutes Nikki Rip DO Work Phone: [facility] Comment on above: 38 weeks gestation o f ; Third trimester Start: 08-17-2024 End: 08-17-2024 ambulatory NIKKI RIP Not Available Start: 08-10-2024 End: 08-10-2024 Clinisync Result Encounter Nikki Rip DO Work Phone: [facility] External Department Unsolicited Start: 08-10-2024 End: 08-10-2024 Clinisync Result Encounter Nikki Rip DO Work Phone: [facility] External Department Unsolicited Start: 08-09-2024 End: 08-09-2024 Bamboo flowsheet Gabi Cristobal REPRESENTATIVE [employer]LEB[employer]Y SERVICES Work Phone: [facility] Start: 08-09-2024 End: 08-09-2024 Bamboo flowsheet Gabi Cristobal REPRESENTATIVE [employer] Work Phone: [facility] Start: 08-09-2024 End: 08-09-2024 Office outpatient visit 15 minutes Gabi Jain REPRESENTATIVE [employer] Work Phone: [facility] Comment on [...] visit 15 minutes Gaviota CHAIDEZ Work Phone: [facility] Comment on above: 31 weeks gestation o f ; Third trimester ; HSV infection; Low iron; Drug-induced constipation Start: 06-28-2024 End: 06-28-2024 ambulatory GAVIOTA SHERIDAN Not Available Start: 06-14-2024 End: 06-14-2024 Bamboo flowsheet Nikki Rip DO Work Phone: [facility] Start: 06-14-2024 End: 06-14-2024 Bamboo flowsheet Nikki Rip DO Work Phone: [facility] Start: 06-14-2024 End: 06-14-2024 Office outpatient visit 15 minutes Nikki Rip DO Work Phone: [facility] Comment on above: Third trimester preg isi; 28 weeks gestation of ; size inconsistent with dates Start: 06-14-2024 End: 06-14-2024 ambulatory NIKKI RIP Not Available Start: 05-27-2024 End: 05-27-2024 Office outpatient visit 15 minutes Gaviota CHAIDEZ Work Phone: [facility] Comment on above: Low iron; 26 weeks gestation of ; Second trimester Start: 05-27-2024 End: 05-27-2024 ambulatory GAVIOTA SHERIDAN Not Available Start: 05-27-2024 End: 05-27-2024 Bamboo flowsheet Gaviota CHAIDEZ Work Phone: [facility] Start: 05-27-2024 End: 05-27-2024 Bamboo flowsheet Gaviota CHAIDEZ Work Phone: [facility] Start: 05-25-2024 End: 05-25-2024 Clinisync Result Encounter Nikki Rip DO Work Phone: [facility] External Department Unsolicited Start: 05-25-2024 End: 05-25-2024 Clinisync Result Encounter Nikki Rip DO Work Phone: [facility] External Department Unsolicited Start: 05-19-2024 End: 05-19-2024 [...] 15 minutes Nikki Rip DO Work Phone: [facility] Comment on above: Second trimester pre gnancy; 22 weeks gestation of ; Diabetes mellitus screening Start: 04-28-2024 End: 04-28-2024 Bamboo flowsheet Nikki Rip DO Work Phone: [facility] Start: 04-28-2024 End: 04-28-2024 Bamboo flowsheet Nikki Rip DO Work Phone: [facility] Start: 03-31-2024 End: 03-31-2024 Patient encounter procedure Gaviota CHAIDEZ Work Phone: [facility] Healthcare Start: 03-31-2024 End: 03-31-2024 Periodic preventive med est patient 18-39 yrs Gaviota CHAIDEZ Work Phone: [facility] Comment on above: Second trimester [...] 01-21-2024 End: 01-21-2024 Emergency department patient visit [facility] Start: 01-21-2024 End: 01-21-2024 Emergency department patient visit [facility] Start: 05-06-2023 Clinisync Result Encounter Nikki Erwin DO Work Phone: [facility] External Department Unsolicited Start: 05-06-2023 Clinisync Result Encounter Nikki Clayo DO Work Phone: [facility] Unsolicited Start: 05-06-2023 End: 05-06-2023 Postop follow up visit related to original px Gaviota CHAIDEZ Work Phone: [facility] Comment on above: Third trimester preg isi Start: 07-10-2022 End: 07-11-[address] DOCTOR BURTON Facility: Start: 12-26-2021 End: 12-28-2021 Evaluation and management of inpatient DR DOCTOR BURTON Facility: Start: 12-21-2021 End: 12-22-[address] NIKKI ERWIN . Facility: Start: 12-12-2021 End: 12-12-[address] NIKKI ERWIN . Facility:[facility] Start: 10-16-2021 End: 10-17-[address] NIKKI ERWIN . Facility:[facility] Start: 08-21-2021 End: 08-22-[address] NIKKI ERWIN . Facility: Start: 08-01-2021 End: 08-02-[address] NIKKI ERWIN . Facility: Start: 07-25-2021 End: 07-25-[address] NIKKI ERWIN . Facility: Procedures Date Procedure Procedure Detail Performing Clinician Start: 08-17-2024 Urnls dip stick/tabl et rgnt non-auto w/o micrscp Nikki Rip DO Work Phone: Start: 08-10-2024 [facility] UA (CLEAN/CATCH) CAD DESIGNER DRAFTER/MICRO IF IND. Nikki Clayo DO Work Phone: Start: 08-09-2024 Urnls dip stick/tabl et rgnt non-auto w/o micrscp Gabi Jain REPRESENTATIVE [employer]Y SERVICES Work Phone: Start: 08-02-2024 Urnls dip stick/tabl [...] Influenza vaccination Influenz a Vaccine (Season Ended) [facility] Start: 08-17-2024 End: 08-17-2024 Patient encounter procedure [facility] Comment on above: Arrived Start: 08-09-2024 End: 08-09-2024 Patient encounter procedure [facility] Comment on above: Arrived Start: 08-02-2024 End: 08-02-2025 CULTURE, GROUP B STREP WITH SUSCEPTIBLITY CULTURE, GROUP B STREP WITH SUSCEPTIBLITY Lab Routine Third trimester Expected: 08/02/2024, Expires: 08/02/2025 [facility] Work Phone: Comment on above: Expected: 08/02/2024 , Expires: 08/02/2025 Start: 08-02-2024 End: 08-02-2024 Patient encounter procedure 08/02/2024 10:00 AM EDT Office Visit [facility] [address] [place] [address] Nikki Erwin, DO [address], [place] [address] [facility] Start: 07-28-2024 End: 07-28-2024 Professional / ancillary services management 07/28/2024 8:00 AM EDT Ancillary Procedure [facility] [address] [place] [address] [facility] Start: 07-26-2024 End: 11-26-2024 US for US OB follow up transabdominal approach Imaging Routine SGA (small for gestational age) Expected: 07/26/2024, Expires: 11/26/2024 [facility] Work Phone: Comment on above: Expected: 07/26/2024 , Expires: 11/26/2024 Start: 07-26-2024 End: 07-26-2024 Patient encounter procedure [facility] Comment on above: Arrived Start: 07-12-2024 End: 07-12-2024 Patient encounter procedure [facility] Comment on above: Arrived Start: 06-28-2024 End: 06-28-2024 Patient encounter procedure 06/28/2024 3:30 PM EDT Routine [facility] [address] [id number] Gaviota Sehridan PA [address] [place] [address] [facility] Start: 06-28-2024 End: 06-28-2024 Professional / ancillary services management 06/28/2024 3:00 PM EDT Ancillary Procedure [facility] [address] [place] [address] [facility] Start: 06-14-2024 End: 06-14-2025 [...] PM EST Routine [facility] [address] [place] [address] Nikki Erwin DO [address] [place] [address] [facility] Start: 04-28-2024 End: 04-28-2025 [...] mellitus screening Expected: 04/28/2024 (Approximate), Expires: 04/28/2025 [facility] Comment on above: Expected: 04/28/2024 (Approximate), Expires: 04/28/2025 Start: 03-31-2024 End: 03-31-2024 Patient encounter procedure [facility] Comment on above: Arrived Start: 03-31-2024 End: 09-28-2024 Alpha fetoprotein, maternal Alpha fetoprotein, maternal Lab Routine Second trimester 17 weeks gestation of Expected: 03/31/2024 (Approximate), Expires: 09/28/2024 [facility] Comment on above: Expected: 03/31/2024 (Approximate), Expires: 09/28/2024 Start: 03-31-2024 End: 03-31-2025 US for US OB 14+ weeks anatomy scan Imaging Routine Screening, , for anatomic survey Expected: 03/31/2024, Expires: 03/31/2025 [facility] Comment on above: Expected: 03/31/2024 , Expires: 03/31/2025 Start: 02-25-2024 End: 02-25-2024 Patient encounter procedure 02/25/2024 1:40 PM EST Routine [facility] [address] [place] [address] Nikki Erwin, [address] [place] [address] [facility] Start: 01-29-2024 End: 01-28-2025 ABO/Rh ABO/Rh Lab Routine Missed menses , unspecified gestational age Expected: 01/29/2024 (Approximate), Expires: 01/28/2025 [facility] Comment on above: Expected: 01/29/2024 (Approximate), Expires: 01/28/2025 Start: 01-29-2024 End: 01-28-2025 Blood type and Indirect antibody screen panel - Blood Type and screen Lab Routine Missed menses , unspecified gestational age Expected: 01/29/2024 (Approximate), Expires: 01/28/2025 [facility] Work Phone: Comment on above: Expected: 01/29/2024 (Approximate), Expires: 01/28/2025 Start: 01-29-2024 End: 01-28-2025 Drugs of abuse panel - Urine by Screen method Rapid drug screen, urine Lab Routine , unspecified gestational age Encounter for supervision of normal first in first trimester Expected: 01/29/2024 (Approximate), Expires: 01/28/2025 [facility] Comment on above: Expected: 01/29/2024 (Approximate), Expires: 01/28/2025 Start: 01-29-2024 End: 01-28-2025 US Pelvis transvaginal US OB transvaginal Imaging Routine Missed menses Expected: 01/29/2024 (Approximate), Expires: 01/28/2025 [facility] Comment on above: Expected: 01/29/2024 (Approximate), Expires: 01/28/2025 Start: 11-23-2023 Influenza vaccination Influenza Vacc ine (#1) [facility] Start: 05-20-2023 End: 05-20-2023 Patient encounter procedure 05/20/2023 10:00 AM EST Routine [facility] [address] [place] [phone] Nikki Erwin, [address] [place] [address] [facility] Start: 05-06-2023 End: 05-06-2023 Patient encounter procedure 05/06/2023 11:20 AM EST Routine [facility] [address] [place] [address] Gaviota Sheridan PA [address] [place] [address] [place] [address] Third trimester [facility] Comment on above: Third trimester preg isi Bacteria identified in Urine by Culture Urine culture Microbiology Routine Missed menses Ordered: 01/29/2024 [facility] Comment on above: Ordered: 01/29/2024 Bacteria identified in Urine by Culture Urine culture Microbiology Routine 36 weeks gestation of Third trimester Ordered: 08/02/2024 [facility] Comment on above: Ordered: 08/02/2024 CBC W Auto Different ial panel - Blood CBC and differential Lab Routine Missed menses , unspecified gestational age Ordered: 01/29/2024 [facility] Comment on above: Ordered: 01/29/2024 CHLAMYDIA TRACHOMATI S (GENITO/STI) CHLAMYDIA TRACHOMATIS (GENITO/STI) Lab Routine STD exposure Ordered: 03/31/2024 [facility] Comment on above: Ordered: 03/31/2024 Cytology Cervical or vaginal smear or scraping study Pap Smear Pathology and Cytology Routine Well woman exam with routine gynecological exam Ordered: 03/31/2024 [facility] Comment on above: Ordered: 03/31/2024 Hemoglobin A1c/Hemoglobin.total in Blood Hemoglobin A1c Lab Routine Missed menses , unspecified gestational age Ordered: 01/29/2024 [facility] Comment on above: Ordered: 01/29/2024 Hepatitis B virus surface Ag [Presence] in Serum or Plasma by Immunoassay Hepatitis B surface antigen Lab Routine Missed menses , unspecified gestational age Ordered: 01/29/2024 [facility] Comment on above: Ordered: 01/29/2024 Hepatitis C virus Ab [Presence] in Serum or Plasma by Immunoassay Hepatitis C antibody Lab Routine Missed menses , unspecified gestational age Ordered: 01/29/2024 [facility] Comment on above: Ordered: 01/29/2024 HIV-1/HIV-2 antigen/antibody combination immunoassay HIV-1 and HIV-2 antibodies Lab Routine Missed menses , unspecified gestational age Ordered: 01/29/2024 [facility] Comment on above: Ordered: 01/29/2024 Neisseria gonorrhoea e DNA [Presence] in Unspecified specimen by PRIYA with probe detection Neisseria gonorrhea DNA probe, direct Lab Routine STD exposure Ordered: 03/31/2024 [facility] Comment on above: Ordered: 03/31/2024 Reagin Ab [Presence] in Serum by RPR RPR Lab Routine Missed menses , unspecified gestational age Ordered: 01/29/2024 [facility] Comment on above: Ordered: 01/29/2024 Rubella antibody, IgG Rubella an tibody, IgG Lab Routine Missed menses , unspecified gestational age Ordered: 01/29/2024 [facility] Comment on above: Ordered: 01/29/2024 SURESWAB(R) ADVANCED VAGINITIS PLUS, TMA SURESWAB(R) ADVANCED VAGINITIS PLUS, TMA Pathology and Cytology Routine Vaginal discharge Ordered: 03/31/2024 [facility] Work Phone: Comment on above: Ordered: 03/31/2024 Payers Date Payer Category Payer Worker's Compensation [id number] 2022 Medicaid [id number] 2022 Medicaid [id number] 2001 Unknown [id number] 2.16.84 0.1.892761.3.579.2.593 2001 Unknown [id number] 2.16.84 0.1.620927.3.579.2.593 2001 Unknown [id number] 2.16.84 0.1.772760.3.579.2.593 2001 Unknown [id number] 2.16.84 0.1.001952.3.579.2.593 2001 Unknown [id number] 2.16.84 0.1.093323.3.579.2.593 2001 Unknown [id number] 2.16.84 0.1.674447.3.579.2.593 2001 Unknown [id number] 2.16.84 0.1.764150.3.579.2.593 2001 Unknown [id number] 2.16.84 0.1.049159.3.579.2.593 2001 Unknown [id number] 2.16.8 40.1.765743.3.579.2.1286 2001 Unknown [id number] 2.16.8 40.1.321796.3.579.2.1286 2001 Unknown [id number] 2.16.84 0.1.291713.3.579.2.1259 2001 Unknown [id number] 2.16.84 0.1.444168.3.579.2.1259 2001 Unknown [id number] 2.16.84 0.1.771333.3.579.2.1259 2001 Unknown [id number] 2.16.84 0.1.742974.3.579.2.1259 2001 Unknown [id number] 2.16.84 0.1.801622.3.579.2.1259 2001 Unknown [id number] 2.16.84 0.1.449360.3.579.2.1259 2001 Unknown [id number] 2.16.84 0.1.355868.3.579.2.1259 2001 Unknown [id number] 2.16.84 0.1.435919.3.579.2.1259 2001 Unknown [id number] 2.16.84 0.1.200517.3.579.2.1259 2001 Unknown [id number] 2.16.84 0.1.244348.3.579.2.1259 2001 Unknown [id number] 2.16.84 0.1.881712.3.579.2.1259 2001 Unknown [id number] 2.16.84 0.1.594133.3.579.2.1259 2001 Unknown [id number] 2.16.84 0.1.572351.3.579.2.1259 2001 Unknown [id number] 2.16.84 0.1.003413.3.579.2.1259 1959 Unknown [id number] Social History Date Type Detail Facility Tobacco smoking stat [facility] Tobacco smoking consumption unknown [facility] Start: 11-05-2022 [facility] Start: 2001 Sex Assigned At Not on file [facility] Gender identity Not on file [facility] Clinical Notes 05-06-2023 to 08-17-2024 Aylintrino Cummings, AUTO APPRENTICE MECHANIC - 08/17/2024 9:00 AM EDTGabi Jain, DWIGHT - 08/09/2024 10:00 AM EDWiliam Patel, AUTO APPRENTICE MECHANIC - 08/02/2024 10:00 AM DM Garcia - 07/26/2024 1:50 PM EDT Note Date & Type Note Facility 08-17-2024 History of Presen t illness Narrative Reason [...] nursing note reviewed. Exam conducted with a box stapler present. Vitals: There is no height or weight on file to calculate BMI. BP: 108/70 Patient's last menstrual period was 11/24/2023. ASSESSMENT & PLAN ICD-10-CM 1. 38 weeks gestation of Z3A.38 POCT urinalysis dipstick manually resulted 2. Third trimester Z34.93 POCT urinalysis dipstick manually resulted Return OB: Patient presents today for a routine obstetrics appointment. Patient is currently 38w1d . Patient states she is doing well but has complaints of being tired due to current . Patient has verbalizes frequent movement. labor precautions was discussed/given and patient was instructed to perform kick counts three times a day. Pt has complaints of pelvic pressure and back pain addressed issues, pt being induced 08/23/24- pitocin. Pt to return for - consents signed and faxed over. Orders Placed This Encounter Procedures POCT urinalysis dipstick manually resulted Follow Up: Patient is to return to office in 1 week for routine OB appointment. Documented by Aylin Cummings LPN on behalf of: Nikki Erwin DO documented in this encounter [facility] 08-09-2024 History of Presen t illness Narrative [...] nursing note reviewed. Exam conducted with a box stapler present. Vitals: There is no height or [...] Gabi Jain NP documented in this encounter [facility] 08-02-2024 History of Presen t illness Narrative [...] nursing note reviewed. Exam conducted with a box stapler present. Vitals: There is no height or [...] Nikki Erwin DO documented in this encounter [facility] 07-26-2024 History of Presen t illness Narrative [...] of: DM Chang documented in this encounter [facility] 07-12-2024 History of Presen t [...] nursing note reviewed. Exam conducted with a box stapler present. Vitals: There is no height or [...] Nikki Erwin DO documented in this encounter [facility] 06-28-2024 History of Presen t [...] nursing note reviewed. Exam conducted with a box stapler present. Vitals: There is no height or [...] of: DM Chang documented in this encounter [facility] 06-14-2024 History of Presen t [...] nursing note reviewed. Exam conducted with a box stapler present. Vitals: There is no height or [...] Nikki Erwin DO documented in this encounter [facility] 05-27-2024 History of Presen t [...] nursing note reviewed. Exam conducted with a box stapler present. Vitals: There is no height or [...] of: DM Chang documented in this encounter [facility] 04-28-2024 History of Presen t [...] nursing note reviewed. Exam conducted with a box stapler present. Vitals: There is no height or [...] Nikki Erwin DO documented in this encounter [facility] 03-31-2024 History of Presen t [...] obtained without difficulty and patient was given msAFP order to have obtained. Orders Placed This Encounter Procedures US OB 14+ weeks anatomy scan CHLAMYDIA TRACHOMATIS (GENITO/STI) Neisseria gonorrhea DNA probe, direct Alpha fetoprotein, maternal POCT urinalysis dipstick manually resulted Follow Up: Patient is to return to our office in 4 weeks for routine OB appointment Documented by Katharina Patel LPN on behalf of: DM Chang documented in this encounter [facility] 02-25-2024 History of Presen t [...] nursing note reviewed. Exam conducted with a box stapler present. Vitals: There is no height or [...] or undercooked meat, and stay away from [facility]. Patient has been consulted regarding any further do's and don'ts of . Patient voiced understanding and all questions and concerns were answered. Orders Placed This Encounter Procedures POCT urinalysis dipstick manually resulted Follow Up: Patient is to return in 4 weeks for routine OB appointment. Documented by Aylin Cummings LPN on behalf of: Nikki Erwin DO documented in this encounter [facility] 01-29-2024 History of Presen t [...] or undercooked meat, and stay away from [facility]. Patient has also been advised to [...] Mary Flores MA documented in this encounter [facility] 05-06-2023 History of Presen t [...] gestation of SGA (small for gestational age) [id number] without mention of malnutrition, unspecified (weight) [facility] Diagnosis 36 weeks gestation of Third trimester state, incidental [facility] Diagnosis 37 weeks gestation of Third trimester state, incidental [facility] Diagnosis 38 weeks gestation of Third trimester state, incidental documented in this encounter [facility] Summary Purpose Family History No Family History Records FoundNo Family History Records FoundNo Family History Records Found Advance Directives No Advanced Directives Records FoundNo Advanced Directives Records FoundNo Advanced Directives Records Found Additional Source Comments INFORMATION SOURCE (unrecogn ized section and content) DATE CREATED AUTHOR 07/13/2022 [facility] DATE CREATED AUTHOR AUTHOR'S ORGANIZ ATION 01/23/2024 [facility] DATE CREATED AUTHOR AUTHOR'S ORGANIZ ATION 08/20/2024 [facility] EPIC Reason for Visit (unrecogniz ed section and content) Reason Comments Routine Visit Reason Comments Amenorrhea Reason Comments Well Women Visit Routine Visit STI Screening Care Teams (unrecognized sec tion and content) Telesales Specialist Relationship Specialty Start Date End Date Nikki Erwin, DO [address] [place] [address] PCP Mónica Chang [facility] 12/23/23 Telesales Specialist Relationship Specialty Start Date End Date Nikki Erwin, DO [facility] [place] [address] PCP Mónica Chang [facility] 12/23/23 Telesales Specialist Relationship Specialty Start Date End Date Nikki Erwin, DO [facility] [place] [address] PCP - [facility] 12/23/23 Telesales Specialist Relationship Specialty Start Date End Date Rip, Nikki, DO [address] [place] [address] PCP - [facility] 12/23/23 Telesales Specialist Relationship Specialty Start Date End Date Rip, Nikki, DO [address] [place] [address] PCP - [facility] 12/23/23 Telesales Specialist Relationship Specialty Start Date End Date Rip, Nikki, DO [address] [place], [place] [address] [address] PCP - [facility] 12/23/23 Telesales Specialist Relationship Specialty Start Date End Date Rip, Nikki, [place] [address] PCP - [facility] 12/23/23 Telesales Specialist Relationship Specialty Start Date End Date Rip, Nikki, [place] [address] PCP - [facility] 12/23/23 Telesales Specialist Relationship Specialty Start Date End Date Rip, Nikki, DO [address] [place], [place] [address] [address] PCP - [facility] 12/23/23 Telesales Specialist Relationship Specialty Start Date End Date Rip, Nikki, [place] [address] PCP - [facility] 12/23/23 Telesales Specialist Relationship Specialty Start Date End Date Rip, Nikki, DO [address] [place] [address] PCP - [facility] 12/23/23 Telesales Specialist Relationship Specialty Start Date End Date Nikki Erwin, [address] [place] [address] PCP - [facility] 12/23/23 Telesales Specialist Relationship Specialty Start Date End Date Nikki Erwin, [address] [place] [address] PCP - [facility] 12/23/23 FOR RECORDS PERTAINING TO PATIENTS [...] BE BASED ON THE PRIMARY CLINICAL RECORDS. [facility], [facility]. provides no warranty or guarantee of the accuracy or completeness of information in this document.
[2024-08-21 10:56] LABS: Bilirubin Urine NEGATIVE (NEGATIVE); Blood Urine TRACE-I (NEGATIVE); Clarity Urine SL CLOUDY (CLEAR); Color Urine LT. YELLOW (YELLOW); Glucose Urine UA NEGATIVE (NEGATIVE); Ketones Urine NEGATIVE (NEGATIVE); Leukocyte Esterase Urine MODERATE (NEGATIVE); Nitrite Urine NEGATIVE (NEGATIVE); Protein Urine TRACE mg/dL (NEG/TRACE); Specific Gravity Urine 1.025 (1.005-1.025); Urobilinogen Urine 0.2 EU/dL (0.2-1.0)
[2024-08-21 11:06] LABS: Cannabinoid Screen Urine NEGATIVE (NEGATIVE); Cocaine Screen Urine NEGATIVE (NEGATIVE); Phencyclidine Screen Urine NEGATIVE (NEGATIVE)
[2024-08-21 11:07] LABS: Amphetamine Screen Urine NEGATIVE (NEGATIVE); Barbiturates Screen Urine NEGATIVE (NEGATIVE); Benzodiazepines Screen Urine NEGATIVE (NEGATIVE); Buprenorphine Screen Urine NEGATIVE (NEGATIVE); Methadone Screen Urine NEGATIVE (NEGATIVE); Methamphetamines Screen Urine NEGATIVE (NEGATIVE); Opiate Screen Urine NEGATIVE (NEGATIVE); Oxycodone Screen Urine NEGATIVE (NEGATIVE); Tricyclic Antidepressant Urine NEGATIVE (NEGATIVE); Urine Microscopic Indicated YES
[2024-08-21 11:14] LABS: Bacteria Urine SMALL #/HPF (NONE SEEN); Cast Seen? NONE SEEN #/LPF (NONE SEEN); Crystals Seen? None Seen #/HPF (None Seen); Mucus Urine NONE SEEN (NONE SEEN); RBC Urine 0-2 #/HPF (0-2); Squamous Epithelial Cell Urine MANY #/LPF (NONE/RARE); Urine Culture Indicated YES-LC
[2024-08-21 11:37] LABS: Hematocrit 30.4 % (36.0-48.0); Mean Corpuscular HGB Conc 32.9 g/dL (29.9-35.2); Mean Corpuscular Hemoglobin 26.3 pg (26.7-34.0); Mean Platelet Volume 12.1 fL (9.5-13.5); Platelet Count 187 10^3/uL (150-450); White Blood Count 7.4 10^3/uL (4.0-11.0)
--- NOTE | 2024-08-21 12:17 | P.OBHP_ITS ---
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) Labs Blood type: O (+) positive Rubella: immune RPR/VDLR: nonreactive GBS status: negative HBsAG: negative Review of Systems ROS Status of ROS: 10 or more systems reviewed and unremarkable except as noted in history and below [facility] Social History Highest level of school completed/degree received: high school graduate Little interest or pleasure in doing things: not at all Feeling down, depressed, or hopeless: not at all Meds Home Medications and Allergies Home Medications ?Medication ?Instructions ?Recorded ?Confirmed ?Type ibuprofen 800 mg tablet 800 mg PO Q8H PRN Moderate P ain 30 07/10/23 Rx days #60 tabs Allergies Allergy/AdvReac Type Severity Reaction Status Date / Time No Known Drug Allergies Allergy Verified 07/08/23 13:17 Exam Constitutional Vital Signs, click to edit/add: Last Vital Signs Temp 98.7 F 08/21/24 11:59 Pulse 73 08/21/24 12:00 Resp 16 08/21/24 11:59 BP 118/88 08/21/24 12:00 O2 Del Method Room Air 08/21/24 11:41 Common normals: oriented x3, healthy appearing and alert [facility] Common normals: normocephalic GI Inspection: normal to inspection (gravid) Other: cervix - on admission 4cm, now 6cm/100, -2 station, bulging bag NST - reactive contractions - 2-4min Extremity Common normals: normal to inspection Neuro Common normals: oriented x3 Psych Common normals: mental status grossly normal Results Labs Labs: Short CBC 08/21/24 Range/Units 11:19 WBC 7.4 (4.0-11.0) 10^3/uL Hgb 10.0 L (12.0-16.0) g/dL Hct 30.4 L (36.0-48.0) % Plt Count 187 (150-450) 10^3/uL Urine 08/21/24 Range/Units 10:20 Urine Color Lt. yellow (YELLOW) Urine Clarity Sl cloudy (CLEAR) Urine pH 6.0 (5.0-9.0) Ur Specific [place] 1.025 (1.005-1.025) Urine Protein Trace (NEG/TRACE) mg/dL Urine Glucose (UA) Negative (NEGATIVE) mg/dL OB - A/P Assessment and Plan (1) Term : Assessment and Plan: Expectant management OK for amniotomy with patient request
--- NOTE | 2024-08-21 12:24 | PM.OBPNL ---
Pain Control Pain control: tolerating well Pelvic Exam Dilation (cm): 6 Effacement (%): 100 Contractions Monitor mode: External station: -2 Amniotic membrane status: Intact Assessment and Plan Assessment: active labor Plan: continuous present management
[2024-08-21] MEDS: OXYTOCIN/0.9 % SODIUM CHLORIDE 20 UNITS/1,000 ML PLAST..BAG 125 UNIT IV (12:57)
[2024-08-21] MEDS: LIDOCAINE HCL 1% 200 MG/20 ML MDV INJ (13:01)
--- NOTE | 2024-08-21 13:06 | PM.OBPRCVD ---
Procedure Intrapartal events: None Induction method: none Delivery monitor: external FHT and external uterine Route of delivery: Episiotomy Description: none L&D Laceration Description: perineal - 1st degree Delivery repair: Vicryl (3-O Vicryl) Estimated blood loss (mL): 150 Anesthesia type: Local Disposition: no change Complications: VTX delivered LOP, tight nuchal cord x1 cut at perineum, left arm cord - loose, remaining delivery unremarkable Cord blood obtained Infant Delivery date: 08/21/24 Gender: female presentation: vertex Placental delivery description: Expressed and Normal Configuration cord description: 3 Vessels, Nuchal Cord, Tight and Around Extremity x1 (left arm loose) heart rate - 1 minute: 100 bpm or Greater respiratory effort - 1 minute: Spontaneous/Strong Cry muscle tone - 1 minute: Active Movement reflex response - 1 minute: Prompt Response color - 1 minute: Bluish Hands or Feet total score - 1 minute: 9 heart rate - 5 minute: 100 bpm or Greater respiratory effort - 5 minute: Spontaneous/Strong Cry muscle tone - 5 minute: Active Movement reflex response - 5 minute: Prompt Response color - 5 minute: Bluish Hands or Feet total score - 5 minute: 9
[2024-08-21 14:53] LABS: Basophils Percent Auto 0.2 % (0.2-2.0); Eosinophils Percent Auto 0.2 % (0.9-7.0); Hematocrit 29.4 % (36.0-48.0); Hemoglobin 9.8 g/dL (12.0-16.0); Immature Granulocytes Abs Auto 0.04 10^3/uL (0.00-0.03); Immature Granulocytes Pct Auto 0.4 % (0.0-0.5); Lymphocytes Percent Auto 10.6 % (20.5-60.0); Mean Corpuscular HGB Conc 33.3 g/dL (29.9-35.2); Mean Corpuscular Hemoglobin 26.6 pg (26.7-34.0); Mean Corpuscular Volume 79.9 fL (81.0-99.0); Mean Platelet Volume 11.8 fL (9.5-13.5); Monocytes Absolute Auto 0.4 10^3/uL (0.3-0.8); Monocytes Percent Auto 4.2 % (1.7-12.0); Neutrophils Absolute Auto 8.1 10^3/uL (1.4-6.5); Neutrophils Percent Auto 84.4 % (43.0-75.0); Platelet Count 189 10^3/uL (150-450); Red Blood Count 3.68 10^6/uL (4.20-5.40); White Blood Count 9.6 10^3/uL (4.0-11.0)
[2024-08-21] MEDS: BENZOCAINE/MENTHOL 85 GRAM SPRAY BOTTLE 1 APPLIC TOPICAL (15:48)
[2024-08-21] MEDS: GLYCERIN/WITCH HAZEL PADS 1 PAD TOPICAL (15:48)
[2024-08-22 00:30] VITALS: BP 115/71; PULSE 63; TEMP 37
[2024-08-22] MEDS: IBUPROFEN 600 MG TABLET PO (04:50)
--- NOTE | 2024-08-22 08:46 | P.OBPN_ITS ---
OB - PN: Subj Subjective Patient comments: no complaints Narrative: Requesting discharge today Exam Constitutional Vital Signs, click to edit/add: Last Vital Signs Temp 98.6 F 08/22/24 00:30 Pulse 63 08/22/24 00:30 Resp 16 08/22/24 00:30 BP 115/71 08/22/24 00:30 O2 Del Method Room Air 08/22/24 00:30 Common normals: no apparent distress GI Common normals: soft to palpation and non-tender Inspection: normal to inspection Other: Fundus - firm below umbilicus Other: perineum - minimal bleeding Extremity Common normals: full ROM Neuro Common normals: oriented x3 Psych Common normals: mental status grossly normal Results Labs Labs: Short CBC 08/21/24 08/21/24 Range/Units 11:19 14:36 WBC 7.4 9.6 (4.0-11.0) 10^3/uL Hgb 10.0 L 9.8 L (12.0-16.0) g/dL Hct 30.4 L 29.4 L (36.0-48.0) % Plt Count 187 189 (150-450) 10^3/uL Urine 08/21/24 Range/Units 10:20 Urine Color Lt. yellow (YELLOW) Urine Clarity Sl cloudy (CLEAR) Urine pH 6.0 (5.0-9.0) Ur Specific [place] 1.025 (1.005-1.025) Urine Protein Trace (NEG/TRACE) mg/dL Urine Glucose (UA) Negative (NEGATIVE) mg/dL OB - PN: A/P Assessment and Plan (1) Term : Plan OK for discharge Motrin 600mg Rx written to call Dr Erwin office for follow up Plan - Vaginal Delivery day: 1 Plan: discharge home Time Spent with Patient Time: Total time spent is greater than 50% in coordination of care (as documented) at patient's floor/unit and/or counseling patient: Total time spent with greater than 50% in coordination of care (as documented) at patient's floor/unit and/or counseling patient: less than 15 minutes
--- NOTE | 2024-08-22 08:52 | P.DS_ITS ---
DS: Providers Provider Date of admission: 08/21/24 11:00 Primary care physician: Non-Staff PhysicianMD Admitting clinician: Davida Espinal Attending physician on admission: Rubén Erwin Attending physician on discharge: Rubén Erwin Discharging clinician: Davida Espinal Anticipated date of discharge: 08/22/24 DS: Diagnosis Discharge Diagnosis (1) Term : Plan Home OB - DS: Summary Hospital Course Hospital Course: normal course Complications complications: none Infant Delivery method: spontaneous vaginal delivery Gender: female Discharge plan: home Status at Discharge Functional status at discharge: independent ambulation Overall status at discharge: patient is progressing back to baseline Time Spent with Patient Time attestation: Total time spent providing and/or coordinating discharge services: Time spent: less than 30 minutes Exam Constitutional Vital Signs, click to edit/add: Last Vital Signs Temp 98.6 F 08/22/24 00:30 Pulse 63 08/22/24 00:30 Resp 16 08/22/24 00:30 BP 115/71 08/22/24 00:30 O2 Del Method Room Air 08/22/24 00:30 DS: Data Data Completed and Pending Labs on day of discharge: Labs from last 24 hours 08/21/24 08/21/24 08/21/24 14:36 11:19 10:20 WBC 9.6 7.4 RBC 3.68 L 3.80 L Hgb 9.8 L 10.0 L Hct 29.4 L 30.4 L MCV 79.9 L 80.0 L MCH 26.6 L 26.3 L MCHC 33.3 32.9 RDW 14.0 14.0 Plt Count 189 187 MPV 11.8 12.1 Neut % (Auto) 84.4 H Lymph % (Auto) 10.6 L [place] % (Auto) 4.2 Eos % (Auto) 0.2 L Baso % (Auto) 0.2 Neut # (Auto) 8.1 H Lymph # (Auto) 1.0 L [place] # (Auto) 0.4 Eos # (Auto) 0.0 Baso # (Auto) 0.0 Abs Immat Gran (auto) 0.04 H Imm/Tot Granulo (auto) 0.4 Urine Color Lt. yellow Urine Clarity Sl cloudy Urine pH 6.0 Ur Specific [place] 1.025 Urine Protein Trace Urine Glucose (UA) Negative Urine Ketones Negative Urine Occult Blood Trace-i Urine Nitrite Negative Urine Bilirubin Negative Urine Urobilinogen 0.2 Ur Leukocyte Esterase Moderate A Urine RBC 0-2 Urine WBC 10-20 A Ur Squamous Epith Cells Many A Urine Crystals None seen Urine Bacteria Small A Urine Casts None seen Urine Mucus None seen Ur Culture Indicated? Yes-lc Urine Opiates Screen Negative Ur Buprenorphine Scrn Negative Ur Oxycodone Screen Negative Urine Methadone Screen Negative Ur Barbiturates Screen Negative U Tricyclic Antidepress Negative Ur Phencyclidine Scrn Negative Ur Amphetamines Screen Negative U Methamphetamines Scrn Negative U Benzodiazepines Scrn Negative Urine Cocaine Screen Negative U Cannabinoids Screen Negative Blood Type O Positive Antibody Screen Negative Discharge Plan Discharge Disposition: Home, Self-Care Discharge Medications: Continued ibuprofen 800 mg tablet 800 mg PO Q8H PRN (Reason: Moderate Pain) 30 Days Qty: 60 0RF Activity: increase activity as tolerated Diet: advance to your usual diet Print Language: Algerian Forms: Portal Instructions Follow Up Appointments: to call Dr Erwin's office for follow up care
[2024-08-22 09:04] VITALS: BP 111/76; PULSE 59
[2024-08-22 09:06] VITALS: TEMP 36.7
[2024-08-22] MEDS: DOCUSATE SODIUM 100 MG CAPSULE PO (09:13)
== END 2024-08-22 15:25 | disposition home or self-care (01) | DRG 560 ==
PROVIDERS: Admitting Provider Obstetrics & Gynecology Gynecology; Visit Provider Obstetrics & Gynecology Gynecology
DX: O69.81X0 Labor and delivery complicated by cord around neck, without compression, not applicable or unspecified (principal); O70.0 First degree perineal laceration during delivery; Z3A.38 38 weeks gestation of pregnancy; Z37.0 Single live birth
CPT/HCPCS: 36415; 59025; 59050; 59410; 80307; 81001; 84112; 85025; 85027; 86850; 86900; 86901; 87086